=== PATIENT | female | born 1950 | race Caucasian/White ===

== ENCOUNTER 2016-11-15 15:46 | Inpatient (IN) ==
[2016-11-15] MEDS ORDERED: ASPIRIN PO STA (15:49)
[2016-11-15] MEDS ORDERED: NITROGLYCERIN SL PRN (15:49)
--- NOTE | 2016-11-15 15:58 | ED EKG INTERP ---
EKG Interpretation - EKG Time of EKG reading by physician:: 15:48 EKG Read and Signed by:: Seamus Bradley EKG Interpretation (*Must complete 3 of following elements*): Abnormal (ST and T wave abnormality, consider anterior ischemia) Rate: 100 Rhythm: accelerated junctional rhythm Comments: ST and T wave abnormality, consider inferior ischemia Attestation - Scribe Verification/Attestation Scribe:: Destiny Garcia Acting as Scribe for:: Seamus Bradley Scribe documention review:: This chart was documented by a scribe and accurately reflects the service the provider performed and the decisions made by the provider.
[2016-11-15 16:12] LABS: MANUAL DIFF NEEDED? NO
[2016-11-15 16:25] LABS: BASO% 0.9 % (0.0-0.8); EOS# 0.78 X1000 (0.0-0.7); EOS% 7.7 % (0.0-10.0); HEMOGLOBIN 13.4 g/dL (12.0-16.0); LYMPH# 2.54 X1000 (1.2-3.4); LYMPH% 25.2 % (20.5-51.1); MCH 31.6 PG (27-31); MCHC 33.5 g/dL (33-37); MCV 94.3 FL (81-99); MONO# 0.99 X1000 (0.11-0.59); MONO% 9.8 % (1.7-9.3); MPV 9.8 FL (7.4-10.4); NEUT% 56.4 % (42.2-75.2); PLT 265 X1000 (130-400); RBC 4.24 XMIL (4.2-5.4)
[2016-11-15 16:35] LABS: INR 1.1; PROTIME 11.6 Seconds (9.2-11.7); PTT 28.9 Seconds (22.0-36.0)
[2016-11-15 16:56] LABS: AGAP 12; ALKALINE PHOSPHATASE 114 U/L (32-104); BUN 15 mg/dL (8-22); CALCIUM 9.3 mg/dL (8.8-10.2); CHLORIDE 97 mmol/L (98-107); CK PROFILE 52 U/L (24-173); COSMO 275; GOT 16 U/L (10-30); GPT 11 U/L (10-36); MAGNESIUM 1.7 mg/dL (1.5-2.7); SODIUM 137 mmol/L (136-145); TCO2 28 mmol/L (25-35); TOTAL BILIRUBIN 0.65 mg/dL (0.20-1.00); TOTAL PROTEIN 7.4 g/dL (6.3-8.3)
[2016-11-15] MEDS ORDERED: NS 1,000 ML IV ONE ×2 (17:00→21:11)
[2016-11-15] MEDS ORDERED: SOLU-MEDROL IV ONE (17:01)
--- NOTE | 2016-11-15 17:03 | PROVIDER DOCUMENTATION ---
HPI-Respiratory General - General Source: patient - History of Present Illness-Resp Quality of Pain: reports: tightness Severity in ED: reports: mild Onset/Duration: reports: unsure Timing: reports: still present Exposure: reports: unknown cause Cough Quality/Degree: reports: no cough Episode Frequency: occasional episodes Current Respiratory Medication Therapy: Initiated see nurses note Modifying Factors: improves with: nothing Associated Symptoms: reports: shortness of breath, wheezing. denies: chest pain /soreness, cough, dizziness, earache, facial pain, fever/chills, flu-like symptoms, headache, heart racing, hurts to breathe, hyperventilating, lightheadedness, muscle/bodyaches, nasal congestion, nasal drainage, sinus pain , short of breath, sore throat, sweaty Similar Symptoms Previously?: Yes Recently seen or treated by another doctor?: No <Destiny Garcia - Last Filed: 11/15/16 17:43> <Seamus Bradley - Last Filed: 11/15/16 17:47> - General Chief Complaint: Chest Pain Stated Complaint: CP/SOB Time Seen by Provider: 11/15/16 16:51 Allergies/Adverse Reactions: Patient Allergies Allergy/AdvReac Type Severity Reaction Status Date / Time No Known Allergies Allergy Verified 11/15/16 17:43 Home Medications: Home Medication List Medication Instructions Recorded Confirmed Last Taken Type Rivaroxaban [Xarelto] 20 mg PO WSUPPER #30 tablet 02/10/16 06/18/16 06/17/16 Rx Aspirin 81 mg PO DAILY 04/14/16 06/18/16 06/17/16 History Furosemide 40 mg PO EVERY OTHER DAY 04/14/16 06/18/16 06/17/16 History Tiotropium [place] Inhaler 1 puff INH RTDAILY #1 inhaler 04/20/16 06/18/1606/17 Rx [Spiriva] Hydrocodone Bit/Acetaminophen 1 each PO Q4-6H PRN PRN 06/18/16 06/18/16 History [Hydrocodon-Acetaminoph 7.5-325] ATORVAstatin [Lipitor] 40 mg PO QHS #30 tablet 06/22/16 Unknown Rx Albuterol 2.5MG/Ipratrop 0.5MG 3 ml INH RTQ4H PRN #5 neb 06/22/16 Unknown Rx [Duoneb (A & A)] Alprazolam 0.25 mg PO Q6H PRN PRN #10 tablet 06/22/16 Unknown Rx Carvedilol [Coreg] 6.25 mg PO Q12H #60 tablet 06/22/16 Unknown Rx Digoxin [Lanoxin] 125 microgm PO DAILY #30 tablet 06/22/16 Unknown Rx Diltiazem C.d. [Cardizem Cd] 180 mg PO DAILY #30 capsule 06/22/16 Unknown Rx Magnesium Oxide 400 mg PO DAILY #30 tablet 06/22/16 Unknown Rx Metformin HCl 500 mg PO BID #60 tablet 06/22/16 Unknown Rx Omeprazole 40 mg PO DAILY #30 capsule. 06/22/16 Unknown Rx Paroxetine [Paxil] 20 mg PO DAILY #10 tablet 06/22/16 Unknown Rx Potassium Chloride 20 meq PO DAILY #30 tablet.er 06/22/16 Unknown Rx - History of Present Illness-Resp Nature of Presenting Problem: Pt is 66 y/o F presents to the ED with SOB. Pt states the SOB has worsened lately. Pt denies F. Pt states she has COPD. Pt denies CP. (Destiny Garcia) Review of Systems - Adult - REVIEW OF SYSTEMS - ADULT Constitutional: reports: no symptoms reported Eyes: reports: no symptoms reported Ears, Nose, Mouth & Throat: reports: no symptoms reported Cardiovascular: reports: irregular heart rate (tachy). denies: chest pain, heart murmur Respiratory: reports: shortness of breath, wheezing. denies: cough Gastrointestinal: reports: no symptoms reported Genitourinary: reports: no symptoms reported Musculoskeletal: reports: no symptoms reported Integumentary: reports: no symptoms reported Neurological: reports: no symptoms reported Psychiatric: reports: no symptoms reported Endocrine: reports: no symptoms reported Hematologic/Lymphatic: reports: no symptoms reported Allergic/Immunologic: reports: no symptoms reported All Other Systems: Reviewed and Negative <Destiny Garcia - Last Filed: 11/15/16 17:43> Past History - Adult - PAST MEDICAL HISTORY-ADULT Review of Records: reports: Nursing Assessment Review, Medications Reviewed, Social history reviewed & non-contributory. Major Childhood Illnesses: reports: denies history Cardiovascular: reports: A-Fib, blood clots (dvt, PE), HTN, PVD Respiratory: reports: COPD, pneumonia (MRSA) Gastrointestinal: reports: GERD Obstetrical/Gynecological: reports: denies history Genitourinary: reports: chronic UTI's Musculoskeletal: reports: denies history Neurological: reports: CVA Psychiatric: reports: anxiety, depression Endocrine/Immune: reports: denies history Other Conditions: reports: MRSA - PRIOR SURGERIES/PROCEDURES Surgical/Procedure History: reports: cholecystectomy, BTL, indwelling device ( PICC line), joint replacement - IMMUNIZATION STATUS Childhood Immunizations: See Nurse Assessment Flu Vaccine: See Nurse Assessment - FAMILY HISTORY Family History: reviewed, not pertinent - SOCIAL HISTORY Smoking: cigarettes, less than 1 pack/day Provider spent 3-5 mins advising pt. on dangers of tobacco.: Discussed manners to quit use, and f/u contacts for add'l counseling. Substance Use: denies Living Situation: family <Destiny Garcia - Last Filed: 11/15/16 17:43> Physical Exam-General - PHYSICAL EXAM-ADULT Initial Vital Signs Reviewed: Yes - CONSTITUTIONAL General Appearance: appears well, alert, mild distress - EYES Eyes: PERRL/EOMI, pink conjunctivae, fundi clear, no AV nicking - HEAD, EARS, NOSE, MOUTH & THROAT HENMT: normocephalic/atraumatic, moist mucous membranes, normal ENT inspection, TMs normal, pharynx normal - NECK Neck: non-tender, full range of motion, supple, normal inspection - RESPIRATORY Respiratory: chest non-tender, no pleuratic chest pain, no respiratory distress , no accessory muscle use, rhonchi (bilateral), wheezing (bilateral), increased rate - CARDIOVASCULAR Cardiovascular: normal peripheral pulses, no edema, no gallop, no JVD, no murmur , tachycardia - GASTROINTESTINAL (ABDOMEN) Abdominal Exam: normal bowel sounds, non tender, soft, no organomegaly, no pulsatile mass - LYMPHATIC Lymphatic: no adenopathy - MUSCULOSKELETAL Back Exam: normal inspection, no CVA tenderness, no vertebral tenderness Extremity: normal range of motion, non-tender, normal gait, normal inspection, no pedal edema, no calf tenderness, normal capillary refill - SKIN Integumentary: normal color, normal turgor, warm/dry - NEUROLOGIC Neurologic: grossly normal - PSYCHIATRIC Psych/Mental Status: normal mood/affect, oriented x 3 <Destiny Garcia - Last Filed: 11/15/16 17:43> Progress - XRAY 1 XRAY: Bilateral XRAY Study: Chest Impression: Abnormal XRAY Interpretation: COPD changes, but no definite acute pathology. - CONSULTS/PCP/HOSPITALIST Notification #1 *Consult/PCP/Hospitalist*: Hospitalist Time Discussed: 17:44 Reason/Comments: Hospitalist accepted admit Consult Disposition: Admit <Destiny Garcia - Last Filed: 11/15/16 17:43> <Seamus Bradley - Last Filed: 11/15/16 17:47> - PLAN OF CARE/RESULTS Progress/Plan/Lab Results: Laboratory Tests 11/15/16 11/15/16 11/15/16 15:56 15:56 15:56 WBC 10.07 RBC 4.24 Hgb 13.4 Hct 40.0 MCV 94.3 MCH 31.6 H MCHC 33.5 RDW Std Deviation 13.2 Plt Count 265 MPV 9.8 Immature Gran % (Auto) 0.0 Neut % (Auto) 56.4 Lymph % (Auto) 25.2 [place] % (Auto) 9.8 H Eos % (Auto) 7.7 Baso % (Auto) 0.9 H Immature Gran # (Auto) 0.00 Neut # (Auto) 5.67 Lymph # (Auto) 2.54 [place] # (Auto) 0.99 H Eos # (Auto) 0.78 H Baso # (Auto) 0.09 PT INR PTT (Actin FS) D-Dimer 0.69 H Sodium 137 Potassium 4.0 Chloride 97 L Carbon Dioxide 28 Anion Gap 12 BUN 15 Creatinine 0.8 Estimated GFR/1.73 m2 > 60 BUN/Creatinine Ratio 19 Glucose 106 H Calculated Osmolality 275 Calcium 9.3 Magnesium 1.7 Total Bilirubin 0.65 AST 16 ALT 11 Alkaline Phosphatase 114 H Creatine Kinase 52 Troponin T Total Protein 7.4 Albumin 4.0 Globulin 3.4 Albumin/Globulin Ratio 1.2 11/15/16 11/15/16 15:56 15:56 WBC RBC Hgb Hct MCV MCH MCHC RDW Std Deviation Plt Count MPV Immature Gran % (Auto) Neut % (Auto) Lymph % (Auto) [place] % (Auto) Eos % (Auto) Baso % (Auto) Immature Gran # (Auto) Neut # (Auto) Lymph # (Auto) [place] # (Auto) Eos # (Auto) Baso # (Auto) PT 11.6 INR 1.10 PTT (Actin FS) 28.9 D-Dimer Sodium Potassium Chloride Carbon Dioxide Anion Gap BUN Creatinine Estimated GFR/1.73 m2 BUN/Creatinine Ratio Glucose Calculated Osmolality Calcium Magnesium Total Bilirubin AST ALT Alkaline Phosphatase Creatine Kinase Troponin T < 0.010 Total Protein Albumin Globulin Albumin/Globulin Ratio Orders Category Date Time Status Cardiac Monitoring DIRECTED Care 11/15/16 15:49 Active Saline Loc NOW Care 11/15/16 15:49 Active CHEST-2 VIEWS [RAD] Stat Exams 11/15/16 15:49 Taken CBC WITH ELECTRONIC DIFF [HEME] Stat Lab 11/15/16 15:56 Completed CK PROFILE [SP CHEM] Stat Lab 11/15/16 15:56 Completed COMPREHENSIVE METABOLIC PANEL [CHEM] Stat Lab 11/15/16 15:56 Completed D-DIMER [CHEM] Stat Lab 11/15/16 15:56 Completed MAGNESIUM [CHEM] Stat Lab 11/15/16 15:56 Completed PRO B-NATRIURETIC PEPTIDE Stat Lab 11/15/16 15:56 Received PROTIME WITH INR [COAG] Stat Lab 11/15/16 15:56 Completed PTT [COAG] Stat Lab 11/15/16 15:56 Completed TROPONIN T Stat Lab 11/15/16 15:56 Completed 0.9% Sodium Chloride Inj [Ns] 1,000 ml Med 11/15/16 17:00 Active IV 125 mls/hr Aspirin Med 11/15/16 15:49 Discontinued 325 mg PO STAT STA Methylprednisolone Sod Succ [Solu-Medrol] Med 11/15/16 17:01 Discontinued 125 mg IV NOW ONE Nitroglycerin Sl [Nitroglycerin] Med 11/15/16 15:49 Active 0.4 mg SL Q5M PRN PRN EKG [EKG] Stat Ther 11/15/16 15:49 Ordered Vital Signs - 24 hr 11/15/16 15:49 Temperature 98.2 F Pulse Rate 101 H Respiratory 24 Rate Blood Pressure 157/78 O2 Sat by Pulse 94 L Oximetry Laboratory Tests 11/15/16 11/15/16 11/15/16 15:56 15:56 15:56 WBC 10.07 RBC 4.24 Hgb 13.4 Hct 40.0 MCV 94.3 MCH 31.6 H MCHC 33.5 RDW Std Deviation 13.2 Plt Count 265 MPV 9.8 Immature Gran % (Auto) 0.0 Neut % (Auto) 56.4 Lymph % (Auto) 25.2 [place] % (Auto) 9.8 H Eos % (Auto) 7.7 Baso % (Auto) 0.9 H Immature Gran # (Auto) 0.00 Neut # (Auto) 5.67 Lymph # (Auto) 2.54 [place] # (Auto) 0.99 H Eos # (Auto) 0.78 H Baso # (Auto) 0.09 PT INR PTT (Actin FS) D-Dimer 0.69 H Sodium 137 Potassium 4.0 Chloride 97 L Carbon Dioxide 28 Anion Gap 12 BUN 15 Creatinine 0.8 Estimated GFR/1.73 m2 > 60 BUN/Creatinine Ratio 19 Glucose 106 H Calculated Osmolality 275 Calcium 9.3 Magnesium 1.7 Total Bilirubin 0.65 AST 16 ALT 11 Alkaline Phosphatase 114 H Creatine Kinase 52 Troponin T Tzk-W-Hkoooyemiea Pept Total Protein 7.4 Albumin 4.0 Globulin 3.4 Albumin/Globulin Ratio 1.2 11/15/16 11/15/16 11/15/16 15:56 15:56 15:56 WBC RBC Hgb Hct MCV MCH MCHC RDW Std Deviation Plt Count MPV Immature Gran % (Auto) Neut % (Auto) Lymph % (Auto) [place] % (Auto) Eos % (Auto) Baso % (Auto) Immature Gran # (Auto) Neut # (Auto) Lymph # (Auto) [place] # (Auto) Eos # (Auto) Baso # (Auto) PT 11.6 INR 1.10 PTT (Actin FS) 28.9 D-Dimer Sodium Potassium Chloride Carbon Dioxide Anion Gap BUN Creatinine Estimated GFR/1.73 m2 BUN/Creatinine Ratio Glucose Calculated Osmolality Calcium Magnesium Total Bilirubin AST ALT Alkaline Phosphatase Creatine Kinase Troponin T < 0.010 Ipv-J-Kfwhrvxboxy Pept 147 Total Protein Albumin Globulin Albumin/Globulin Ratio Laboratory Tests 11/15/16 11/15/16 11/15/16 15:56 15:56 15:56 WBC 10.07 RBC 4.24 Hgb 13.4 Hct 40.0 MCV 94.3 MCH 31.6 H MCHC 33.5 RDW Std Deviation 13.2 Plt Count 265 MPV 9.8 Immature Gran % (Auto) 0.0 Neut % (Auto) 56.4 Lymph % (Auto) 25.2 [place] % (Auto) 9.8 H Eos % (Auto) 7.7 Baso % (Auto) 0.9 H Immature Gran # (Auto) 0.00 Neut # (Auto) 5.67 Lymph # (Auto) 2.54 [place] # (Auto) 0.99 H Eos # (Auto) 0.78 H Baso # (Auto) 0.09 PT INR PTT (Actin FS) D-Dimer 0.69 H Specimen Type Sample Site pH pCO2 pO2 HCO3 Base Excess Oxyhemoglobin ABG O2 Sat (Calculated) ABG O2 Saturation ABG Carboxyhemoglobin ABG Methemoglobin Sarabjit Test A-a O2 Difference Total Hemoglobin Lactate Liter Flow Blood Gas Modality FiO2 % Sodium 137 Potassium 4.0 Chloride 97 L Carbon Dioxide 28 Anion Gap 12 BUN 15 Creatinine 0.8 Estimated GFR/1.73 m2 > 60 BUN/Creatinine Ratio 19 Glucose 106 H Calculated Osmolality 275 Calcium 9.3 Magnesium 1.7 Total Bilirubin 0.65 AST 16 ALT 11 Alkaline Phosphatase 114 H Creatine Kinase 52 Troponin T Jue-Z-Pvbtnwcniad Pept Total Protein 7.4 Albumin 4.0 Globulin 3.4 Albumin/Globulin Ratio 1.2 11/15/16 11/15/16 11/15/16 15:56 15:56 15:56 WBC RBC Hgb Hct MCV MCH MCHC RDW Std Deviation Plt Count MPV Immature Gran % (Auto) Neut % (Auto) Lymph % (Auto) [place] % (Auto) Eos % (Auto) Baso % (Auto) Immature Gran # (Auto) Neut # (Auto) Lymph # (Auto) [place] # (Auto) Eos # (Auto) Baso # (Auto) PT 11.6 INR 1.10 PTT (Actin FS) 28.9 D-Dimer Specimen Type Sample Site pH pCO2 pO2 HCO3 Base Excess Oxyhemoglobin ABG O2 Sat (Calculated) ABG O2 Saturation ABG Carboxyhemoglobin ABG Methemoglobin Sarabjit Test A-a O2 Difference Total Hemoglobin Lactate Liter Flow Blood Gas Modality FiO2 % Sodium Potassium Chloride Carbon Dioxide Anion Gap BUN Creatinine Estimated GFR/1.73 m2 BUN/Creatinine Ratio Glucose Calculated Osmolality Calcium Magnesium Total Bilirubin AST ALT Alkaline Phosphatase Creatine Kinase Troponin T < 0.010 Ewr-I-Xgddtofeflw Pept 147 Total Protein Albumin Globulin Albumin/Globulin Ratio 11/15/16 17:27 WBC RBC Hgb Hct MCV MCH MCHC RDW Std Deviation Plt Count MPV Immature Gran % (Auto) Neut % (Auto) Lymph % (Auto) [place] % (Auto) Eos % (Auto) Baso % (Auto) Immature Gran # (Auto) Neut # (Auto) Lymph # (Auto) [place] # (Auto) Eos # (Auto) Baso # (Auto) PT INR PTT (Actin FS) D-Dimer Specimen Type ARTERIAL Sample Site R RADIAL pH 7.34 L pCO2 57 H* pO2 70 HCO3 27.5 H Base Excess 3.5 H Oxyhemoglobin 93.1 L ABG O2 Sat (Calculated) 17.9 ABG O2 Saturation 97.9 ABG Carboxyhemoglobin 3.20 H ABG Methemoglobin 1.7 H Sarabjit Test YES A-a O2 Difference 87.0 Total Hemoglobin 13.7 Lactate 0.60 Liter Flow 3.0 Blood Gas Modality CAN[place]ULA FiO2 % 32.0 Sodium Potassium Chloride Carbon Dioxide Anion Gap BUN Creatinine Estimated GFR/1.73 m2 BUN/Creatinine Ratio Glucose Calculated Osmolality Calcium Magnesium Total Bilirubin AST ALT Alkaline Phosphatase Creatine Kinase Troponin T Ajw-H-Cftqznauirs Pept Total Protein Albumin Globulin Albumin/Globulin Ratio (Destiny Garcia) Departure - Departure Time of Disposition Order: 17:44 Certified Medical Emergency: Emergent <Destiny Garcia - Last Filed: 11/15/16 17:43> - Departure Time of Disposition Order: 17:46 Certified Medical Emergency: Emergent <Seamus Bradley - Last Filed: 11/15/16 17:47> - Departure DIAGNOSIS: COPD exacerbation Disposition: ADMITTED INPATIENT 09 Condition: Stable Additional Instructions: ED Follow Up Instructions: You have been treated by a care provider in the Emergency Department. These instructions are being provided to you so you can have an understanding of how to care for yourself upon discharge. Upon discharge from the Emergency Department, you are responsible for making arrangements for follow-up care by a physician of your choice. Take all prescribed medications as directed. Return to the Emergency Department immediately for any new or worsening symptoms. You may call the Physician Referral phone number at [phone] to obtain a list of Physicians who are taking new patients. Referrals: Toy Salcido MD [Primary Care Provider] - Attestation - Scribe Verification/Attestation Scribe:: Destiny Garcia Acting as Scribe for:: Seamus Bradley Scribe documention review:: This chart was documented by a scribe and accurately reflects the service the provider performed and the decisions made by the provider. <Destiny Garcia - Last Filed: 11/15/16 17:43> Physician Attestation
--- NOTE | 2016-11-15 17:16 | Diag Imaging Result Document ---
PROCEDURE NAME: CHEST-2 VIEWS - 11/15/2016 PA AND LATERAL RADIOGRAPH OF THE CHEST: COMPARISON: 06/19/2016. FINDINGS: The lungs appear somewhat hyperinflated, suggesting COPD. This is stable. Otherwise, the lungs are grossly clear. There is no definite pleural fluid collection. There are stable CABG changes. Cardiac silhouette is grossly unremarkable, otherwise. IMPRESSION: COPD changes, but no definite acute pathology.
[2016-11-15] MEDS: DUONEB (A & A) INH PRN ×2 (17:29→20:55)
[2016-11-15 17:38] LABS: ALLEN TEST YES; BE 3.5 mmoll (-3.0-3.0); BLOOD TYPE ARTERIAL; DRAW SITE R RADIAL; METHB 1.7 % (0.0-1.5); O2(CT) 17.9 mL/dL (15.0-23.0); PO2(98.6) 70 mmHg (60-100); SAMPLE BLOOD; SAO2 97.9 % (95.0-100.0); THB 13.7 g/dL (11.5-17.4); pH(98.6) 7.34 (7.35-7.45)
[2016-11-15 17:40] LABS: MODALITY CANNULA; PCO2(98.6) 57 mmHg (35-45)
--- NOTE | 2016-11-15 19:10 | HISTORY AND PHYSICAL ---
HISTORY OF PRESENT ILLNESS: She presents with complaints of increased dyspnea on exertion. She really does not describe much orthopnea, paroxysmal nocturnal dyspnea, palpitations or really chest pain, but just progressive dyspnea and shortness of breath with exertion. On examination, she appeared to have significant bronchospasm. She is known to have underlying COPD. PAST MEDICAL HISTORY: 1. COPD on O2 therapy. 2. Atrial fibrillation which has been chronic. She has had a maze procedure at [facility] for ostium secundum. 3. Atrial septal defect. Ostium secundum status post maze procedure. 4. Diabetes mellitus type 2. 5. Hypertension. 6. History of DVT, pulmonary emboli in the past. 7. Long history of smoking. PAST SURGICAL HISTORY: 1. Status post tubal ligation. 2. Total hip replacement. 3. Cholecystectomy. 4. Basal cell excision from her face. 5. Tarsal tunnel release. 6. Had surgery in the last couple of years for tricuspid repair, septal defect repair with maze procedure. FAMILY HISTORY: Noncontributory. SOCIAL HISTORY: I believe she lives alone. Her son was with her. The family is engaged in her care. ALLERGIES: No known drug allergies. MEDICATIONS: We will review her list of medications. REVIEW OF SYSTEMS: Constitutional: She does not describe weight loss. No fever or chills. HEENT: Unremarkable. Respiratory: As above. Increased dyspnea on exertion. She has a little bit of pleuritic discomfort to both sides of lungs anterior. Cardiovascular: History of maze procedure, ostium secundum, atrial septal defect repair. She had a heart catheterization back in June 2016. They did transesophageal conversion for atrial fibrillation in the cardiac lab. Echocardiogram done on 04/14/2016 showed an estimated ejection fraction of 65%, biatrial enlargement, left ventricular diastolic pressure of 4.8, left intraventricular septum was 0.8 cm, left ventricle posterior wall 0.8, mild tricuspid regurgitation, mild mitral regurgitation. Gastrointestinal/Genitourinary: No complaints of GI symptoms, gross hematuria or dysuria. Musculoskeletal/Neurologic: No specific complaints, mainly her breathing. PHYSICAL EXAMINATION: GENERAL: Awake, alert, pleasant. VITAL SIGNS: Temp 98.2 degrees, pulse 100, respirations 24, blood pressure 157/78. HEENT: Pupils are equal, round. NECK: She has no CVP noted in neck veins. RESPIRATORY: Lungs are clear but she has prolonged expiratory phase and you can hear diffuse end expiratory wheezing throughout all lung alvarado. I do not hear rales and I do not hear any evidence of rhonchi. ABDOMEN: Soft. CARDIOVASCULAR: Regular rhythm and rate without murmur or S3. ABDOMEN: Soft, nontender. SKIN: Warm and dry. VASCULAR: Carotid, radial and popliteal pulses 2+ and symmetrical. LABS: White blood cell count 10,070, hematocrit 40, platelet count 265,000. Sodium 137, potassium 4.0, chloride 97, bicarb 28, BUN 15, creatinine 0.8. Blood sugar 106, magnesium 1.7, albumin 4.0, pro time 11.6, PTT was 28. Chest x-ray: COPD changes but no definite acute pathology. Lungs appear somewhat hyperinflated suggesting COPD otherwise grossly clear. ASSESSMENT AND PLAN: 1. Exacerbation of chronic obstructive pulmonary disease and bronchospasm. I do not see any sign of pneumonia. I do not see any sign of atypical infection. I am going to cover for upper respiratory and lower respiratory organisms given her underlying chronic obstructive pulmonary disease. We will give her some Rocephin 1 g daily. We will give her bronchodilators including the beta-agonist and steroid inhalers. We will put her on some Solu-Medrol, supplementary O2 and see if we can improve things. 2. She has normal left ventricular function. She is status post maze procedure 2 years ago and does not appear to have significant left ventricular dysfunction or change. I think we can give her normal saline and we will probably go ahead and give it to her at 85 mL an hour. Looking at her labs, serum creatinine is 0.8 so renal function looks good. 3. Diabetes mellitus type 2. We are going to check sugars and put her on a sliding scale. 4. History of paroxysmal atrial fibrillation status post DC conversion and transesophageal. Appears to be in sinus rhythm now. I need to look at her EKG. 5. History of hypertension. We will watch her blood pressure. 6. Nutritional status looks good. REVIEW OF HOME MEDICATIONS: 1. Lipitor 40 mg a day. We will continue that. 2. DuoNebs at home. We will continue those in the hospital as well. 3. Aspirin 81 mg a day. 4. Coreg 6.25 mg twice a day. 5. Digoxin 125 mcg daily. 6. Diltiazem CD 180 mg a day. 7. Lasix 40 mg every other day. We will hold that for now. 8. Hydrocodone 7.5 q.4-6 hours p.r.n. pain. 9. Magnesium oxide 400 mg a day. 10. Metformin 500 mg b.i.d. 11. Omeprazole 40 mg a day. 12. Paxil 20 mg a day. 13. Potassium chloride 20 mEq daily. 14. Xarelto 20 mg daily. 15. Spiriva 1 puff daily. 16. We will continue these. We will hold the Lasix for now.
[2016-11-15] MEDS ORDERED: NS NEB INH SCH (21:11)
[2016-11-15] MEDS: SOLU-MEDROL IV SCH (23:06)
[2016-11-15] MEDS: COREG PO SCH (23:06)
[2016-11-15] MEDS: LIPITOR PO SCH (23:06)
[2016-11-15] MEDS: ROCEPHIN 1 GM/NS 50 ML IV SCH (23:07)
[2016-11-15] MEDS: HUMULIN R SUBQ SCH (23:12)
[2016-11-15] MEDS: XOPENEX NEB INH SCH (23:15)
[2016-11-15] MEDS: PULMICORT INH SCH (23:15)
[2016-11-16] MEDS: XOPENEX NEB INH SCH ×7 (03:09→23:05)
[2016-11-16] MEDS: NORCO-7.5 PO PRN ×3 (03:46→22:27)
[2016-11-16] MEDS: SOLU-MEDROL IV SCH ×3 (06:28→22:29)
[2016-11-16] MEDS: HUMULIN R SUBQ SCH ×4 (06:29→22:29)
[2016-11-16] MEDS: PROTONIX PO SCH (06:29)
[2016-11-16 07:02] LABS: HEMATOCRIT 39.1 % (37.0-47.0); HEMOGLOBIN 13.1 g/dL (12.0-16.0); LYMPH# 0.61 X1000 (1.2-3.4); LYMPH% 9.1 % (20.5-51.1); MCH 31.2 PG (27-31); MCHC 33.5 g/dL (33-37); MCV 93.1 FL (81-99); MONO# 0.03 X1000 (0.11-0.59); MONO% 0.4 % (1.7-9.3); MPV 9.7 FL (7.4-10.4); NEUT% 90.5 % (42.2-75.2); PLT 220 X1000 (130-400)
[2016-11-16 07:05] LABS: MANUAL DIFF NEEDED? YES
[2016-11-16 07:15] LABS: LYMPHS 10 % (21-51); MONO 1 % (1-9)
[2016-11-16 07:22] LABS: AGAP 16; ALBUMIN 3.7 g/dL (3.5-5.0); ALKALINE PHOSPHATASE 109 U/L (32-104); BUN 16 mg/dL (8-22); CALCIUM 9.1 mg/dL (8.8-10.2); CHLORIDE 96 mmol/L (98-107); COSMO 276; DIGOXIN 0.5 ng/mL (0.9-2.0); GOT 14 U/L (10-30); GPT 10 U/L (10-36); SODIUM 136 mmol/L (136-145); TCO2 24 mmol/L (25-35); TOTAL BILIRUBIN 0.49 mg/dL (0.20-1.00); TOTAL PROTEIN 6.7 g/dL (6.3-8.3)
[2016-11-16] MEDS: PULMICORT INH SCH ×2 (07:33→20:05)
[2016-11-16 08:01] LABS: FREE T4 1.28 ng/dL (0.93-1.70)
[2016-11-16] MEDS: PAXIL PO SCH (08:12)
[2016-11-16] MEDS: MAG-OX PO SCH (08:12)
[2016-11-16] MEDS: COREG PO SCH ×2 (08:12→22:28)
[2016-11-16] MEDS: LANOXIN PO SCH (08:12)
[2016-11-16] MEDS: ASPIRIN PO SCH (08:12)
[2016-11-16] MEDS: CARDIZEM CD PO SCH (08:12)
--- NOTE | 2016-11-16 16:53 | PROGRESS NOTE ---
DATE: 11/16/2016 Ms. Wolf is feeling better. Breathing better, much more comfortable. Remained afebrile.Vital signs: Temperature 97.9 degrees, pulse 85, respirations 19 blood pressure 112/51. HEENT: Pupils are equal, round, reactive. Respiratory: Lungs are clear in all lung alvarado. Cardiovascular: Regular rhythm and rate without murmur or S3. Abdomen: Soft. Skin: Is warm and dry. Urine output is 1200 mL. Blood sugar 137, 194. ASSESSMENT/PLAN: 1. COPD and pneumonia, COPD exacerbation, doing better. Continue present therapy. 2. Atrial septal defect which she has had the Maze procedure. Hemodynamics looked good. Review of orders: She is on Xarelto 20 mg a day. Methylprednisone 80 mg IV q.8. I think I will cut that dose down to 40 q.8. Ceftriaxone 1 g q.24 hours, Cardizem CD 180 mg daily. Lipitor 40 mg at bedtime. Coreg 6.25 mg p.o. q.12 hours.
[2016-11-16] MEDS: XARELTO PO SCH (17:24)
[2016-11-16] MEDS: XANAX PO PRN (22:28)
[2016-11-16] MEDS: ZOFRAN IV PRN (22:28)
[2016-11-16] MEDS: LIPITOR PO SCH (22:28)
[2016-11-16] MEDS: ROCEPHIN 1 GM/NS 50 ML IV SCH (22:29)
[2016-11-17] MEDS: XOPENEX NEB INH SCH ×6 (02:50→22:56)
[2016-11-17] MEDS: SOLU-MEDROL IV SCH ×3 (04:30→21:28)
[2016-11-17] MEDS: NORCO-7.5 PO PRN ×3 (04:35→19:57)
[2016-11-17] MEDS: ZOFRAN IV PRN ×2 (04:36→11:44)
[2016-11-17] MEDS: HUMULIN R SUBQ SCH ×4 (06:47→21:28)
[2016-11-17] MEDS: PROTONIX PO SCH (06:47)
[2016-11-17] MEDS: PULMICORT INH SCH ×2 (07:54→20:23)
[2016-11-17] MEDS: COREG PO SCH ×2 (09:29→21:27)
[2016-11-17] MEDS: NICODERM PATCH TD SCH (09:29)
[2016-11-17] MEDS: PAXIL PO SCH (09:29)
[2016-11-17] MEDS: MAG-OX PO SCH (09:29)
[2016-11-17] MEDS: CARDIZEM CD PO SCH (09:29)
[2016-11-17] MEDS: ASPIRIN PO SCH (09:30)
[2016-11-17] MEDS: LANOXIN PO SCH (09:30)
--- NOTE | 2016-11-17 09:33 | PROGRESS NOTE ---
DATE: 11/17/2016 SUBJECTIVE: Ms. Wolf states she is really not breathing better. Feels like she is breathing a little worse today. She had a rough night. A lot of wheezing. Feels like thick secretions in her bronchial airways. OBJECTIVE: Vital signs: Temp 98 degrees, pulse 77, respirations 26, blood pressure 116/50. HEENT: Pupils are equal and round. Neck: CVP less than 6 cm. Lungs: Clear in all lung alvarado. End-expiratory wheezing throughout. Cardiovascular: Regular rhythm and rate without murmur or S3. Abdomen: Soft. LABS: Blood sugars 137, 194, 144. ASSESSMENT AND PLAN: 1. Chronic obstructive pulmonary disease and pneumonia. Continue present treatment, bronchodilators, IV fluids. 2. Atrial septal defect status post Maze procedure. We will check another chest x-ray. Lab looks good. 3. Still on methylprednisone 80 mg IV q.8, Xarelto 20 mg a day, nebulized bronchodilators, nicotine patch. I have her on ceftriaxone 1 g q.24 hours, Pulmicort 0.5 b.i.d., Protonix 40 mg a day, Paxil 20 mg a day, magnesium oxide 400 mg a day, Coreg 6.25 mg q.12 hours, Cardizem CD 180 mg daily, aspirin 81 mg a day.
[2016-11-17] MEDS: XANAX PO PRN ×2 (11:44→19:56)
[2016-11-17] MEDS: XARELTO PO SCH (16:50)
[2016-11-17] MEDS: LIPITOR PO SCH (21:27)
[2016-11-17] MEDS: ROCEPHIN 1 GM/NS 50 ML IV SCH (21:28)
[2016-11-18] MEDS: XOPENEX NEB INH SCH ×6 (03:40→23:20)
[2016-11-18] MEDS: SOLU-MEDROL IV SCH ×3 (06:00→23:00)
[2016-11-18] MEDS: PROTONIX PO SCH (06:00)
[2016-11-18] MEDS: PULMICORT INH SCH ×2 (07:35→19:40)
[2016-11-18] MEDS: CARDIZEM CD PO SCH (08:39)
[2016-11-18] MEDS: ASPIRIN PO SCH (08:39)
[2016-11-18] MEDS: LANOXIN PO SCH (08:39)
[2016-11-18] MEDS: COREG PO SCH ×2 (08:39→23:01)
[2016-11-18] MEDS: PAXIL PO SCH (08:39)
[2016-11-18] MEDS: NICODERM PATCH TD SCH (08:39)
[2016-11-18] MEDS: MAG-OX PO SCH (08:39)
[2016-11-18] MEDS: NORCO-7.5 PO PRN ×2 (08:45→21:00)
[2016-11-18] MEDS: HUMULIN R SUBQ SCH ×3 (11:35→23:00)
[2016-11-18] MEDS: COLACE PO SCH ×2 (11:35→23:00)
[2016-11-18] MEDS: XANAX PO PRN (11:35)
[2016-11-18] MEDS ORDERED: COLACE ONE (11:36)
[2016-11-18] MEDS ORDERED: XANAX ONE (11:37)
--- NOTE | 2016-11-18 14:19 | PROGRESS NOTE ---
DATE: 11/18/2016 SUBJECTIVE: Ms. Wolf feels a little better, breathing maybe a little better. She asked if we could go up on her lorazepam, she is still pretty anxious. She is eating well, although she does not have much appetite. OBJECTIVE: Vital Signs: Vital signs are stable. Lungs: Clear anterolateral. Decreased breath sounds, both bases. Cardiovascular: She has maybe a 1-2 over 4 systolic ejection murmur at the left sternal border. Abdomen: Soft. Skin: Warm and dry. ASSESSMENT AND PLAN: 1. Chronic obstructive pulmonary disease exacerbation, pneumonia. Doing better. Continue her bronchodilators and her steroid inhalers and antibiotic. 2. Status post Maze procedure for aortic septal defect, and doing well hemodynamically. Her fluid and volume level look good. 3. Anxiety. I will increase lorazepam. cc: Sarabjit Cloud MD
[2016-11-18] MEDS: XARELTO PO SCH (16:35)
[2016-11-18] MEDS: LIPITOR PO SCH (23:01)
[2016-11-18] MEDS: ROCEPHIN 1 GM/NS 50 ML IV SCH (23:01)
[2016-11-19] MEDS: XOPENEX NEB INH SCH ×6 (02:55→22:31)
[2016-11-19] MEDS: SOLU-MEDROL IV SCH ×3 (05:12→21:33)
[2016-11-19] MEDS: NORCO-7.5 PO PRN ×2 (06:19→16:24)
[2016-11-19] MEDS: PROTONIX PO SCH (06:19)
[2016-11-19] MEDS: HUMULIN R SUBQ SCH ×4 (06:24→21:47)
[2016-11-19] MEDS: PULMICORT INH SCH ×2 (07:15→19:08)
[2016-11-19] MEDS: NICODERM PATCH TD SCH (08:50)
[2016-11-19] MEDS: PAXIL PO SCH (08:50)
[2016-11-19] MEDS: COLACE PO SCH ×2 (08:50→21:34)
[2016-11-19] MEDS: MAG-OX PO SCH (08:51)
[2016-11-19] MEDS: ASPIRIN PO SCH (08:51)
[2016-11-19] MEDS: LANOXIN PO SCH (08:51)
[2016-11-19] MEDS: CARDIZEM CD PO SCH (08:52)
[2016-11-19] MEDS: COREG PO SCH ×2 (08:52→21:34)
--- NOTE | 2016-11-19 12:11 | PROGRESS NOTE ---
DATE: 11/19/2016 SUBJECTIVE: The patient is feeling better, still very weak. Still she does feel like her chest is loosening up some, coughing up a little more. Her exam today: OBJECTIVE: Temperature 97.5, pulse 77, respirations 18, blood pressure 119/51. Pupils equal and round. Lungs are clear in all lung alvarado. Cardiovascular exam: Regular rate and rhythm without murmurs, rubs or gallops, S3. Abdomen: Soft. Skin: Warm and dry. LABORATORY DATA: Blood sugar 201, 182, 123. White count 6720, hematocrit 39, platelet count 220,000. That was from the 30st. Chemistries reviewed. Blood cultures 193, 182, 171, 123. ASSESSMENT AND PLAN: 1. Chronic obstructive pulmonary disease exacerbation, pneumonia. Doing better. Continue bronchodilator, steroid inhalers. Continue antibiotic. 2. Status post Maze procedure for aortic atrial septal defect. Doing well. 3. General weakness, deconditioning. 4. Appears to be in sinus rhythm. 5. Hypercholesterolemia on Lipitor. I will decrease the prednisone down to 40 mg intravenously q. . Continue Rocephin. Her chest x-ray was on 11/15/2016. We will repeat that as well. cc: Sarabjit Cloud MD
[2016-11-19] MEDS: XANAX PO PRN (14:35)
--- NOTE | 2016-11-19 15:27 | Diag Imaging Result Document ---
PROCEDURE NAME: CHEST-2 VIEWS - 11/19/2016 CHEST 2 VIEWS: COMPARISON: 11/15/2016. FINDINGS: There has been development of right lower lobe atelectasis and small right pleural effusion. The rest of the lungs remain essentially clear except for mild subsegmental atelectasis at the left base. There is a tiny left pleural effusion. There is no pneumothorax seen. Heart size is normal. There are sternal wires from previous surgery again seen. IMPRESSION: Development of right lower lobe atelectasis and small right pleural effusion.
[2016-11-19] MEDS: XARELTO PO SCH (16:24)
[2016-11-19] MEDS: LIPITOR PO SCH (21:34)
[2016-11-19] MEDS: ROCEPHIN 1 GM/NS 50 ML IV SCH (21:34)
[2016-11-20] MEDS: XANAX PO PRN ×2 (00:07→21:03)
[2016-11-20] MEDS: XOPENEX NEB INH SCH ×6 (03:12→22:58)
[2016-11-20] MEDS: SOLU-MEDROL IV SCH ×3 (06:17→21:04)
[2016-11-20] MEDS: PROTONIX PO SCH (06:17)
[2016-11-20] MEDS: HUMULIN R SUBQ SCH ×4 (06:17→21:05)
[2016-11-20 06:56] LABS: BASO% 0.1 % (0.0-0.8); EOS# 0.01 X1000 (0.0-0.7); EOS% 0.1 % (0.0-10.0); HEMATOCRIT 39.7 % (37.0-47.0); HEMOGLOBIN 13.5 g/dL (12.0-16.0); IMM GRAN# 0.21 X1000 (0.0-0.04); IMM GRAN% 1.6 % (0.0-0.5); LYMPH# 0.82 X1000 (1.2-3.4); LYMPH% 6.1 % (20.5-51.1); MANUAL DIFF NEEDED? YES; MCH 31.5 PG (27-31); MCV 92.5 FL (81-99); MONO# 0.76 X1000 (0.11-0.59); MONO% 5.6 % (1.7-9.3); MPV 9.9 FL (7.4-10.4); NEUT% 86.5 % (42.2-75.2); PLT 280 X1000 (130-400); RBC 4.29 XMIL (4.2-5.4)
[2016-11-20 07:08] LABS: LYMPHS 10 % (21-51); MONO 6 % (1-9)
[2016-11-20 07:17] LABS: AGAP 13; ALBUMIN 3.5 g/dL (3.5-5.0); ALKALINE PHOSPHATASE 85 U/L (32-104); BUN 30 mg/dL (8-22); CALCIUM 8.5 mg/dL (8.8-10.2); CHLORIDE 100 mmol/L (98-107); COSMO 287; GOT 20 U/L (10-30); GPT 33 U/L (10-36); POTASSIUM 4.1 mmol/L (3.5-5.1); SODIUM 139 mmol/L (136-145); TCO2 26 mmol/L (25-35); TOTAL BILIRUBIN 0.35 mg/dL (0.20-1.00); TOTAL PROTEIN 6.3 g/dL (6.3-8.3)
[2016-11-20 07:28] LABS: FREE T4 1.21 ng/dL (0.93-1.70)
[2016-11-20] MEDS: PULMICORT INH SCH ×2 (07:59→19:10)
[2016-11-20] MEDS: PAXIL PO SCH (09:43)
[2016-11-20] MEDS: ASPIRIN PO SCH (09:43)
[2016-11-20] MEDS: MAG-OX PO SCH (09:43)
[2016-11-20] MEDS: LANOXIN PO SCH (09:43)
[2016-11-20] MEDS: CARDIZEM CD PO SCH (09:43)
[2016-11-20] MEDS: COREG PO SCH ×2 (09:43→21:04)
[2016-11-20] MEDS: COLACE PO SCH ×2 (09:45→21:04)
[2016-11-20] MEDS: NICODERM PATCH TD SCH (09:45)
[2016-11-20] MEDS ORDERED: MILK OF MAGNESIA PO ONE (13:02)
[2016-11-20] MEDS ORDERED: DULCOLAX PR ONE (13:02)
--- NOTE | 2016-11-20 13:29 | PROGRESS NOTE ---
DATE: 11/20/2016 SUBJECTIVE: Ms. Wolf is breathing better but still not coughing up much. Still feels like she has got a lot of phlegm and postnasal drainage. She still not had a bowel movement and is eating pretty well. Nasal cannula in place. OBJECTIVE: Vital signs: Temperature 97.4 degrees, pulse 85, respirations 18, blood pressure 125/58. HEENT: Pupils are equal round. Neck: CVP less than 6 cm. Lungs: Clear in all lung alvarado. Cardiovascular: Regular rhythm and rate without murmur or S3. URINE OUTPUT: Good urine output, was 700 mL. LAB REVIEW: From this morning, white count 13,500, hematocrit 39, platelet count 280,000. Chemistry: Sodium 139, potassium 4.1, chloride 100, bicarb 26, BUN 30, creatinine 0.8. Blood sugars 148, 130, 152. Chest x-ray from yesterday, development of right lower lobe atelectasis. Small right pleural effusion. ASSESSMENT AND PLAN: 1. Chronic obstructive pulmonary disease exacerbation with pneumonia. Continue bronchodilator and steroids. Will add guaifenesin help with mucus clearance. 2. History of atrial septal defect, status post Maze procedure. Doing well. 3. General weakness and deconditioning. Continue physical therapy. 4. Constipation. We will try some Milk of Magnesia and Dulcolax suppository today. Reviewed her orders. Do not see any change. She is on ceftriaxone 1 g q.24 hours, Xarelto 20 mg daily, Paxil 20 mg a day, Protonix 40 mg daily, nicotine patch 21 mg a day. So we will try some Milk of Magnesia and MiraLAX daily and see if we have Dulcolax suppository. cc: Sarabjit Cloud MD
[2016-11-20] MEDS: MUCINEX PO SCH ×2 (13:35→21:03)
[2016-11-20] MEDS: MIRALAX PO SCH (13:36)
[2016-11-20] MEDS: DUONEB (A & A) INH PRN (15:22)
[2016-11-20] MEDS: XARELTO PO SCH (18:03)
[2016-11-20] MEDS: NORCO-7.5 PO PRN (21:03)
[2016-11-20] MEDS: ROCEPHIN 1 GM/NS 50 ML IV SCH (21:03)
[2016-11-20] MEDS: LIPITOR PO SCH (21:04)
[2016-11-21] MEDS: XOPENEX NEB INH SCH ×6 (03:15→22:59)
[2016-11-21] MEDS: PROTONIX PO SCH ×2 (03:48→07:09)
[2016-11-21] MEDS: SOLU-MEDROL IV SCH ×4 (03:48→21:44)
[2016-11-21] MEDS: NORCO-7.5 PO PRN ×3 (03:48→21:44)
[2016-11-21] MEDS: XANAX PO PRN ×4 (03:49→23:36)
[2016-11-21] MEDS: HUMULIN R SUBQ SCH ×5 (07:10→22:01)
[2016-11-21] MEDS: PULMICORT INH SCH ×2 (08:16→19:23)
[2016-11-21] MEDS: ASPIRIN PO SCH (09:16)
[2016-11-21] MEDS: MIRALAX PO SCH (09:17)
[2016-11-21] MEDS: LANOXIN PO SCH (09:17)
[2016-11-21] MEDS: PAXIL PO SCH (09:17)
[2016-11-21] MEDS: MAG-OX PO SCH (09:17)
[2016-11-21] MEDS: COLACE PO SCH ×2 (09:17→21:42)
[2016-11-21] MEDS: NICODERM PATCH TD SCH (09:17)
[2016-11-21] MEDS: MUCINEX PO SCH ×2 (09:17→21:43)
[2016-11-21] MEDS: CARDIZEM CD PO SCH (09:17)
[2016-11-21] MEDS: COREG PO SCH (09:17)
--- NOTE | 2016-11-21 15:35 | PROGRESS NOTE ---
DATE: 11/21/2016 SUBJECTIVE: Today Ms. Wolf referred to be doing relatively fine. She continues to have remarkable shortness of breath and wheezing. OBJECTIVE: Vital signs: Blood pressure is 134/57, pulse of 67, respirations 21 and temperature 97.8 degrees. General exam: Ms. Wolf is a 56-year-old female. She was in bed in mild respiratory distress. HEENT: Mucosa is pink and moist. Anicteric. Acyanotic. Neck: Supple. Positive for JVD. Cardiovascular: Regular rate and rhythm. Did not appreciate any murmur. Chest: Air entry is bilaterally reduced. There is prolonged expiratory phase of respiration. There is also diffuse expiratory wheezes and mild dry crackles in the lower posterior lung field. Abdomen: Soft, nontender. Extremities: No pedal edema. ACUTE CARE ASSISTANT: Patient is alert and oriented. LABORATORY DATA: None for today. IMAGING STUDIES: On the second showed development of right lower lobe atelectasis and some small right pleural effusion. ASSESSMENT: 1. Respiratory distress likely secondary to chronic obstructive pulmonary disease exacerbation. 2. Right lower lobe consolidation likely due to pneumonia. 3. Significant bronchospasms due to chronic obstructive pulmonary disease exacerbation. 4. History of atrial fibrillation with atrial septal defect status post Maze procedure. 5. General weakness and deconditioning. 6. Constipation, improving. PLAN: In general, the patient seems to be doing relatively fine. I am going to add doxycycline to the current antibiotics to broaden the coverage. We will also going to increase the methylprednisolone to 60 q. 8 hours IV. I have discontinued the beta juan because of the significant wheezing. Will order a CT scan to have a better image on the lung anatomy. We will give further recommendations with the results. cc: Jarad Kee MD
[2016-11-21] MEDS: XARELTO PO SCH (16:46)
[2016-11-21] MEDS: DOXYCYCLINE 100 MG in NS 250 ML IV SCH (16:46)
[2016-11-21] MEDS: ROCEPHIN 1 GM/NS 50 ML IV SCH (21:42)
[2016-11-21] MEDS: LIPITOR PO SCH (21:45)
--- NOTE | 2016-11-22 01:29 | Diag Imaging Result Document ---
PROCEDURE NAME: CT THORAX W/CONTRAST - 11/21/2016 STUDY: CT chest with intravenous contrast. PROTOCOL: Dose reduction protocol. COMPARISON: Compared to 03/24/2016. There is collapse of the right lower lobe. I believe there is mucus plugging in the lower lobe bronchi. Prominent central vasculature with distended pulmonary arteries. The heart is not enlarged. Trace fluid on the right. No left effusion. Moderate atherosclerosis. No aortic aneurysm or dissection. Sternal wires are present. Mild emphysematous changes. IMPRESSION: 1. Collapse of the right lower lobe with mucus plugging. 2. Prominent central vasculature. 3. Trace right effusion. A preliminary report was given at 9:56 p.m.
[2016-11-22] MEDS: NORCO-7.5 PO PRN ×4 (02:18→20:30)
[2016-11-22] MEDS: XOPENEX NEB INH SCH ×6 (03:11→23:15)
[2016-11-22] MEDS: XANAX PO PRN ×2 (03:22→20:30)
[2016-11-22] MEDS: DOXYCYCLINE 100 MG in NS 250 ML IV SCH ×2 (03:27→15:53)
[2016-11-22] MEDS: SOLU-MEDROL IV SCH ×3 (05:33→20:27)
[2016-11-22] MEDS: PROTONIX PO SCH (06:33)
[2016-11-22] MEDS: PULMICORT INH SCH ×2 (07:57→19:25)
[2016-11-22] MEDS: LANOXIN PO SCH (09:08)
[2016-11-22] MEDS: ASPIRIN PO SCH (09:09)
[2016-11-22] MEDS: PAXIL PO SCH (09:09)
[2016-11-22] MEDS: CARDIZEM CD PO SCH (09:09)
[2016-11-22] MEDS: MAG-OX PO SCH (09:09)
[2016-11-22] MEDS: NICODERM PATCH TD SCH (09:10)
[2016-11-22] MEDS: MUCINEX PO SCH ×2 (09:10→20:27)
[2016-11-22] MEDS: COLACE PO SCH ×2 (09:10→20:30)
[2016-11-22] MEDS: MIRALAX PO SCH (09:11)
--- NOTE | 2016-11-22 12:24 | PROGRESS NOTE ---
DATE: 11/22/2016 SUBJECTIVE: Today Ms. Wolf refers to be doing a little bit better, but continues to have some residual shortness of breath. OBJECTIVE: Vitals: Blood pressure is 131/69, pulse of 73, respiration is 20, temperature is 97.9 degrees. General exam: Ms. Wolf is a 66-year-old female. She was in bed. Mild respiratory distress. HEENT: Mucosa is pink and moist. Anicteric. Acyanotic. Neck: Neck is supple. Chest: Good air entry bilaterally. A few bibasilar crepitations and there is a prolonged expiratory phase of respiration. There is also some end-expiratory rhonchi. Abdomen: Soft, nontender. Extremities: No pedal edema. There is a sternotomy scar on the anterior chest wall. HAZARD MITIGATION OFFICER: Patient is alert and oriented x4. There is no focal neurological deficit. LABORATORY DATA: None for today. IMAGING DATA: A CT scan of the lungs which was done yesterday showed collapse of the right lower lobe with mucus plugging, prominent central vasculature and trace right effusion. ASSESSMENT: 1. Respiratory distress on presentation, likely due to chronic obstructive pulmonary disease exacerbation. 2. Right lower lobe consolidation due to atelectasis from mucus plugging. 3. Bronchospasm due to chronic obstructive pulmonary disease is improving. 4. History of atrial fibrillation with atrial septal defect status post Maze procedure. 5. General weakness and deconditioning. 6. Constipation, improved. PLAN: So, in general I think Ms. Wolf is doing a whole lot better now. She will continue with the current antibiotics, bronchodilation and steroids. We have consulted pulmonary medicine to evaluate the patient. We are awaiting on further recommendations. We will add incentive spirometer with CPT to help with the mucus plugging to open up the lungs. I anticipate Ms. Wolf to be discharged within 24-48 hours. cc: Jarad Kee MD
[2016-11-22] MEDS: HUMULIN R SUBQ SCH ×4 (12:52→22:21)
--- NOTE | 2016-11-22 14:01 | CONSULTATION ---
DATE OF CONSULTATION: 11/22/2016 REQUESTING PHYSICIAN: Dr. Kee. REASON FOR CONSULTATION: Atelectasis. HISTORY OF PRESENT ILLNESS: Ms. Wolf is a 66-year-old white female with severe COPD, ongoing tobacco use, chronic hypoxemic respiratory failure, who presented to the emergency room 11/15/2016 with increased cough, increased wheezing, and increased dyspnea. Initial chest x-ray revealed no acute disease, but chest x-ray 3 days later revealed right lower lobe atelectasis. CT scan of the thorax was performed yesterday, which revealed probable mucous plugging with collapse of the right lower lobe. PAST MEDICAL HISTORY: 1. Severe COPD with chronic hypoxemic respiratory failure and ongoing tobacco use. 2. Status post DC cardioversion for atrial fibrillation. 3. History of atrial septal defect with closure. 4. Status post Maze procedure. 5. Status post cholecystectomy. 6. Status post right hip replacement. 7. History of depression/anxiety. 8. Diabetes mellitus. SOCIAL HISTORY: Ongoing tobacco use. She is . FAMILY HISTORY: Noncontributory to her current presentation. REVIEW OF SYSTEMS: Review of systems reveals increased cough, increased wheezing, increased shortness of breath. She denies hemoptysis. She is having difficulty clearing secretions. PHYSICAL EXAMINATION: General: Reveals a chronically ill-appearing, white female in no distress. Vital signs: BP 131/69, heart rate 73, respiration rate 20, oxygen saturation 96% on nasal cannula. HEENT: Pupils are equal and reactive. Oropharynx is clear. Neck: Supple. Chest: Reveals scattered wheezing and rhonchi throughout all lung alvarado. Cardiac exam: Regular rate. Normal S1, normal S2. Abdomen: Soft without hepatosplenomegaly. Extremities: Without edema. LABORATORIES/X-RAYS: CT scan with atelectasis/mucous plugging of the right lower lobe. She has a trace right-sided effusion. White blood count 13.5, hemoglobin 13.5 platelet count 280,000. Chemistries: Sodium 139, potassium 4.1, chloride 100, bicarbonate 26, BUN 30 and creatinine 0.8. Review of previous microbiology of the sputum is positive for methicillin-resistant Staph aureus in February 2015. IMPRESSION: A 66-year-old with severe chronic obstructive pulmonary disease, chronic obstructive pulmonary disease exacerbation, chronic hypoxemic respiratory failure, who has developed atelectasis of the right lower lobe. She most likely has bronchospasm and mucous plugging leading to atelectasis, but tumor cannot be completely excluded. At this juncture, she is a poor bronchoscopy candidate given ongoing bronchospasm. Would recommend continued treatment for chronic obstructive pulmonary disease exacerbation, and I agree with the addition of doxycycline yesterday given prior history of Staph aureus. It is recommended that she complete treatment for her chronic obstructive pulmonary disease exacerbation and undergo a followup CT scan in 3 weeks. At that juncture, bronchoscopy could be discussed and would likely be recommended. The patient reports she was scheduled to see Dr. Velasquez the day after her recent admission. She can follow up with Dr. Velasquez, or I will be glad to see her in followup in my office. RECOMMENDATIONS: 1. Continue treatment for COPD exacerbation as you are doing. 2. Agree with addition of Staph coverage. 3. We will add Mucomyst if tolerated. 4. Smoking cessation was discussed at length. cc: Brady Ahuja MD
[2016-11-22] MEDS: XARELTO PO SCH (17:21)
[2016-11-22] MEDS: MUCOMYST 20% INH SCH (19:25)
[2016-11-22] MEDS: LIPITOR PO SCH (20:27)
[2016-11-22] MEDS: ROCEPHIN 1 GM/NS 50 ML IV SCH (20:29)
[2016-11-23] MEDS ORDERED: LASIX ONE (01:51)
[2016-11-23] MEDS: XANAX PO PRN ×2 (02:30→23:46)
[2016-11-23] MEDS: XOPENEX NEB INH SCH ×6 (02:50→22:50)
[2016-11-23] MEDS: NORCO-7.5 PO PRN ×3 (03:24→20:43)
[2016-11-23] MEDS: DOXYCYCLINE 100 MG in NS 250 ML IV SCH ×2 (04:04→17:03)
[2016-11-23] MEDS: SOLU-MEDROL IV SCH ×3 (04:05→21:44)
[2016-11-23] MEDS: PROTONIX PO SCH (06:11)
[2016-11-23] MEDS: HUMULIN R SUBQ SCH ×4 (06:12→21:44)
[2016-11-23] MEDS: MUCOMYST 20% INH SCH ×2 (08:06→19:20)
[2016-11-23] MEDS: PULMICORT INH SCH ×2 (08:07→19:20)
[2016-11-23] MEDS: LANOXIN PO SCH (08:32)
[2016-11-23] MEDS: CARDIZEM CD PO SCH (08:32)
[2016-11-23] MEDS: ASPIRIN PO SCH (08:32)
[2016-11-23] MEDS: MUCINEX PO SCH ×2 (08:32→21:44)
[2016-11-23] MEDS: COLACE PO SCH ×2 (08:32→21:44)
[2016-11-23] MEDS: MAG-OX PO SCH (08:32)
[2016-11-23] MEDS: PAXIL PO SCH (08:32)
[2016-11-23] MEDS: MIRALAX PO SCH (08:32)
[2016-11-23] MEDS: NICODERM PATCH TD SCH (08:32)
--- NOTE | 2016-11-23 12:52 | PROGRESS NOTE ---
DATE: 11/23/2016 Today Ms. Wolf referred to be doing a little better but continues to have cough and generalized weakness. OBJECTIVE: Vital signs: Blood pressure is 146/64, pulse is 80, respirations 17. General: Ms. Wolf is a 66-year-old female. She was in bed. She did not seem to be in any remarkable distress. HEENT: Mucosa is pink and moist. Anicteric and acyanotic. Neck: Supple. Chest: Air entry is bilaterally reduced. There are diffuse bilateral end expiratory wheezes and rhonchi and some inspiratory crepitations in both lower lung alvarado. Cardiovascular: Regular rate and rhythm. There is a sternotomy scar on the anterior chest wall. DIRECTOR MOBILE MEDIA SOLUTIONS: Patient is alert and oriented x4. There is no focal neural deficit. LAB WORK: There is no lab work done today. ASSESSMENT: 1. Acute hypercarbic respiratory failure secondary to COPD exacerbation. 2. Right lower lobe consolidation due to atelectasis from mucus plugging. 3. Bronchospasm due to COPD exacerbation. 4. History of paroxysmal atrial fibrillation with atrial septal defect status post Maze procedure. 5. Constipation improved. 6. Generalized weakness and deconditioning. We will continue with physical therapy. So in general, Ms. Wolf is doing better. She continues to have significant wheezing and chest findings. We are going to continue with the current antibiotic coverage. Today will be day 3 on the IV doxycycline for MRSA coverage. We will continue with aggressive pulmonary toilette and we will re-evaluate the patient for tomorrow. cc: Jarad Kee MD
[2016-11-23] MEDS: XARELTO PO SCH (17:03)
[2016-11-23] MEDS: ZOFRAN IV PRN (20:43)
[2016-11-23] MEDS: LIPITOR PO SCH (21:44)
[2016-11-23] MEDS: ROCEPHIN 1 GM/NS 50 ML IV SCH (21:44)
[2016-11-24] MEDS: XOPENEX NEB INH SCH ×6 (03:45→23:19)
[2016-11-24] MEDS: SOLU-MEDROL IV SCH (04:06)
[2016-11-24] MEDS: DOXYCYCLINE 100 MG in NS 250 ML IV SCH (04:06)
[2016-11-24] MEDS: HUMULIN R SUBQ SCH ×3 (06:27→17:51)
[2016-11-24] MEDS: PROTONIX PO SCH (06:27)
[2016-11-24 07:21] LABS: AGAP 4; BUN 31 mg/dL (8-22); CALCIUM 7.4 mg/dL (8.8-10.2); CHLORIDE 99 mmol/L (98-107); COSMO 281; POTASSIUM 4.9 mmol/L (3.5-5.1); SODIUM 135 mmol/L (136-145); TCO2 32 mmol/L (25-35)
[2016-11-24 07:28] LABS: BASO% 0.1 % (0.0-0.8); HEMATOCRIT 34.2 % (37.0-47.0); HEMOGLOBIN 11.5 g/dL (12.0-16.0); IMM GRAN# 0.18 X1000 (0.0-0.04); IMM GRAN% 1.1 % (0.0-0.5); LYMPH# 0.24 X1000 (1.2-3.4); LYMPH% 1.5 % (20.5-51.1); MANUAL DIFF NEEDED? YES; MCH 31.2 PG (27-31); MCHC 33.6 g/dL (33-37); MCV 92.7 FL (81-99); MONO# 0.84 X1000 (0.11-0.59); MONO% 5.1 % (1.7-9.3); MPV 9.9 FL (7.4-10.4); NEUT% 92.2 % (42.2-75.2); PLT 242 X1000 (130-400); RBC 3.69 XMIL (4.2-5.4)
[2016-11-24 07:34] LABS: BANDS 6 % (0-1); LYMPHS 2 % (21-51); MONO 6 % (1-9)
[2016-11-24] MEDS: PULMICORT INH SCH ×2 (08:14→20:03)
[2016-11-24] MEDS: MUCOMYST 20% INH SCH ×2 (08:14→20:03)
--- NOTE | 2016-11-24 09:09 | Diag Imaging Result Document ---
PROCEDURE NAME: CHEST-2 VIEWS - 11/24/2016 PA AND LATERAL RADIOGRAPH OF THE CHEST: COMPARISON: 11/19/2016. FINDINGS: The right pleural effusion and adjacent atelectasis is approximately stable. No new consolidation is identified. Cardiac silhouette is stable. IMPRESSION: Stable chest.
[2016-11-24] MEDS: MIRALAX PO SCH (09:35)
[2016-11-24] MEDS: COLACE PO SCH ×2 (09:36→20:34)
[2016-11-24] MEDS: CARDIZEM CD PO SCH (09:36)
[2016-11-24] MEDS: MAG-OX PO SCH (09:36)
[2016-11-24] MEDS: ASPIRIN PO SCH (09:36)
[2016-11-24] MEDS: LANOXIN PO SCH (09:37)
[2016-11-24] MEDS: NICODERM PATCH TD SCH (09:38)
[2016-11-24] MEDS: PAXIL PO SCH (09:38)
[2016-11-24] MEDS: MUCINEX PO SCH ×2 (09:38→20:34)
[2016-11-24] MEDS: PREDNISONE PO SCH (09:52)
[2016-11-24] MEDS: NORCO-7.5 PO PRN ×2 (09:53→15:13)
[2016-11-24] MEDS: XANAX PO PRN ×2 (09:54→20:34)
--- NOTE | 2016-11-24 11:49 | PROGRESS NOTE ---
DATE: 11/24/2016 Today Ms. Wolf refers to be doing a whole lot better. Denies any consistent cough and is not producing any sputum. OBJECTIVE: Vital signs: Blood pressure is 125/50, pulse is 79, respirations 18 , temperature 98.0 degrees. General: Ms. Wolf is a 66-year-old female. She is in bed. She was on minimum 2 L of oxygen so saturating 100%. She did not seem to be in any distress. Mucosa is pink and moist. Anicteric. Acyanotic. Neck: Supple. Chest: Good air entry bilateral. There are still some few bibasilar crepitations and there is dullness to percussion to the right lower lobe. Cardiovascular: Regular rate and rhythm. No murmurs, no rubs. No gallops. There is a sternotomy scar on the anterior chest wall. Abdomen: Soft, nontender. Extremities: No pedal edema. QA AUDITOR: Patient is alert and oriented x4. There is no focal neurological deficit. LABORATORY DATA: WBC is 16.49, hemoglobin is 11.5, platelet count of 242,000. Chemistry: Sodium is 135, potassium is 4.9, chloride is 99, bicarb is 32, BUN is 31, and creatinine 0.8. Glucose is 171. ASSESSMENT: 1. Acute hypercarbic respiratory failure on presentation due to COPD exacerbation. This is improved. 2. Right lower lobe consolidation due to atelectasis from mucus plugging. This is also improved with CPT and incentive spirometer. 3. Bronchospasm due to COPD. I did not hear any wheezes today. 4. History of paroxysmal atrial fibrillation with septal defect status post maze procedure. 5. Constipation improved. 6. Generalized weakness and deconditioning. In general, I think Ms. Wolf is stable to go home. I will switch her antibiotics to p.o. doxycycline and Augmentin and she is going to be on also prednisone. I spoke with Dr. Ahuja, who is the shovel oiler on her case and he is also with the opinion that Ms. Wolf can be discharged today and that Ms. Wolf needs to call his office first thing Sunday for an appointment. In my interaction with Ms. Wolf this morning, she was very adamant and clear that she is not going to go today and that she has come in and out of the hospital multiple times and anytime she gets better we send her out and she gets sick again. I tried to explain to her that she is clinically stable and as long as she continues to smoke, she is going to be coming in and out. She does not think that the smoking is her problem. She thinks we are just discharging her prematurely. She has been in hospital for the past 9 days and clinically I think she is ready to go. cc: Jarad Kee MD MTDD
[2016-11-24] MEDS: AUGMENTIN PO SCH ×2 (15:14→20:35)
[2016-11-24] MEDS: DOXYCYCLINE PO SCH (15:19)
[2016-11-24] MEDS: ZOFRAN IV PRN (17:58)
[2016-11-24] MEDS: LIPITOR PO SCH (20:34)
[2016-11-25] MEDS: HUMULIN R SUBQ SCH ×5 (00:47→20:47)
[2016-11-25] MEDS: XANAX PO PRN ×2 (02:50→23:39)
[2016-11-25] MEDS: ZOFRAN IV PRN ×2 (02:52→09:05)
[2016-11-25] MEDS: XOPENEX NEB INH SCH ×5 (03:26→23:44)
[2016-11-25] MEDS: PROTONIX PO SCH (06:32)
[2016-11-25] MEDS: PULMICORT INH SCH ×2 (07:54→19:24)
[2016-11-25] MEDS: MUCOMYST 20% INH SCH ×2 (07:54→19:24)
[2016-11-25] MEDS: NICODERM PATCH TD SCH (09:05)
[2016-11-25] MEDS: MIRALAX PO SCH (09:05)
[2016-11-25] MEDS: AUGMENTIN PO SCH ×2 (09:06→20:46)
[2016-11-25] MEDS: PREDNISONE PO SCH (09:06)
[2016-11-25] MEDS: NORCO-7.5 PO PRN ×2 (09:07→15:17)
[2016-11-25] MEDS: ASPIRIN PO SCH (09:07)
[2016-11-25] MEDS: DOXYCYCLINE PO SCH ×2 (09:07→19:15)
[2016-11-25] MEDS: COLACE PO SCH ×2 (09:07→20:47)
[2016-11-25] MEDS: CARDIZEM CD PO SCH (09:07)
[2016-11-25] MEDS: LANOXIN PO SCH (09:07)
[2016-11-25] MEDS: PAXIL PO SCH (09:07)
[2016-11-25] MEDS: MUCINEX PO SCH ×2 (09:07→20:47)
--- NOTE | 2016-11-25 11:59 | PROGRESS NOTE ---
DATE: 11/25/2016 SUBJECTIVE: Today, Ms. Wolf refers to be having incessant nausea and occasional vomiting, and this started happened yesterday in the late afternoon. She has no diarrhea and, according to her, she has been having regular bowel movement. OBJECTIVE: Vital signs: Blood pressure is 110/51, pulse of 81, respirations 18, temperature 98.3 degrees. General: Ms. Wolf is a 66-year-old female. She was in bed, did not seem to be in any distress. HEENT: Mucosa is pink and moist. Anicteric. Acyanotic. Neck: Supple. Chest: Good air entry bilateral. I did not appreciate any wheezing, just a few bibasilar crepitations. Cardiovascular: Regular rate and rhythm. There is an old sternotomy scar on the anterior abdominal wall. Abdomen: Soft, minimally tender in the epigastrium. There is no guarding and no rebound. Bowel sounds are slightly reduced. Central Nervous System: Patient is alert, oriented x4. There is no focal neurological deficit. LABORATORY: There is no laboratory work for today. Patient's glucose is 112. ASSESSMENT: 1. Acute hypercarbic respiratory failure on presentation due to chronic obstructive pulmonary disease exacerbation. 2. Right lower lobe consolidation due to atelectasis from mucus plugging. 3. Bronchospasm due to chronic obstructive pulmonary disease, resolved. 4. History of paroxysmal atrial fibrillation with septal defect status post maze procedure. 5. Constipation. 6. Generalized weakness and deconditioning. 7. Nausea and vomiting, etiology unclear. I think this is probably related to the constipation. We will going to do a KUB to follow up on the constipation and the gastrointestinal symptoms. I will add Carafate to the proton pump inhibiter. The patient was started on some p.o. medications yesterday, including prednisone, doxycycline, and amoxicillin. I am not sure if this is just medications side effects or there is something else underlying. From the lung standpoint, though, patient sounds a whole lot better. There is no more bronchospasm and I think she can still be discharged if there are no issues with any acute pathology in the abdomen. cc: Jarad Kee MD
[2016-11-25] MEDS: MAG-OX PO SCH (12:55)
--- NOTE | 2016-11-25 13:01 | DISCHARGE SUMMARY ---
ADMISSION DATE: 11/15/2016 DISCHARGE DATE: 11/27/2016 CONSULTATIONS: None. PERTINENT PROCEDURES: Chest CT showed collapse of the right lower lobe with mucus plugging, prominent central vasculature, trace right effusion. Followup chest x-ray shows a stable chest, shows a right pleural effusion and adjacent atelectasis approximately stable. No new consolidations. DISCHARGE DIAGNOSES: 1. Acute hypercarbic respiratory failure on presentation due to chronic obstructive pulmonary disease exacerbation, improved. 2. Right lower lobe consolidation due to atelectasis from mucus plugging. Improved with chest physical therapy and incentive spirometer. 3. Bronchospasm due to chronic obstructive pulmonary disease, improved. 4. Chronic obstructive pulmonary disease exacerbation, improved. 5. Paroxysmal atrial fibrillation history with septal defect, status post maze procedure. Aware. 6. Constipation, improved. 7. Generalized weakness, deconditioning, and tobacco abuse. Patient has been counseled and educated on smoking cessation as well as the means to quit. HOSPITAL COURSE: Ms. Wolf is a 66-year-old female who carries a past medical history of COPD on home O2 therapy; atrial fibrillation, which is chronic; had a maze procedure performed at [facility]; atrial septal defect; diabetes mellitus, type 2; hypertension; DVT history; pulmonary emboli in the past; longstanding history of tobacco abuse. Presented to the ED with increased dyspnea on exertion, paroxysmal nocturnal dyspnea, and palpitations. The patient was admitted for COPD exacerbation and bronchospasm. She was started on IV Rocephin as well as bronchodilators, beta agonist, and steroid inhalers as well as IV Solu-Medrol and supplemental O2. Chest CT was performed that did show collapse of the right lower lobe with mucus plugs and prominent central vasculature and trace right effusion. Dr. Ahuja was also consulted. She was a poor candidate for bronchoscopy, given ongoing bronchospasm. He recommending continue treatment for COPD exacerbation and agreed with the addition of doxycycline, given her history of Staphylococcus aureus, and it was recommended that she complete her treatment for her COPD exacerbation and undergo a repeat CT scan in 3 weeks, and at that juncture they could discuss bronchoscopy that was highly recommended. She will need to follow up with Dr. Velasquez and also discussed at length was smoking cessation. Ms. Wolf spent several days in the hospital. She was switched from IV to p.o. antibiotics as well as p.o. prednisone. It was felt that she could be discharged, however, she has been very adamant and clear that she did not want to be discharged and she reported that she has come in and out of the hospital multiple times. They state she gets better, we send her out, and she gets sick again. We did explain to her that clinically she is stable and as long as she continues to smoke she is going to keep coming in and out of the hospital. However, she did not believe that smoking with her problem and she thinks that she is being discharged prematurely. She has been in the hospital for, I believe, today is day 10. We did allow her to stay an extra day, as she requested, and again, clinically, the patient is ready to be discharged as well as with the recommendation of her ct technician she can also be discharged. VITAL SIGNS AT TIME OF DISCHARGE: Temperature is 98 degrees, heart rate 79, respirations 18, blood pressure 125/50, and O2 is 96% on 3L nasal cannula. DISCHARGE DIET: Diabetic. DISCHARGE MEDICATIONS: As per Dr. Kee. Please see EMR. FOLLOWUP: The patient is being discharged home with home health with comfort care as well as DME for her home O2 with [facility]. She can call Dr. Ahuja's office on Sunday morning for her appointment as well as her primary care physician, Dr. Toy Salcido in [address]. [address] Ahuja's note, he suggested that she keep her appointment with Dr. Velasquez, and follow up with a CT in 3-4 weeks and discuss bronchoscopy at that time. Patient will need to finish her full course of p.o. antibiotics of Augmentin as well as doxycycline. Again, smoking cessation has been discussed daily as well as the means to quit. Again, however, the patient stated that she does not have a problem with smoking. The patient can return to the ED for any worsening of symptoms. DISCHARGE TIME: Greater than 35 minutes. Dictated by MICHELLE Kerr for Jarad Kee MD cc: Jarad Kee MD Please see addendum dictated today as well. ELIZABETH
[2016-11-25] MEDS: DUONEB (A & A) INH PRN (15:48)
[2016-11-25] MEDS: CARAFATE LIQUID PO SCH ×2 (16:01→20:47)
--- NOTE | 2016-11-25 17:07 | Diag Imaging Result Document ---
PROCEDURE NAME: HAND COMPLETE LEFT - 11/25/2016 LEFT HAND, 3 VIEWS: COMPARISON: None. FINDINGS: There is advanced degeneration at the 1st carpometacarpal joint. No acute fracture or dislocation. IMPRESSION: No acute disease.
--- NOTE | 2016-11-25 17:20 | Diag Imaging Result Document ---
PROCEDURE NAME: KUB ABDOMEN - 11/25/2016 KUB ABDOMEN: COMPARISON: None. FINDINGS: There are cholecystectomy clips. No bowel obstruction or free air. IMPRESSION: Negative exam.
[2016-11-25] MEDS: XARELTO PO SCH (19:16)
[2016-11-25] MEDS: LIPITOR PO SCH (20:46)
[2016-11-26] MEDS: CARAFATE LIQUID PO SCH ×4 (02:44→20:47)
[2016-11-26] MEDS: XOPENEX NEB INH SCH ×6 (02:55→23:05)
[2016-11-26] MEDS: HUMULIN R SUBQ SCH ×4 (06:11→20:52)
[2016-11-26] MEDS: PROTONIX PO SCH (06:13)
[2016-11-26 07:34] LABS: BASO% 0.1 % (0.0-0.8); HEMATOCRIT 38.4 % (37.0-47.0); HEMOGLOBIN 12.6 g/dL (12.0-16.0); IMM GRAN# 0.09 X1000 (0.0-0.04); IMM GRAN% 0.6 % (0.0-0.5); LYMPH# 0.77 X1000 (1.2-3.4); LYMPH% 5.2 % (20.5-51.1); MANUAL DIFF NEEDED? YES; MCH 31.3 PG (27-31); MCHC 32.8 g/dL (33-37); MCV 95.5 FL (81-99); MONO# 1.26 X1000 (0.11-0.59); MONO% 8.5 % (1.7-9.3); MPV 9.4 FL (7.4-10.4); NEUT% 85.6 % (42.2-75.2); PLT 179 X1000 (130-400); RBC 4.02 XMIL (4.2-5.4)
[2016-11-26 07:57] LABS: AGAP 12; ALBUMIN 2.6 g/dL (3.5-5.0); ALKALINE PHOSPHATASE 52 U/L (32-104); BUN 20 mg/dL (8-22); CHLORIDE 99 mmol/L (98-107); COSMO 271; GOT 27 U/L (10-30); GPT 50 U/L (10-36); POTASSIUM 4.6 mmol/L (3.5-5.1); SODIUM 133 mmol/L (136-145); TCO2 22 mmol/L (25-35); TOTAL BILIRUBIN 0.42 mg/dL (0.20-1.00)
[2016-11-26] MEDS: MUCOMYST 20% INH SCH ×2 (08:28→19:30)
[2016-11-26] MEDS: PULMICORT INH SCH ×2 (08:29→19:30)
[2016-11-26 08:55] LABS: BANDS 2 % (0-1); LYMPHS 6 % (21-51); MONO 4 % (1-9)
[2016-11-26] MEDS: COLACE PO SCH ×3 (09:56→20:51)
[2016-11-26] MEDS: CARDIZEM CD PO SCH (09:56)
[2016-11-26] MEDS: AUGMENTIN PO SCH ×2 (09:56→20:49)
[2016-11-26] MEDS: NICODERM PATCH TD SCH (09:56)
[2016-11-26] MEDS: PREDNISONE PO SCH (09:56)
[2016-11-26] MEDS: MUCINEX PO SCH ×2 (09:57→20:48)
[2016-11-26] MEDS: DOXYCYCLINE PO SCH ×2 (09:57→16:12)
[2016-11-26] MEDS: ASPIRIN PO SCH (09:57)
[2016-11-26] MEDS: PAXIL PO SCH (09:57)
[2016-11-26] MEDS: LANOXIN PO SCH (09:58)
[2016-11-26] MEDS: NORCO-7.5 PO PRN ×2 (09:59→20:59)
[2016-11-26] MEDS: XANAX PO PRN (10:34)
--- NOTE | 2016-11-26 13:18 | PROGRESS NOTE ---
DATE: 11/26/2016 SUBJECTIVE: Today Ms. Wolf refers to be fine except that she continues to have some nausea and occasional vomiting. She had 1 episode today according to her; nobody actually witnessed this. I was informed that yesterday patient tried to go to the bathroom to pass some stool and she fell, hitting her left hand and they actually did an x-ray which was unremarkable. OBJECTIVE: Vital Signs: Stable. Blood pressure is 108/45, pulse is 83, respirations 16, temperature is 98.3 degrees. General: Ms. Wolf is a 66-year-old female. She is in bed. She did not seem to be in any distress. HEENT: Mucosa is pink and moist. Anicteric. Acyanotic. Neck: Supple. Chest: Clear. I did not appreciate any wheezing. No crepitations. Cardiovascular: Regular rate and rhythm. There is an old sternotomy scar on the anterior chest wall. Abdomen: Soft. Mildly tender in the epigastrium. There is no bound or guarding. Bowel sounds are present. IMAGING SPECIALIST: Patient is alert and oriented x4. No focal neurological deficit. LABORATORY DATA: WBC is down to 14.87, hemoglobin is 12.6, platelet count is 179,000. Chemistry is reviewed. Sodium 133. The rest of the chemistry is unremarkable. ASSESSMENT: 1. Acute hypercarbic respiratory failure on presentation due to chronic obstructive pulmonary disease exacerbation. This is improved. 2. Right lower lobe consolidation due to atelectasis from mucus plugging. 3. Bronchospasm due to chronic obstructive pulmonary disease, resolved. 4. History of paroxysmal atrial fibrillation with atrial septal defect status post Maze procedure. 5. Constipation, improved. 6. Generalized weakness and deconditioning. 7. Protein calorie malnutrition. 8. Nausea and vomiting. This seems to be improving since patient only had 1 episode today. 9. Depression/anxiety/multiple social issues. PLAN: The patient seems a little depressed. She does have fear to go home. She says she does not live with anybody. She also has a concern that she probably will not get her medications if she goes home today because she gets medications from [facility] and she thinks they are closed today. She would prefer to go home tomorrow. I did explain to her that from a clinical standpoint I think she is okay to go but if there is nobody at home to help her, she is weak and I do not think she will be able to be by herself so she will need somebody at home. If somebody will be at home tomorrow then it would be reasonable to discharge her tomorrow. cc: Jarad Kee MD
[2016-11-26] MEDS: MAG-OX PO SCH (15:55)
[2016-11-26] MEDS: XARELTO PO SCH (16:12)
[2016-11-26] MEDS: LIPITOR PO SCH (20:48)
[2016-11-26] MEDS ORDERED: BLISTEX MEDICATED BERRY LIP BALM TOP ONE (23:44)
[2016-11-27] MEDS: XANAX PO PRN ×2 (00:10→14:37)
[2016-11-27] MEDS: CARAFATE LIQUID PO SCH ×3 (03:00→14:37)
[2016-11-27] MEDS: XOPENEX NEB INH SCH ×4 (03:25→15:18)
[2016-11-27] MEDS: PROTONIX PO SCH (06:13)
[2016-11-27] MEDS: HUMULIN R SUBQ SCH ×3 (06:18→16:18)
[2016-11-27] MEDS: PULMICORT INH SCH (08:35)
[2016-11-27] MEDS: MUCOMYST 20% INH SCH (08:35)
[2016-11-27 09:30] VITALS: BP 110/42
[2016-11-27] MEDS: LANOXIN PO SCH (10:04)
[2016-11-27] MEDS: NICODERM PATCH TD SCH (10:04)
[2016-11-27] MEDS: DOXYCYCLINE PO SCH (10:04)
[2016-11-27] MEDS: MUCINEX PO SCH (10:05)
[2016-11-27] MEDS: CARDIZEM CD PO SCH (10:05)
[2016-11-27] MEDS: ASPIRIN PO SCH (10:05)
[2016-11-27] MEDS: PAXIL PO SCH (10:05)
[2016-11-27] MEDS: AUGMENTIN PO SCH (10:05)
[2016-11-27] MEDS: PREDNISONE PO SCH (10:05)
[2016-11-27] MEDS: COLACE PO SCH (10:06)
[2016-11-27] MEDS: NORCO-7.5 PO PRN (10:11)
[2016-11-27] MEDS: MAG-OX PO SCH (14:37)
--- NOTE | 2016-11-27 15:59 | Diag Imaging Result Document ---
PROCEDURE NAME: XRAY HIP W/PELVIS BILAT 3-4VWS - 11/27/2016 STUDY: Pelvis and hip views, 4 total films. FINDINGS: There has been prior orthopedic replacement of the left hip. No acute fracture. No dislocation. No widening of the pubic symphysis. IMPRESSION: No acute bony injury.
--- NOTE | 2016-11-27 17:35 | PALLIATIVE CARE CONSULTATION ---
DATE: 11/27/2016 REQUESTING PHYSICIAN: Abida Thibodeaux. REASON FOR CONSULTATION: Goals of care. HISTORY OF PRESENT ILLNESS: This is a 66-year-old female with a past medical history of COPD, ongoing tobacco use, diabetes mellitus, depression and anxiety, atrial fibrillation with history of cardioversion, atrial septal defect with closure and hypertension. She was most recently admitted on 11/15/2016 after presenting to the ER with complaints of increased cough, increased wheezing and progressive shortness of breath. While in the ED, chest x-ray revealed no acute disease however 3 days later chest x-ray revealed right lower lobe atelectasis. CT scan of the thorax was also performed and revealed a probable mucous plug with collapse of the right lower lobe. Ms. Wolf has improved clinically and appears to be discharging home today. It is also of note that Ms. Wolf had a fall on 11/25/2016 and is complaining of pain to her left hip. Currently Ms. Wolf is sitting up in the hospital bed. She complains of dyspnea but describes this as mild. She also complains of nausea. She states that she has experienced nausea and vomiting over the last couple of days but states that is has improved greatly. She is ambulatory and states that she does not get significantly short of breath with ambulation. She complains of anxiety and depression. I have seen Ms Wolf on the outpatient basis as she is a patient of the outpatient palliative care program. At that time she also complained of depression but had not been compliant with her medications. There is no family at the bedside. The palliative care team has been consulted to assist with goals of care. REVIEW OF SYSTEMS: Twelve point review of system has been conducted and otherwise negative except those mentioned in the HPI. PAST MEDICAL HISTORY: See HPI. PAST SURGICAL HISTORY: 1. Cholecystectomy. 2. Left total hip replacement. 3. Tarsal tunnel release. 4. Tubal ligation. 5. Maze procedure. FAMILY HISTORY: None pertinent. SOCIAL HISTORY: Ms Wolf lives alone. She is not , she has 1 son living and 1 son who is . She is a current every day smoker. Alcohol and drug use have been denied. PHYSICAL EXAM: General: This is a 66-year-old female with past medical history as listed above in the HPI. Ms Wolf is currently a patient of the outpatient palliative care program. On my last visit with Ms. Wolf in the outpatient setting her major concern at that time was her depression related to her disease and living situation. She had not taken her Paxil in quite some time so that medicine was restarted. I plan to have the outpatient palliative care nurse practitioner follow up with Ms. Wolf in a few weeks to determine if increasing that medication is needed. Currently Ms. Wolf rates her dyspnea as a 2. She states that her dyspnea was rated as greater than 10 on admission so she feels like she has greatly improved. We also discussed advanced directive and power of deputy commonwealth's attorney. She does not have either document but has requested more information on both of those things. Currently it appears that Ms. Wolf's palliative performance scale is 50%. She is a full code. The palliative care team will continue to follow. Thank you for this consultation. Dictated by MICHELLE Chairez for Brady Ahuja MD cc: MICHELLE Chairez MD [facility]
--- NOTE | 2016-11-28 15:15 | DISCHARGE SUMMARY ---
ADMISSION DATE: 11/15/2016 DISCHARGE DATE: 11/27/2016 ADDENDUM: Ms. Wolf was actually discharged on 11/24/2016; however, she did appeal at discharge and Medicare had to review it and they did decline her inpatient stay. However, during that time over the weekend, Ms Wolf developed nausea and vomiting, and she also had an episode where she fell and hit her right hand and right hip. She was pretty much stable over the weekend. X-rays were done on the right hand which was completely normal. However, today, she referred that she has right hip discomfort, so we are going to x-ray to make sure her prosthesis is in place. If the x-ray is fine, she will be discharged. I reviewed her vital signs today; everything is fine. Blood pressure is 110/42, pulse is 79, respirations is 21, temperature 97.9 degrees. Physical exam shows no changes from days before. Ms. Wolf is going to be discharged in a very stable condition and she is advised to follow up with her primary care doctor. cc: Jarad Kee MD
== END 2016-11-27 17:26 | disposition home or self-care (01) ==
LOC: ED 15:46 → SUATTDRO 19:51 → 3N 19:51
PROVIDERS: ATTEND Internal Medicine

== ENCOUNTER 2016-11-30 10:01 | Inpatient (IN) ==
[2016-11-30] MEDS ORDERED: TYLENOL PO ONE (10:13)
[2016-11-30] MEDS ORDERED: DUONEB (A & A) INH ONE (10:24)
[2016-11-30 10:44] LABS: ALLEN TEST YES; BE 6.7 mmoll (-3.0-3.0); BLOOD TYPE ARTERIAL; DRAW SITE L RADIAL; METHB 1.7 % (0.0-1.5); O2(CT) 17.4 mL/dL (15.0-23.0); PCO2(98.6) 39 mmHg (35-45); PO2(98.6) 77 mmHg (60-100); SAMPLE BLOOD; SAO2 98.6 % (95.0-100.0); THB 13.1 g/dL (11.5-17.4)
[2016-11-30 10:45] LABS: MODALITY CANNULA
--- NOTE | 2016-11-30 10:47 | PROVIDER DOCUMENTATION ---
HPI-General Adult - General Chief Complaint: Possible Sepsis-D Stated Complaint: CP Time Seen by Provider: 11/30/16 10:12 Source: patient Allergies/Adverse Reactions: Patient Allergies Allergy/AdvReac Type Severity Reaction Status Date / Time No Known Allergies Allergy Verified 11/30/16 10:48 Home Medications: Home Medication List Medication Instructions Recorded Confirmed Last Taken Type Rivaroxaban [Xarelto] 20 mg PO WSUPPER #30 tablet 02/10/16 11/15/16 11/14/16 21: 00 Rx Furosemide 40 mg PO EVERY OTHER DAY 04/14/16 11/15/16 1 Week Ago History Tiotropium [place] Inhaler 1 puff INH RTDAILY #1 inhaler 04/20/16 11/15/1611/15 09:00 Rx [Spiriva] Hydrocodone Bit/Acetaminophen 1 each PO Q4-6H PRN PRN 06/18/16 11/15/16 History [Hydrocodon-Acetaminoph 7.5-325] ATORVAstatin [Lipitor] 40 mg PO QHS #30 tablet 06/22/16 11/15/16 11/14/16 21:00 Rx Albuterol 2.5MG/Ipratrop 0.5MG 3 ml INH RTQ4H PRN #5 neb 06/22/16 11/15/1611/15 14:00 Rx [Duoneb (A & A)] Carvedilol [Coreg] 6.25 mg PO Q12H #60 tablet 06/22/16 11/15/16 11/15/16 09:00 Rx Digoxin [Lanoxin] 125 microgm PO DAILY #30 tablet 06/22/16 11/15/16 11/15/16 09: 00 Rx Diltiazem C.d. [Cardizem Cd] 180 mg PO DAILY #30 capsule 06/22/16 11/15/1611/15 09:00 Rx Magnesium Oxide 400 mg PO DAILY #30 tablet 06/22/16 11/15/16 11/15/16 09:00 Rx Paroxetine [Paxil] 20 mg PO DAILY #10 tablet 06/22/16 11/15/16 11/15/16 09:00 Rx Potassium Chloride 20 meq PO DAILY #30 tablet.er 06/22/16 11/15/16 11/15/16 09: 00 Rx Alprazolam 0.5 mg PO Q6H PRN PRN 11/15/16 11/15/16 11/15/16 09:00 History Amoxicillin/Pot Clavulanate 875 mg PO BID #10 tablet 11/24/16 Unknown Rx [Augmentin] Aspirin 81 mg PO DAILY #30 chewtab 11/24/16 Unknown Rx Doxycycline 100 mg PO BID #20 tablet 11/24/16 Unknown Rx Guaifenesin E.r. [Mucinex] 1,200 mg PO Q12HR #15 tablet 11/24/16 Unknown Rx Pantoprazole [Protonix] 40 mg PO DAILY@0700 #30 tablet 11/24/16 Unknown Rx Prednisone 40 mg PO DAILY #5 tablet 11/24/16 Unknown Rx - History of Present Illness -Gen Adult Nature of Presenting Problems: Pt. is 66 yof that presents with c/o SOB, Fever, Chest pain that all began when she was discharged from [facility] on Sunday and has progressively gotten worse throughout the last three days. Pt. is on home O2 and has had to increase it over the last few days. Pt. reports she hasn't had any of her medications today and states there are multiple ones but she can't remember. Pt. denies any Hx of CHF but states she does have COPD and still smokes. Pt. also reports a VELASQUEZ with N/V. Location of Pain/Injury: reports: head, chest. denies: none, face, mouth, neck , upper extremity, hand(s), abdomen, back, pelvis, genitalia, lower extremity, feet, upper body, lower body, generalized Pain Radiation: reports: no radiation Quality of Pain: reports: aching. denies: burning, cramping, dull, fullness, indigestion, pressure, sharp, stabbing, tearing, throbbing, tightness Severity: reports: moderate. denies: mild, severe Onset/Duration: reports: gradual, 3 days ago Timing: reports: still present, constant, changing over time, getting worse. denies: improving, gone now, resolved prior to arrival, intermittent Context/Activities at Onset: reports: none. denies: recent emotional stress, recent physical stress, recent trauma history, possible bad food, cold exposure , out of country travel Modifying Factors: improves with: nothing Associated Symptoms: reports: chest pain, fatigue, headaches, malaise, nausea, shortness of breath, vomiting, weakness. denies: anxiety, arm pain, back/neck pain, constipation, cough, diaphoresis, diarrhea, dizziness, EENT symptoms, fever/chills, genitourinary problems, heartburn, joint pain, loss of appetite, muscle aches, sinus congestion/drainage, rash, seizure, sensory/motor loss, pain with inspiration, swelling/mass in abdomen, syncope, trouble walking Similar Symptoms Previously?: Yes Recently seen or treated by another doctor?: Yes Review of Systems - Adult - REVIEW OF SYSTEMS - ADULT Constitutional: reports: see HPI, chills, fever, fatique Eyes: reports: see HPI. denies: discharge, blurred vision, double vision, eye pain Ears, Nose, Mouth & Throat: reports: see HPI. denies: ear pain, hearing loss, sinus problem, loose teeth, mouth/dental pain, throat pain, throat swelling Cardiovascular: reports: see HPI, chest pain. denies: edema, orthopnea, poor circulation, syncope Respiratory: reports: see HPI, dyspnea on exertion, shortness of breath. denies : cough, pleurisy, wheezing Gastrointestinal: reports: see HPI, nausea, vomiting. denies: abdominal pain, hematemesis, diarrhea, difficulty swallowing Genitourinary: reports: see HPI. denies: dysuria, discharge, hematuria, hesitency, urgency Musculoskeletal: reports: see HPI. denies: bone pain, back pain, joint pain, muscle aches, neck pain Integumentary: reports: see HPI. denies: hives, hair loss, itching, rash, skin thickening Neurological: reports: see HPI, headache/migraines. denies: ataxia, numbness, paresthesia, seizure, tremors Psychiatric: reports: see HPI. denies: anxiety, depression, emotional problems , insomnia, panic attacks, suicidal thoughts Past History - Adult - PAST MEDICAL HISTORY-ADULT Review of Records: reports: Old Records Reviewed, Nursing Assessment Review, Medications Reviewed, Social history reviewed & non-contributory. Major Childhood Illnesses: reports: denies history Cardiovascular: reports: A-Fib, blood clots (dvt, PE), HTN, PVD Respiratory: reports: COPD, pneumonia (MRSA) Gastrointestinal: reports: GERD Obstetrical/Gynecological: reports: denies history Genitourinary: reports: chronic UTI's Musculoskeletal: reports: denies history Neurological: reports: CVA Psychiatric: reports: anxiety, depression Endocrine/Immune: reports: denies history Other Conditions: reports: MRSA - PRIOR SURGERIES/PROCEDURES Surgical/Procedure History: reports: cholecystectomy, BTL, indwelling device ( PICC line), joint replacement - IMMUNIZATION STATUS Childhood Immunizations: See Nurse Assessment Flu Vaccine: See Nurse Assessment - FAMILY HISTORY Family History: reviewed, not pertinent - SOCIAL HISTORY Smoking: cigarettes, less than 1 pack/day Provider spent 3-5 mins advising pt. on dangers of tobacco.: Discussed the need to stop smoking. Physical Exam-General - PHYSICAL EXAM-ADULT Initial Vital Signs Reviewed: Yes - CONSTITUTIONAL General Appearance: alert, moderate distress, thin. negative: obese, anxious, lethargic, slow to respond, obtunded, combative - EYES Eyes: PERRL/EOMI, pink conjunctivae. negative: conjuctival exudate, scleral icterus, subconjunctival hemorrhage - HEAD, EARS, NOSE, MOUTH & THROAT HENMT: normocephalic/atraumatic, moist mucous membranes. negative: angioedema, frontal tenderness, maxillary tenderness - NECK Neck: non-tender, full range of motion, supple, normal inspection. negative: lymphadenopathy, trachial deviation, thyromegaly - RESPIRATORY Respiratory: respiratory distress, accessory muscle use, crackles (Bilaterally) , rhonchi (Bilaterally), increased rate. negative: rales, stridor, wheezing, pain on inspiration, splinting, crepitus - CARDIOVASCULAR Cardiovascular: regular rate, rhythm, no edema, no JVD, no murmur, tachycardia. negative: extra beats, friction rub, irregularly irregular - GASTROINTESTINAL (ABDOMEN) Abdominal Exam: normal bowel sounds, non tender, soft. negative: distended, guarding, rigid, rebound, tenderness, hernia, mass - LYMPHATIC Lymphatic: no adenopathy. negative: axilla node tender, cervical node tenderness - MUSCULOSKELETAL Back Exam: normal inspection, no CVA tenderness, no vertebral tenderness. negative: ecchymosis, swelling, vertebral tenderness Extremity: normal range of motion, non-tender, normal inspection. negative: deformity, erythema, inflammation, swelling, tenderness Peripheral Pulses: radial (R): 2+, radial (L): 2+ - SKIN Integumentary: normal color, normal turgor, warm/dry, pallor. negative: cyanosis, diaphoresis, ecchymosis, erythema, jaundice, mottled, petechiae, purpura, rash, swelling, tenderness - NEUROLOGIC Neurologic: grossly normal, no motor/sensory deficits. negative: aphasia, facial droop, focal weakness, motor weakness, sensory deficit - PSYCHIATRIC Psych/Mental Status: normal mood/affect, normal thought content, normal thought process, oriented x 3. negative: anxious, paranoid, tearful Progress - PLAN OF CARE/RESULTS Progress/Plan/Lab Results: Vital Signs - 8 hr 11/30/16 10:06 Temperature 100.8 F H Pulse Rate 122 H Respiratory Rate 22 Blood Pressure 123/65 O2 Sat by Pulse Oximetry 100 Orders Category Date Time Status Cardiac Monitoring DIRECTED Care 11/30/16 10:12 Active IV Insertion ORDERED Care 11/30/16 10:12 Completed Notify MD of + Sepsis Screen NOW Care 11/30/16 10:12 Active CHEST-PORTABLE [RAD] Stat Exams 11/30/16 10:12 Taken ABG [RESP] Routine Lab 11/30/16 10:23 Ordered BLOOD CULTURE [BLDCUL] Stat Lab 11/30/16 10:12 Uncollected CBC WITH DIFF [HEME] Stat Lab 11/30/16 10:30 Ordered CK PROFILE [SP CHEM] Stat Lab 11/30/16 10:30 Ordered COMPREHENSIVE METABOLIC PANEL [CHEM] Stat Lab 11/30/16 10:30 Ordered LACTATE, PLASMA [CHEM] Stat Lab 11/30/16 10:30 Ordered PRO B-NATRIURETIC PEPTIDE Stat Lab 11/30/16 10:35 Ordered PROTIME WITH INR [COAG] Stat Lab 11/30/16 10:30 Ordered PTT [COAG] Stat Lab 11/30/16 10:30 Ordered TROPONIN T Stat Lab 11/30/16 10:30 Ordered URINALYSIS W/POSS RFLX CULT [URINALYSIS] Stat Lab 11/30/16 10:12 Uncollected Acetaminophen [Tylenol] Med 11/30/16 10:13 Discontinued 1,000 mg PO NOW ONE Albuterol 2.5MG/Ipratrop 0.5MG [Duoneb (A & A)] Med 11/30/16 10:24 Discontinued 6 ml INH NOW ONE Aerosol Treatments Routine Oth 11/30/16 10:24 Active Aerosol Treatments Stat Oth 11/30/16 10:24 Active BIPAP Stat Oth 11/30/16 10:24 Active Oxygen Device Stat Ot 11/30/16 10:[address] Perales at bedside for evaluation. Result Diagrams: 11/30/16 10:30 11/30/16 10:30 - XRAY 1 XRAY Study: Chest XRAY Interpretation: Bilateral pneumonia ([place]) - CONSULTS/PCP/HOSPITALIST Notification #1 *Consult/PCP/Hospitalist*: Dr. Damian Time Discussed: 12:52 Reason/Comments: Admission Consult Disposition: Will see in ED, Admit (Also start on Vanc and Zosyn.) Departure - Departure Time of Disposition Decision: 11:35 DIAGNOSIS: Failure of outpatient treatment, SOB (shortness of breath) Pneumonia Qualifiers: Pneumonia type: due to unspecified organism Laterality: bilateral Lung location : unspecified part of lung Qualified Code(s): J18.9 - Pneumonia, unspecified organism COPD (chronic obstructive pulmonary disease) Qualifiers: COPD type: unspecified COPD Qualified Code(s): J44.9 - Chronic obstructive pulmonary disease, unspecified Disposition: ADMITTED INPATIENT 09 Certified Medical Emergency: Emergent Condition: Serious Referrals and Follow-Ups: Toy Salcido MD [Primary Care Provider] - Attestation - Physician/ VEE Attestation Patient care was provided by Advanced Practice Provider:: Yes Advanced Practice Provider:: Josr Whipple Advanced Practice Provider documentation review:: The Mid-level provider documentation, treatment plan and medical decision making was reviewed by the physician who agrees with all treatment and medical decision making by the MLP. The physician spent face to face time with patient:: Yes Advanced Practice Provider documentation review:: The physician spent face to face time with this patient and agrees with all MLP documentation, treatment, and medical decision making by the MLP. See provider notes for further information.
[2016-11-30 10:59] LABS: BASO% 0.1 % (0.0-0.8); EOS# 0.09 X1000 (0.0-0.7); EOS% 0.7 % (0.0-10.0); HEMATOCRIT 40.4 % (37.0-47.0); HEMOGLOBIN 13.8 g/dL (12.0-16.0); IMM GRAN# 0.03 X1000 (0.0-0.04); IMM GRAN% 0.2 % (0.0-0.5); LYMPH# 0.63 X1000 (1.2-3.4); LYMPH% 4.7 % (20.5-51.1); MANUAL DIFF NEEDED? YES; MCH 31.7 PG (27-31); MCHC 34.2 g/dL (33-37); MCV 92.9 FL (81-99); MONO# 0.62 X1000 (0.11-0.59); MONO% 4.6 % (1.7-9.3); MPV 9.4 FL (7.4-10.4); NEUT% 89.7 % (42.2-75.2); PLT 209 X1000 (130-400); RBC 4.35 XMIL (4.2-5.4)
[2016-11-30 11:00] LABS: INR 0.96; PTT 22.4 Seconds (22.0-36.0)
[2016-11-30] MEDS ORDERED: PRIMAXIN 500 MG in NS 100 ML IV ONE (11:01)
--- NOTE | 2016-11-30 11:07 | Diag Imaging Result Document ---
PROCEDURE NAME: CHEST-PORTABLE - 11/30/2016 PORTABLE CHEST X-RAY: COMPARISON: 11/24/2016. FINDINGS: There has been resolution of the right basilar pleural effusion. There is extensive right perihilar and basilar infiltrate. There is also trace left basilar infiltrate, nonspecific. Heart size and pulmonary vascularity is grossly normal. IMPRESSION: Bilateral basilar infiltrates, right greater than left. Pneumonia or aspiration is suggested.
[2016-11-30 11:11] LABS: BANDS 2 % (0-1); LYMPHS 6 % (21-51); MONO 2 % (1-9)
[2016-11-30 11:20] LABS: URINE CULTURE NEEDED? NO; URINE MICRO REVIEW NEEDED? NO; URINE SOURCE CLEAN CATCH
[2016-11-30 11:23] LABS: BILIRUBIN URINE NEGATIVE (NEGATIVE); BLOOD URINE NEGATIVE (NEGATIVE); COLOR YELLOW; GLUCOSE URINE NEGATIVE (NEGATIVE); LEUKOCYTES URINE TRACE (NEGATIVE); NITRITE URINE NEGATIVE (NEGATIVE); PH URINE 7.5; PROTEIN URINE NEGATIVE (NEGATIVE); SP GRAVITY URINE 1.014; TURBIDITY URINE CLEAR (CLEAR); UROBILINOGEN URINE NORMAL (NORMAL)
[2016-11-30 11:25] LABS: AGAP 12; ALBUMIN 3.6 g/dL (3.5-5.0); ALKALINE PHOSPHATASE 63 U/L (32-104); BUN 10 mg/dL (8-22); CALCIUM 8.6 mg/dL (8.8-10.2); CHLORIDE 94 mmol/L (98-107); CK PROFILE 37 U/L (24-173); COSMO 273; GOT 21 U/L (10-30); GPT 36 U/L (10-36); POTASSIUM 3.7 mmol/L (3.5-5.1); SODIUM 137 mmol/L (136-145); TCO2 31 mmol/L (25-35); TOTAL BILIRUBIN 0.86 mg/dL (0.20-1.00); TOTAL PROTEIN 5.9 g/dL (6.3-8.3)
[2016-11-30 11:26] LABS: UR EPITHELIAL CELLS <10 /HPF (<10); URINE BACTERIA NEGATIVE /HPF; URINE RBC <10 /HPF (<10); URINE WBC <10 /HPF (<10)
[2016-11-30] MEDS ORDERED: LEVAQUIN 750 MG/D5W 750 MG/150 ML IVPB IV ONE (11:42)
[2016-11-30] MEDS ORDERED: NS 1,000 ML IV ONE (12:52)
[2016-11-30] MEDS ORDERED: VANCOMYCIN IV PER PHARMACY MISC SCH (13:00)
--- NOTE | 2016-11-30 15:12 | HISTORY AND PHYSICAL ---
PRIMARY CARE PROVIDER: Toy Salcido. CHIEF COMPLAINT: Been feeling bad for a week. HISTORY OF PRESENT ILLNESS: Ms. Marissa Wolf is a 66-year-old female with a past medical history of atrial fibrillation status post cardioversion, COPD, hypertension, GERD with erosive gastritis. Who was recently discharged for acute hypercarbic respiratory failure, right lower lobe consolidation secondary to mucus plugging and bronchospasm and COPD exacerbation with a discharge date of 11/27/2016. She now presents to the ER with complaints of feeling bad for weeks, increased shortness of breath, cough, her chest hurts with radiation to the left shoulder in her back. Her cough is nonproductive. Has a central headache and Tylenol does not provide relief. She has also had some nausea, vomiting and diarrhea. She states her stools have been black in color but no blood in the emesis. Workup revealed that she had a white blood cell count of 13,000, a temperature of a 100.8 degrees on admission, respiratory rate in the low to mid 20s, with an O2 saturation 100 % on 6 L nasal cannula, with a chest x-ray that revealed bibasilar infiltrates with the right greater than the left and suggests pneumonia versus aspiration. Will admit her; consult Pulmonary; continue antibiotics Zosyn and Levaquin. She is also going to receive Lasix 40 mg IV every 12 hours. 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 Her COPD, she is on home O2 at 3 L, she had an ASD with repair, history of DVT and PE in the past. SURGICAL HISTORY: Tubal ligation. Total hip replacements. Cholecystectomy. Basal cell removed from her face. Tarsal tunnel release. Had a tricuspid repair a couple of years ago, atrial septal defect with Maze procedure at [facility], and several cardioversions for atrial fibrillation. SOCIAL HISTORY: Smokes 2-3 packs per day for 30 years, she is down to 6-7 cigarettes per day. Denies alcohol or illicit drug use. Lives at home by herself. Uses a cane. FAMILY HISTORY: Noncontributory. REVIEW OF SYSTEMS: Fourteen point review of systems were complete and all were negative except those mentioned above in HPI. ALLERGIES: No known drug allergies. HOME MEDICATIONS: Albuterol/Atrovent nebs. Xanax 0.5 mg p.o. every 6 hours as needed. Aspirin 81 mg p.o. daily. Lipitor 40 mg p.o. nightly. Coreg 6.25 mg p.o. every 12 hours. Digoxin 125 mcg p.o. daily. Lasix 40 mg p.o. every other day. Mucinex 1200 mg p.o. every 12 hours. Paradise 7.5 every 4-6 hours as needed. Mag-Ox 400 mg p.o. daily. Protonix 40 mg p.o. daily. Paxil 20 mg p.o. daily. Potassium chloride 20 mEq p.o. daily. Prednisone, she was on a prednisone taper, currently she was supposed to be on 20 mg for 5 days, and then 10 for 3, and 5 for 2. Xarelto 20 mg p.o. with supper. Spiriva 1 puff inhaled daily. LABORATORY DATA: White blood cells 13,000, hemoglobin 13, hematocrit 40, platelet count 209,000, INR 0.96, PTT is 22.4. PH 7.5, PCO2 39, PO2 77, bicarbonate 30, base excess 6, oxyhemoglobin is 94%. Lactate 0.7, that was on 3 L nasal cannula. Sodium is 137, potassium 3.7 , BUN 10, creatinine 0.7, glucose 106, calcium 8.6, total bilirubin 0.86, AST 21, ALT 36, CK 37, troponins less than 0.01, proBNP is 1112, plasma lactate is 1.3. Urinalysis; trace ketones, trace leukocytes, otherwise negative. IMAGING: Chest x-ray; bibasilar infiltrates right greater than left, pneumonia or aspiration is suggested but it also appeared that there might have been some pulmonary edema involved. PHYSICAL EXAMINATION: VITAL SIGNS: Temperature on admit was 100.8, heart rate 98, respiratory rate 23 , blood pressure 129/68, O2 saturation 98% on 6 L. GENERAL: Ms. Marissa Wolf is an ill-appearing 66-year-old female in no acute distress at this time. She is able answer questions appropriately. HEENT: Atraumatic, normocephalic. Pupils equal, round, reactive to light. Extraocular movements intact. NECK: No JVD or carotid bruits noted. CARDIOVASCULAR: S1, S2. Regular rate and rhythm. No rubs, gallops, murmurs. PULMONARY: Coarse with crackles and rhonchi throughout anterior, posteriorly. Mild work of breathing and 6 L nasal cannula. GI: Soft, nontender, nondistended. Positive bowel sounds x4. EXTREMITIES: No edema noted. +2 dorsalis and radial pulses. NEUROLOGIC: Alert and oriented x4. Moves all extremities equally. SKIN: Warm, dry, intact. ASSESSMENT AND PLAN: 1. Bibasilar pneumonia per chest x-ray. Will be on antibiotics, broad spectrum. We will consult Pulmonary. Start her on some low-dose steroids for her history of chronic obstructive pulmonary disease, it does not appear she is in exacerbation. We will do pulmonary toilet. 2. Acute hypoxemic respiratory failure, PO2 is 77 on 3 L. This is the dose that she uses at home. O2 was increased to 6 L. 3. Chronic obstructive pulmonary disease. No exacerbation noted at this time. We will continue nebulizers, and she was on a prednisone titration at home, today would have been her 20 mg dosing and will do Solu-Medrol 40 IV q.12h for now. 4. History of atrial fibrillation with a mini Maze procedure, now in sinus rhythm. 5. Hypertension. 6. Depression and anxiety. 7. History of erosive esophagitis and gastroesophageal reflux disease. Given the fact that it is questionable aspiration pneumonia we will perform a swallow study. 8. Last echocardiogram showed some mild pulmonary artery hypertension. It appears that she does have some pulmonary edema on her chest x-ray. She will receive Lasix IV twice daily. Also her proBNP is elevated. We will order a more recent echocardiogram. 9. DVT/PE history; Deep venous thrombosis prophylaxis. She takes Xarelto at home. 10. Gastrointestinal prophylaxis. Proton pump inhibitor. Dictated by MICHELLE Schreiber for Nagi Damian MD cc: MICHELLE Schreiber MD Malcolm R. Hendricks, MD pt examined, agree with above, marie recurrent pneumonia and possible volume overload APENOT MTDD
[2016-11-30] MEDS ORDERED: DUONEB (A & A) INH PRN (15:20)
[2016-11-30] MEDS: ZOSYN 3.375 GM/NS 3.375 GM/50 ML IVPB IV SCH ×2 (15:34→18:32)
[2016-11-30] MEDS: LASIX IV SCH (15:35)
[2016-11-30] MEDS: DUONEB (A & A) INH SCH ×3 (15:58→23:00)
[2016-11-30] MEDS ORDERED: VANCOMYCIN 1,750 MG in NS 250 ML IV ONE (16:00)
[2016-11-30] MEDS: XANAX PO PRN ×2 (16:21→22:24)
--- NOTE | 2016-11-30 16:37 | CONSULTATION ---
DATE OF CONSULTATION: 11/30/2016 REFERRING PHYSICIAN: Dr. Nagi Damian. REASON FOR CONSULTATION: Complete evaluation for pneumonia and COPD, recurrent admission. HISTORY OF PRESENTING ILLNESS: This is a 66-year-old female with past history of hypertension, GERD, erosive gastritis, COPD, hypoxia, home oxygen, atrial fibrillation status post cardioversion, who was recently in the hospital. Unfortunately, she is an active smoker until recently. Readmitted with shortness of breath and wheezing. PAST MEDICAL HISTORY: DVT/PE in the past. ASD with repair. Hypoxia on home oxygen, COPD. Esophagitis and GERD. Paroxysmal atrial fibrillation. Depression and anxiety. Hypertension status post cardioversion. PAST SURGICAL HISTORY: Cardioversion, ASD repair, tubal ligation, basal cell removal from face, carpal tunnel release. SOCIAL HISTORY: Home oxygen. Active smoker until recently. PRIMARY PHYSICIAN: Dr. Toy Salcido. FAMILY HISTORY: COPD. REVIEW OF SYSTEMS: As detailed in history of presenting illness, otherwise noncontributory. ALLERGIES: No known drug allergies. MEDICATIONS: Medications in the hospital were reviewed and they include vancomycin, Zosyn, Levaquin, Solu-Medrol 40 mg IV q. 12 hours (I will increase the frequency of that to q. 6 hours). PHYSICAL EXAMINATION: General exam: Awake, communicative in bed. Vital Signs: Noted. Head and Neck: Examined. Trachea midline. Chest exam: Bilateral wheezes and a few crackles. Cardiac exam: S1, S2. Abdomen: Nontender. Extremity Examination: +1 pedal edema. Neurological exam: Awake, communicative. LABS AND INVESTIGATIONS: CBC, CMP, ABG. Chest x-ray reviewed with bilateral infiltrates. WBCs 15.43, pH is 7.5, pCO2 39, PO2 is 77 (this is on 3 L nasal cannula). ASSESSMENT AND PLAN: A 66-year-old female with extensive past medical history as above, including hypoxia. Chronic obstructive pulmonary disease now in exacerbation and recurrent pneumonia/persistent pneumonia and history of atrial fibrillation with cardioversion, atrial septal defect repair, remote history of pulmonary embolus and deep vein thrombosis. I agree with antibiotics, steroids, bronchodilators, deep vein thrombosis and gastrointestinal prophylaxis. cc: Eve Lopez MD
[2016-11-30] MEDS: SOLU-MEDROL IV SCH ×2 (16:56→21:54)
[2016-11-30 18:36] LABS: BILIRUBIN URINE NEGATIVE (NEGATIVE); BLOOD URINE NEGATIVE (NEGATIVE); COLOR STRAW; GLUCOSE URINE NEGATIVE (NEGATIVE); LEUKOCYTES URINE NEGATIVE (NEGATIVE); NITRITE URINE NEGATIVE (NEGATIVE); PH URINE 6.5; PROTEIN URINE NEGATIVE (NEGATIVE); SP GRAVITY URINE 1.005; TURBIDITY URINE CLEAR (CLEAR); URINE CULTURE NEEDED? NO; URINE MICRO REVIEW NEEDED? NO; URINE SOURCE CATH; UROBILINOGEN URINE NORMAL (NORMAL)
[2016-11-30 18:37] LABS: UR EPITHELIAL CELLS <10 /HPF (<10); URINE BACTERIA NEGATIVE /HPF; URINE RBC <10 /HPF (<10); URINE WBC <10 /HPF (<10)
[2016-11-30] MEDS: TYLENOL PO PRN (18:55)
[2016-11-30] MEDS: XARELTO PO SCH (19:56)
[2016-11-30] MEDS ORDERED: SOLU-MEDROL IV SCH (21:00)
[2016-11-30] MEDS: ZOFRAN IV PRN (21:26)
[2016-12-01] MEDS: ZOSYN 3.375 GM/NS 3.375 GM/50 ML IVPB IV SCH ×4 (01:10→19:19)
[2016-12-01] MEDS: LASIX IV SCH ×2 (01:10→14:39)
[2016-12-01] MEDS: ZOFRAN IV PRN (01:58)
[2016-12-01] MEDS: DUONEB (A & A) INH SCH ×6 (03:05→22:59)
[2016-12-01] MEDS: SOLU-MEDROL IV SCH ×4 (03:15→16:52)
[2016-12-01 04:57] LABS: ALLEN TEST YES; BE 12.5 mmoll (-3.0-3.0); BLOOD TYPE ARTERIAL; DRAW SITE R RADIAL; METHB 1.9 % (0.0-1.5); O2(CT) 16.8 mL/dL (15.0-23.0); PCO2(98.6) 48 mmHg (35-45); PO2(98.6) 90 mmHg (60-100); SAMPLE BLOOD; SAO2 97.6 % (95.0-100.0); THB 12.6 g/dL (11.5-17.4)
[2016-12-01 04:59] LABS: MODALITY CANNULA
--- NOTE | 2016-12-01 05:41 | EKG Report ---
Test Performed on : 11/30/2016 10:16:34 AM Test Reason : No Order in [place] Blood Pressure : / mmHG Vent. Rate : 120 BPM Atrial Rate : 120 BPM P-R Int : 274 ms QRS Dur : 076 ms QT Int : 304 ms P-R-T Axes : 030 083 -49 degrees QTc Int : 429 ms Sinus tachycardia. with 1st degree AV block. ST \T\ T wave abnormality, consider inferior ischemia ST \T\ T wave abnormality, consider anterolateral ischemia Abnormal ECG When compared with ECG of 15-NOV-2016 15:48, Sinus rhythm. has replaced Junctional rhythm. Inverted T waves have replaced nonspecific T wave abnormality in Lateral leads Unconfirmed Result
[2016-12-01 05:55] LABS: AGAP 14; ALBUMIN 3.4 g/dL (3.5-5.0); ALKALINE PHOSPHATASE 57 U/L (32-104); BUN 16 mg/dL (8-22); CALCIUM 7.9 mg/dL (8.8-10.2); CHLORIDE 90 mmol/L (98-107); COSMO 279; GOT 17 U/L (10-30); GPT 30 U/L (10-36); SODIUM 136 mmol/L (136-145); TCO2 32 mmol/L (25-35); TOTAL PROTEIN 5.9 g/dL (6.3-8.3)
[2016-12-01 07:03] LABS: BASO% 0.2 % (0.0-0.8); HEMATOCRIT 36.7 % (37.0-47.0); HEMOGLOBIN 12.5 g/dL (12.0-16.0); LYMPH# 0.17 X1000 (1.2-3.4); MANUAL DIFF NEEDED? YES; MCH 31.4 PG (27-31); MCHC 34.1 g/dL (33-37); MCV 92.2 FL (81-99); MONO# 0.11 X1000 (0.11-0.59); MONO% 1.9 % (1.7-9.3); MPV 9.4 FL (7.4-10.4); NEUT% 94.9 % (42.2-75.2); PLT 188 X1000 (130-400); RBC 3.98 XMIL (4.2-5.4)
[2016-12-01 07:13] LABS: BANDS 6 % (0-1); LYMPHS 4 % (21-51); MONO 2 % (1-9)
--- NOTE | 2016-12-01 08:10 | ECHO REPORT ---
ORDER DATE: 11/30/2016 INTERPRETING PHYSICIAN: Dr. Gross CLINICAL INDICATIONS: A 66-year-old female, echocardiogram requested for evaluation of shortness of breath, atrial fibrillation, hypertension. M-MODE MEASUREMENTS: Right ventricle: 3.2 cm. Left ventricle end diastole: 3.9 cm. Left ventricle end systole: 2.7 cm. Posterior wall: 1.0 cm. Interventricular septum: 0.9 cm. Left atrium: 4.3 cm. Aortic root: 2.9 cm. SUMMARY OF 2-DIMENSIONAL IMAGIN. The left ventricular size and function appear to be normal. Ejection fraction is 64%. 2. The right ventricle appears to be at the upper limits of normal versus borderline enlarged. 3. The left atrium is probably also borderline enlarged. 4. The right atrium is at the upper limits of normal. 5. The tricuspid valve shows trace of regurgitation. The inferior vena cava is not dilated. The pulmonary pressure is estimated at 20 mmHg. 6. The pulmonic valve looks normal. Color flow mapping unremarkable. 7. The mitral valve opens normally. Color flow mapping indicates trace of regurgitation. The pulsed wave Doppler of mitral inflow is normal. The the tissue Doppler of septal and lateral mitral annulus averages 8.5 cm. The diastolic function is normal. 8. The aortic valve shows a mild degree of sclerosis of the cusps. They open normally. Color flow mapping unremarkable. There is no stenosis, no regurgitation. 9. There is no pericardial effusion, masses, nor thrombus. 10.The patient is status post atrial septal defect repair. When compared to a study from 03/11/2015 and the one from January 2016, there has been a dramatic improvement in terms of the size of the right ventricle. It has become smaller. The pulmonary pressure has normalized. The right atrium and inferior vena cava also have decreased in size. There are no more signs of right- sided volume overload. CONCLUSIONS: In summary, this echocardiographic study shows: 1. Excellent left ventricular systolic function. 2. Mild enlargement of the atria. 3. No diastolic dysfunction. 4. No evidence of any significant valvular abnormality. 5. Significant regression of the size of the right-sided chambers almost 1 year after repair of a large atrial septal defect. cc: MD Shira Escoto CRNP MTDD
[2016-12-01] MEDS: TYLENOL PO PRN (09:00)
[2016-12-01] MEDS: XANAX PO PRN ×2 (09:01→14:44)
[2016-12-01] MEDS: LEVAQUIN 750 MG/D5W 750 MG/150 ML IVPB IV SCH (11:32)
[2016-12-01] MEDS ORDERED: XANAX PO PRN (11:58)
--- NOTE | 2016-12-01 12:42 | PROGRESS NOTE ---
DATE: 12/01/2016 SUBJECTIVE: The patient appears improved. Respiratory status is overall improved. There is still some cough. OBJECTIVE: Vital Signs: Blood pressure 121/59, heart rate 93, respiratory rate 18, temperature 98 degrees, and oxygen saturation is 99% on 3 liters. Cardiovascular: Regular rate and rhythm. Pulmonary: Diffuse rhonchi, occasional wheezing. Gastrointestinal: Soft, nontender, nondistended. Bowel sounds are positive. Extremities: No clubbing or cyanosis. Lymphatics: No peripheral edema. LABORATORY DATA: White count is normal today. Her pH is 7.5, pCO2 of 48, PaO2 of 90. CMP was normal except for glucose of 200, calcium 7.9. PROBLEM LIST: 1. Acute respiratory failure secondary to pneumonia and volume overload. We will continue empiric antibiotics. She is on vancomycin, Zosyn, and Levaquin. We will follow her closely. 2. Acute hypoxic respiratory failure. Weaning O2 as tolerated. 3. Chronic obstructive pulmonary disease exacerbation. We will continue breathing treatments, decrease steroids, and follow clinically. 4. Atrial fibrillation, appears to be stable on current medications. 5. Gastroesophageal reflux disease. We will continue proton pump inhibitor. 6. Anxiety disorder. She wants me to adjust her Xanax dosing. DISPOSITION: I think she is probably getting close to being able to get to the floor, definitely by tomorrow. cc: Nagi Damian MD
[2016-12-01] MEDS: COREG PO SCH (14:00)
[2016-12-01] MEDS: NORCO-7.5 PO PRN (14:44)
[2016-12-01] MEDS: XARELTO PO SCH (16:53)
[2016-12-01] MEDS: VANCOMYCIN 1,100 MG in NS 250 ML IV SCH (16:53)
[2016-12-01] MEDS ORDERED: XARELTO PO SCH (17:00)
[2016-12-01] MEDS: MUCINEX PO SCH (20:41)
[2016-12-01] MEDS: LIPITOR PO SCH (20:42)
[2016-12-02] MEDS: NORCO-7.5 PO PRN (00:01)
[2016-12-02] MEDS: LASIX IV SCH ×2 (01:19→14:25)
[2016-12-02] MEDS: DUONEB (A & A) INH SCH ×6 (02:54→23:05)
[2016-12-02 04:57] LABS: ALLEN TEST YES; BE 10.5 mmoll (-3.0-3.0); BLOOD TYPE ARTERIAL; DRAW SITE R RADIAL; METHB 1.8 % (0.0-1.5); O2(CT) 15.4 mL/dL (15.0-23.0); PO2(98.6) 74 mmHg (60-100); SAMPLE BLOOD; SAO2 97.2 % (95.0-100.0); THB 11.6 g/dL (11.5-17.4); pH(98.6) 7.45 (7.35-7.45)
[2016-12-02 04:59] LABS: MODALITY CANNULA; PCO2(98.6) 52 mmHg (35-45)
[2016-12-02 05:24] LABS: HEMOGLOBIN 12.2 g/dL (12.0-16.0); MCH 31.3 PG (27-31); MCHC 33.9 g/dL (33-37); MCV 92.3 FL (81-99); MPV 9.3 FL (7.4-10.4); RBC 3.9 XMIL (4.2-5.4)
[2016-12-02 05:58] LABS: AGAP 16; BUN 21 mg/dL (8-22); CALCIUM 8.3 mg/dL (8.8-10.2); CHLORIDE 88 mmol/L (98-107); COSMO 277; DIGOXIN 0.2 ng/mL (0.9-2.0); MAGNESIUM 1.8 mg/dL (1.5-2.7); POTASSIUM 3.5 mmol/L (3.5-5.1); SODIUM 134 mmol/L (136-145); TCO2 30 mmol/L (25-35)
[2016-12-02] MEDS: ZOSYN 3.375 GM/NS 3.375 GM/50 ML IVPB IV SCH ×4 (06:05→21:09)
[2016-12-02] MEDS: PROTONIX PO SCH (06:05)
[2016-12-02] MEDS: MAG-OX PO SCH (09:33)
[2016-12-02] MEDS: ASPIRIN PO SCH (09:33)
[2016-12-02] MEDS: SOLU-MEDROL IV SCH ×3 (09:33→16:46)
[2016-12-02] MEDS: LANOXIN PO SCH (09:33)
[2016-12-02] MEDS: MUCINEX PO SCH ×2 (09:34→21:08)
[2016-12-02] MEDS: CARDIZEM CD PO SCH (09:34)
[2016-12-02] MEDS: PAXIL PO SCH (09:34)
[2016-12-02] MEDS: XANAX PO PRN ×2 (09:40)
[2016-12-02] MEDS: TYLENOL PO PRN ×2 (09:40→21:14)
[2016-12-02] MEDS: LEVAQUIN 750 MG/D5W 750 MG/150 ML IVPB IV SCH (11:30)
--- NOTE | 2016-12-02 12:22 | PROGRESS NOTE ---
DATE: 12/02/2016 SUBJECTIVE: The patient has no focal complaints. Breathing appears much improved. She still has very minimal expectoration. OBJECTIVE: Vital Signs: Blood pressure is 104/52, heart rate of 84, respiratory rate 20, temperature 98.2 degrees, 99% saturation on 3 L. Cardiovascular: Regular rate and rhythm. Pulmonary: She still has diffuse rhonchi. Gastrointestinal: Abdomen soft, nontender, nondistended. Bowel sounds are positive. LABORATORY DATA: White count is normal. Hemoglobin and hematocrit 12 and 36, which is stable. Platelets 193,000. Chemistries: BUN and creatinine are okay 21 and 0.8. Sugars have been 193 to 229. PROBLEM LIST: 1. Respiratory failure secondary pneumonia and volume overload. We will continue on empiric antibiotics. Clinically she appears to be stable. I think we could probably deescalate her antibiotics possibly her vancomycin to start off with. So far cultures are clear, although I do not have a sputum culture. 2. Volume overload with history of coronary artery disease. I am still waiting on her cardiac. Her echo showed an EF of 64%. Overall has improved. She has improvement of her right-sided chambers after her AST has been corrected. It does not look like there is a significant component of heart failure. I am going to repeat her chest x-ray tomorrow and we will follow clinically. 3. Disposition will be difficult. Last time there was difficulty with discharge planning. I am not sure she will need some rehab. We will continue monitor. Clinically, she is stable so I think I am going to plan to transfer her to the floor today. cc: Nagi Damian MD
[2016-12-02] MEDS: COREG PO SCH ×2 (12:41)
[2016-12-02] MEDS: ZOFRAN IV PRN ×3 (15:46→21:24)
[2016-12-02] MEDS: VANCOMYCIN 1,100 MG in NS 250 ML IV SCH (16:46)
[2016-12-02] MEDS: XARELTO PO SCH (17:05)
[2016-12-02] MEDS: LIPITOR PO SCH (21:09)
[2016-12-03] MEDS: XANAX PO PRN ×2 (00:14→11:32)
[2016-12-03] MEDS: COREG PO SCH ×2 (00:14→12:38)
[2016-12-03] MEDS: SOLU-MEDROL IV SCH ×3 (00:14→16:38)
[2016-12-03] MEDS: LASIX IV SCH ×2 (02:28→14:11)
[2016-12-03] MEDS: ZOSYN 3.375 GM/NS 3.375 GM/50 ML IVPB IV SCH ×4 (02:28→21:20)
[2016-12-03] MEDS: DUONEB (A & A) INH SCH ×6 (03:49→22:41)
[2016-12-03 04:59] LABS: ALLEN TEST YES; BE 13.1 mmoll (-3.0-3.0); BLOOD TYPE ARTERIAL; DRAW SITE R RADIAL; METHB 1.7 % (0.0-1.5); MODALITY CANNULA; O2(CT) 16.1 mL/dL (15.0-23.0); PCO2(98.6) 46 mmHg (35-45); PO2(98.6) 88 mmHg (60-100); SAMPLE BLOOD; SAO2 98.9 % (95.0-100.0); THB 11.9 g/dL (11.5-17.4); pH(98.6) 7.52 (7.35-7.45)
[2016-12-03] MEDS: PROTONIX PO SCH (06:03)
[2016-12-03 07:02] LABS: HEMATOCRIT 35.3 % (37.0-47.0); MCH 31.6 PG (27-31); MCV 92.9 FL (81-99); MPV 9.3 FL (7.4-10.4); RBC 3.8 XMIL (4.2-5.4)
[2016-12-03 07:24] LABS: AGAP 12; BUN 25 mg/dL (8-22); CALCIUM 7.9 mg/dL (8.8-10.2); CHLORIDE 87 mmol/L (98-107); COSMO 275; POTASSIUM 3.3 mmol/L (3.5-5.1); SODIUM 132 mmol/L (136-145); TCO2 33 mmol/L (25-35)
[2016-12-03] MEDS: PAXIL PO SCH (08:10)
[2016-12-03] MEDS: MUCINEX PO SCH ×2 (08:10→21:21)
[2016-12-03] MEDS: CARDIZEM CD PO SCH (08:10)
[2016-12-03] MEDS: ASPIRIN PO SCH (08:10)
[2016-12-03] MEDS: MAG-OX PO SCH (08:10)
[2016-12-03] MEDS: LANOXIN PO SCH (08:10)
--- NOTE | 2016-12-03 09:22 | Diag Imaging Result Document ---
PROCEDURE NAME: CHEST-PORTABLE - 12/03/2016 PORTABLE CHEST: Compared with 11/30/2016. FINDINGS: Heart size is within normal limits. There is right lower lung infiltrate which has overall decreased. Infiltrate appears more dense adjacent to the minor fissure compared to previous exam, however. There has been near resolution of left basilar infiltrate. There is no substantial pleural effusion or pneumothorax identified. IMPRESSION: Overall mild decrease in right lower lung infiltrate. Near resolution of left basilar infiltrate.
[2016-12-03] MEDS ORDERED: KLOR-CON PO ONE (10:18)
[2016-12-03] MEDS: LEVAQUIN 750 MG/D5W 750 MG/150 ML IVPB IV SCH (11:33)
[2016-12-03] MEDS: TYLENOL PO PRN ×2 (13:08→21:22)
[2016-12-03] MEDS ORDERED: MUCOMYST 20% INH ONE (13:48)
--- NOTE | 2016-12-03 15:02 | PROGRESS NOTE ---
DATE: 12/03/2016 SUBJECTIVE: Patient does not feel as well today. Still feels congested. OBJECTIVE: Vital signs: Blood pressure was 106/53, heart rate 79, respiratory rate 20, temperature 97.8 degrees, saturations 96% on 3 L. Cardiovascular: Regular rate and rhythm. Pulmonary: Diffuse rhonchi. Occasional wheezing. GI: Soft, nontender, nondistended. Bowel sounds are positive. LABORATORY DATA: White count is normal. Hemoglobin and hematocrit 12, 35, platelets 189,000. Chemistries look okay except for potassium 3.3. Sugars are still not completely controlled. PROBLEM LIST: 1. Chronic obstructive pulmonary disease exacerbation. Will continue breathing treatments, steroids, wean as tolerated. 2. Pneumonia currently on vancomycin, Zosyn and Levaquin. I think I am going to go ahead and hold the vancomycin since she is clinically improved and follow on Levaquin alone. 3. Atrial fibrillation appears to be stable. Continue Xarelto. 4. Volume overload. She appears to be stabilizing, transition oral Lasix. DISPOSITION: Most likely will need rehab when patient is stabilized. cc: Nagi Damian MD
[2016-12-03] MEDS: XARELTO PO SCH (16:38)
[2016-12-03] MEDS: MUCOMYST 20% INH SCH (19:35)
[2016-12-03] MEDS: LIPITOR PO SCH (21:22)
[2016-12-04] MEDS: SOLU-MEDROL IV SCH ×3 (00:39→23:26)
[2016-12-04] MEDS: XANAX PO PRN ×2 (00:39→23:25)
[2016-12-04] MEDS: COREG PO SCH ×2 (00:39→12:27)
[2016-12-04] MEDS: LASIX IV SCH (03:24)
[2016-12-04] MEDS: ZOSYN 3.375 GM/NS 3.375 GM/50 ML IVPB IV SCH ×4 (03:24→23:26)
[2016-12-04] MEDS: DUONEB (A & A) INH SCH ×6 (03:25→23:01)
[2016-12-04 04:42] LABS: ALLEN TEST YES; BE 10.1 mmoll (-3.0-3.0); BLOOD TYPE ARTERIAL; DRAW SITE R RADIAL; METHB 1.6 % (0.0-1.5); O2(CT) 20.8 mL/dL (15.0-23.0); PCO2(98.6) 49 mmHg (35-45); PO2(98.6) 71 mmHg (60-100); SAMPLE BLOOD; THB 15.8 g/dL (11.5-17.4); pH(98.6) 7.47 (7.35-7.45)
[2016-12-04 04:44] LABS: MODALITY CANNULA
[2016-12-04] MEDS: PROTONIX PO SCH (06:05)
[2016-12-04 06:11] LABS: HEMATOCRIT 34.8 % (37.0-47.0); HEMOGLOBIN 11.9 g/dL (12.0-16.0); MCH 31.5 PG (27-31); MCHC 34.2 g/dL (33-37); MCV 92.1 FL (81-99); MPV 9.4 FL (7.4-10.4); RBC 3.78 XMIL (4.2-5.4)
[2016-12-04 06:22] LABS: AGAP 14; BUN 24 mg/dL (8-22); CALCIUM 8.3 mg/dL (8.8-10.2); CHLORIDE 88 mmol/L (98-107); COSMO 279; MAGNESIUM 1.9 mg/dL (1.5-2.7); POTASSIUM 3.4 mmol/L (3.5-5.1); SODIUM 134 mmol/L (136-145); TCO2 32 mmol/L (25-35)
[2016-12-04] MEDS: MUCOMYST 20% INH SCH ×3 (07:15→19:52)
[2016-12-04] MEDS: PAXIL PO SCH (09:05)
[2016-12-04] MEDS: MAG-OX PO SCH (09:05)
[2016-12-04] MEDS: MUCINEX PO SCH ×2 (09:05→23:25)
[2016-12-04] MEDS: LANOXIN PO SCH (09:05)
[2016-12-04] MEDS: ASPIRIN PO SCH (09:06)
[2016-12-04] MEDS: CARDIZEM CD PO SCH (09:07)
[2016-12-04] MEDS: LEVAQUIN 750 MG/D5W 750 MG/150 ML IVPB IV SCH (10:48)
[2016-12-04] MEDS ORDERED: DUONEB (A & A) ONE (11:29)
[2016-12-04] MEDS: HUMULIN R SUBQ SCH ×3 (12:28→23:31)
[2016-12-04] MEDS: NORCO-7.5 PO PRN (14:33)
--- NOTE | 2016-12-04 16:02 | PROGRESS NOTE ---
DATE: 12/04/2016 SUBJECTIVE: The patient has no focal complaints except she feels she still cannot expectorate. OBJECTIVE: Vital signs: Blood pressure 111/55, heart rate of 83, respiratory rate 18, temperature 98.5 degrees. Cardiovascular: Regular rate and rhythm. Pulmonary: Bilateral breath sounds. She does have rhonchi but it is improved. GI: Soft, nontender, nondistended. Bowel sounds are positive. Extremities: No clubbing or cyanosis. Lymphatics: No peripheral edema. Neurological: Exam was nonfocal. LABORATORY DATA: Her white count is normal at 10, hemoglobin and hematocrit are 12 and 35, platelets 203,000. Chemistries: Potassium 3.4, BUN 24. Sugars are okay, although they are somewhat elevated which that may be steroid induced hyperglycemia. PROBLEM LIST: 1. Chronic obstructive pulmonary disease exacerbation. She seems to be doing well or at least improving. I am going to wean down her steroids. She is on Levaquin. May be able switch that to p.o. 2. Volume overload. Again, her echo looks okay. Probably switch her to oral Lasix. 3. Atrial fibrillation. She is rate controlled and on Xarelto. 4. Disposition. The patient wants to go home but she wants to be here until she is perfectly well to go home. She does not want to go to rehab. Last discharge apparently we attempted discharge her and then she appealed to refuse it. So in any case, I think there is going to be a little bit of difficulty discharging her because she really would benefit from rehab but does not want rehab but then does not want to go home readily either. So, we will work closely within that framework. cc: Nagi Damian MD
[2016-12-04] MEDS: XARELTO PO SCH (16:42)
[2016-12-04] MEDS: TYLENOL PO PRN (22:20)
[2016-12-04] MEDS: LIPITOR PO SCH (23:25)
[2016-12-05] MEDS: COREG PO SCH ×3 (01:48→23:55)
[2016-12-05] MEDS: ZOSYN 3.375 GM/NS 3.375 GM/50 ML IVPB IV SCH ×4 (02:56→20:44)
[2016-12-05] MEDS: DUONEB (A & A) INH SCH ×6 (04:30→23:05)
[2016-12-05 06:33] LABS: HEMOGLOBIN 11.9 g/dL (12.0-16.0); MCH 31.4 PG (27-31); MCV 92.3 FL (81-99); MPV 9.3 FL (7.4-10.4); RBC 3.79 XMIL (4.2-5.4)
[2016-12-05] MEDS: HUMULIN R SUBQ SCH ×4 (06:34→21:44)
[2016-12-05] MEDS: PROTONIX PO SCH (06:35)
[2016-12-05 06:39] LABS: AGAP 8; BUN 24 mg/dL (8-22); CALCIUM 8.4 mg/dL (8.8-10.2); CHLORIDE 89 mmol/L (98-107); COSMO 276; POTASSIUM 3.8 mmol/L (3.5-5.1); SODIUM 133 mmol/L (136-145); TCO2 36 mmol/L (25-35)
[2016-12-05] MEDS: MUCOMYST 20% INH SCH ×4 (07:00→19:55)
[2016-12-05] MEDS: NORCO-7.5 PO PRN (07:18)
[2016-12-05] MEDS: LANOXIN PO SCH (10:34)
[2016-12-05] MEDS: MAG-OX PO SCH (10:34)
[2016-12-05] MEDS: ASPIRIN PO SCH (10:34)
[2016-12-05] MEDS: CARDIZEM CD PO SCH (10:35)
[2016-12-05] MEDS: PAXIL PO SCH (10:35)
[2016-12-05] MEDS: MUCINEX PO SCH ×2 (10:35→20:44)
[2016-12-05] MEDS: SOLU-MEDROL IV SCH ×2 (10:36→20:44)
[2016-12-05] MEDS: LEVAQUIN 750 MG/D5W 750 MG/150 ML IVPB IV SCH (12:09)
--- NOTE | 2016-12-05 14:14 | PROGRESS NOTE ---
DATE: 12/05/2016 SUBJECTIVE: The patient has no complaints. She feels like her breathing is improved but she is still short of breath. Still with minimal production of cough. OBJECTIVE: Blood pressure 115/62, heart rate of 88, respiratory 18, temperature 98 degrees.Cardiovascular: Regular rate and rhythm. Pulmonary: Bilateral breath sounds. Clear to auscultation. GI: Soft, nontender, nondistended. Bowel sounds are positive. She does have rhonchi, wheezing at the bases. LABORATORY DATA: White count is normal. Hemoglobin and hematocrit 11 and 35, platelets of 200,000. Chemistries are not too remarkable. Blood gas; pH 7.47, pCO2 49, PaO2 71. Urine was clear. IMAGING: Her most recent chest x-ray showed minimal changes. She had a right lower lobe and left basilar infiltrate but both had been clinically improved. PROBLEMS: 1. Chronic obstructive pulmonary disease exacerbation. On breathing treatments, steroids, Levaquin she is slowly improving. 2. Pulmonary edema. She is on oral diuretics and is stable. 3. Atrial fibrillation, paroxysmal. She is rate controlled and on Xarelto. DISPOSITION: I think she is getting close to go to discharge. She is still very debilitated. Again fairly recent readmission ever. She does not want to entertain any outpatient rehab or long- term care, she just wants to go home again. She may meet discharge criteria before she feels that she needs to go home. But we will continue to follow. I am going to get PT to work with her a little bit. I do not see that we have consulted them and we will see how things go. Hopefully discharge in the next 24-48 hours. cc: Nagi Damian MD
[2016-12-05] MEDS: XANAX PO PRN ×2 (14:20→23:28)
--- NOTE | 2016-12-05 17:23 | PALLIATIVE CARE CONSULTATION ---
DATE: 12/05/2016 REQUESTING PHYSICIAN: Dr. Damian. REASON FOR CONSULTATION: Goals of care. HISTORY OF PRESENT ILLNESS: This is a 66-year-old, female with a past medical history of atrial fibrillation status post cardioversion, gastroesophageal reflux disease with erosive gastritis, COPD requiring home O2, hypertension, ongoing tobacco use, diabetes mellitus, anxiety and depression and atrial septal defect with closure. She was most recently admitted on 11/30/2016 for complaints of increasing shortness of breath, cough and chest pain. Ms. Wolf has had multiple inpatient hospitalizations for COPD exacerbation within the last 12 months. She is a patient of the outpatient palliative care team however it is very rare that she utilizes that service when she has a change in her condition. Currently she is sitting up in the hospital bed. She states that her dyspnea is very mild. She denies pain and nausea. She complains of anxiety. Her son was scheduled to meet with the palliative care team today at 2 p.m. however she called him prior to the meeting and asked that he not come. The palliative care team has been consulted to assist with goals of care. REVIEW OF SYSTEMS: Twelve point review of system has been conducted and otherwise negative except those mentioned in the HPI. PAST MEDICAL HISTORY: See HPI. PAST SURGICAL HISTORY: 1. Cholecystectomy. 2. Left total hip replacement. 3. Tarsal tunnel release. 4. Tubal ligation. 5. Maze procedure. FAMILY HISTORY: None pertinent. SOCIAL HISTORY: Ms. Wolf lives alone. She is not . She has 1 son living and 1 son who is . She is a current every day smoker. Alcohol and drug use have been denied. PHYSICAL EXAM: General: This is a 66-year-old, female, who does not appear to be in any acute distress. HEENT: Atraumatic, normocephalic. Neck: Trachea is midline. Cardiovascular: Regular rate and rhythm. Pulmonary: Lung sounds are diminished with scattered rhonchi. Respirations are nonlabored. Abdomen: Soft. Bowel sounds are active. Extremities: Pulses are palpable. IMPRESSION: This is a 66-year-old, female with a past medical history as listed above in the HPI. I met with Ms. Wolf to discuss her current state of health and goals of care. Ms. Wolf states that she wishes to return home and does not feel a need to go to rehab. We discussed the use of the outpatient palliative care program to aid in symptom management related to her COPD. I do not feel that Ms. Wolf has realistic goals regarding her health. She frequently states "I am fine" when discussing her symptoms and frequent hospitalizations. We discussed advanced directive and power of managing attorney. She does not have either document. We have discussed the importance of those documents in the past as well as during this consultation. It appears that Ms. Wolf's palliative performance scale is 50%. She is a full code. The palliative care team will continue to follow. Thank you for this consultation. Dictated by MICHELLE Chairez for Brady Ahuja MD cc: MICHELLE Chairez MD [facility]
[2016-12-05] MEDS: ZOFRAN IV PRN (18:13)
[2016-12-05] MEDS: XARELTO PO SCH (18:14)
[2016-12-05] MEDS: LIPITOR PO SCH (20:44)
[2016-12-06] MEDS: ZOSYN 3.375 GM/NS 3.375 GM/50 ML IVPB IV SCH ×4 (01:28→20:05)
[2016-12-06] MEDS: DUONEB (A & A) INH SCH ×6 (04:01→22:58)
[2016-12-06] MEDS: PROTONIX PO SCH (06:09)
[2016-12-06] MEDS: HUMULIN R SUBQ SCH ×4 (06:39→22:20)
[2016-12-06] MEDS: MUCOMYST 20% INH SCH ×3 (07:05→19:20)
[2016-12-06 08:29] LABS: AGAP 11; BUN 20 mg/dL (8-22); CALCIUM 8.5 mg/dL (8.8-10.2); CHLORIDE 89 mmol/L (98-107); COSMO 272; POTASSIUM 4.1 mmol/L (3.5-5.1); SODIUM 132 mmol/L (136-145); TCO2 32 mmol/L (25-35)
[2016-12-06 08:58] LABS: HEMATOCRIT 35.3 % (37.0-47.0); MCV 91.2 FL (81-99); RBC 3.87 XMIL (4.2-5.4)
[2016-12-06] MEDS: SOLU-MEDROL IV SCH ×2 (10:08→20:05)
[2016-12-06] MEDS: LANOXIN PO SCH (10:08)
[2016-12-06] MEDS: MUCINEX PO SCH ×2 (10:09→20:04)
[2016-12-06] MEDS: PAXIL PO SCH (10:09)
[2016-12-06] MEDS: ASPIRIN PO SCH (10:09)
[2016-12-06] MEDS: MAG-OX PO SCH (10:09)
[2016-12-06] MEDS: CARDIZEM CD PO SCH (10:10)
[2016-12-06] MEDS: LEVAQUIN 750 MG/D5W 750 MG/150 ML IVPB IV SCH (10:55)
[2016-12-06] MEDS: COREG PO SCH (14:13)
[2016-12-06] MEDS: XANAX PO PRN ×2 (15:06→22:21)
--- NOTE | 2016-12-06 16:16 | PROGRESS NOTE ---
DATE: 12/06/2016 SUBJECTIVE: The patient is adamant about not going home. She says she is not feeling well and she has been feeling like she does not needs to go home just yet. She denies having any fever or chills. She walked with therapy according to her about 3 times down the marti and back. OBJECTIVE: Vital Signs: Blood pressure 111/43, pulse of 78, respiration 18, temperature 97.7 degrees, sat was 94-97% room air. General Appearance: Well-developed, well-nourished white female in no acute distress. HEENT: Anicteric. Clear conjunctivae. Neck: Supple. No JVD. No bruit. Cardiovascular: S1, S2. Normal rate and rhythm. No murmur, rubs, or gallops. Pulmonary: Clear to auscultation bilaterally. GI: Soft, nontender, nondistended. Normoactive bowel sounds. Musculoskeletal: No clubbing, cyanosis, or edema. LABORATORY: Her white count 9.17, hemoglobin 12.0, hematocrit of 35.3, platelets of 230,000. Chemistry: Sodium 132, potassium 4.1, chloride 89, bicarb 32, BUN 20, creatinine 0.7. Glucose 170. ASSESSMENT AND PLAN: This is a 66-year-old admitted to the hospital for shortness of breath and was found to have pneumonia. 1. Pneumonia which she had been treated for hospital associated pneumonia. Cultures have remained negative thus far. She is on Levaquin and Zosyn. We will probably stop the Zosyn within the next several days and we will plan for discharge soon. 2. COPD exacerbation. We will continue Solu-Medrol and nebulizers and oxygen p.r.n. 3. Hyperlipidemia. Continue Lipitor. 4. Anxiety. Continue Xanax 3 times a day. 5. Atrial fibrillation. We will continue on digoxin and Coreg. 6. DVT prophylaxis. The patient on Xarelto. CODE STATUS: The patient is a full code.
[2016-12-06] MEDS: XARELTO PO SCH (16:32)
[2016-12-06] MEDS: TYLENOL PO PRN (20:04)
[2016-12-06] MEDS: LIPITOR PO SCH (20:04)
--- NOTE | 2016-12-07 00:40 | PALLIATIVE CARE PROGRESS NOTE ---
DATE: 12/06/2016 SUBJECTIVE: Ms Wolf states that she is feeling better than yesterday, but not quite ready to go home. She still complains of shortness of breath, especially with ambulation. OBJECTIVE: General: This is a 66-year-old, female, who does not appear to be in any acute distress. HEENT: Atraumatic, normocephalic. Neck: Trachea is midline. Cardiovascular: Regular rate and rhythm. Pulmonary: Lung sounds are diminished with scattered rhonchi. Abdomen: Soft, bowel sounds are active. Extremities: Pulses are palpable. No edema noted. ASSESSMENT AND PLAN: Ms. Wolf continues to complain of shortness of breath. However, she states this has improved since yesterday. Ms Wolf has had multiple admissions over the last several months. She is a patient on the outpatient palliative care service, however, she does not utilize that when acute symptoms arise. So, we discussed the utilization of that program in helping her to stay well and at home. Ms Wolf remains a full code. Palliative performance scale remains 50%. The palliative care team will continue to follow. Dictated by MICHELLE Chairez for Brady Ahuja MD cc: MICHELLE Chairez MD
[2016-12-07] MEDS: ZOSYN 3.375 GM/NS 3.375 GM/50 ML IVPB IV SCH ×3 (02:28→15:56)
[2016-12-07] MEDS: DUONEB (A & A) INH SCH ×4 (03:20→15:46)
[2016-12-07] MEDS: PROTONIX PO SCH (06:20)
[2016-12-07] MEDS: COREG PO SCH (06:21)
[2016-12-07] MEDS: HUMULIN R SUBQ SCH ×3 (06:21→15:58)
[2016-12-07 07:04] LABS: EOS# 0.01 X1000 (0.0-0.7); EOS% 0.1 % (0.0-10.0); HEMATOCRIT 33.6 % (37.0-47.0); HEMOGLOBIN 11.5 g/dL (12.0-16.0); IMM GRAN# 0.02 X1000 (0.0-0.04); IMM GRAN% 0.3 % (0.0-0.5); LYMPH# 0.26 X1000 (1.2-3.4); LYMPH% 3.4 % (20.5-51.1); MANUAL DIFF NEEDED? YES; MCH 31.4 PG (27-31); MCHC 34.2 g/dL (33-37); MCV 91.8 FL (81-99); MONO# 0.17 X1000 (0.11-0.59); MONO% 2.2 % (1.7-9.3); MPV 8.9 FL (7.4-10.4); PLT 213 X1000 (130-400); RBC 3.66 XMIL (4.2-5.4)
[2016-12-07] MEDS: MUCOMYST 20% INH SCH ×3 (07:13→15:46)
[2016-12-07 07:17] LABS: AGAP 12; BUN 21 mg/dL (8-22); CALCIUM 8.1 mg/dL (8.8-10.2); CHLORIDE 92 mmol/L (98-107); COSMO 281; POTASSIUM 4.2 mmol/L (3.5-5.1); SODIUM 136 mmol/L (136-145); TCO2 32 mmol/L (25-35)
[2016-12-07 07:44] LABS: LYMPHS 4 % (21-51); MONO 2 % (1-9)
[2016-12-07] MEDS: ASPIRIN PO SCH (08:41)
[2016-12-07] MEDS: LANOXIN PO SCH (08:41)
[2016-12-07] MEDS: PAXIL PO SCH (08:41)
[2016-12-07] MEDS: MAG-OX PO SCH (08:42)
[2016-12-07] MEDS: CARDIZEM CD PO SCH (08:42)
[2016-12-07] MEDS: MUCINEX PO SCH (08:42)
[2016-12-07] MEDS: SOLU-MEDROL IV SCH (08:43)
[2016-12-07] MEDS: NORCO-7.5 PO PRN (09:44)
[2016-12-07] MEDS: LEVAQUIN 750 MG/D5W 750 MG/150 ML IVPB IV SCH (12:13)
[2016-12-07] MEDS: XANAX PO PRN ×2 (12:25→17:18)
[2016-12-07 13:39] VITALS: BP 123/57
--- NOTE | 2016-12-07 17:45 | PALLIATIVE CARE PROGRESS NOTE ---
DATE: 12/07/2016 SUBJECTIVE: Ms. Wolf states that she is feeling better. She states that she is ready to go home. OBJECTIVE: General: This is a 66-year-old, female, who does not appear to be in any acute distress. HEENT: Atraumatic, normocephalic. Neck: Trachea is midline. Cardiovascular: Regular rate and rhythm. Pulmonary: Lung sounds are diminished. Respirations are clear. Abdomen: Soft. Bowel sounds are active. ASSESSMENT AND PLAN: It appears that the current plan is to send Ms. Wolf home today. We further discussed the outpatient palliative care program and the utilization of that program. Ms. Wolf had no further questions. The palliative care team will continue to follow on an outpatient basis. Dictated by MICHELLE Chairez for Brady Ahuja MD cc: MICHELLE Chairez MD
--- NOTE | 2016-12-08 09:03 | DISCHARGE SUMMARY ---
ADMISSION DATE: 11/30/2016 DISCHARGE DATE: 12/07/2016 CONSULTATIONS: 1. Dr. Lopez with Pulmonology. 2. Josefina Hodges with Palliative Care. PERTINENT PROCEDURES: 1. Chest x-ray on admission showed bilateral basal infiltrates right greater than left. Pneumonia or aspiration is suggested. 2. Echocardiogram showed excellent left ventricular systolic function. Mild enlargement of the atria, no diastolic dysfunction. No evidence of any significant valvular abnormality. Significant regression of the size of the right-sided chambers almost 1 year after repair of a large atrial septal defect. DISCHARGE DIAGNOSES: 1. Hospital-acquired pneumonia. Cultures have remained negative. Patient was discharged on p.o. Levaquin, as well as a Medrol Dosepak and her inhalers, stable. Again, she has been advised aggressively for smoking cessation, as well as the means to quit. 2. Chronic obstructive pulmonary disease exacerbation. Continue with Medrol Dosepak and nebulizers and p.r.n. oxygen. 3. Hyperlipidemia, continue Lipitor. 4. Anxiety, continue Xanax 3 times a day. 5. Atrial fibrillation, continue with digoxin and Coreg. 6. Pulmonary edema, resolved on oral diuretics, stable. 7. Fluid volume overload. Echocardiogram was performed and it looked good. The patient was switched from IV to p.o. Lasix. HOSPITAL COURSE: Briefly, Ms. Wolf is a 66-year-old, female, well known to our service with past medical history of atrial fibrillation status post cardioversion, COPD , hypertension, GERD with erosive gastritis. She was recently discharged for acute hypercapnic respiratory failure, right lower lobe consolidation secondary to mucus plugging and bronchospasm, and COPD exacerbation, with a discharge date of 11/27/2016. She presented back to the ED with complaints of feeling bad for weeks, increased shortness of breath, cough, her chest hurt with radiation to the left shoulder and her back. Her cough was nonproductive. Also complained of some nausea, vomiting and diarrhea. She states that her stools have been black in color, but no blood in the emesis. Workup revealed a white count of 13, and a temperature of a 100.8 degrees. Chest x-ray revealed bibasilar infiltrates with the right greater than left, suggests pneumonia versus aspiration. Patient was admitted with a Pulmonary consult. She was started on IV antibiotics with Zosyn and Levaquin, as well as Lasix 40 mg IV every 12 hours. Aggressive pulmonary toilet, bronchodilators, daily smoking cessation education. Patient underwent a normal echocardiogram. Palliative Care was also brought in for patient's goals of care. Her goal was to return home. She did not feel the need to go to rehab. They discussed palliative care program as an outpatient and to aid with her system management related to her COPD. They did not feel that Ms. Wolf has realistic goals regarding her health. She frequently stated "I am fine." She is a patient on the outpatient palliative care services, however she does not utilize that when acute symptoms arise, so they discussed the utilization of the program to help her stay well at home. In the past, Ms. Wolf has met discharge criteria. She did repeal her discharge on her last admission. She is still very debilitated, but again she refuses to go to any type of rehab or [facility] care, she just wants to go home again. PT did work with the patient while she was in the hospital. Clinically the patient has improved. The day before her discharge, she was again adamant about not going home, stating she was not feeling well and had been feeling like she does not need to go home just yet, but denied any fever or chills. She was able to walk in the hallways with Physical Therapy, about 3 times [address]i and back. Her vital signs have remained stable. Her cultures have remained negative thus far. She is being discharged back home today. DISCHARGE VITAL SIGNS: At time of her discharge, temperature is 97.8 degrees, heart rate 78, respirations 17, blood pressure 123/57, O2 is 96%. DISCHARGE DIET: Healthy heart. DISCHARGE MEDICATIONS: 1. DuoNeb 3 mL inhaled RT q.4 hours p.r.n. 2. Xanax 0.5 mg p.o. q.6 hours p.r.n. 3. Aspirin 81 mg p.o. daily. 4. Lipitor 40 mg p.o. at bedtime. 5. Coreg 6.25 mg p.o. q.12 hours. 6. Digoxin 125 mcg p.o. daily. 7. Cardizem CD 180 mg p.o. daily. 8. Lasix 40 mg p.o. every other day. 9. Mucinex 12,000 mg p.o. q.12 hours. 10. [place] 7.5/325 one p.o. q.4-6 hours p.r.n. 11. Levaquin 750 mg p.o. daily for 7 days. 12. Magnesium oxide 400 mg p.o. daily. 13. Medrol Dosepak as directed. 14. Protonix 40 mg p.o. daily. 15. Paxil 20 mg p.o. daily. 16. Potassium 20 mEq p.o. daily. 17. Xarelto 20 mg p.o. with supper. 18. Spiriva 1 puff inhaled RT daily. FOLLOWUP: The patient is being discharged home. She can follow up with Dr. Toy Salcido in 7-10 days, as well as Dr. Lopez, on 12/12/2016. Ms. Wolf has been educated about using her palliative care program, for when she feels symptoms coming on, to utilize their service. She has also been educated again on smoking cessation, as well as the means to quit. She is to complete her full course of antibiotics, as well as steroids, and continue with her home O2 and bronchodilators. DISCHARGE TIME: 30 minutes. Dictated by MICHELLE Kerr for Quentin Munoz MD cc: Toy Salcido MD I personally evaluated and examined the patient in conjunction to the [employer] and agreed with her plans and dispositions. I have re-emphasized on several occasion that she needs to utilize her hospice program. ELIZABETH
== END 2016-12-07 17:21 | disposition home health service (06) ==
LOC: ED 10:01 → SUATTDRO 14:31 → ICU 14:31 → 3S 21:03 → 3N 12-02 18:03
PROVIDERS: ATTEND Internal Medicine

== ENCOUNTER 2017-04-18 13:25 | Inpatient (IN) ==
[2017-04-18] MEDS ORDERED: ASPIRIN PO STA (13:36)
--- NOTE | 2017-04-18 14:05 | Diag Imaging Result Doc PS360 ---
CHEST-2 VIEWS - 04/18/2017 INDICATION: CP TECHNIQUE: COMPARISON: 12/03/2016 FINDINGS: Stable sternotomy changes. Stable bilateral hilar enlargement. There is an ill-defined infiltrate or atelectasis at the right lower lobe. No pneumothorax or pleural effusion. Pulmonary vascularity is normal. IMPRESSION: Recurrent, mild infiltrate or atelectasis at the right lower lobe. Electronically signed by Devin Robert 04/18/2017 2:03 PM
[2017-04-18] MEDS ORDERED: DUONEB (A & A) INH ONE (14:24)
[2017-04-18 14:38] LABS: MANUAL DIFF NEEDED? NO
[2017-04-18 14:40] LABS: BASO% 0.6 % (0.0-0.8); EOS# 0.52 X1000 (0.0-0.7); EOS% 3.6 % (0.0-10.0); HEMATOCRIT 38.6 % (37.0-47.0); HEMOGLOBIN 12.7 g/dL (12.0-16.0); IMM GRAN# 0.04 X1000 (0.0-0.04); IMM GRAN% 0.3 % (0.0-0.5); LYMPH# 2.36 X1000 (1.2-3.4); LYMPH% 16.4 % (20.5-51.1); MCH 30.5 PG (27-31); MCHC 32.9 g/dL (33-37); MCV 92.8 FL (81-99); MONO# 1.09 X1000 (0.11-0.59); MONO% 7.6 % (1.7-9.3); MPV 9.5 FL (7.4-10.4); NEUT% 71.5 % (42.2-75.2); PLT 321 X1000 (130-400); RBC 4.16 XMIL (4.2-5.4)
[2017-04-18] MEDS ORDERED: SOLU-MEDROL IV ONE (14:40)
[2017-04-18] MEDS ORDERED: SOLU-MEDROL 125 MG in NS 100 ML IV SCH (14:45)
[2017-04-18 14:47] LABS: INR 1.09; PROTIME 11.5 Seconds (9.2-11.7); PTT 29.4 Seconds (22.0-36.0)
[2017-04-18 15:04] LABS: AGAP 10; ALBUMIN 4.2 g/dL (3.5-5.0); ALKALINE PHOSPHATASE 131 U/L (32-104); BUN 12 mg/dL (8-22); CALCIUM 9.7 mg/dL (8.8-10.2); CHLORIDE 100 mmol/L (98-107); CK PROFILE 47 U/L (24-173); COSMO 281; GOT 21 U/L (10-30); GPT 70 U/L (10-36); POTASSIUM 4.5 mmol/L (3.5-5.1); SODIUM 141 mmol/L (136-145); TCO2 31 mmol/L (25-35); TOTAL BILIRUBIN 0.28 mg/dL (0.20-1.00); TOTAL PROTEIN 7.4 g/dL (6.3-8.3)
[2017-04-18] MEDS ORDERED: LEVAQUIN 750 MG/D5W 750 MG/150 ML IVPB IV ONE (15:40)
[2017-04-18] MEDS ORDERED: LASIX IV ONE (16:33)
[2017-04-18 16:37] LABS: URINE CULTURE NEEDED? NO; URINE MICRO REVIEW NEEDED? NO; URINE SOURCE CATH
[2017-04-18 16:40] LABS: BILIRUBIN URINE NEGATIVE (NEGATIVE); BLOOD URINE NEGATIVE (NEGATIVE); COLOR STRAW; GLUCOSE URINE NEGATIVE (NEGATIVE); LEUKOCYTES URINE NEGATIVE (NEGATIVE); NITRITE URINE NEGATIVE (NEGATIVE); PROTEIN URINE NEGATIVE (NEGATIVE); SP GRAVITY URINE 1.001; TURBIDITY URINE CLEAR (CLEAR); UROBILINOGEN URINE NORMAL (NORMAL)
[2017-04-18 16:41] LABS: UR EPITHELIAL CELLS <10 /HPF (<10); URINE BACTERIA NEGATIVE /HPF; URINE RBC <10 /HPF (<10); URINE WBC <10 /HPF (<10)
[2017-04-18] MEDS: ROCEPHIN 1 GM in NS 50 ML IV SCH (18:09)
[2017-04-18] MEDS: MUCOMYST 20% INH SCH (19:21)
[2017-04-18] MEDS: DUONEB (A & A) INH SCH ×2 (19:21→23:17)
[2017-04-18] MEDS: PULMICORT INH SCH (19:21)
[2017-04-18] MEDS: TYLENOL PO PRN (19:44)
[2017-04-18] MEDS: COREG PO SCH (21:44)
[2017-04-18] MEDS: NICODERM PATCH TD SCH (21:44)
[2017-04-18] MEDS: XARELTO PO SCH (21:44)
[2017-04-18] MEDS: NORCO-7.5 PO PRN (21:45)
[2017-04-18] MEDS: LIPITOR PO SCH (21:45)
[2017-04-18] MEDS: MUCINEX PO SCH (21:45)
[2017-04-18] MEDS: SOLU-MEDROL IV SCH (22:03)
[2017-04-19] MEDS: TYLENOL PO PRN (00:50)
[2017-04-19] MEDS: XANAX PO PRN ×2 (00:50→22:55)
[2017-04-19] MEDS: DUONEB (A & A) INH SCH ×6 (02:47→23:01)
[2017-04-19 05:51] LABS: ALLEN TEST YES; BE 4.5 mmoll (-3.0-3.0); BLOOD TYPE ARTERIAL; DRAW SITE R RADIAL; O2(CT) 15.5 mL/dL (15.0-23.0); PCO2(98.6) 43 mmHg (35-45); PO2(98.6) 56 mmHg (60-100); SAMPLE BLOOD; SAO2 95.3 % (95.0-100.0); THB 11.9 g/dL (11.5-17.4); pH(98.6) 7.44 (7.35-7.45)
[2017-04-19 05:52] LABS: MODALITY CANNULA
[2017-04-19 06:06] LABS: FREE T4 1.38 ng/dL (0.93-1.70)
[2017-04-19 06:07] LABS: AGAP 17; ALBUMIN 3.7 g/dL (3.5-5.0); ALKALINE PHOSPHATASE 112 U/L (32-104); BUN 18 mg/dL (8-22); CALCIUM 9.3 mg/dL (8.8-10.2); CHLORIDE 90 mmol/L (98-107); COSMO 279; DIGOXIN 0.5 ng/mL (0.9-2.0); GOT 16 U/L (10-30); GPT 53 U/L (10-36); POTASSIUM 4.1 mmol/L (3.5-5.1); SODIUM 135 mmol/L (136-145); TCO2 28 mmol/L (25-35); TOTAL BILIRUBIN 0.33 mg/dL (0.20-1.00); TOTAL PROTEIN 6.5 g/dL (6.3-8.3)
[2017-04-19 06:13] LABS: BASO% 0.1 % (0.0-0.8); HEMATOCRIT 34.9 % (37.0-47.0); HEMOGLOBIN 11.6 g/dL (12.0-16.0); IMM GRAN# 0.03 X1000 (0.0-0.04); IMM GRAN% 0.2 % (0.0-0.5); LYMPH# 0.66 X1000 (1.2-3.4); LYMPH% 5.4 % (20.5-51.1); MANUAL DIFF NEEDED? YES; MCH 30.3 PG (27-31); MCHC 33.2 g/dL (33-37); MCV 91.1 FL (81-99); MONO# 0.08 X1000 (0.11-0.59); MONO% 0.7 % (1.7-9.3); MPV 10.5 FL (7.4-10.4); NEUT% 93.6 % (42.2-75.2); PLT 301 X1000 (130-400); RBC 3.83 XMIL (4.2-5.4)
[2017-04-19] MEDS: LANOXIN PO SCH (06:30)
[2017-04-19] MEDS: NORCO-7.5 PO PRN ×3 (06:31→20:40)
[2017-04-19] MEDS: SOLU-MEDROL IV SCH ×3 (06:31→22:51)
[2017-04-19] MEDS: PROTONIX PO SCH (06:31)
[2017-04-19 07:06] LABS: BANDS 3 % (0-1); EOS 1 % (1-10); LYMPHS 6 % (21-51); MONO 2 % (1-9)
[2017-04-19] MEDS: MUCOMYST 20% INH SCH ×2 (07:58→19:00)
[2017-04-19] MEDS: PULMICORT INH SCH ×2 (07:58→19:00)
[2017-04-19] MEDS: SPIRIVA INH SCH (07:59)
[2017-04-19] MEDS: NICODERM PATCH TD SCH (08:07)
[2017-04-19] MEDS: MAG-OX PO SCH (08:07)
[2017-04-19] MEDS: LASIX IV SCH (08:07)
[2017-04-19] MEDS: KLOR-CON PO SCH (08:07)
[2017-04-19] MEDS: MUCINEX PO SCH ×2 (08:07→20:40)
[2017-04-19] MEDS: CARDIZEM CD PO SCH (08:11)
[2017-04-19] MEDS: COREG PO SCH ×2 (08:11→20:40)
[2017-04-19] MEDS: ASPIRIN PO SCH (08:11)
[2017-04-19] MEDS: PAXIL PO SCH (08:11)
--- NOTE | 2017-04-19 09:27 | Diag Imaging Result Doc PS360 ---
EXAM: CHEST-2 VIEWS - 04/19/2017 HISTORY: short of breath TECHNIQUE: Chest two views COMPARISON: 04/18/2017 FINDINGS: Heart size appears within normal limits. There is been apparent mild decrease in infiltrate or atelectasis at the right base. There is a tiny right pleural effusion. There are no other acute changes identified. IMPRESSION: Mild decrease in right basilar infiltrate or atelectasis. Tiny right pleural effusion. Electronically signed by Toy Griggs 04/19/2017 9:24 AM
--- NOTE | 2017-04-19 09:54 | Diag Imaging Result Doc PS360 ---
EXAM: US ABDOMEN-COMPLETE - 04/19/2017 HISTORY: AAA TECHNIQUE: Ultrasound abdomen COMPARISON: Renal ultrasound of 03/30/2015 FINDINGS: The gallbladder surgically is absent. The common bile duct is slightly distended at 7.5 mm, but this is not unusual for postcholecystectomy state. There is no stone identified in the visualized portion of the common bile duct. There are no abnormalities of the liver or spleen identified. Visualized portions of the pancreas are unremarkable. The pancreatic body and tail are largely obscured by artifacts from bowel gas. There is no ascites seen. There is a 1.5 cm left renal cyst. The bilateral kidneys demonstrate no other abnormalities. Visualized portions of abdominal aorta and IVC appear normal caliber. The distal aorta is obscured by artifacts from bowel gas. IMPRESSION: Status post cholecystectomy. Slightly distended common bile duct compatible with the postcholecystectomy state. 1.5 cm left renal cyst. No other visible abnormality. Electronically signed by Toy Griggs 04/19/2017 9:52 AM
[2017-04-19] MEDS ORDERED: VANCOMYCIN IV PER PHARMACY MISC SCH (13:15)
[2017-04-19] MEDS ORDERED: VANCOMYCIN 2,000 MG in NS 500 ML IV ONE (15:00)
[2017-04-19] MEDS: ROCEPHIN 1 GM in NS 50 ML IV SCH (17:16)
[2017-04-19] MEDS: XARELTO PO SCH (17:16)
[2017-04-19] MEDS: LIPITOR PO SCH (20:40)
[2017-04-20] MEDS: NORCO-7.5 PO PRN ×3 (00:50→20:23)
[2017-04-20] MEDS: DUONEB (A & A) INH SCH ×6 (03:01→23:32)
[2017-04-20] MEDS: LANOXIN PO SCH (06:20)
[2017-04-20] MEDS: SOLU-MEDROL IV SCH ×3 (06:21→23:10)
[2017-04-20] MEDS: PROTONIX PO SCH (06:21)
[2017-04-20] MEDS: PULMICORT INH SCH ×2 (07:50→19:18)
[2017-04-20] MEDS: SPIRIVA INH SCH (07:50)
[2017-04-20] MEDS: MUCOMYST 20% INH SCH ×2 (07:50→19:18)
[2017-04-20] MEDS ORDERED: LASIX IV ONE (08:19)
[2017-04-20] MEDS: CARDIZEM CD PO SCH (08:24)
[2017-04-20] MEDS: MUCINEX PO SCH ×2 (08:24→20:19)
[2017-04-20] MEDS: KLOR-CON PO SCH (08:24)
[2017-04-20] MEDS: NICODERM PATCH TD SCH (08:25)
[2017-04-20] MEDS: LASIX IV SCH (08:25)
[2017-04-20] MEDS: PAXIL PO SCH (08:25)
[2017-04-20] MEDS: COLACE PO SCH ×2 (08:25→20:19)
[2017-04-20] MEDS: MAG-OX PO SCH (08:25)
[2017-04-20] MEDS: ASPIRIN PO SCH (08:26)
[2017-04-20] MEDS: COREG PO SCH ×2 (08:26→20:19)
[2017-04-20] MEDS: MILK OF MAGNESIA PO SCH (08:28)
[2017-04-20] MEDS: HUMULIN R SUBQ SCH ×3 (11:19→20:23)
[2017-04-20] MEDS ORDERED: VANCOMYCIN 1,400 MG in NS 250 ML IV SCH (15:00)
[2017-04-20] MEDS: XARELTO PO SCH (16:13)
[2017-04-20] MEDS: ROCEPHIN 1 GM in NS 50 ML IV SCH (16:13)
[2017-04-20] MEDS: LIPITOR PO SCH (20:19)
[2017-04-20] MEDS: XANAX PO PRN (20:19)
[2017-04-21] MEDS: NORCO-7.5 PO PRN ×4 (01:13→23:55)
[2017-04-21] MEDS: XANAX PO PRN ×3 (02:16→20:02)
[2017-04-21] MEDS: DUONEB (A & A) INH SCH ×6 (04:05→23:31)
[2017-04-21] MEDS: PROTONIX PO SCH (06:04)
[2017-04-21] MEDS: LANOXIN PO SCH (06:04)
[2017-04-21] MEDS: SOLU-MEDROL IV SCH ×3 (06:04→23:51)
[2017-04-21] MEDS: HUMULIN R SUBQ SCH ×4 (06:05→20:03)
--- NOTE | 2017-04-21 07:27 | Diag Imaging Result Doc PS360 ---
EXAM: CHEST-PORTABLE HISTORY: pneumonia TECHNIQUE: Erect AP portable at 0605 COMMENT: There is atelectasis in both lower lobes. This is worse than on 04/19/2017. IMPRESSION: Bibasilar atelectasis versus bronchopneumonia. Electronically signed by Hung Charles 04/21/2017 7:24 AM
[2017-04-21] MEDS: PULMICORT INH SCH ×2 (07:42→19:01)
[2017-04-21] MEDS: MUCOMYST 20% INH SCH ×2 (07:42→19:02)
[2017-04-21] MEDS: SPIRIVA INH SCH (07:42)
[2017-04-21] MEDS: MILK OF MAGNESIA PO SCH (08:03)
[2017-04-21] MEDS: CARDIZEM CD PO SCH (08:03)
[2017-04-21] MEDS: COLACE PO SCH ×2 (08:03→20:01)
[2017-04-21] MEDS: PAXIL PO SCH (08:03)
[2017-04-21] MEDS: NICODERM PATCH TD SCH (08:03)
[2017-04-21] MEDS: MAG-OX PO SCH (08:03)
[2017-04-21] MEDS: ASPIRIN PO SCH (08:03)
[2017-04-21] MEDS: MUCINEX PO SCH ×2 (08:03→20:02)
[2017-04-21] MEDS: COREG PO SCH ×2 (08:03→20:02)
[2017-04-21] MEDS: KLOR-CON PO SCH (08:03)
[2017-04-21] MEDS: LASIX IV SCH (08:03)
[2017-04-21] MEDS: ROCEPHIN 1 GM in NS 50 ML IV SCH (16:19)
[2017-04-21] MEDS: XARELTO PO SCH (17:04)
[2017-04-21] MEDS: LIPITOR PO SCH (20:02)
[2017-04-22] MEDS: XANAX PO PRN ×3 (02:23→20:55)
[2017-04-22] MEDS: DUONEB (A & A) INH SCH ×6 (03:52→23:19)
[2017-04-22] MEDS: SOLU-MEDROL IV SCH ×3 (06:33→23:01)
[2017-04-22] MEDS: LANOXIN PO SCH (06:33)
[2017-04-22] MEDS: HUMULIN R SUBQ SCH ×4 (06:34→20:55)
[2017-04-22] MEDS: PROTONIX PO SCH (06:34)
[2017-04-22] MEDS: MUCOMYST 20% INH SCH ×2 (07:29→19:20)
[2017-04-22] MEDS: PULMICORT INH SCH ×2 (07:30→19:21)
[2017-04-22] MEDS: SPIRIVA INH SCH (07:32)
[2017-04-22] MEDS: COREG PO SCH ×2 (07:59→20:55)
[2017-04-22] MEDS: COLACE PO SCH ×2 (07:59→20:55)
[2017-04-22] MEDS: CARDIZEM CD PO SCH (07:59)
[2017-04-22] MEDS: LASIX IV SCH (07:59)
[2017-04-22] MEDS: NICODERM PATCH TD SCH (07:59)
[2017-04-22] MEDS: KLOR-CON PO SCH (07:59)
[2017-04-22] MEDS: MAG-OX PO SCH (07:59)
[2017-04-22] MEDS: PAXIL PO SCH (07:59)
[2017-04-22] MEDS: ASPIRIN PO SCH (07:59)
[2017-04-22] MEDS: MUCINEX PO SCH ×2 (07:59→20:55)
[2017-04-22] MEDS: MILK OF MAGNESIA PO SCH ×2 (08:00→11:08)
[2017-04-22] MEDS: NORCO-7.5 PO PRN ×2 (12:57→20:55)
[2017-04-22] MEDS: XARELTO PO SCH ×2 (15:53→15:59)
[2017-04-22] MEDS: ROCEPHIN 1 GM in NS 50 ML IV SCH (15:53)
[2017-04-22] MEDS: LIPITOR PO SCH (20:55)
[2017-04-23] MEDS: XANAX PO PRN ×2 (02:23→10:47)
[2017-04-23] MEDS: NORCO-7.5 PO PRN ×3 (02:23→21:11)
[2017-04-23] MEDS: DUONEB (A & A) INH SCH ×6 (03:53→23:35)
[2017-04-23] MEDS: LANOXIN PO SCH (06:29)
[2017-04-23] MEDS: PROTONIX PO SCH (06:29)
[2017-04-23] MEDS: SOLU-MEDROL IV SCH ×3 (06:29→23:20)
[2017-04-23] MEDS: HUMULIN R SUBQ SCH ×4 (06:30→22:03)
[2017-04-23] MEDS: SPIRIVA INH SCH (07:39)
[2017-04-23] MEDS: MUCOMYST 20% INH SCH ×2 (07:39→19:15)
[2017-04-23] MEDS: PULMICORT INH SCH ×2 (07:39→19:24)
[2017-04-23] MEDS: NICODERM PATCH TD SCH (08:09)
[2017-04-23] MEDS: MILK OF MAGNESIA PO SCH (08:09)
[2017-04-23] MEDS: MAG-OX PO SCH (08:09)
[2017-04-23] MEDS: MUCINEX PO SCH ×2 (08:09→21:11)
[2017-04-23] MEDS: PAXIL PO SCH (08:09)
[2017-04-23] MEDS: KLOR-CON PO SCH (08:09)
[2017-04-23] MEDS: COLACE PO SCH ×2 (08:09→21:11)
[2017-04-23] MEDS: COREG PO SCH ×2 (08:10→21:11)
[2017-04-23] MEDS: CARDIZEM CD PO SCH (08:10)
[2017-04-23] MEDS: LASIX IV SCH (08:10)
[2017-04-23] MEDS: ASPIRIN PO SCH (08:10)
[2017-04-23] MEDS ORDERED: DULCOLAX PR PRN (10:13)
[2017-04-23] MEDS: MIRALAX PO SCH (10:47)
[2017-04-23] MEDS: PRECARE PO SCH (11:52)
[2017-04-23] MEDS: ROCEPHIN 1 GM in NS 50 ML IV SCH (15:58)
[2017-04-23] MEDS: XARELTO PO SCH (15:59)
[2017-04-23] MEDS: LIPITOR PO SCH (21:11)
[2017-04-24] MEDS: XANAX PO PRN (01:02)
[2017-04-24] MEDS: NORCO-7.5 PO PRN ×4 (01:02→20:36)
[2017-04-24] MEDS: DUONEB (A & A) INH SCH ×6 (02:59→23:08)
[2017-04-24] MEDS: HUMULIN R SUBQ SCH ×4 (06:01→20:38)
[2017-04-24] MEDS: PROTONIX PO SCH (06:01)
[2017-04-24] MEDS: LANOXIN PO SCH (06:01)
[2017-04-24] MEDS: PULMICORT INH SCH ×2 (07:31→19:30)
[2017-04-24] MEDS: MUCOMYST 20% INH SCH ×2 (07:32→19:30)
[2017-04-24] MEDS: SPIRIVA INH SCH (07:32)
[2017-04-24] MEDS: SOLU-MEDROL IV SCH ×2 (08:26→15:46)
[2017-04-24] MEDS: PRECARE PO SCH (08:27)
[2017-04-24] MEDS: CARDIZEM CD PO SCH (08:27)
[2017-04-24] MEDS: COREG PO SCH ×2 (08:27→20:37)
[2017-04-24] MEDS: LASIX IV SCH (08:27)
[2017-04-24] MEDS: MAG-OX PO SCH (08:27)
[2017-04-24] MEDS: MILK OF MAGNESIA PO SCH (08:27)
[2017-04-24] MEDS: MUCINEX PO SCH ×2 (08:27→20:37)
[2017-04-24] MEDS: MIRALAX PO SCH (08:27)
[2017-04-24] MEDS: NICODERM PATCH TD SCH (08:27)
[2017-04-24] MEDS: COLACE PO SCH ×2 (08:27→20:37)
[2017-04-24] MEDS: KLOR-CON PO SCH (08:28)
[2017-04-24] MEDS: PAXIL PO SCH (08:28)
[2017-04-24] MEDS: ASPIRIN PO SCH (08:28)
[2017-04-24 09:10] LABS: BASO% 0.1 % (0.0-0.8); HEMATOCRIT 38.1 % (37.0-47.0); HEMOGLOBIN 12.9 g/dL (12.0-16.0); IMM GRAN# 0.46 X1000 (0.0-0.04); IMM GRAN% 2.5 % (0.0-0.5); LYMPH% 4.9 % (20.5-51.1); MANUAL DIFF NEEDED? YES; MCH 30.8 PG (27-31); MCHC 33.9 g/dL (33-37); MCV 90.9 FL (81-99); MONO% 6.6 % (1.7-9.3); NEUT% 85.9 % (42.2-75.2); PLT 352 X1000 (130-400); RBC 4.19 XMIL (4.2-5.4)
[2017-04-24 09:58] LABS: AGAP 13; BUN 28 mg/dL (8-22); CALCIUM 8.4 mg/dL (8.8-10.2); CHLORIDE 89 mmol/L (98-107); COSMO 286; POTASSIUM 4.4 mmol/L (3.5-5.1); SODIUM 135 mmol/L (136-145); TCO2 33 mmol/L (25-35)
[2017-04-24 10:34] LABS: BANDS 2 % (0-1); LYMPHS 2 % (21-51); MONO 6 % (1-9); NRBC 1 % (0-0)
[2017-04-24] MEDS: ZOSYN 3.375 GM in NS 50 ML IV SCH ×2 (15:46→20:36)
[2017-04-24] MEDS: XARELTO PO SCH (16:07)
[2017-04-24] MEDS: LIPITOR PO SCH (20:36)
[2017-04-25] MEDS: NORCO-7.5 PO PRN ×3 (00:23→23:22)
[2017-04-25] MEDS: XANAX PO PRN ×2 (00:23→23:22)
[2017-04-25] MEDS: SOLU-MEDROL IV SCH ×3 (00:23→15:44)
[2017-04-25] MEDS: DUONEB (A & A) INH SCH ×6 (03:04→23:10)
[2017-04-25 05:25] LABS: HEMOGLOBIN A1C 6.8 % (4.8-6.0)
[2017-04-25 05:26] LABS: BASO% 0.1 % (0.0-0.8); HEMATOCRIT 36.6 % (37.0-47.0); HEMOGLOBIN 12.2 g/dL (12.0-16.0); IMM GRAN# 0.39 X1000 (0.0-0.04); IMM GRAN% 2.1 % (0.0-0.5); LYMPH# 0.94 X1000 (1.2-3.4); LYMPH% 5.1 % (20.5-51.1); MANUAL DIFF NEEDED? YES; MCH 30.6 PG (27-31); MCHC 33.3 g/dL (33-37); MCV 91.7 FL (81-99); MONO# 0.91 X1000 (0.11-0.59); MONO% 4.9 % (1.7-9.3); MPV 10.2 FL (7.4-10.4); NEUT% 87.8 % (42.2-75.2); PLT 321 X1000 (130-400); RBC 3.99 XMIL (4.2-5.4)
[2017-04-25 05:41] LABS: AGAP 11; BUN 32 mg/dL (8-22); CALCIUM 8.4 mg/dL (8.8-10.2); CHLORIDE 92 mmol/L (98-107); COSMO 282; POTASSIUM 4.6 mmol/L (3.5-5.1); SODIUM 135 mmol/L (136-145); TCO2 32 mmol/L (25-35)
[2017-04-25 05:58] LABS: LYMPHS 1 % (21-51); MONO 3 % (1-9)
[2017-04-25] MEDS: PROTONIX PO SCH (06:18)
[2017-04-25] MEDS: LANOXIN PO SCH (06:18)
[2017-04-25] MEDS: ZOSYN 3.375 GM in NS 50 ML IV SCH ×4 (06:18→22:41)
[2017-04-25] MEDS: HUMULIN R SUBQ SCH ×4 (06:20→21:59)
[2017-04-25] MEDS: MUCOMYST 20% INH SCH ×2 (07:34→19:15)
[2017-04-25] MEDS: SPIRIVA INH SCH (07:34)
[2017-04-25] MEDS: PULMICORT INH SCH ×2 (07:34→19:15)
[2017-04-25] MEDS: MILK OF MAGNESIA PO SCH (08:50)
[2017-04-25] MEDS: COLACE PO SCH ×2 (08:50→21:51)
[2017-04-25] MEDS: COREG PO SCH ×2 (08:50→21:51)
[2017-04-25] MEDS: MUCINEX PO SCH ×2 (08:50→21:51)
[2017-04-25] MEDS: KLOR-CON PO SCH (08:50)
[2017-04-25] MEDS: LASIX IV SCH (08:50)
[2017-04-25] MEDS: PAXIL PO SCH (08:51)
[2017-04-25] MEDS: MAG-OX PO SCH (08:51)
[2017-04-25] MEDS: PRECARE PO SCH (08:51)
[2017-04-25] MEDS: MIRALAX PO SCH (08:51)
[2017-04-25] MEDS: ASPIRIN PO SCH (08:51)
[2017-04-25] MEDS: CARDIZEM CD PO SCH (08:51)
[2017-04-25] MEDS: NICODERM PATCH TD SCH (08:51)
[2017-04-25] MEDS: LANTUS SUBQ SCH (15:41)
[2017-04-25] MEDS: XARELTO PO SCH (17:43)
[2017-04-25] MEDS: LIPITOR PO SCH (21:51)
[2017-04-25] MEDS ORDERED: APRESOLINE IV PRN (22:07)
[2017-04-25] MEDS: ZOFRAN IV PRN (23:10)
[2017-04-26] MEDS: DUONEB (A & A) INH SCH ×6 (03:29→22:43)
[2017-04-26] MEDS: ZOSYN 3.375 GM in NS 50 ML IV SCH ×4 (05:26→23:47)
[2017-04-26] MEDS: ZOFRAN IV PRN (05:36)
[2017-04-26] MEDS: LANOXIN PO SCH (06:14)
[2017-04-26] MEDS: PROTONIX PO SCH (06:17)
[2017-04-26 06:19] LABS: MANUAL DIFF NEEDED? NO
[2017-04-26] MEDS: HUMULIN R SUBQ SCH ×4 (06:19→20:52)
[2017-04-26 06:20] LABS: BASO% 0.1 % (0.0-0.8); HEMATOCRIT 35.1 % (37.0-47.0); HEMOGLOBIN 11.8 g/dL (12.0-16.0); IMM GRAN# 0.37 X1000 (0.0-0.04); IMM GRAN% 1.9 % (0.0-0.5); LYMPH# 1.55 X1000 (1.2-3.4); LYMPH% 8.1 % (20.5-51.1); MCH 30.7 PG (27-31); MCHC 33.6 g/dL (33-37); MCV 91.4 FL (81-99); MONO# 1.37 X1000 (0.11-0.59); MONO% 7.2 % (1.7-9.3); MPV 9.8 FL (7.4-10.4); NEUT% 82.7 % (42.2-75.2); PLT 313 X1000 (130-400); RBC 3.84 XMIL (4.2-5.4)
[2017-04-26 06:43] LABS: AGAP 10; ALBUMIN 3.3 g/dL (3.5-5.0); ALKALINE PHOSPHATASE 65 U/L (32-104); BUN 33 mg/dL (8-22); CALCIUM 8.6 mg/dL (8.8-10.2); CHLORIDE 93 mmol/L (98-107); COSMO 284; GOT 14 U/L (10-30); GPT 26 U/L (10-36); POTASSIUM 4.9 mmol/L (3.5-5.1); SODIUM 137 mmol/L (136-145); TCO2 34 mmol/L (25-35); TOTAL BILIRUBIN 0.51 mg/dL (0.20-1.00); TOTAL PROTEIN 5.3 g/dL (6.3-8.3)
[2017-04-26] MEDS: SPIRIVA INH SCH (07:26)
[2017-04-26] MEDS: PULMICORT INH SCH ×2 (07:26→19:20)
[2017-04-26] MEDS: MUCOMYST 20% INH SCH ×2 (07:26→19:20)
[2017-04-26] MEDS: MUCINEX PO SCH ×2 (09:13→20:51)
[2017-04-26] MEDS: MAG-OX PO SCH (09:13)
[2017-04-26] MEDS: PAXIL PO SCH (09:14)
[2017-04-26] MEDS: PREDNISONE PO SCH (09:14)
[2017-04-26] MEDS: KLOR-CON PO SCH (09:14)
[2017-04-26] MEDS: COLACE PO SCH ×2 (09:14→20:51)
[2017-04-26] MEDS: NICODERM PATCH TD SCH (09:14)
[2017-04-26] MEDS: COREG PO SCH ×2 (09:14→20:51)
[2017-04-26] MEDS: ASPIRIN PO SCH (09:14)
[2017-04-26] MEDS: CARDIZEM CD PO SCH (09:14)
[2017-04-26] MEDS: PRECARE PO SCH (09:14)
[2017-04-26] MEDS: MILK OF MAGNESIA PO SCH (09:15)
[2017-04-26] MEDS: MIRALAX PO SCH (09:15)
[2017-04-26] MEDS: LASIX IV SCH (09:15)
[2017-04-26] MEDS: LANTUS SUBQ SCH (09:24)
[2017-04-26] MEDS: NORCO-7.5 PO PRN ×3 (09:32→21:47)
[2017-04-26] MEDS: XANAX PO PRN (12:05)
[2017-04-26] MEDS ORDERED: VANCOMYCIN IV PER PHARMACY MISC SCH (17:00)
--- NOTE | 2017-04-26 17:41 | Diag Imaging Result Doc PS360 ---
EXAM: CT PARANASAL SINUSES HISTORY: sinusitis TECHNIQUE: CT of the paranasal sinuses COMMENT: There is minimal mucosal thickening in the base of the left maxillary sinus. There are no air-fluid levels. There is no evidence of acute bony disease. The infundibulae are patent. IMPRESSION: Minimal chronic left maxillary sinus changes. Electronically signed by Hung Charles 04/26/2017 5:39 PM
[2017-04-26] MEDS: XARELTO PO SCH (18:04)
[2017-04-26] MEDS: LIPITOR PO SCH (20:51)
[2017-04-26] MEDS ORDERED: VANCOMYCIN 1,750 MG in NS 250 ML IV ONE (21:00)
[2017-04-27] MEDS: XANAX PO PRN ×2 (00:33→17:06)
[2017-04-27] MEDS: DUONEB (A & A) INH SCH ×6 (03:34→22:45)
[2017-04-27] MEDS: LANOXIN PO SCH (06:00)
[2017-04-27] MEDS: ZOSYN 3.375 GM in NS 50 ML IV SCH ×3 (06:00→17:07)
[2017-04-27] MEDS: PROTONIX PO SCH (06:01)
[2017-04-27] MEDS: HUMULIN R SUBQ SCH ×4 (06:05→21:05)
[2017-04-27 06:50] LABS: MANUAL DIFF NEEDED? NO
[2017-04-27 06:55] LABS: BASO% 0.1 % (0.0-0.8); EOS# 0.03 X1000 (0.0-0.7); EOS% 0.2 % (0.0-10.0); HEMATOCRIT 33.8 % (37.0-47.0); HEMOGLOBIN 11.2 g/dL (12.0-16.0); IMM GRAN# 0.26 X1000 (0.0-0.04); IMM GRAN% 1.4 % (0.0-0.5); LYMPH# 2.09 X1000 (1.2-3.4); LYMPH% 11.4 % (20.5-51.1); MCH 30.4 PG (27-31); MCHC 33.1 g/dL (33-37); MCV 91.6 FL (81-99); MONO# 1.49 X1000 (0.11-0.59); MONO% 8.2 % (1.7-9.3); MPV 10.1 FL (7.4-10.4); NEUT% 78.7 % (42.2-75.2); PLT 282 X1000 (130-400); RBC 3.69 XMIL (4.2-5.4)
[2017-04-27 07:19] LABS: AGAP 9; BUN 28 mg/dL (8-22); CHLORIDE 94 mmol/L (98-107); COSMO 282; POTASSIUM 4.1 mmol/L (3.5-5.1); SODIUM 136 mmol/L (136-145); TCO2 33 mmol/L (25-35)
[2017-04-27] MEDS: MUCOMYST 20% INH SCH ×2 (07:42→19:07)
[2017-04-27] MEDS: PULMICORT INH SCH ×2 (07:42→19:07)
[2017-04-27] MEDS: SPIRIVA INH SCH (07:43)
[2017-04-27] MEDS ORDERED: INSULIN PEN NEEDLES ONE (07:58)
[2017-04-27] MEDS: MILK OF MAGNESIA PO SCH (09:44)
[2017-04-27] MEDS: PRECARE PO SCH (09:44)
[2017-04-27] MEDS: PREDNISONE PO SCH (09:44)
[2017-04-27] MEDS: CARDIZEM CD PO SCH (09:44)
[2017-04-27] MEDS: COREG PO SCH ×2 (09:44→21:04)
[2017-04-27] MEDS: MAG-OX PO SCH (09:44)
[2017-04-27] MEDS: ASPIRIN PO SCH (09:44)
[2017-04-27] MEDS: KLOR-CON PO SCH (09:44)
[2017-04-27] MEDS: COLACE PO SCH ×2 (09:44→21:04)
[2017-04-27] MEDS: LASIX IV SCH (09:45)
[2017-04-27] MEDS: LANTUS SUBQ SCH (09:45)
[2017-04-27] MEDS: MUCINEX PO SCH ×2 (09:45→21:04)
[2017-04-27] MEDS: PAXIL PO SCH (09:45)
[2017-04-27] MEDS: MIRALAX PO SCH (09:45)
[2017-04-27] MEDS: NICODERM PATCH TD SCH (09:45)
[2017-04-27] MEDS: NORCO-7.5 PO PRN ×2 (10:02→17:06)
[2017-04-27] MEDS: XARELTO PO SCH (17:07)
[2017-04-27] MEDS: VANCOMYCIN 1,500 MG in NS 250 ML IV SCH (21:04)
[2017-04-27] MEDS: LIPITOR PO SCH (21:04)
[2017-04-28] MEDS: ZOSYN 3.375 GM in NS 50 ML IV SCH ×4 (00:09→16:42)
[2017-04-28] MEDS: NORCO-7.5 PO PRN ×4 (00:10→23:45)
[2017-04-28] MEDS: XANAX PO PRN ×2 (00:10→23:45)
[2017-04-28] MEDS: DUONEB (A & A) INH SCH ×6 (03:40→22:52)
[2017-04-28] MEDS: PROTONIX PO SCH ×4 (05:43→19:54)
[2017-04-28] MEDS: LANOXIN PO SCH ×2 (05:43→06:15)
[2017-04-28 06:37] LABS: MANUAL DIFF NEEDED? NO
[2017-04-28 06:40] LABS: BASO% 0.1 % (0.0-0.8); EOS# 0.03 X1000 (0.0-0.7); EOS% 0.2 % (0.0-10.0); HEMATOCRIT 32.1 % (37.0-47.0); HEMOGLOBIN 10.6 g/dL (12.0-16.0); IMM GRAN# 0.17 X1000 (0.0-0.04); IMM GRAN% 1.1 % (0.0-0.5); LYMPH% 14.6 % (20.5-51.1); MCH 30.3 PG (27-31); MCV 91.7 FL (81-99); MONO# 1.45 X1000 (0.11-0.59); MONO% 9.2 % (1.7-9.3); MPV 9.8 FL (7.4-10.4); NEUT% 74.8 % (42.2-75.2); PLT 277 X1000 (130-400)
[2017-04-28] MEDS: HUMULIN R SUBQ SCH ×4 (06:51→21:31)
[2017-04-28] MEDS: PULMICORT INH SCH ×2 (08:01→19:11)
[2017-04-28] MEDS: SPIRIVA INH SCH (08:01)
[2017-04-28] MEDS: MUCOMYST 20% INH SCH ×2 (08:01→19:11)
[2017-04-28] MEDS: CARDIZEM CD PO SCH (09:27)
[2017-04-28] MEDS: LASIX IV SCH (09:27)
[2017-04-28] MEDS: COLACE PO SCH ×2 (09:27→21:30)
[2017-04-28] MEDS: NICODERM PATCH TD SCH (09:27)
[2017-04-28] MEDS: MILK OF MAGNESIA PO SCH (09:27)
[2017-04-28] MEDS: PRECARE PO SCH (09:27)
[2017-04-28] MEDS: PAXIL PO SCH (09:27)
[2017-04-28] MEDS: ASPIRIN PO SCH (09:27)
[2017-04-28] MEDS: MUCINEX PO SCH ×2 (09:27→21:30)
[2017-04-28] MEDS: COREG PO SCH ×2 (09:28→21:30)
[2017-04-28] MEDS: KLOR-CON PO SCH (09:28)
[2017-04-28] MEDS: LANTUS SUBQ SCH (09:29)
[2017-04-28] MEDS: MIRALAX PO SCH (09:30)
[2017-04-28] MEDS: MAG-OX PO SCH (09:30)
[2017-04-28] MEDS ORDERED: G.I. COCKTAIL PO ONE (10:28)
[2017-04-28] MEDS ORDERED: MORPHINE IV ONE (10:29)
[2017-04-28] MEDS ORDERED: NS 50 ML ONE (14:54)
[2017-04-28] MEDS: XARELTO PO SCH (16:43)
[2017-04-28] MEDS: VANCOMYCIN 1,500 MG in NS 250 ML IV SCH (21:30)
[2017-04-28] MEDS: LIPITOR PO SCH (21:30)
[2017-04-29] MEDS: ZOSYN 3.375 GM in NS 50 ML IV SCH ×5 (00:15→20:37)
[2017-04-29] MEDS: DUONEB (A & A) INH SCH ×6 (03:39→23:16)
[2017-04-29 06:06] LABS: MANUAL DIFF NEEDED? NO
[2017-04-29] MEDS: PROTONIX PO SCH ×2 (06:08→18:01)
[2017-04-29] MEDS: LANOXIN PO SCH (06:08)
[2017-04-29] MEDS: HUMULIN R SUBQ SCH ×4 (06:11→20:51)
[2017-04-29] MEDS ORDERED: BLISTEX MEDICATED BERRY LIP BALM TOP ONE (06:17)
[2017-04-29 06:20] LABS: BASO% 0.1 % (0.0-0.8); EOS# 0.14 X1000 (0.0-0.7); EOS% 0.9 % (0.0-10.0); HEMATOCRIT 33.5 % (37.0-47.0); HEMOGLOBIN 10.8 g/dL (12.0-16.0); IMM GRAN# 0.16 X1000 (0.0-0.04); IMM GRAN% 1.1 % (0.0-0.5); LYMPH# 2.54 X1000 (1.2-3.4); MCH 30.3 PG (27-31); MCHC 32.2 g/dL (33-37); MCV 93.8 FL (81-99); MONO# 1.31 X1000 (0.11-0.59); MONO% 8.8 % (1.7-9.3); MPV 9.9 FL (7.4-10.4); NEUT% 72.1 % (42.2-75.2); PLT 268 X1000 (130-400); RBC 3.57 XMIL (4.2-5.4)
[2017-04-29 06:39] LABS: AMYLASE 32 U/L (20-200); LIPASE 34 U/L (13-60)
[2017-04-29 06:42] LABS: CALCIUM 7.9 mg/dL (8.8-10.2); POTASSIUM 4.3 mmol/L (3.5-5.1)
[2017-04-29] MEDS: PULMICORT INH SCH ×2 (08:36→19:24)
[2017-04-29] MEDS: SPIRIVA INH SCH (08:36)
[2017-04-29] MEDS: MUCOMYST 20% INH SCH ×2 (08:36→19:24)
[2017-04-29] MEDS ORDERED: LASIX PO SCH (09:00)
[2017-04-29] MEDS: MIRALAX PO SCH (09:19)
[2017-04-29] MEDS: NICODERM PATCH TD SCH (09:20)
[2017-04-29] MEDS: LANTUS SUBQ SCH (09:20)
[2017-04-29] MEDS: PRECARE PO SCH (09:20)
[2017-04-29] MEDS: COREG PO SCH ×2 (09:20→20:37)
[2017-04-29] MEDS: CARDIZEM CD PO SCH (09:20)
[2017-04-29] MEDS: PAXIL PO SCH (09:21)
[2017-04-29] MEDS: KLOR-CON PO SCH (09:21)
[2017-04-29] MEDS: MUCINEX PO SCH ×2 (09:22→20:37)
[2017-04-29] MEDS: NORCO-7.5 PO PRN ×3 (09:22→20:37)
[2017-04-29] MEDS: COLACE PO SCH ×2 (09:23→20:37)
[2017-04-29] MEDS: ASPIRIN PO SCH (09:23)
[2017-04-29] MEDS: MILK OF MAGNESIA PO SCH (09:24)
[2017-04-29] MEDS: MAG-OX PO SCH (09:24)
[2017-04-29] MEDS: XANAX PO PRN (15:30)
[2017-04-29] MEDS: XARELTO PO SCH (16:50)
[2017-04-29] MEDS: LIPITOR PO SCH (20:37)
[2017-04-29] MEDS ORDERED: NS 250 ML ONE (22:30)
[2017-04-29] MEDS: VANCOMYCIN 1,500 MG in NS 250 ML IV SCH (22:31)
[2017-04-30] MEDS: NORCO-7.5 PO PRN ×2 (00:25→06:58)
[2017-04-30] MEDS: XANAX PO PRN ×3 (00:25→21:04)
[2017-04-30] MEDS: DUONEB (A & A) INH SCH ×6 (03:14→22:54)
[2017-04-30] MEDS: ZOSYN 3.375 GM in NS 50 ML IV SCH ×3 (04:57→16:00)
[2017-04-30] MEDS: LANOXIN PO SCH (06:24)
[2017-04-30] MEDS: PROTONIX PO SCH ×2 (06:26→18:56)
[2017-04-30] MEDS: HUMULIN R SUBQ SCH ×4 (06:26→21:32)
[2017-04-30 06:59] LABS: MANUAL DIFF NEEDED? NO
[2017-04-30 07:08] LABS: EOS% 2.3 % (0.0-10.0); HEMATOCRIT 32.1 % (37.0-47.0); HEMOGLOBIN 10.2 g/dL (12.0-16.0); IMM GRAN# 0.08 X1000 (0.0-0.04); IMM GRAN% 0.6 % (0.0-0.5); LYMPH# 1.85 X1000 (1.2-3.4); LYMPH% 14.1 % (20.5-51.1); MCH 30.2 PG (27-31); MCHC 31.8 g/dL (33-37); MONO# 0.98 X1000 (0.11-0.59); MONO% 7.5 % (1.7-9.3); MPV 9.6 FL (7.4-10.4); NEUT% 75.5 % (42.2-75.2); PLT 222 X1000 (130-400); RBC 3.38 XMIL (4.2-5.4)
[2017-04-30 07:33] LABS: AGAP 12; BUN 16 mg/dL (8-22); CALCIUM 8.3 mg/dL (8.8-10.2); CHLORIDE 96 mmol/L (98-107); COSMO 280; POTASSIUM 4.7 mmol/L (3.5-5.1); SODIUM 138 mmol/L (136-145); TCO2 30 mmol/L (25-35)
--- NOTE | 2017-04-30 07:46 | Diag Imaging Result Doc PS360 ---
EXAM: CHEST-2 VIEWS HISTORY: pneumonia TECHNIQUE: PA and lateral chest COMMENT: There is blunting of both costophrenic angles which was not present on 04/21/2017. There is minimal platelike atelectasis in the lung bases bilaterally. IMPRESSION: Small pleural effusions and bibasilar atelectasis. Electronically signed by Hung Charles 04/30/2017 7:44 AM
[2017-04-30] MEDS: MUCOMYST 20% INH SCH ×2 (07:59→19:44)
[2017-04-30] MEDS: SPIRIVA INH SCH (07:59)
[2017-04-30] MEDS: PULMICORT INH SCH ×2 (07:59→19:44)
[2017-04-30] MEDS ORDERED: NS 1,000 ML IV ONE (08:49)
[2017-04-30] MEDS: MUCINEX PO SCH ×2 (08:51→21:04)
[2017-04-30] MEDS: PAXIL PO SCH (08:51)
[2017-04-30] MEDS: MAG-OX PO SCH (08:51)
[2017-04-30] MEDS: KLOR-CON PO SCH (08:51)
[2017-04-30] MEDS: PRECARE PO SCH (08:51)
[2017-04-30] MEDS: COLACE PO SCH ×2 (08:52→21:04)
[2017-04-30] MEDS: ASPIRIN PO SCH (08:52)
[2017-04-30] MEDS: LANTUS SUBQ SCH (08:52)
[2017-04-30] MEDS: COREG PO SCH ×2 (08:52→21:04)
[2017-04-30] MEDS: CARDIZEM CD PO SCH (08:52)
[2017-04-30] MEDS: MIRALAX PO SCH (08:53)
[2017-04-30] MEDS: MILK OF MAGNESIA PO SCH (08:53)
[2017-04-30] MEDS: NICODERM PATCH TD SCH (08:53)
[2017-04-30] MEDS ORDERED: PREDNISONE PO ONE (09:54)
[2017-04-30] MEDS: TYLENOL PO PRN ×2 (11:47→21:03)
[2017-04-30] MEDS ORDERED: ULTRAM PO ONE (15:42)
[2017-04-30] MEDS: XARELTO PO SCH (16:00)
[2017-04-30] MEDS ORDERED: VANCOMYCIN 1,500 MG in NS 250 ML IV SCH (16:00)
[2017-04-30] MEDS: MYCOSTATIN SUSP PO SCH ×2 (16:01→21:03)
[2017-04-30] MEDS: AUGMENTIN PO SCH (18:56)
[2017-04-30] MEDS: CIPRO PO SCH (21:04)
[2017-04-30] MEDS: LIPITOR PO SCH (21:04)
[2017-04-30] MEDS ORDERED: VANCOMYCIN 2,000 MG in NS 500 ML IV SCH (22:00)
[2017-05-01] MEDS: DUONEB (A & A) INH SCH ×4 (03:08→15:59)
[2017-05-01] MEDS: TYLENOL PO PRN ×2 (04:52→12:53)
[2017-05-01] MEDS: AUGMENTIN PO SCH ×2 (06:08→17:05)
[2017-05-01] MEDS: LANOXIN PO SCH (06:10)
[2017-05-01] MEDS: HUMULIN R SUBQ SCH ×3 (06:11→15:45)
[2017-05-01] MEDS: PROTONIX PO SCH ×3 (06:12→18:50)
[2017-05-01 07:20] LABS: BASO% 0.1 % (0.0-0.8); EOS# 0.14 X1000 (0.0-0.7); HEMATOCRIT 29.9 % (37.0-47.0); HEMOGLOBIN 9.5 g/dL (12.0-16.0); IMM GRAN# 0.04 X1000 (0.0-0.04); IMM GRAN% 0.3 % (0.0-0.5); LYMPH# 1.33 X1000 (1.2-3.4); LYMPH% 9.1 % (20.5-51.1); MANUAL DIFF NEEDED? NO; MCH 29.8 PG (27-31); MCHC 31.8 g/dL (33-37); MCV 93.7 FL (81-99); MONO# 1.19 X1000 (0.11-0.59); MONO% 8.1 % (1.7-9.3); MPV 9.7 FL (7.4-10.4); NEUT% 81.4 % (42.2-75.2); PLT 217 X1000 (130-400); RBC 3.19 XMIL (4.2-5.4)
[2017-05-01] MEDS: MUCOMYST 20% INH SCH (07:29)
[2017-05-01] MEDS: PULMICORT INH SCH (07:29)
[2017-05-01] MEDS: SPIRIVA INH SCH (07:30)
[2017-05-01 07:45] LABS: AGAP 8; BUN 15 mg/dL (8-22); CALCIUM 8.1 mg/dL (8.8-10.2); CHLORIDE 99 mmol/L (98-107); COSMO 274; SODIUM 135 mmol/L (136-145); TCO2 28 mmol/L (25-35)
[2017-05-01] MEDS ORDERED: PREDNISONE PO SCH (09:00)
[2017-05-01] MEDS: CARDIZEM CD PO SCH (09:03)
[2017-05-01] MEDS: PAXIL PO SCH (09:03)
[2017-05-01] MEDS: MAG-OX PO SCH (09:03)
[2017-05-01] MEDS: KLOR-CON PO SCH (09:03)
[2017-05-01] MEDS: COREG PO SCH (09:04)
[2017-05-01] MEDS: NICODERM PATCH TD SCH (09:04)
[2017-05-01] MEDS: CIPRO PO SCH (09:04)
[2017-05-01] MEDS: ASPIRIN PO SCH (09:04)
[2017-05-01] MEDS: MYCOSTATIN SUSP PO SCH ×3 (09:04→17:05)
[2017-05-01] MEDS: MILK OF MAGNESIA PO SCH (09:04)
[2017-05-01] MEDS: MIRALAX PO SCH (09:04)
[2017-05-01] MEDS: MUCINEX PO SCH (09:04)
[2017-05-01] MEDS: COLACE PO SCH (09:04)
[2017-05-01] MEDS ORDERED: NORCO-7.5 PO ONE (09:40)
[2017-05-01] MEDS: PRECARE PO SCH (09:57)
[2017-05-01] MEDS: LANTUS SUBQ SCH (09:57)
[2017-05-01] MEDS ORDERED: DIFLUCAN 150 MG/NS 150 MG/75 ML IVPB IV ONE (12:48)
[2017-05-01] MEDS: XANAX PO PRN (12:55)
[2017-05-01 14:27] VITALS: BP 131/62
[2017-05-01] MEDS: XARELTO PO SCH (17:05)
== END 2017-05-01 19:55 | disposition home health service (06) ==
LOC: ED 13:25 → SUATTDRO 18:19 → 3S 18:19 → 3N 04-25 09:50
PROVIDERS: ATTEND Internal Medicine

== ENCOUNTER 2018-09-28 16:31 | Inpatient (IN) ==
[2018-09-28] MEDS ORDERED: MORPHINE ONE (16:45)
[2018-09-28] MEDS ORDERED: ZOFRAN ONE (16:45)
[2018-09-28] MEDS ORDERED: MORPHINE IV ONE (16:49)
[2018-09-28] MEDS ORDERED: ZOFRAN IV ONE (16:59)
[2018-09-28 17:15] LABS: BASO# 0.02 X1000 (0.0-0.2); BASO% 0.1 % (0.0-0.8); EOS# 0.04 X1000 (0.0-0.7); EOS% 0.2 % (0.0-10.0); HEMATOCRIT 29.4 % (37.0-47.0); HEMOGLOBIN 9.2 g/dL (12.0-16.0); IMM GRAN# 0.03 X1000 (0.0-0.04); IMM GRAN% 0.2 % (0.0-0.5); LYMPH# 0.57 X1000 (1.2-3.4); LYMPH% 3.3 % (20.5-51.1); MCH 27.8 PG (27-31); MCHC 31.3 g/dL (33-37); MCV 88.8 FL (81-99); MONO# 1.09 X1000 (0.11-0.59); MONO% 6.4 % (1.7-9.3); MPV 9.7 FL (7.4-10.4); NEUT# 15.34 X1000 (1.4-6.5); NEUT% 89.8 % (42.2-75.2); PLT 309 X1000 (130-400); RBC 3.31 XMIL (4.2-5.4); RDW 13.5 % (11.5-14.5); WBC 17.09 X1000 (4.8-10.8)
--- NOTE | 2018-09-28 17:44 | Diag Imaging Result Doc PS360 ---
XRAY PELVIS W/HIP 2-3VW LT - 09/28/2018 INDICATION: fall TECHNIQUE: Three views COMPARISON: 12/21/2016 FINDINGS: There is superior-posterior dislocation of the prosthetic left hip. No fracture demonstrated. IMPRESSION: Prosthetic left hip dislocation. Electronically signed by Devin Robert 09/28/2018 5:42 PM
[2018-09-28] MEDS ORDERED: CARDIZEM IV ONE ×2 (17:48→19:11)
--- NOTE | 2018-09-28 18:02 | Diag Imaging Result Doc PS360 ---
CT HEAD/C-SPINE W/O CONTRAST - 09/28/2018 INDICATION: Fall on the back of the head COMPARISON: 09/03/2015 FINDINGS: Head CT: The ventricles and sulci are normal in size and contour. No intracranial mass or hemorrhage. The skull is intact. The sinuses, mastoids, and middle ears are clear. Cervical spine: Alignment is anatomic. No fracture or subluxation. Stable moderately advanced degenerative disc disease at C5-C6. Stable advanced, diffuse facet degeneration. IMPRESSION: No acute injury. This exam was performed using automated exposure control, adjustment of mA or kV according to patient size, and/or use of iterative reconstruction technique Electronically signed by Devin Robert 09/28/2018 6:00 PM
[2018-09-28 19:14] LABS: AGAP 12; ALB/GLOB RATIO 1.1; ALBUMIN 3.6 g/dL (3.5-5.0); ALKALINE PHOSPHATASE 117 U/L (32-104); BUN 11 mg/dL (8-22); CHLORIDE 96 mmol/L (98-107); COSMO 268; CREATININE 0.6 mg/dL (0.5-0.9); ESTIMATED GFR > 60; GLUCOSE 113 mg/dL (70-104); GOT 18 U/L (10-30); GPT 19 U/L (10-36); POTASSIUM 4.1 mmol/L (3.5-5.1); SODIUM 134 mmol/L (136-145); TCO2 26 mmol/L (25-35); TOTAL BILIRUBIN 0.71 mg/dL (0.20-1.00); TOTAL PROTEIN 6.9 g/dL (6.3-8.3)
[2018-09-28] MEDS ORDERED: ROCEPHIN 1 GM in NS 50 ML IV ONE (19:32)
[2018-09-28] MEDS ORDERED: NS 1,000 ML IV ONE (19:33)
[2018-09-28 19:40] LABS: URINE SOURCE CATH
[2018-09-28 19:43] LABS: BILIRUBIN URINE NEGATIVE (NEGATIVE); BLOOD URINE NEGATIVE (NEGATIVE); COLOR YELLOW; GLUCOSE URINE NEGATIVE (NEGATIVE); KETONE URINE 10 mg/dL (NEGATIVE); LEUKOCYTES URINE NEGATIVE (NEGATIVE); NITRITE URINE NEGATIVE (NEGATIVE); PH URINE 5.5; PROTEIN URINE TRACE mg/dL (NEGATIVE); SP GRAVITY URINE 1.003; TURBIDITY URINE CLEAR (CLEAR); UROBILINOGEN URINE NORMAL (NORMAL)
[2018-09-28 19:44] LABS: UR EPITHELIAL CELLS <10 /HPF (<10); URINE BACTERIA NEGATIVE /HPF; URINE RBC <10 /HPF (<10); URINE WBC <10 /HPF (<10)
--- NOTE | 2018-09-28 20:13 | Diag Imaging Result Doc PS360 ---
CHEST-PORTABLE - 09/28/2018 INDICATION: sepsis COMPARISON: 04/07/2018 FINDINGS: There are dense infiltrates throughout the right lung diffusely. Heart size is normal. Stable sternotomy wires. No pneumothorax or pleural effusion. IMPRESSION: Multilobar pneumonia throughout the right lung. Electronically signed by Devin Robert 09/28/2018 8:10 PM
[2018-09-28] MEDS ORDERED: FENTANYL IV ONE (20:14)
[2018-09-28] MEDS ORDERED: KETAMINE IV ONE (20:15)
[2018-09-28 20:32] LABS: URINE SOURCE CLEAN CATCH
[2018-09-28 20:42] LABS: BILIRUBIN URINE NEGATIVE (NEGATIVE); BLOOD URINE TRACE (NEGATIVE); COLOR YELLOW; GLUCOSE URINE NEGATIVE (NEGATIVE); KETONE URINE 40 mg/dL (NEGATIVE); LEUKOCYTES URINE NEGATIVE (NEGATIVE); NITRITE URINE NEGATIVE (NEGATIVE); PH URINE 5.5; PROTEIN URINE 30 mg/dL (NEGATIVE); SP GRAVITY URINE 1.013; TURBIDITY URINE CLEAR (CLEAR); UROBILINOGEN URINE NORMAL (NORMAL)
[2018-09-28 21:03] LABS: UR EPITHELIAL CELLS <10 /HPF (<10); URINE BACTERIA NEGATIVE /HPF; URINE RBC <10 /HPF (<10); URINE WBC <10 /HPF (<10)
[2018-09-28 21:17] LABS: URINE CASTS NONE SEEN; URINE CRYSTALS NONE SEEN; URINE YEAST NONE SEEN
[2018-09-28 21:18] LABS: URINE SMALL ROUND CELLS TRANS PRESENT
[2018-09-28] MEDS ORDERED: LANOXIN IV ONE ×2 (21:34→21:54)
--- NOTE | 2018-09-28 21:40 | Diag Imaging Result Doc PS360 ---
HIP 1 VIEW LEFT - 09/28/2018 9:13 PM INDICATION: post reduction TECHNIQUE: COMPARISON: 5:06 PM FINDINGS: There has been successful reduction of the prosthetic hip dislocation. IMPRESSION: Reduction of the prosthetic hip dislocation. Electronically signed by Devin Robert 09/28/2018 9:38 PM
[2018-09-28] MEDS ORDERED: COREG PO ONE (21:47)
[2018-09-28] MEDS ORDERED: ZITHROMAX 500 MG/NS 500 MG/250 ML IVPB IV SCH (21:47)
[2018-09-28] MEDS: DUONEB (A & A) INH SCH (22:00)
[2018-09-28] MEDS: ZOSYN 3.375 GM in NS 50 ML IV SCH (22:05)
--- NOTE | 2018-09-29 00:44 | PROVIDER DOCUMENTATION ---
This chart was entered by Theresa Martinez Scribe, acting as scribe for Joseph Sadler MD. HPI-Musculoskeletal Pain/Inj - GENERAL Chief Complaint: Extremity Injury Stated Complaint: hip fracture Time Seen by Provider: 09/28/18 16:36 Source: patient, EMS - HX OF PRESENT ILLNESS-MUSKULOSKELTAL Nature of Presenting Problem: 68 y/o female presents to ED with L hip pain onset 1 hour ago after a fall. Pt is unsure if she lost consciousness. Pt states she is on blood thinners. Pt is alert and oriented. Quality of Pain: reports: sharp, throbbing Severity in ED: moderate, severe Onset/Duration: just prior to arrival, 1 hour ago Timing: still present Modifying Factors: worse with: movement, palpation Any recent injury?: Yes (fall) Locality of Occurance: Home Similar Symptoms Previously?: No Recently seen or treated by another doctor?: No - FALL INJURY Location of Pain/Injury: reports: lower extremity Pain Radiation: reports: no radiation Reason for Fall: reports: unknown Symptoms prior to fall:: reports: none Loss of Consciousness: unsure Injury Associated Symptoms: reports: joint pain (L hip) - HIP/PELVIS PAIN/INJURY Hip Pain Location: reports: hip (L) Pain Radiation: reports: no radiation Context / Method of Injury: reports: fall Associated Symptoms: reports: denies symptoms - LOWER EXTREMITY PAIN/INJURY Lower Extremities Pain: hip: left Context / Method of Injury: reports: fell Associated Symptoms: reports: denies symptoms Review of Systems - Adult - REVIEW OF SYSTEMS - ADULT Constitutional: denies: chills, fever Eyes: reports: no symptoms reported Ears, Nose, Mouth & Throat: reports: no symptoms reported Cardiovascular: denies: chest pain, palpitations Respiratory: denies: cough, shortness of breath Gastrointestinal: denies: abdominal pain, diarrhea, nausea, vomiting Genitourinary: reports: no symptoms reported Musculoskeletal: reports: joint pain (L hip). denies: back pain Integumentary: reports: no symptoms reported Neurological: denies: dizziness/vertigo, seizure Psychiatric: reports: no symptoms reported Endocrine: reports: no symptoms reported Hematologic/Lymphatic: reports: no symptoms reported Allergic/Immunologic: reports: no symptoms reported All Other Systems: Reviewed and Negative Past History - Adult - PAST MEDICAL HISTORY-ADULT Review of Records: reports: Old Records Reviewed, Nursing Assessment Review, Medications Reviewed Major Childhood Illnesses: reports: denies history Cardiovascular: reports: A-Fib, blood clots (dvt, PE), CHF, HTN, PVD Respiratory: reports: COPD, pneumonia (MRSA) Gastrointestinal: reports: GERD Obstetrical/Gynecological: reports: denies history Genitourinary: reports: chronic UTI's Musculoskeletal: reports: denies history Neurological: reports: CVA Psychiatric: reports: anxiety, depression Endocrine/Immune: reports: denies history Other Conditions: reports: other cancer (skin), MRSA - PRIOR SURGERIES/PROCEDURES Surgical/Procedure History: reports: cholecystectomy, cardiac stent, BTL, indwelling device (PICC line), orthopedic (extremity) (R foot), joint replacement (hip), other (basal cell carcinoma removed from face; open heart) - IMMUNIZATION STATUS Childhood Immunizations: See Nurse Assessment Flu Vaccine: See Nurse Assessment - FAMILY HISTORY Family History: reviewed, not pertinent - SOCIAL HISTORY Substance Use: none/never Alcohol Use Frequency: never Living Situation: family Physical Exam-Injury Related - Physical Exam-Injury Related Initial Vital Signs Reviewed: Yes General Appearance: appears well, alert, no apparent distress Eyes: PERRL/EOMI, pink conjunctivae Head, Ears, Nose, Mouth & Throat: normocephalic/atraumatic, moist mucous membranes, normal ENT inspection Neck: non-tender, full range of motion Respiratory: chest non-tender, wheezing, other (Good air entry). negative: crackles Cardiovascular: normal peripheral pulses, no edema, no murmur, tachycardia Abdominal Exam: normal bowel sounds, non tender, soft Back Exam: normal inspection, no CVA tenderness Extremity: tenderness (L hip), other (L leg internally rotated and shortened). negative: normal range of motion (decreased ROM of L hip), normal gait Integumentary: normal color, warm/dry Neurologic: grossly normal Psych/Mental Status: normal mood/affect, normal thought content, normal thought process - Gl[place]ow Coma Score Best Eye Response ([place]): (4) open spontaneously Best Verbal Response ([place]): (5) oriented Best Motor Response ([place]): (6) obeys commands Progress - PLAN OF CARE/RESULTS Progress/Plan/Lab Results: Vital Signs - 8 hr 09/28/18 16:48 09/28/18 16:52 09/28/18 17:17 Temperature Pulse Rate 124 H 122 H Respiratory Rate 21 27 H Blood Pressure 164/82 164/82 164/82 O2 Sat by Pulse Oximetry 97 99 09/28/18 17:22 09/28/18 17:28 09/28/18 17:31 Temperature Pulse Rate 120 H 119 H 120 H Respiratory Rate 29 H 27 H 22 Blood Pressure 148/83 155/81 O2 Sat by Pulse Oximetry 97 100 98 09/28/18 17:40 09/28/18 18:01 09/28/18 18:15 Temperature Pulse Rate 119 H 119 H 120 H Respiratory Rate Blood Pressure 143/77 143/72 O2 Sat by Pulse Oximetry 100 100 100 09/28/18 18:18 09/28/18 18:20 09/28/18 18:31 Temperature Pulse Rate 120 H 120 H 120 H Respiratory Rate Blood Pressure 136/74 128/68 135/74 O2 Sat by Pulse Oximetry 100 100 100 09/28/18 19:00 09/28/18 19:01 09/28/18 19:10 Temperature Pulse Rate 122 H 121 H 121 H Respiratory Rate Blood Pressure 141/79 O2 Sat by Pulse Oximetry 100 100 100 09/28/18 19:20 09/28/18 19:30 09/28/18 19:31 Temperature Pulse Rate 126 H 121 H 121 H Respiratory Rate Blood Pressure 152/87 O2 Sat by Pulse Oximetry 100 100 100 09/28/18 19:40 09/28/18 19:42 09/28/18 19:46 Temperature Pulse Rate 120 H 121 H 120 H Respiratory Rate Blood Pressure 142/69 131/78 O2 Sat by Pulse Oximetry 99 100 99 09/28/18 19:50 09/28/18 20:00 09/28/18 20:01 Temperature Pulse Rate 121 H 121 H 121 H Respiratory Rate Blood Pressure 137/83 O2 Sat by Pulse Oximetry 100 100 100 09/28/18 20:05 09/28/18 20:10 09/28/18 20:16 Temperature Pulse Rate 121 H 121 H 121 H Respiratory Rate Blood Pressure 132/81 144/74 O2 Sat by Pulse Oximetry 100 100 99 09/28/18 20:20 09/28/18 20:30 09/28/18 20:40 Temperature Pulse Rate 121 H 122 H 121 H Respiratory Rate Blood Pressure O2 Sat by Pulse Oximetry 100 100 100 09/28/18 20:46 09/28/18 20:50 09/28/18 20:53 Temperature 98.6 F Pulse Rate 122 H 122 H 121 H Respiratory Rate 17 Blood Pressure 135/78 135/78 O2 Sat by Pulse Oximetry 100 100 100 09/28/18 20:55 09/28/18 21:00 09/28/18 21:01 Temperature 98.4 F Pulse Rate 122 H 121 H 120 H Respiratory Rate 17 Blood Pressure 144/86 144/86 O2 Sat by Pulse Oximetry 100 100 09/28/18 21:02 09/28/18 21:05 09/28/18 21:06 Temperature Pulse Rate 120 H 120 H 119 H Respiratory Rate Blood Pressure 151/89 154/88 O2 Sat by Pulse Oximetry 100 99 99 09/28/18 21:07 09/28/18 21:09 09/28/18 21:10 Temperature Pulse Rate 119 H 119 H 120 H Respiratory Rate Blood Pressure 157/83 140/82 O2 Sat by Pulse Oximetry 100 100 100 09/28/18 21:11 09/28/18 21:13 09/28/18 21:15 Temperature Pulse Rate 120 H 120 H 120 H Respiratory Rate Blood Pressure 142/76 117/68 136/71 O2 Sat by Pulse Oximetry 100 100 98 09/28/18 21:17 09/28/18 21:19 09/28/18 21:20 Temperature Pulse Rate 120 H 120 H 120 H Respiratory Rate Blood Pressure 124/64 128/67 O2 Sat by Pulse Oximetry 100 97 99 09/28/18 21:21 09/28/18 21:22 09/28/18 21:23 Temperature Pulse Rate 121 H 121 H 121 H Respiratory Rate Blood Pressure 128/71 134/66 O2 Sat by Pulse Oximetry 99 99 100 09/28/18 21:25 09/28/18 21:27 09/28/18 21:29 Temperature Pulse Rate 120 H 121 H 121 H Respiratory Rate Blood Pressure 134/67 135/68 135/66 O2 Sat by Pulse Oximetry 100 100 100 09/28/18 21:30 09/28/18 21:31 09/28/18 21:33 Temperature Pulse Rate 120 H 121 H 121 H Respiratory Rate Blood Pressure 126/60 126/69 O2 Sat by Pulse Oximetry 100 98 99 09/28/18 21:35 09/28/18 21:37 09/28/18 21:39 Temperature Pulse Rate 121 H 131 H 119 H Respiratory Rate Blood Pressure 133/70 119/73 142/70 O2 Sat by Pulse Oximetry 98 99 99 09/28/18 21:40 09/28/18 21:41 09/28/18 21:43 Temperature Pulse Rate 120 H 121 H 121 H Respiratory Rate Blood Pressure 121/78 122/71 O2 Sat by Pulse Oximetry 99 99 100 09/28/18 21:45 09/28/18 21:47 09/28/18 21:49 Temperature Pulse Rate 121 H 122 H 123 H Respiratory Rate Blood Pressure 118/68 111/60 116/73 O2 Sat by Pulse Oximetry 99 99 99 09/28/18 21:50 09/28/18 21:51 09/28/18 21:53 Temperature Pulse Rate 122 H 122 H 122 H Respiratory Rate Blood Pressure 130/65 120/69 O2 Sat by Pulse Oximetry 100 99 99 09/28/18 21:55 09/28/18 21:57 09/28/18 21:59 Temperature Pulse Rate 123 H 122 H 122 H Respiratory Rate Blood Pressure 131/69 110/70 126/68 O2 Sat by Pulse Oximetry 99 99 100 09/28/18 22:00 09/28/18 22:01 09/28/18 22:03 Temperature Pulse Rate 123 H 122 H 122 H Respiratory Rate Blood Pressure 126/69 122/66 O2 Sat by Pulse Oximetry 100 99 99 09/28/18 22:05 09/28/18 22:07 09/28/18 22:08 Temperature Pulse Rate 122 H 122 H 122 H Respiratory Rate Blood Pressure 133/69 135/72 O2 Sat by Pulse Oximetry 100 99 100 09/28/18 22:09 09/28/18 22:10 09/28/18 22:11 Temperature Pulse Rate 122 H 122 H 122 H Respiratory Rate Blood Pressure 112/83 132/74 O2 Sat by Pulse Oximetry 98 99 99 09/28/18 22:13 09/28/18 22:15 09/28/18 22:17 Temperature Pulse Rate 123 H 122 H 122 H Respiratory Rate Blood Pressure 120/71 138/72 126/77 O2 Sat by Pulse Oximetry 99 100 99 09/28/18 22:19 09/28/18 22:20 09/28/18 22:21 Temperature Pulse Rate 122 H 122 H 123 H Respiratory Rate 16 Blood Pressure 129/68 127/71 O2 Sat by Pulse Oximetry 97 94 L 100 09/28/18 22:23 09/28/18 22:25 09/28/18 22:27 Temperature Pulse Rate 123 H 123 H 123 H Respiratory Rate Blood Pressure 109/78 134/71 112/75 O2 Sat by Pulse Oximetry 99 100 100 09/28/18 22:29 09/28/18 22:31 09/28/18 22:32 Temperature Pulse Rate 123 H 123 H 124 H Respiratory Rate Blood Pressure 136/56 128/68 O2 Sat by Pulse Oximetry 98 97 100 09/28/18 22:40 09/28/18 22:46 09/28/18 22:50 Temperature Pulse Rate 123 H 123 H 123 H Respiratory Rate Blood Pressure 131/73 O2 Sat by Pulse Oximetry 98 98 98 Laboratory Results - last 24 hr 09/28/18 09/28/18 09/28/18 16:58 16:58 18:42 WBC 17.09 H RBC 3.31 L Hgb 9.2 L Hct 29.4 L MCV 88.8 MCH 27.8 MCHC 31.3 L RDW Std Deviation 13.5 Plt Count 309 MPV 9.7 Immature Gran % (Auto) 0.2 Neut % (Auto) 89.8 H Lymph % (Auto) 3.3 L [place] % (Auto) 6.4 Eos % (Auto) 0.2 Baso % (Auto) 0.1 Immature Gran # (Auto) 0.03 Neut # (Auto) 15.34 H Lymph # (Auto) 0.57 L [place] # (Auto) 1.09 H Eos # (Auto) 0.04 Baso # (Auto) 0.02 Sodium 134 L Potassium 4.1 Chloride 96 L Carbon Dioxide 26 Anion Gap 12 BUN 11 Creatinine 0.6 Estimated GFR/1.73 m2 > 60 BUN/Creatinine Ratio 18 Glucose 113 H Calculated Osmolality 268 Calcium 9.0 Total Bilirubin 0.71 AST 18 ALT 19 Alkaline Phosphatase 117 H Troponin T < 0.010 Total Protein 6.9 Albumin 3.6 Globulin 3.3 Albumin/Globulin Ratio 1.1 Plasma Lactate Urine Source Urine Color Urine Turbidity Urine pH Ur Specific [place] Urine Protein Ur Glucose (Stick) Ur Ketones (Stick) Urine Blood Urine Nitrite Urine Bilirubin Urobilinogen Dipstick Urine Leukocytes Urine WBC (Auto) Urine RBC (Auto) U Epithel Cells (Auto) Urine Bacteria (Auto) Urine Crystals Small Round Cells Urine Casts Urine Yeast-like Cells 09/28/18 09/28/18 09/28/18 19:31 20:24 20:25 WBC RBC Hgb Hct MCV MCH MCHC RDW Std Deviation Plt Count MPV Immature Gran % (Auto) Neut % (Auto) Lymph % (Auto) [place] % (Auto) Eos % (Auto) Baso % (Auto) Immature Gran # (Auto) Neut # (Auto) Lymph # (Auto) [place] # (Auto) Eos # (Auto) Baso # (Auto) Sodium Potassium Chloride Carbon Dioxide Anion Gap BUN Creatinine Estimated GFR/1.73 m2 BUN/Creatinine Ratio Glucose Calculated Osmolality Calcium Total Bilirubin AST ALT Alkaline Phosphatase Troponin T Total Protein Albumin Globulin Albumin/Globulin Ratio Plasma Lactate 0.6 Urine Source CATH CLEAN CATCH Urine Color YELLOW YELLOW Urine Turbidity CLEAR CLEAR Urine pH 5.5 5.5 Ur Specific [place] 1.003 1.013 Urine Protein TRACE A 30 A Ur Glucose (Stick) NEGATIVE NEGATIVE Ur Ketones (Stick) 10 A 40 A Urine Blood NEGATIVE TRACE A Urine Nitrite NEGATIVE NEGATIVE Urine Bilirubin NEGATIVE NEGATIVE Urobilinogen Dipstick NORMAL NORMAL Urine Leukocytes NEGATIVE NEGATIVE Urine WBC (Auto) <10 <10 Urine RBC (Auto) <10 <10 U Epithel Cells (Auto) <10 <10 Urine Bacteria (Auto) NEGATIVE NEGATIVE Urine Crystals NONE SEEN Small Round Cells TRANS PRESENT Urine Casts NONE SEEN Urine Yeast-like Cells NONE SEEN Orders Category Date Time Status Admit - [facility] Routine AdmDCTranf 09/28/18 21:47 Active Activity - Up with Assistance ORDERED Care 09/28/18 21:47 Active Intake and Output-Strict ORDERED Care 09/28/18 21:47 Active Vital Signs Order Q 8-HR ASSESS Care 09/28/18 21:47 Active Z-Document. for Tele Applied ORDERED Care 09/28/18 21:47 Active Physician/Provider Consults Routine Cons 09/28/18 21:47 Ordered NPO Diet 09/28/18 21:[address] HEAD/C-SPINE W/O CONTRAST [CT] Stat Exams 09/28/18 16:52 Completed HIP 1 VIEW LEFT [RAD] Stat Exams 09/28/18 21:05 Completed XRAY PELVIS W/HIP 2-3VW LT [RAD] Stat Exams 09/28/18 16:46 Completed cxr [CHEST-PORTABLE] [RAD] Stat Exams 09/28/18 19:32 Completed BASIC METABOLIC PANEL [CHEM] Routine Lab 09/29/18 06:00 Ordered BLOOD CULTURE [BLDCUL] Stat Lab 09/28/18 20:25 Ordered CBC WITH ELECTRONIC DIFF [HEME] Stat Lab 09/28/18 16:58 Completed CBC WITH NO DIFF [HEME] Routine Lab 09/29/18 06:00 Ordered COMPREHENSIVE METABOLIC PANEL [CHEM] Stat Lab 09/28/18 18:42 Completed LACTATE, PLASMA [CHEM] Stat Lab 09/28/18 20:24 Completed MAGNESIUM [CHEM] Routine Lab 09/29/18 06:00 Ordered TROPONIN T Stat Lab 09/28/18 16:58 Completed UA NIMS W/REFLEX CULT [URINALYSIS] Stat Lab 09/28/18 19:31 Completed URINALYSIS W/POSS RFLX CULT [URINALYSIS] Stat Lab 09/28/18 20:25 Completed URINE MANUAL MICROSCOPIC [URINALYSIS] Stat Lab 09/28/18 20:25 Completed 0.9% Sodium Chloride Inj [Ns] 1,000 ml Med 09/28/18 19:33 Discontinued IV 999 mls/hr Acetaminophen [Tylenol] Med 09/28/18 21:47 Active 650 mg PO Q6H PRN PRN Albuterol 2.5MG/Ipratrop 0.5MG [Duoneb (A & A)] Med 09/28/18 22:00 Active 3 ml INH RTQ6H Azithromycin 500 mg/Ns [Zithromax 500 mg/Ns] Med 09/28/18 21:47 Active 500 mg in 250 ml IV Q24H Carvedilol [Coreg] Med 09/28/18 21:47 Discontinued 12.5 mg PO NOW ONE CefTRIAXONE [Rocephin] 1 gm Med 09/28/18 19:32 Discontinued 0.9% Sodium Chloride Inj [Ns] 50 ml IV NOW Digoxin [Lanoxin] Med 09/28/18 21:34 Discontinued 250 microgm IV NOW ONE Digoxin [Lanoxin] Med 09/28/18 21:54 Discontinued 250 microgm IV NOW ONE Diltiazem [Cardizem] Med 09/28/18 17:48 Discontinued 20 mg IV NOW ONE Diltiazem [Cardizem] Med 09/28/18 19:11 Discontinued 20 mg IV NOW ONE Fentanyl Med 09/28/18 20:14 Discontinued 100 microgm IV NOW ONE Hydrocodone/APAP 7.5 mg/325 mg [[place]-7.5] Med 09/28/18 21:47 Active 1 - 2 each PO Q6H PRN PRN Ketamine Med 09/28/18 20:15 Discontinued 100 mg IV NOW ONE Morphine Med 09/28/18 16:45 Discontinued 4 mg .ROUTE .STK-MED ONE Morphine Med 09/28/18 16:49 Discontinued 4 mg IV NOW ONE Ondansetron [Zofran] Med 09/28/18 16:45 Discontinued 4 mg .ROUTE .STK-MED ONE Ondansetron [Zofran] Med 09/28/18 16:59 Discontinued 4 mg IV NOW ONE Ondansetron [Zofran] Med 09/28/18 21:47 Active 4 mg IV Q4H PRN PRN Piperacillin/Tazobactam [Zosyn] 3.375 gm Med 09/28/18 21:47 Active 0.9% Sodium Chloride Inj [Ns] 50 ml IV Q6H Polyethylene Glycol 3350 [Miralax] Med 09/29/18 09:00 Active 17 gm PO DAILY Aerosol Treatments Routine Oth 09/28/18 21:47 Completed Aerosol Treatments Stat Oth 09/28/18 21:47 Completed Telemetry [OM.EQ] Routine Oth 09/28/18 21:47 Active Transfer/Admit Order [TRANSFER] Routine Transfer 09/28/18 21:26 Completed Laboratory Tests 09/28/18 16:58 WBC 17.09 H RBC 3.31 L Hgb 9.2 L Hct 29.4 L MCV 88.8 MCH 27.8 MCHC 31.3 L RDW Std Deviation 13.5 Plt Count 309 MPV 9.7 Immature Gran % (Auto) 0.2 Neut % (Auto) 89.8 H Lymph % (Auto) 3.3 L [place] % (Auto) 6.4 Eos % (Auto) 0.2 Baso % (Auto) 0.1 Immature Gran # (Auto) 0.03 Neut # (Auto) 15.34 H Lymph # (Auto) 0.57 L [place] # (Auto) 1.09 H Eos # (Auto) 0.04 Baso # (Auto) 0.02 Patient care, assessment and plan discussed with attending physician Dr. Dhillon and he agree with the plan as documented. hip reduction done with Dr. Dhillon help Sepsis protocol initiated likely due to pneumonia Result Diagrams: 09/28/18 16:58 09/28/18 18:42 - REASSESSMENT Reassessment #1 Status: unchanged (I checked on patient multiple times. 2 doses of cardizem given patient still in Atrial Flutter. Dr. Macias request to reduce the hip and he will treat the atrial Flutter.) - EKG 1 Time of EKG reading by physician:: 16:53 EKG Read and Signed by:: Joseph Kolb EKG Interpretation (*Must complete 3 of following elements*): Abnormal Rate: 123 Rhythm: A flutter Gill: normal QRS: normal NE Interval: normal ST Wave: non-specific ST changes (consider inferior/anterior ischemia) - XRAY 1 XRAY: Left XRAY Study: Pelvis, Hip Impression: See EMR Report Procedures - DISLOCATION REDUCTION Left Hip Other Location: 2099 start procedure, [address] Consent Form Signed?: Yes Time-Out Verification Completed?: Yes Pre-Procedure Neurovascular Exam: Intact Conscious Sedation: Yes Reduction Attempts: 2 Post Procedure Neurovascular Exam: Intact Post Reduction Film: Deformity Reduced Post Reduction Splint Applied?: No Procedure Comment: Well tolerated, pulling left leg with steady force then external rotation - PROCEDURAL SEDATION Procedure, Risk, Benefits and Alternatives discussed with:: Patient Consent Form Signed?: Yes Sedation type:: moderate Indications:: Hip reduction Prior complications to general anesthesia?: No Prior complications to procedural sedation?: No ASA Classification Score: P3. Patient with a severe systemic disease. Airway Physical Exam: normal anatomy Mallampati Classification Score:: Cls 2. Tonsillar pillars and uvula hidden by base of tongue. Plan explained to:: patient Preparation: consent signed Sedation: fentanyl (25 Fentanyl given at 2056), ketamine (75 Mg given at 2057) Reversal: none Complications during/after procedure?: none Procedure Comment: Well tolerated Departure - Departure Date of Disposition Decision: 09/28/18 Time of Disposition Decision: 21:22 DIAGNOSIS: Pneumonia Qualifiers: Pneumonia type: due to unspecified organism Laterality: right Lung location: unspecified part of lung Qualified Code(s): J18.9 - Pneumonia, unspecified organism Hip dislocation, left Qualifiers: Encounter type: initial encounter Qualified Code(s): S73.005A - Unspecified dislocation of left hip, initial encounter Atrial flutter Qualifiers: Atrial flutter type: unspecified Qualified Code(s): I48.92 - Unspecified atrial flutter Disposition: ADMITTED INPATIENT 09 Certified Medical Emergency: Emergent Condition: Serious - Critical Care Note This patient required my direct & personal management of CC.: No Attestation - Physician/ VEE Attestation Patient care was provided by Advanced Practice Provider:: No The physician spent face to face time with patient:: Yes Advanced Practice Provider documentation review:: Supervising physician onsite and consulted in the evaluation and care of this patient. The physician did have a face to face encounter with the patient. This chart was documented by the indicated scribe, (Theresa Martinez Scribe) and accurately reflects the services I performed and decisions made by me, Joseph Sadler MD, as attested by the provider's signature.
--- NOTE | 2018-09-29 00:49 | HISTORY AND PHYSICAL ---
Patient of Dr. Toy Salcido. REASON FOR ADMISSION: Inexplicable fall with subsequent left hip pain. HISTORY OF PRESENT ILLNESS: The patient was brought in by EMS after sustaining a fall from a standing position. According to the nurse who attended to her, she said the patient was a very poor historian and could not give her any meaningful history. She did say that the patient was not sure if she lost consciousness or she had any antecedent cardiorespiratory symptoms. When I got to the ER, she had just received ketamine and fentanyl for conscious sedation to reduce her dislocation. She was unable to give any meaningful history and also she was very drowsy. She knew that she was in the hospital. She knew who she was but that was the extent of the history I was getting because she was very drowsy and had slurred speech. We were initially called because of heart rate being in the 120s, not responsive to IV Cardizem. The patient does have a past medical history of atrial fibrillation with rapid ventricular response, COPD, hypertension, reflux disease. She has had prior cardioversion in the past. As such, review of systems is very limited. Reviewing her other records, echocardiogram showed EF of 64% with significant regression of the right-sided chambers 1 year after left atrial septal defect repair. ALLERGIES: NO KNOWN DRUG ALLERGIES. HOME MEDICATIONS: Have not been reconciled but per her old records, she was on: 1. Xarelto. 2. Coreg. 3. Cardizem. 4. Digoxin. PAST SURGICAL HISTORY: ASD repair, cholecystectomy, bilateral hip replacements , tubal ligation, tarsal tunnel release, maze procedure at [facility], tricuspid valve repair, previous heart stents, and several cardioversions for atrial fibrillation. SOCIAL HISTORY: The patient lives alone. She smokes 1 pack a day. No alcohol or drug use per records. FAMILY HISTORY: Unable to obtain at this point in time. LABORATORY DATA: White count 17,000, hemoglobin 9, hematocrit 29, platelets 309 with 89% neutrophils. Sodium 134, BUN 11, creatinine 0.6. Urinalysis is essentially unremarkable. 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 Chest x-rays did show multilobar pneumonia of the right lung. Hip x- ray showed prosthetic left hip dislocation and followup x-ray did show successful reduction of the prosthetic hip. PHYSICAL EXAMINATION: GENERAL: Middle-aged woman who appears older than her stated age. The patient is drowsy but will arouse to name. Oriented to person and place only. VITAL SIGNS: Heart rate 121, respiratory rate 17, blood pressure 120/71, temperature 98.4 degrees, oxygen saturation 99% on 2 liters nasal cannula oxygen. HEENT: Head is normocephalic, atraumatic. Eyes: PERRLA. Extraocular movements intact. She is anicteric and not pale. ENT exam could not be examined fully but no visual central cyanosis of her lips noted. NECK: The patient appears to have slight JVD. CHEST: Exam shows more crepitation on the left compared to the right with bilateral wheezes. Good air entry in both lung alvarado. CARDIOVASCULAR: S1S2 heard. No murmurs were heard. No gallops or rubs. Rhythm was regular and tachycardic. ABDOMEN: Slightly full, soft without tenderness or organomegaly. Bowel sounds are hypoactive. RECTAL: Exam deferred at this time. EXTREMITIES: The patient has 1+ pulses distally in all extremities. Regular, symmetrical. No clubbing, cyanosis or edema. NEUROLOGICAL: The patient is spontaneously able to move legs to noxious stimuli in upper extremities. Otherwise, RELEASE SPECIALIST exam limited due to patient's sedated state. SKIN: Intact with no overt breakdown, lesions or erythema. MUSCULOSKELETAL: Exam is grossly normal. ASSESSMENT: 1. Right lower lobe pneumonia. 2. Chronic obstructive pulmonary disease. 3. Atrial fibrillation. 4. Atrial tachycardia. 5. Reflux disease. 6. Hypertension. 7. Coronary artery disease. 8. Prior DVT and PE in the past. 9. Tobacco use. 10.Recent left hip dislocation, now reduced. PLAN: The patient will be admitted for antibiotic therapy for possible aspiration pneumonia and community-acquired pneumonia. Zithromax and Zosyn have been started. Breathing treatments to be continued. This patient has a history of [id number] atrial tachycardia in the past requiring multiple cardioversions. Ideally, I would have started the patient on anticoagulation. However, I am not sure whether the patient took her Xarelto today or not. I am quite hesitant to anticoagulate her today, especially since the patient has had recent trauma. Atrial tachycardia could be related to underlying pneumonia, but I am unable to get adequate information from this patient. We will give the patient a trial of digoxin and beta juan to see if her rate controls. Home medication reconciliation is pending to see if patient is (1) compliant with her medications; (2) if doses are appropriate. Otherwise, the patient will be treated symptomatically. We will consult Cardiology in the a.m. for further input. cc: MD Toy Urena MD MTDD
[2018-09-29] MEDS: DUONEB (A & A) INH SCH ×4 (03:41→22:00)
[2018-09-29] MEDS: ZOSYN 3.375 GM in NS 50 ML IV SCH ×3 (03:58→18:27)
[2018-09-29] MEDS: NORCO-7.5 PO PRN ×3 (04:07→18:29)
[2018-09-29 05:58] LABS: HEMATOCRIT 25.9 % (37.0-47.0); MCH 28.1 PG (27-31); MCHC 30.9 g/dL (33-37); MCV 90.9 FL (81-99); MPV 9.7 FL (7.4-10.4); RBC 2.85 XMIL (4.2-5.4); RDW 13.9 % (11.5-14.5); WBC 14.08 X1000 (4.8-10.8)
[2018-09-29 06:19] LABS: AGAP 15; BUN 10 mg/dL (8-22); CALCIUM 8.1 mg/dL (8.8-10.2); CHLORIDE 100 mmol/L (98-107); COSMO 276; CREATININE 0.5 mg/dL (0.5-0.9); ESTIMATED GFR > 60; GLUCOSE 93 mg/dL (70-104); MAGNESIUM 1.7 mg/dL (1.5-2.7); POTASSIUM 4.2 mmol/L (3.5-5.1); SODIUM 139 mmol/L (136-145); TCO2 24 mmol/L (25-35)
[2018-09-29] MEDS: CARDIZEM CD PO SCH (10:07)
[2018-09-29] MEDS: LANOXIN PO SCH (10:07)
[2018-09-29] MEDS: MIRALAX PO SCH (10:07)
[2018-09-29] MEDS ORDERED: VANCOMYCIN IV PER PHARMACY MISC SCH (13:15)
[2018-09-29] MEDS ORDERED: NS 1,000 ML IV SCH (13:30)
--- NOTE | 2018-09-29 14:15 | PROGRESS NOTE ---
DATE: 09/29/2018 SUBJECTIVE: This morning Ms. Wolf refers to be doing a lot better, says she still hurting but she is hurting more in the right ankle than the left hip. Of note Ms. Wolf came in yesterday after she fell and sustained injury to the left hip which was reduced in the ER. OBJECTIVE: Vitals: Blood pressure is 115/56, pulse is 126, respiration is 16, temperature 98.4 degrees. General: Ms. Wolf is a 68-year-old female she is in bed, she is not in any cardiopulmonary distress. Mucosa is pink but dry. Anicteric. Acyanotic. Neck: Supple. No JVD. Chest: Air entry is bilaterally reduced, there is diffuse end-expiratory wheezing as well as some crackles posteriorly. Cardiovascular: Regular rate and rhythm. No murmurs, no rubs, no gallops. Abdomen: Soft, nontender. Extremities: No pedal edema. Distal pulses are present. CUT PRESSMAN: Patient is awake, alert and oriented. Musculoskeletal: Patient has an old sternotomy scar. Is tenderness palpating the right ankle but is not swollen. The left hip seems to be in good alignment and no external bruising on the skin. LABORATORY DATA: WBC is 14.08, hemoglobin is 8.0, platelet count of 303,000. Chemistry is also reviewed completely normal. IMAGING STUDIES: A hip x-ray did show a prosthetic left hip displacement. This was reduced. A subsequent x-ray showed reduction of the prosthetic hip dislocation. A chest x -ray shows multilobar pneumonia throughout the right lung. ASSESSMENT: 1. Status post mechanical fall with dislocation off left prosthetic hip. Patient is status post reduction in the emergency room. We will get orthopedics to reevaluate the hip and make sure there is nothing else that needs to be done. 2. Multifocal pneumonia. Patient has been started on antibiotics, broad- spectrum Zosyn and vancomycin. 3. Clinical volume depletion, will continue with gentle IV fluids. 4. History of atrial fibrillation status post cardioversion at some point and maze procedure at [facility], patient is currently on Cardizem, digoxin and Coreg. 5. History of coronary artery disease noted. 6. History of chronic obstructive pulmonary disease. 7. Status post atrial septal defect repair noted. Patient has been started back on medications including digoxin, diltiazem and she is on broad- spectrum antibiotics for the lung infection. We also started her on very gentle intravenous hydration, reevaluate her in the morning and also get further recommendations from Cardiology. cc: Jarad Kee MD MTDTorito
[2018-09-29] MEDS: VANCOMYCIN 2 GM in NS 500 ML IV SCH (15:22)
--- NOTE | 2018-09-29 15:53 | CARDIOLOGY CONSULTATION ---
DATE: 09/29/2018 REASON FOR CONSULT: Patient fell and had a dislocation of her hip, has multilobar pneumonia on the right lung in addition to atrial fibrillation. Cardiology was consulted. HISTORY OF PRESENT ILLNESS: The patient is a 68-year-old lady who was brought by emergency EMS after sustaining a fall from a standing position. The patient has had hip replacement. Has had multiple dislocations. In the emergency room, she received ketamine, fentanyl, conscious sedation to reduce her dislocation. She was noted to be in atrial fibrillation, rapid ventricular rate, started on Cardizem drip. The patient also was diagnosed to have pneumonia and started on antibiotics. The patient has significant cardiac history and all her surgeries were performed in [facility] as below. She has had previous stents, ASD repair and maze procedure, several cardioversions for atrial fibrillation. However her rate has been controlled with multiple medications and on anticoagulation therapy. REVIEW OF SYSTEMS: Pertinent review of system was done.Gastrointestinal: At the present time she says prior to this she has not had any vomiting, but she was nauseous. There is no history of dizziness. Cardiac: There is no syncope she can elude to. Denies chest pain suggestive of angina. Respiratory: She has shortness of breath. Does not say she has had any fevers or chills. Endocrine System: Stable. PAST MEDICAL HISTORY: 1. Atrial septal defect repair. 2. Tricuspid valve repair and has undergone maze procedure at [facility] during the atrial septal and tricuspid valve repair. 3. Coronary artery disease with stent placement in the past. 4. Atrial fibrillation with multiple cardioversions in the past. 5. Bilateral hip replacement. 6. Recurrent hip dislocations. 7. Tubal ligation. 8. Tarsal tunnel release. 9. The patient is a smoker. Smokes about a pack of cigarettes a day. HOME MEDICATIONS: Include: Digoxin, Coreg 6.25 b.i.d., Lasix 40 mg a day, Xarelto 20, aspirin 81 mg a day, potassium supplements, magnesium 400, inhalers, Cardizem CD 240, lactulose, Xanax, inhalers and nebulizers p.r.n. EXAMINATION: Vital Signs: On examination blood pressure was 115/56. Cardiovascular: First and second heart sounds were heard. Heart rate 120 beats per minute. There was no S3 gallop. Respiratory: Scattered crepitations and wheeze bilaterally. Abdomen: Soft, nontender. There was no guarding or rigidity. Bowel sounds were heard. Central Nervous System: Alert. Was moving all 4 extremities. Extremities: Examination of extremities revealed no pedal edema. IMAGING: Chest x-ray revealed multilobar pneumonia throughout the right lung. Hip and pelvis x-ray: Prosthetic left hip dislocation. Head CT: No acute injury. LABORATORY EXAMINATION: Sodium 139, potassium 4.2, BUN 10, creatinine 0.5. Hematology: Hemoglobin 8, hematocrit 25, platelet count off 303, WBC 14.08. Microbiology pending. ASSESSMENT AND PLAN: 1. Ms Marissa Wolf is a 68-year-old lady, from a cardiac standpoint has ASD repair, tricuspid valve repair and multiple stents in the past and a maze procedure and atrial fibrillation. Has been controlled on medications as well as anticoagulation therapy. She is currently in atrial fibrillation with rapid ventricular rate. She has been started back on her Cardizem, digoxin and we will restart her back on her Coreg. 2. We will get an echocardiogram to assess cardiac and valvular function. 3. We will obtain records pertaining to her surgeries in [facility]. 4. Her atrial fibrillation is made worse from her multilobar pneumonia. She may well have aspirated. She is on multiple medications. I have not made any changes. 5. If her hemoglobin and hematocrit is stable, she may need a blood transfusion. There is no obvious bleeding diathesis. Would recommend restarting her Xarelto when appropriate. 6. Pneumonia. Continue with her current antibiotics and plan. Thanks for the consult. We will follow hospital course. cc: Gabriel Rai MD MTDD
[2018-09-29] MEDS: COREG PO SCH ×2 (16:20→20:43)
[2018-09-29] MEDS: XANAX PO PRN (20:43)
[2018-09-30] MEDS: ZOSYN 3.375 GM in NS 50 ML IV SCH ×3 (00:28→11:57)
[2018-09-30] MEDS: NORCO-7.5 PO PRN ×4 (00:30→19:14)
[2018-09-30] MEDS: DUONEB (A & A) INH SCH ×2 (03:23→11:43)
[2018-09-30 05:30] LABS: BASO# 0.03 X1000 (0.0-0.2); BASO% 0.3 % (0.0-0.8); EOS# 0.36 X1000 (0.0-0.7); EOS% 3.4 % (0.0-10.0); HEMATOCRIT 27.1 % (37.0-47.0); HEMOGLOBIN 8.2 g/dL (12.0-16.0); LYMPH# 1.38 X1000 (1.2-3.4); LYMPH% 13.2 % (20.5-51.1); MCH 26.9 PG (27-31); MCHC 30.3 g/dL (33-37); MCV 88.9 FL (81-99); MONO# 1.38 X1000 (0.11-0.59); MONO% 13.2 % (1.7-9.3); MPV 9.3 FL (7.4-10.4); NEUT# 7.33 X1000 (1.4-6.5); NEUT% 69.9 % (42.2-75.2); PLT 313 X1000 (130-400); RBC 3.05 XMIL (4.2-5.4); RDW 13.8 % (11.5-14.5); WBC 10.48 X1000 (4.8-10.8)
[2018-09-30 05:40] LABS: AGAP 9; ALB/GLOB RATIO 0.9; ALBUMIN 2.8 g/dL (3.5-5.0); ALKALINE PHOSPHATASE 85 U/L (32-104); BUN 9 mg/dL (8-22); CALCIUM 8.8 mg/dL (8.8-10.2); CHLORIDE 104 mmol/L (98-107); COSMO 280; CREATININE 0.7 mg/dL (0.5-0.9); ESTIMATED GFR > 60; GLUCOSE 126 mg/dL (70-104); GOT 15 U/L (10-30); GPT 15 U/L (10-36); POTASSIUM 4.2 mmol/L (3.5-5.1); SODIUM 140 mmol/L (136-145); TCO2 27 mmol/L (25-35); TOTAL PROTEIN 5.8 g/dL (6.3-8.3)
--- NOTE | 2018-09-30 07:05 | Diag Imaging Result Doc PS360 ---
EXAM: CHEST-PORTABLE HISTORY: dyspnea TECHNIQUE: Portable chest single view COMPARISON: 05/09/2019 FINDINGS: The lungs are well expanded. Sternal wires are present. The heart is borderline mildly prominent. There is vascular distention and underlying infiltrates in the lower right lung. Questionable trace right pleural fluid. IMPRESSION: No interval improvement. Electronically signed by Pablito Matute 09/30/2018 7:03 AM
[2018-09-30] MEDS: CARDIZEM CD PO SCH (08:54)
[2018-09-30] MEDS: COREG PO SCH ×2 (08:55→21:08)
[2018-09-30] MEDS: MIRALAX PO SCH (08:55)
[2018-09-30] MEDS: LANOXIN PO SCH (08:59)
--- NOTE | 2018-09-30 09:43 | ECHO REPORT ---
ORDER DATE: 09/29/2018 INTERPRETING PHYSICIAN: Dr. Gabriel Rai ECHOCARDIOGRAPHIC MEASUREMENTS: Interventricular septum: 0.8 cm. Left ventricular posterior wall: 0.8 cm. Diastolic diameter: 4.8 cm. Left ventricular systolic diameter: 2.7. Left atrium: 3.8 cm. Aorta: 3.2 cm. The patient is status post ASD repair and tricuspid valve repair. SUMMARY OF THE 2-DIMENSIONAL IMAGIN. The aortic valve leaflets were trileaflet. Pulmonic valve was normal. Mitral valve was normal. 2. There appears to be a ring in the tricuspid valve area. 3. There is left atrial enlargement. 4. Technically suboptimal study. Poor acoustic window. 5. There is mild tricuspid regurgitation. Peak velocity across the tricuspid valve was 2.7 m/sec. Pulmonary artery systolic pressure of 39 mmHg. Atrial fibrillation was noted. There is mild mitral regurgitation by Doppler studies. There is no aortic stenosis or regurgitation. Normal left ventricular cavity size. Estimated ejection fraction of 60-65%. However, atrial fibrillation with tachycardia was noted. This could overestimate the left ventricular ejection fraction. 6. There is no pericardial effusion or obvious intracardiac mass or thrombus seen. Anterior echo- free space suggestive of pericardial fat pad was noted. 7. Patient is status post ASD repair. There is no color Doppler flow across the interatrial septum. cc: Gabriel Rai MD
[2018-09-30] MEDS ORDERED: LASIX IV ONE (09:52)
[2018-09-30] MEDS ORDERED: CARDIZEM IV ONE (09:59)
[2018-09-30] MEDS ORDERED: CARDIZEM 100 MG/NS 100 MG/100 ML IVPB IV SCH (10:00)
[2018-09-30] MEDS ORDERED: XOPENEX NEB INH PRN (10:04)
[2018-09-30] MEDS: XOPENEX NEB INH SCH ×5 (10:15→23:12)
[2018-09-30] MEDS: SOLU-MEDROL IV SCH ×2 (10:22→17:28)
--- NOTE | 2018-09-30 10:31 | PROGRESS NOTE ---
DATE: 09/30/2018 SUBJECTIVE: This morning, Ms. Wolf refers to be doing fairly okay. Still has some baseline shortness of breath. OBJECTIVE: Vital Signs: Blood pressure is 111/58, pulse is 124, respirations are 19, temperature is 97.8 degrees. General Examination: Ms. Wolf is a 68-year-old, female. She is in bed. She does not seem to be in any acute cardiopulmonary distress. HEENT: Mucosa is pink and moist. Anicteric. Acyanotic. Neck: Supple. Chest: Air entry is bilaterally reduced. There is diffuse end expiratory wheezing. There is also rhonchi and inspiratory crackles posteriorly. Cardiovascular: Slightly tachycardic. No murmurs, no rubs, no gallops. GI: Abdomen is soft, nontender. Bowel sounds present. There is no hepatosplenomegaly. Extremities: No pedal edema. 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 Musculoskeletal: There is an old sternotomy scar noted. There is also mild tenderness in the right ankle which, according to her, she is feeling a lot better today. Laboratory Data: WBC is down to 10.48, hemoglobin is 8.2, platelet count of 313,000. Chemistry is also reviewed, all normal. Blood culture has been no growth. A repeat chest x-ray this morning shows no improvement. There is vascular distention and underlying infiltrates in the right lung. There is questionable trace pleural effusion. An echocardiogram shows an ejection fraction of 60-65. ASSESSMENT: 1. Status post mechanical fall with dislocation of the left prosthetic hip. The patient is status post reduction in the emergency room. She seems to be feeling okay from the hip standpoint. Orthopedics is consulted for review. 2. Multifocal pneumonia. The patient is currently on broad-spectrum antibiotics. We have consulted infectious disease. 3. History of chronic obstructive pulmonary disease, questionable exacerbation. The patient is on antibiotics, bronchodilation therapy, and we have added steroids this morning. We will get pulmonary medicine to see the patient. 4. History of atrial fibrillation, status post cardioversion at some point by Dr. Euceda, and also Maze procedure in [facility]. The patient is on oral Cardizem, digoxin, and Coreg. However, the pulse continues to be remarkably high and in atrial fibrillation, so we will start her on intravenous Cardizem drip and get cardiology to see her. 5. Status post atrial septal defect repair noted. PLAN: In general, I think Ms. Wolf is pretty stable from the orthopedic standpoint, which was her main reason why coming to the hospital. Whatever precipitated her fall is still unsure. However, during the hospital workup, it is picked up that she has bilateral multifocal pneumonia and some COPD exacerbation. The patient is getting broad-spectrum antibiotics. We have consulted both ID and pulmonary medicine to see her. She is also pending evaluation by orthopedics since the prosthetic hip reduction was done by the ER physician, so that they will make sure that everything is fine. Ms Wolf continues to be in atrial fibrillation, RVR despite being on p.o. Cardizem, digoxin and Coreg, so we will start her on a Cardizem drip and await for cardiology to re-evaluate her today. cc: Jarad Kee MD
--- NOTE | 2018-09-30 11:27 | EKG Report ---
Test Performed on : 09/30/2018 10:54:45 AM Test Reason : elevated hr Blood Pressure : / mmHG Vent. Rate : 105 BPM Atrial Rate : 120 BPM P-R Int : 000 ms QRS Dur : 088 ms QT Int : 320 ms P-R-T Axes : 000 062 020 degrees QTc Int : 422 ms Atrial fibrillation. with rapid ventricular response. ST & T wave abnormality, consider anterior ischemia Abnormal ECG When compared with ECG of 29-SEP-2018 08:29, (Unconfirmed) Atrial fibrillation. has replaced Sinus rhythm. Confirmed by Geovanni LOGAN, Bryce Rodriguez ([id number]) on 09/30/2018 12:41:16 PM
--- NOTE | 2018-09-30 11:42 | EKG Report ---
Test Performed on : 09/29/2018 08:29:06 AM Test Reason : CIC. NO ORDER IN MT Blood Pressure : / mmHG Vent. Rate : 124 BPM Atrial Rate : 125 BPM P-R Int : 168 ms QRS Dur : 086 ms QT Int : 308 ms P-R-T Axes : 000 062 -60 degrees QTc Int : 442 ms Sinus tachycardia. Marked ST abnormality, possible inferior subendocardial injury Abnormal ECG When compared with ECG of 28-SEP-2018 16:51, (Unconfirmed) Sinus rhythm. has replaced Junctional rhythm. ST now depressed in Inferior leads Nonspecific T wave abnormality has replaced inverted T waves in Inferior leads Confirmed by Geovanni LOGAN, Bryce Rodriguez ([id number]) on 09/30/2018 12:40:24 PM
--- NOTE | 2018-09-30 11:59 | EKG Report ---
Test Performed on : 09/28/2018 4:51:08 PM Test Reason : ED. NO ORDER IN MT Blood Pressure : / mmHG Vent. Rate : 123 BPM Atrial Rate : 125 BPM P-R Int : 000 ms QRS Dur : 084 ms QT Int : 314 ms P-R-T Axes : 000 061 -04 degrees QTc Int : 449 ms Accelerated Junctional rhythm. ST & T wave abnormality, consider inferior ischemia ST & T wave abnormality, consider anterior ischemia Abnormal ECG When compared with ECG of 17-FEB-2018 13:34, Junctional rhythm. has replaced Atrial fibrillation. Vent. rate has increased BY 47 BPM T wave inversion now evident in Inferior leads T wave inversion now evident in Anterior leads Unconfirmed Result
--- NOTE | 2018-09-30 12:32 | Diag Imaging Result Doc PS360 ---
EXAM: CT ANGIOGRM PULMONARY ARTERIES INDICATION: chest pain/SOB TECHNIQUE: This exam was performed using automated exposure control, adjustment of mA or kV according to patient size, and/or use of iterative reconstruction technique. COMPARISON: 03/10/2015 FINDINGS: There is no evidence of pulmonary embolism. The pulmonary arteries are prominent but this is stable. This suggests chronic pulmonary hypertension. There is stable cardiomegaly. There is stable thoracic aortic atherosclerotic calcification. There is no evidence of aortic aneurysm or dissection. No significant mediastinal lymphadenopathy is appreciated. There is extensive patchy airspace consolidation throughout the right lung consistent with pneumonia. There is right basilar atelectasis and there is associated distal bronchial mucous plugging. There is minimal atelectasis at the left lung base. There is a tiny right pleural fluid collection. There is no pneumothorax. Limited views of the upper abdomen are essentially unremarkable. IMPRESSION: 1.Diffuse patchy infiltrates throughout the right lung indicating pneumonia. 2.Bronchial mucous plugging on the right with atelectasis at the right lung base. 3.Minimal left basilar atelectasis. 4.Stable cardiomegaly and prominent pulmonary arteries suggesting pulmonary hypertension. 5.No evidence of pulmonary embolism. Electronically signed by Seymour Dao 09/30/2018 12:30 PM
--- NOTE | 2018-09-30 13:50 | Diag Imaging Result Doc PS360 ---
EXAM: ANKLE 2 VIEWS RIGHT HISTORY: Foot/Ankle pain r/o fracture TECHNIQUE: Right ankle, two views COMPARISON: None. FINDINGS: No fracture. No dislocation. IMPRESSION: No acute bony injury. Electronically signed by Pablito Matute 09/30/2018 1:47 PM
--- NOTE | 2018-09-30 13:57 | Diag Imaging Result Doc PS360 ---
EXAM: FOOT 2 VIEWS RIGHT HISTORY: foot/ankle pain r/o fracture TECHNIQUE: Right foot, two views COMPARISON: None. FINDINGS: No fracture. No dislocation. Lateral subluxation and joint space narrowing at the first metatarsal phalangeal joint. There are small calcaneal bone spurs. IMPRESSION: No acute bony injury. Electronically signed by Pablito Matute 09/30/2018 1:54 PM
--- NOTE | 2018-09-30 14:59 | CONSULTATION ---
DATE OF CONSULTATION: 09/30/2018 CHIEF COMPLAINT: Fall with left hip pain. She also reports she is having right foot and ankle pain. HISTORY OF PRESENT ILLNESS: Ms. Wolf is a 68-year-old pleasant female who was brought by EMS to the emergency department after a fall from a standing position. She reported left hip pain, for which an x-ray was performed. It showed that her left hip has been dislocated. She has a left hip prosthesis. She had received ketamine and fentanyl for conscious sedation to reduce her dislocated hip. PAST MEDICAL HISTORY: Atrial fibrillation with RVR, COPD, hypertension, GERD, and multiple episodes of dislocation of the left hip. ALLERGIES: There are no known drug allergies. MEDICATIONS: Home medications she reports takin. Xarelto. 2. Coreg. 3. Cardizem. 4. Digoxin. She does not know the dosages of the medications at this time. PAST SURGICAL HISTORY: ASD repair, cholecystectomy, bilateral hip replacements, tubal ligation, tarsal tunnel release, maze procedure, tricuspid valve repair, previous heart stents, and multiple cardioversions for atrial fibrillation. SOCIAL HISTORY: The patient lives alone. She smokes 1 pack per day. She denies alcohol or drug use. FAMILY HISTORY: Noncontributory. LABORATORY DATA: White blood cells 10.48, hemoglobin 8.2, hematocrit 27.1. Sodium 140, potassium 4.2, chloride 104, BUN 9, creatinine 0.7, glucose 126. ProBNP elevated at 1302. DIAGNOSTIC STUDIES: Chest x-ray showed pneumonia in the right lung. Hip x-ray show prosthetic left hip dislocation and successful reduction in post films. PHYSICAL EXAMINATION: General: The patient is awake and alert, and sitting in the bed comfortably. She is eating her dinner at this time. Vital Signs: Temperature 99.3 degrees, pulse rate 100, respiratory rate 26, blood pressure 117/50, oxygen saturation 93% on 2 L. HEENT: Head is normocephalic and atraumatic. PERRLA. She is not pale. Neck: Supple. Chest: There is equal chest expansion rise and fall. Cardiovascular: There is some tachycardia. Abdomen: Soft and nontender. Extremities: There is a moderate amount of swelling to her right lower ankle. There is decreased range of motion due to pain. She has good pedal pulses. There is good capillary refill of the toes. There is no anterior joint line tenderness at the left hip. There is no tenderness of the left trochanteric bursa. She has good range of motion about the left hip. There is no redness or signs of infection. There is a negative straight leg raise. ASSESSMENT: 1. Right lower lobe pneumonia. 2. Right ankle and foot pain. 3. Left hip subluxation and dislocation with successful reduction. PLAN: The patient is admitted for antibiotics. She will be placed in a knee immobilizer on the left side. We will get x-rays of her right foot and ankle. We will follow her with these x-rays. She will need to follow up in the office within 2 weeks for a recheck. Thank you again for the consult. Dictated by MICHELLE Ch for Seymour Porras MD cc: MICHELLE Ch MD
--- NOTE | 2018-09-30 15:18 | INFECTIOUS DISEASE CONSULT REP ---
DATE: 09/30/2018 CONCLUSION: The patient is admitted the hospital with a right-sided pneumonia. She is predisposed to this by virtue of having chronic obstructive pulmonary disease (COPD) from cigarette smoking. The patient may have an immunoglobulin deficiency. RECOMMENDATIONS: I agree with treating the patient with vancomycin. I have discontinued Zosyn and placed the patient on cefepime. Also, I have ordered immunoglobulin levels. DISCUSSION: The patient tells me that she initially was brought into the hospital because she fell on her left hip. She tells me that in the past 2 weeks she has been having increasing dyspnea and a cough associated with fever. She occasionally produces sputum. It has a light yellow to green in color, and sometimes it is clear. Patient's CBC shows a white count of 10,480, hemoglobin 8.2, and platelet count 313,000. Creatinine is 0.7, GFR is greater than 60. Liver function studies are normal. Urinalysis showed no bacteria or white cells. Blood cultures: One was negative, and the other set is pending. PAST MEDICAL HISTORY/REVIEW OF SYSTEMS: Eyes and ears: The patient wears glasses. Her hearing is okay. Respiratory: See Present Illness. Cardiac: No chest pain or palpitations. Gastrointestinal: No nausea/vomiting or diarrhea. Genitourinary: Dysuria or flank pain. Bones, joints, muscles: Patient had a left total hip arthroplasty because of osteoarthritis. Neurologic: No seizures. No loss of motor or sensory function recently. OBSTETRICAL/GYNECOLOGICAL HISTORY: She is a 2, para 2, AB 0. She has had a tubal ligation. PREVIOUS HOSPITALIZATIONS AND OPERATIONS: Patient has had labor and deliveries, a tubal ligation and a left total hip arthroplasty. MEDICAL DISEASES: Positive for osteoarthritis COPD secondary to cigarette smoking, hyperlipidemia, and gastroesophageal reflux. INFECTIOUS DISEASE HISTORY: Positive for pneumonia and UTI. FAMILY HISTORY: Positive for diabetes mellitus and stroke. SOCIAL HISTORY: [place] She is . She lives alone. She does not have any pets. She smokes cigarettes, but she does not drink alcoholic beverages or abuse drugs. She has no pets at home. ALLERGIES: Her chart lists no known drug allergies. HOME MEDICATIONS: Include the following: She is on Tylenol with codeine, albuterol inhaler, Xanax, aspirin, Lipitor, Coreg, Lanoxin, diltiazem, fluticasone nasal spray, furosemide, hydrocodone, lactulose, Reglan, Prilosec, glycol, Xarelto, Zoloft, and Spiriva inhaler. PHYSICAL EXAMINATION: Vital Signs: Temperature is 99.3 degrees, pulse 100, respirations 26, blood pressure 119/50. Generally: This is an ill-appearing elderly female. She is slightly dyspneic even at rest. Head/eyes/ears/nose/throat: She can hear my spoken words. She wears glasses. She does not have any white patches on her tongue. Neck: No meningismus. Thorax: Patient has an increased AP diameter of the chest. Lungs: There were bilateral rhonchi. Cardiovascular: Heart rate is irregular. Abdomen: Soft and nontender. Neurologic: The patient is awake. She can move her extremities. She does not have any tremor. Her sensation is intact to touch. Her memory as regarding her medical history is good. Integument: No rash noted. Thank you for the consult. cc: Tyree Wen MD
[2018-09-30] MEDS: VANCOMYCIN 2 GM in NS 500 ML IV SCH (16:24)
[2018-09-30] MEDS ORDERED: XARELTO PO SCH (17:00)
[2018-09-30] MEDS: XARELTO PO SCH (17:27)
[2018-09-30] MEDS: MAXIPIME 2 GM in NS 100 ML IV SCH ×2 (17:27→18:00)
[2018-09-30] MEDS: XANAX PO PRN (21:08)
[2018-10-01] MEDS: SOLU-MEDROL IV SCH ×3 (01:13→17:59)
--- NOTE | 2018-10-01 01:22 | PULMONOLOGY CONSULTATION ---
DATE: 09/30/2018 HISTORY OF PRESENT ILLNESS: Ms Wolf is a 68-year-old with severe COPD, ongoing tobacco use, with chronic hypoxemic respiratory failure who developed increased cough, increased sputum production, along with multiple episodes of nausea and vomiting on the night prior to admission. On the following morning, patient fell and dislocated her hip. She presented to the emergency room with a dislocated hip along with atrial fibrillation with rapid ventricular response. She underwent CT pulmonary angiogram which revealed diffuse infiltrate throughout the right lung with atelectasis and mucus plugging at the right base. The patient had cardiomegaly suggesting pulmonary hypertension. The patient's dislocated hip has been reduced. Her heart rate control is improving. She reports she has been confused following the admission but is more awake and oriented now. PAST MEDICAL HISTORY: 1. Severe COPD. 2. Chronic hypoxemic respiratory failure. 3. History of atrial septal defect with closure. 4. Status post direct current cardioversion for prior atrial fibrillation. 5. Status post maze procedure. 6. Status post cholecystectomy. 7. Status post hip replacement. 8. History of anxiety/depressive disorder. 9. Diabetes mellitus. 10. Previous immunoglobulin levels have been reduced. SOCIAL HISTORY: Ongoing tobacco use. She is . FAMILY HISTORY: Noncontributory current presentation. REVIEW OF SYSTEMS: As noted in the HPI but is otherwise negative. PHYSICAL EXAMINATION: General: Reveals a frail, chronically ill-appearing, white female who currently is in no distress. She has mild work of breathing. She has been afebrile for the last 24 hours. Blood pressure 130/50, heart rate 77, respiratory rate 25, oxygen saturation 93% on 2 L per nasal cannula. HEENT: Pupils are equal and reactive. Oropharynx is clear. Neck: Supple. Chest: Reveals crackles and rhonchi throughout the right chest. Cardiac: Irregular, irregular, normal S1, normal S2. Abdomen: Scaphoid and soft. Extremities: Without edema. LABORATORIES: White blood count on admission 17.09, white blood count today 10.48, hemoglobin 8.2, platelet count 313,000. Sodium 140, potassium 4.2, chloride 104, bicarbonate 27, BUN 9, creatinine 0.7. IMPRESSION: 68-year-old with severe chronic obstructive pulmonary disease, ongoing tobacco use, multiple episodes of nausea and vomiting who was admitted to the hospital with a dislocated hip, atrial fibrillation with rapid ventricular response, acute on chronic hypoxemic respiratory failure and diffuse pneumonia in the right lung likely related to an aspiration event. The patient's previous immunoglobulin levels were reduced. RECOMMENDATIONS: 1. Strongly encourage patient to stop smoking. 2. Agree with current broad-spectrum antibiotics. 3. Continue bronchial hygiene. 4. Agree with evaluation of immunoglobulin levels. 5. Heart rate control as per Cardiology recommendations. 6. Additional recommendations pending hospital course. cc: Brady Ahuja MD
[2018-10-01] MEDS: XOPENEX NEB INH SCH ×6 (03:30→23:50)
[2018-10-01] MEDS: NORCO-7.5 PO PRN ×4 (03:50→23:46)
[2018-10-01] MEDS: ZOFRAN IV PRN ×2 (03:50→20:09)
[2018-10-01 05:51] LABS: BASO# 0.01 X1000 (0.0-0.2); BASO% 0.1 % (0.0-0.8); HEMOGLOBIN 8.2 g/dL (12.0-16.0); IMM GRAN# 0.02 X1000 (0.0-0.04); IMM GRAN% 0.2 % (0.0-0.5); LYMPH# 0.61 X1000 (1.2-3.4); LYMPH% 6.4 % (20.5-51.1); MCH 27.8 PG (27-31); MCHC 31.5 g/dL (33-37); MCV 88.1 FL (81-99); MONO% 3.2 % (1.7-9.3); MPV 9.9 FL (7.4-10.4); NEUT# 8.52 X1000 (1.4-6.5); NEUT% 90.1 % (42.2-75.2); PLT 333 X1000 (130-400); RBC 2.95 XMIL (4.2-5.4); RDW 13.9 % (11.5-14.5); WBC 9.46 X1000 (4.8-10.8)
[2018-10-01] MEDS: MAXIPIME 2 GM in NS 100 ML IV SCH ×2 (05:52→18:40)
[2018-10-01 06:08] LABS: AGAP 10; BUN 15 mg/dL (8-22); CALCIUM 8.7 mg/dL (8.8-10.2); CHLORIDE 95 mmol/L (98-107); COSMO 271; CREATININE 0.6 mg/dL (0.5-0.9); ESTIMATED GFR > 60; GLUCOSE 172 mg/dL (70-104); POTASSIUM 4.2 mmol/L (3.5-5.1); SODIUM 133 mmol/L (136-145); TCO2 28 mmol/L (25-35)
[2018-10-01 06:51] LABS: LYMPHS 4 % (21-51); SEGS 96 % (42-75)
--- NOTE | 2018-10-01 07:02 | INFECTIOUS DISEASE PROGRESS NO ---
DATE: 10/01/2018 PRESENT ILLNESS: The patient has a right-sided pneumonia. She is predisposed to having pneumonia because she has chronic obstructive pulmonary disease. Also, she is predisposed to it by having a very low IgG level of 384; the IgA was 117. MEDICATIONS: The patient is on the second day of treatment with vancomycin and cefepime. PHYSICAL EXAMINATION: Vital Signs: Temperature is 98.2, pulse 61, respirations 21, blood pressure 129/58. Generally, this is a somewhat ill-appearing, elderly female. She is in no acute distress. Head/Eyes/Ears/Nose/Throat: She can hear my spoken words and see near objects. She does not have any white patches on her tongue. Neck: No meningismus. Lungs: There were bilateral rhonchi. Cardiovascular: Heart rate is irregular. Abdomen soft and nontender. Thorax: The patient has an increased AP diameter of the chest. Neurologic: The patient is alert. She can move her extremities. There is no tremor. LAB AND RADIOLOGY: CBC-WBC 9.46, hgb 8.2, platelets 333 K. No new radiographic study. Creatinine-0.6. GFR . ASSESSMENT AND PLAN: The patient has right lung pneumonia. She is predisposed to developing this by chronic obstructive pulmonary disease due to cigarette smoking and also the patient has an immunoglobulin deficiency. My plan is to continue the current antibiotics, and I am going to give the patient IVIG today and tomorrow. COMORBIDITIES: The patient is a cigarette smoker, and she has COPD. Also, now , we have discovered that she has an immunoglobulin deficiency. cc: Tyree Wen MD MTDD
[2018-10-01] MEDS: CARDIZEM CD PO SCH (08:39)
[2018-10-01] MEDS: TYLENOL PO PRN (08:39)
[2018-10-01] MEDS: MIRALAX PO SCH ×2 (08:39→08:41)
[2018-10-01] MEDS: LANOXIN PO SCH (08:39)
[2018-10-01] MEDS: XANAX PO PRN ×2 (08:39→22:17)
[2018-10-01] MEDS: COREG PO SCH ×2 (08:39→20:09)
--- NOTE | 2018-10-01 09:03 | PROGRESS NOTE ---
DATE: 10/01/2018 SUBJECTIVE: Ms. Wolf is feeling better and her breathing is better. She was admitted on 09/28/2018. An inexplicable fall, subsequent left hip pain. I think the hip was dislocated. She is followed by Dr. Toy Salcido. She had a fall from a standing position. The nurses who tend to her said that the patient was a very poor historian and could not give any meaningful history. The patient was not sure if she lost consciousness or had any antecedent cardiorespiratory symptoms. When they got to the emergency room, she received ketamine and fentanyl for conscious sedation to reduce her dislocation of her hip. She has a hip replacement. Unable to give any history at that time. Very drowsy and she does not remember much of the events, even now. PAST MEDICAL HISTORY: 1. ASD repair, had a Maze procedure. 2. Status post cholecystectomy. 3. Bilateral hip replacement. 4. Tubal ligation. 5. Tarsal tunnel release. 6. Maze procedure at [facility]. 7. Tricuspid valve repair. 8. Previous heart stents. 9. Several cardioversions for atrial fibrillation. SOCIAL HISTORY: She lives alone. She lost her this last March. Smokes about a pack a day. PHYSICAL EXAMINATION: Vital Signs: Today, temperature is 98.1 degrees, pulse 60, respirations 18, blood pressure 117/53. HEENT: Pupils are equal and round. Lungs: Clear in all lung alvarado. Cardiovascular Examination: Regular rhythm and rate without murmur or S3. Abdomen: Soft. Skin: Warm, dry. Is and Os: Urine output is 5400 mL. ASSESSMENT AND PLAN: 1. Severe chronic obstructive pulmonary disease, ongoing tobacco use, episodes of nausea. She had been admitted to the hospital with a dislocated hip. This has been relocated. Breathing is better. Air and gas exchange seems to be improving. Encouraged patient to stop smoking. Continue current broad-spectrum antibiotics and bronchial hygiene. We will evaluate for immunoglobulin deficiency. 2. History of atrial fibrillation, status post Maze procedure. The rate appears controlled. 3. Treating for right-sided pneumonia. Predisposed to having pneumonia because she has severe chronic obstructive pulmonary disease. She has very low IgG level of 384. IgA was 117. The patient is on her second day of treatment with vancomycin and cefepime. She seems to be improving. 4. Left hip subluxation, dislocation with successful reduction. REVIEW OF ORDERS: She is on Xanax 0.5 mg q.8 hours, Coreg 12.5 mg b.i.d., Lanoxin 125 mcg a day, Cardizem CD 240 mg a day. She got some immunoglobulin. I believe she is going to get that today. She is on cefepime 2 g IV q.12, methylprednisone 40 mg q.8, MiraLAX 17 g daily, Xarelto 20 mg a day, vancomycin 2 g q.24 hours. cc: Sarabjit Colud MD
[2018-10-01] MEDS: GAMUNEX-C 10% IV SCH (09:59)
[2018-10-01] MEDS ORDERED: BLISTEX MEDICATED BERRY LIP BALM TOP ONE (10:15)
[2018-10-01] MEDS: VANCOMYCIN 2 GM in NS 500 ML IV SCH (15:15)
[2018-10-01] MEDS: XARELTO PO SCH (17:59)
--- NOTE | 2018-10-01 22:31 | PULMONOLOGY PROGRESS NOTE ---
DATE: 10/01/2018 SUBJECTIVE: The patient is awake, alert, and conversant. She reports some improvement in her breathing. OBJECTIVE: Vital Signs: The patient has been afebrile for the last 24 hours. Blood pressure 112/42, heart rate 62, respiratory rate 20, oxygen saturation 98% on 3 L. HEENT: Pupils are equal and reactive. Oropharynx is clear. Neck: Supple. Chest: Reveals prolonged expiratory phase with crackles and rhonchi, right greater than left. Cardiac exam: S1, S2. Abdomen: Soft. Extremities: Reveal trace edema. LABORATORY DATA: Sputum culture is pending. Immunoglobulin levels are reviewed. The IgG is significantly reduced at 384, and the IgM is reduced at 37. White blood count 9.46, hemoglobin 8.2, platelet 333,000. IMPRESSION: A 68-year-old with: 1. Pneumonia. 2. Acute on chronic hypoxemic respiratory failure. 3. Severe chronic obstructive pulmonary disease. 4. Ongoing tobacco use. 5. Episodes of nausea and vomiting prior to this hospitalization. 6. Severe immunoglobulin deficiency. RECOMMENDATIONS: 1. Continue oxygen for hypoxemic respiratory failure. 2. Continue bronchial hygiene. 3. Continue broad-spectrum antibiotics and immunoglobulin replacement as outlined by Dr. Tyree Wen. 4. Continue heart rate control. 5. Follow up chest x-ray tomorrow morning. cc: Brady Ahuja MD
[2018-10-02] MEDS: SOLU-MEDROL IV SCH ×3 (03:26→17:16)
[2018-10-02] MEDS: XOPENEX NEB INH SCH ×6 (04:25→23:41)
[2018-10-02] MEDS: MAXIPIME 2 GM in NS 100 ML IV SCH ×2 (06:04→17:48)
[2018-10-02] MEDS: XANAX PO PRN ×2 (06:04→18:43)
--- NOTE | 2018-10-02 07:31 | Diag Imaging Result Doc PS360 ---
EXAM: CHEST-PORTABLE 10/02/2018 HISTORY: abnormal exam TECHNIQUE: AP portable at 0653 COMMENT: Compared to 09/30/2018 the interstitial opacity on the right has improved. IMPRESSION: Improved pulmonary edema versus pneumonia. Electronically signed by Hung Charles 10/02/2018 7:29 AM
[2018-10-02] MEDS: COREG PO SCH ×2 (11:11→20:31)
[2018-10-02] MEDS: GAMUNEX-C 10% IV SCH (11:11)
[2018-10-02] MEDS: CARDIZEM CD PO SCH (11:11)
[2018-10-02] MEDS: MIRALAX PO SCH (11:12)
[2018-10-02] MEDS: LANOXIN PO SCH (11:13)
--- NOTE | 2018-10-02 12:56 | PROGRESS NOTE ---
DATE: 10/02/2018 SUBJECTIVE: Ms. Wolf is feeling better. Breathing is definitely better. She ate all of her lunch. She remains afebrile. She was asking about medication, mainly the BuSpar and Klonopin. Her right foot is hurting her. She would like an x-ray of that right foot. OBJECTIVE: Vital Signs: Temperature 98.5 degrees, pulse 114, respirations 22, blood pressure 127/62. Eyes: Pupils are equal. Neck: No distended neck veins. Lungs: Clear anterior lateral and posterior. Cardiovascular exam: Regular rhythm and rate without murmur or S3. Abdomen: Soft. Nontender. Extremities: Without edema. : Urine output was over 9 L. IMAGING: Chest x-ray: She has improved pulmonary edema versus pneumonia down there. ASSESSMENT AND PLAN: 1. Pneumonia. Continue present antibiotics. She is improving. 2. Acute on chronic hypoxemic respiratory failure. This is improved. Air and gas exchange have improved. 3. Severe chronic obstructive pulmonary disease, exacerbation of chronic obstructive pulmonary disease. 4. Ongoing tobacco use. 5. Episodes of nausea and vomiting which has improved. This was prior to this hospitalization. 6. Severe immunoglobulin deficiency. So, we are going to continue her bronchial hygiene, broad- spectrum antibiotics. 7. Left hip subluxation dislocation successful reduction. 8. Atrial fibrillation. She has had status post Maze procedure for atrial septal defect. Her rate appears controlled. LIST OF HOME MEDICATIONS: Looking over her medications, she is on Xanax right now 0.5 mg q. 8 hours p.r.n. She is getting Coreg 12.5 b.i.d., Lanoxin 125 mcg a day, diltiazem CD 240 mg a day, cefepime 2 g IV q. 12 hours, methylprednisone 40 mg q. 8 hours, IV MiraLAX 17 g daily, Xarelto 20 mg a day, vancomycin 2 g q. 24 hours. Continue her physical therapy. I will see if we can put her back on her BuSpar and consider putting her back on the Klonopin. DISPOSITION: Continue physical therapy. She would like to go home. We will get an x-ray of her right foot. cc: Sarabjit Cloud MD
[2018-10-02] MEDS: MUCOMYST 20% INH SCH ×2 (13:03→19:53)
--- NOTE | 2018-10-02 13:41 | PULMONOLOGY PROGRESS NOTE ---
DATE: 10/02/2018 SUBJECTIVE: Patient is awake, alert, and conversant. She continues to have some cough and sputum production. Overall, she feels better. OBJECTIVE: Vital Signs: BP 127/62, heart rate 114, respiratory rate 16 to 18, oxygen saturation 97%. HEENT: Pupils are equal and reactive. Oropharynx is clear. Neck: Is supple. Chest: Reveals scattered rhonchi bilaterally. Cardiac: S1, S2. Abdomen: Soft without hepatosplenomegaly. Extremities: Without edema. LABORATORIES: Chest x-ray reveals decreasing infiltrates on the right. Sputum culture reveals a gram-negative jass, which has not yet been identified. IMPRESSION: 1. A 68-year-old with gram-negative pneumonia. 2. Acute on chronic hypoxemic respiratory failure. 3. Severe immunoglobulin deficiency. 4. Severe chronic obstructive pulmonary disease. 5. Ongoing tobacco use. RECOMMENDATIONS: 1. Reinstitute Mucomyst at patient's request for bronchial hygiene. 2. Continue bronchodilators and bronchial hygiene. 3. Continue current antibiotics and immunoglobulin replacement as outlined per Dr. Wen, pending results of sputum culture. 4. Heart rate control per Cardiology. cc: Brady Ahuja MD
[2018-10-02] MEDS: ZOFRAN IV PRN ×2 (13:49→23:48)
--- NOTE | 2018-10-02 14:54 | Diag Imaging Result Doc PS360 ---
FOOT COMPLETE RIGHT - 10/02/2018 INDICATION: R foot pain TECHNIQUE: Three views COMPARISON: Ankle x-rays from 09/30/2018 FINDINGS: There are small degenerative heel spurs. There are mild degenerative changes of the mid tarsal joints. There is moderate degeneration at the base of the great toe. No fracture or dislocation. IMPRESSION: No acute disease. Electronically signed by Devin Robert 10/02/2018 2:51 PM
--- NOTE | 2018-10-02 15:19 | INFECTIOUS DISEASE PROGRESS NO ---
DATE: 10/02/2018 PRESENT ILLNESS: Ms. Wolf is being treated for a right-sided pneumonia, as well as an immunoglobulin deficiency with low IgG. MEDICATIONS: Today is day 3 of vancomycin IV per pharmacy dosing and cefepime 2 g IV every 12 hours. She has also received IVIG, a dose yesterday and again today. PHYSICAL EXAMINATION: Vital Signs: Temperature is 98.5 degrees, pulse rate 114, respiratory rate 22, blood pressure 127/62, O2 saturation is 97% on 3 liters nasal cannula. General: This is an elderly, chronically ill-appearing female. She is sitting up in the bed in no acute distress. HEENT: Atraumatic, normocephalic. Oral mucous membranes are pink and moist. Conjunctivae are pale. Neck: Supple. Trachea is midline. Respiratory: Lung sounds have coarse rhonchi noted bilaterally. Cardiovascular: Irregularly irregular. Abdomen: Soft, round and nontender. Bowel sounds are active. Neurologic: She is awake, alert, and appropriate. No tremors noted. LABORATORY/X-RAY: Her IgA level was 117, IgG of 384 from 2 days ago. No other blood work available today. Her sputum is growing a gram-negative jass which is yet to be identified. Blood cultures have shown no growth since admission. Chest x-ray today shows improved pulmonary edema versus pneumonia on the right. ASSESSMENT AND PLAN: Ms. Wolf is receiving intravenous vancomycin and cefepime for right lung pneumonia. For now, we will continue these until the final cultures are resulted. There was also an immunoglobulin deficiency, which is being treated. She did receive a dose of IVIG yesterday and is receiving a dose at this time. We will follow up with her as far as rechecking her immunoglobulin levels to see whether she will need chronic replacement in about 6 to 8 weeks. These plans have been discussed with and recommended by Dr. Wen. COMORBIDITIES: Comorbidities for Ms. Wolf include that she is a cigarette smoker with COPD, atrial fibrillation, and gastroesophageal reflux disease. Dictated by MICHELLE Barker for Tyree Wen MD This chart was documented by, MICHELLE Barker and accurately reflects the services performed, treatment plan and medical decisions as attested by the providers signature Tyree Wen MD. cc: Tyree Wen MD
[2018-10-02] MEDS: BUSPAR PO SCH ×2 (15:47→20:31)
[2018-10-02] MEDS: XARELTO PO SCH (17:16)
[2018-10-02] MEDS: VANCOMYCIN 2 GM in NS 500 ML IV SCH (18:28)
[2018-10-02] MEDS: MYCELEX TROCHE PO SCH (20:31)
[2018-10-03] MEDS: SOLU-MEDROL IV SCH ×3 (02:15→17:42)
[2018-10-03] MEDS: MYCELEX TROCHE PO SCH ×4 (02:15→22:15)
[2018-10-03] MEDS: XOPENEX NEB INH SCH ×6 (03:50→23:40)
[2018-10-03] MEDS: MAXIPIME 2 GM in NS 100 ML IV SCH ×2 (05:44→17:41)
[2018-10-03] MEDS: LANOXIN PO SCH (09:34)
[2018-10-03] MEDS: BUSPAR PO SCH ×3 (09:35→17:42)
[2018-10-03] MEDS: COREG PO SCH ×2 (09:35→22:15)
[2018-10-03] MEDS: CARDIZEM CD PO SCH (09:35)
[2018-10-03] MEDS: MIRALAX PO SCH (09:36)
--- NOTE | 2018-10-03 10:09 | PROGRESS NOTE ---
DATE: 10/03/2018 SUBJECTIVE: Ms. Wolf is resting comfortably, breathing comfortably. OBJECTIVE: Vital Signs: Temperature 98.1, pulse 120, respirations 16. Blood pressure 152/62. Eyes: Pupils are equal and round. Neck: No distended neck veins. Lungs: Clear in all lung alvarado. Cardiovascular: Regular rhythm and rate without murmur or S3. Abdomen: Soft. Skin: Warm and dry. : Urine output is 6200 mL. ASSESSMENT AND PLAN: 1. Right-sided pneumonia. Immunoglobulin deficiency. Low IgG. This is day 4 of vancomycin and cefepime 2 g IV q.12. She has received some intravenous immunoglobulin day before yesterday, and I think also yesterday she received it. She seems to be making improvement. 2. Chronic obstructive pulmonary disease. 3. Ongoing tobacco use. 4. Her foot x-ray was negative. No sign of fracture. 5. Episodes of nausea and vomiting which improved. 6. Left hip subluxation, successful reduction. 7. Atrial fibrillation. Her rate is controlled. She is status post MAZE procedure for atrial septal defect. 8. Lab reviewed the . Reviewed her orders and I do not see any change. cc: Sarabjit Cloud MD
[2018-10-03] MEDS: XANAX PO PRN (10:25)
[2018-10-03] MEDS: NORCO-7.5 PO PRN ×3 (10:25→23:21)
[2018-10-03] MEDS: MUCOMYST 20% INH SCH ×2 (10:58→19:40)
[2018-10-03] MEDS ORDERED: MUCOMYST 20% ONE (11:02)
[2018-10-03] MEDS ORDERED: XOPENEX NEB ONE (11:03)
--- NOTE | 2018-10-03 11:52 | INFECTIOUS DISEASE PROGRESS NO ---
DATE: 10/03/2018 PRESENT ILLNESS: The patient has a Klebsiella right-sided pneumonia. She also has an immunoglobulin deficiency. MEDICATIONS: The patient is on vancomycin and cefepime currently. She also has received 2 doses of IVIG. PHYSICAL EXAMINATION: Vital Signs: Temperature is 98.1, pulse 106, respirations 16, blood pressure 152/62. General: This is a somewhat ill-appearing, elderly female. She is in no acute distress. HEENT: She can hear my spoken words and see near objects. There are no white patches on her tongue. Neck: No meningismus. Lungs: Clear to auscultation. Cardiovascular: The patient's heart rate is irregular. Abdomen: Soft and nontender. Neurologic: Patient is alert. She can move her extremities. There is no tremor. LAB AND X-RAY: A sputum culture grew Klebsiella. Blood cultures are negative. There was no other lab work for today and there is no x-ray for today. ASSESSMENT AND PLAN: The patient has Klebsiella pneumonia. I have discontinued vancomycin and cefepime and placed the patient on Levaquin 500 mg p.o. daily. As regarding the patient's immunoglobulin deficiency, my plan is in 6 to 8 weeks, repeat the immunoglobulin level and if it is very low again, then I think the patient would be a candidate to get monthly IVIG. COMORBIDITIES: She is a cigarette smoker and she has COPD. She also has gastroesophageal reflux disease. cc: Tyree Wen MD
[2018-10-03 12:28] LABS: AGAP 11; ALB/GLOB RATIO 0.9; ALBUMIN 3.1 g/dL (3.5-5.0); ALKALINE PHOSPHATASE 76 U/L (32-104); BUN 18 mg/dL (8-22); CALCIUM 8.6 mg/dL (8.8-10.2); CHLORIDE 98 mmol/L (98-107); COSMO 285; CREATININE 0.6 mg/dL (0.5-0.9); ESTIMATED GFR > 60; GLUCOSE 258 mg/dL (70-104); GOT 31 U/L (10-30); GPT 40 U/L (10-36); MAGNESIUM 1.8 mg/dL (1.5-2.7); POTASSIUM 3.8 mmol/L (3.5-5.1); SODIUM 137 mmol/L (136-145); TCO2 28 mmol/L (25-35); TOTAL BILIRUBIN 0.23 mg/dL (0.20-1.00); TOTAL PROTEIN 6.7 g/dL (6.3-8.3)
[2018-10-03] MEDS: VANCOMYCIN 2 GM in NS 500 ML IV SCH (12:31)
[2018-10-03] MEDS: XARELTO PO SCH (17:42)
[2018-10-03] MEDS ORDERED: LASIX IV ONE (20:29)
[2018-10-04] MEDS: XANAX PO PRN ×3 (01:52→23:09)
[2018-10-04] MEDS: XOPENEX NEB INH SCH ×6 (03:40→23:40)
--- NOTE | 2018-10-04 04:11 | PULMONOLOGY PROGRESS NOTE ---
DATE: 10/03/2018 SUBJECTIVE: The patient had some right-sided pleurisy type pain earlier today which increased with deep breathing and cough. It has improved this afternoon and she is now pain free. OBJECTIVE: Vital Signs: The patient is afebrile. Blood pressure is 117/52, heart rate 70, respiratory rate 20, oxygen saturation is 99% on nasal cannula. HEENT: Pupils are equal and reactive. Oropharynx is clear. Neck: Supple. Chest: Reveals crackles at the right base. Cardiac: S1 and S2. Abdomen: Soft. Extremities: Reveal trace edema. LABORATORY DATA: Sodium 137, potassium 3.8, chloride 98, bicarbonate 28, BUN 18 , creatinine 0.6. IMPRESSION: The patient is a 68-year-old with: 1. Klebsiella pneumonia with pleuritic chest pain. 2. Joisj-bj-ltatjoi hypoxemic respiratory failure. 3. Severe chronic obstructive pulmonary disease. 4. Ongoing tobacco use. 5. Severe immunoglobulin deficiency. RECOMMENDATIONS: 1. Smoking cessation was discussed and recommended. 2. Continue bronchodilators and Mucomyst for bronchial hygiene. 3. Continue current antibiotics per Dr. Tyree Wen. 4. Continue immunoglobulin replacement as indicated. 5. Continue cardiac rate control for atrial fibrillation. 6. Oxygen as needed to maintain saturation greater than 90%. 7. Follow up chest x-ray tomorrow morning. cc: Brady Ahuja MD MTDD
[2018-10-04] MEDS: VANCOMYCIN 2 GM in NS 500 ML IV SCH (04:26)
[2018-10-04] MEDS: MYCELEX TROCHE PO SCH ×4 (06:14→20:43)
--- NOTE | 2018-10-04 06:45 | Diag Imaging Result Doc PS360 ---
EXAM: CHEST-PORTABLE HISTORY: abnormal exam TECHNIQUE: Portable chest single view COMPARISON: 10/02/2018 FINDINGS: The lungs are well expanded. Sternal wires are present. The heart is borderline mildly prominent and there is mild pulmonary edema. This is less pronounced than on the prior study. No pleural effusions identified. Lower lung infiltrates are less pronounced. IMPRESSION: Interval improvement. Electronically signed by Pablito Matute 10/04/2018 6:42 AM
[2018-10-04] MEDS: SOLU-MEDROL IV SCH ×2 (06:50→17:33)
[2018-10-04 07:13] LABS: HEMOGLOBIN 8.8 g/dL (12.0-16.0); IMM GRAN# 0.12 X1000 (0.0-0.04); LYMPH# 1.09 X1000 (1.2-3.4); LYMPH% 9.1 % (20.5-51.1); MCH 26.7 PG (27-31); MCHC 30.3 g/dL (33-37); MCV 87.9 FL (81-99); MONO# 0.69 X1000 (0.11-0.59); MONO% 5.8 % (1.7-9.3); MPV 9.5 FL (7.4-10.4); NEUT# 10.08 X1000 (1.4-6.5); NEUT% 84.1 % (42.2-75.2); PLT 371 X1000 (130-400); RDW 14.3 % (11.5-14.5); WBC 11.98 X1000 (4.8-10.8)
[2018-10-04 07:34] LABS: AGAP 10; ALB/GLOB RATIO 0.9; ALBUMIN 2.8 g/dL (3.5-5.0); ALKALINE PHOSPHATASE 70 U/L (32-104); BUN 16 mg/dL (8-22); CALCIUM 8.9 mg/dL (8.8-10.2); CHLORIDE 102 mmol/L (98-107); COSMO 289; CREATININE 0.6 mg/dL (0.5-0.9); ESTIMATED GFR > 60; GLUCOSE 181 mg/dL (70-104); GOT 26 U/L (10-30); GPT 42 U/L (10-36); SODIUM 142 mmol/L (136-145); TCO2 30 mmol/L (25-35); TOTAL BILIRUBIN 0.23 mg/dL (0.20-1.00)
[2018-10-04] MEDS: MAXIPIME 2 GM in NS 100 ML IV SCH ×2 (08:26→08:29)
[2018-10-04] MEDS: LANOXIN PO SCH (08:27)
[2018-10-04] MEDS: COREG PO SCH ×2 (08:27→20:43)
[2018-10-04] MEDS: CARDIZEM CD PO SCH (08:27)
[2018-10-04] MEDS: BUSPAR PO SCH ×3 (08:27→16:29)
[2018-10-04] MEDS: MIRALAX PO SCH (08:29)
[2018-10-04] MEDS: MUCOMYST 20% INH SCH ×2 (08:55→19:40)
[2018-10-04] MEDS: NS NEB INH SCH (08:55)
--- NOTE | 2018-10-04 09:59 | PROGRESS NOTE ---
DATE: 10/04/2018 SUBJECTIVE: Ms. Wolf had a rough day yesterday, and she feels a little better this morning. She has had discomfort in her chest that seemed to radiate around her right axilla and her back, and she feels like it is more consistent with muscular pain. I think it would benefit her to get out of bed and sit up. OBJECTIVE: Vital Signs: Temperature 97.9 degrees, pulse 82, respirations 18, blood pressure 144/66. Eyes: Pupils are equal and round. Lungs: Clear in all lung alvarado. Cardiovascular exam: Regular rhythm and rate without murmur or S3. : Urine output was 5800 mL. DIAGNOSTICS: Chest x-ray from this morning: Interval improvement. Lungs are well expanded. Sternal wires present. Heart is borderline mildly prominent. There is mild pulmonary edema, less pronounced than prior study. No pleural effusion. Lower lung infiltrates are less pronounced, so improved. ASSESSMENT AND PLAN: 1. Klebsiella pneumonia. Pleuritic chest pain. She is doing better. Continue present antibiotics. 2. Acute on chronic hypoxemic respiratory failure. 3. Severe chronic obstructive pulmonary disease with exacerbation. 4. Ongoing tobacco use. 5. Severe immunoglobulin deficiency. So, we will continue to investment counselor her on reports of smoking cessation, continue bronchodilators, Mucomyst and antibiotics per Dr. Jordi Wen, and continue immunoglobulin replacement, as well as supplementary O2. Will work on her strength and conditioning. Continue physical therapy. So, continue her cefepime 2 g q. 12 hours and vancomycin. cc: Sarabjit Cloud MD
[2018-10-04] MEDS: LEVAQUIN PO SCH (14:10)
[2018-10-04] MEDS: NORCO-7.5 PO PRN (14:10)
[2018-10-04] MEDS: ZOFRAN IV PRN (15:16)
[2018-10-04] MEDS: XARELTO PO SCH (16:29)
--- NOTE | 2018-10-04 17:13 | INFECTIOUS DISEASE PROGRESS NO ---
DATE: 10/04/2018 PRESENT ILLNESS: The patient has a Klebsiella pneumonia. She also has an immunoglobulin deficiency. MEDICATIONS: The patient had been on vancomycin, cefepime and I changed her to Levaquin. The patient also has received 2 doses of IVIG. PHYSICAL EXAMINATION: Vital Signs: Temperature is 98.2 degrees, pulse 67, respirations 16, blood pressure 148/60. General: This is a somewhat ill-appearing, elderly female. She is in no acute distress. Head, eyes, ears, nose, and throat: She can hear my spoken words and see near objects. There is no drainage from the nose or ears. She does not have any white patches on her tongue. Neck: No meningismus. Lungs: Clear to auscultation. Cardiovascular: Heart rate is regular. Abdomen: Soft and nontender. Neurologic: Patient is alert. She can move her extremities. There is no tremor. LAB AND X-RAY: CBC today shows a white count of 11,980, hemoglobin 8.8, and platelet count 371,000. Creatinine is 0.6. GFR is greater than 60. Blood cultures are sterile. ASSESSMENT AND PLAN: The patient has Klebsiella pneumonia. I plan to continue with Levaquin. As regarding the patient's immunoglobulin deficiency, I will repeat the immunoglobulin levels in 6 to 8 weeks and if the levels are low, then I think the patient would be a good candidate for regular immunoglobulin infusions. COMORBIDITIES: The patient is a cigarette smoker and she has COPD as well as gastroesophageal reflux disease. cc: Tyree Wen MD
[2018-10-05] MEDS: XOPENEX NEB INH SCH ×6 (03:40→23:45)
[2018-10-05] MEDS: MYCELEX TROCHE PO SCH ×4 (05:06→21:51)
[2018-10-05] MEDS: SOLU-MEDROL IV SCH ×2 (05:06→18:46)
[2018-10-05] MEDS: LANOXIN PO SCH (08:38)
[2018-10-05] MEDS: COREG PO SCH ×2 (08:38→21:50)
[2018-10-05] MEDS: XANAX PO PRN ×2 (08:38→21:51)
[2018-10-05] MEDS: LEVAQUIN PO SCH (08:40)
[2018-10-05] MEDS: CARDIZEM CD PO SCH (08:40)
--- NOTE | 2018-10-05 09:16 | PROGRESS NOTE ---
DATE: 10/05/2018 SUBJECTIVE: Ms. Wolf is awake. She is eating very well. She is stronger. Radiographically, her lungs look better. Pneumonia is resolving, and remains afebrile. OBJECTIVE: Temperature 98.1 degrees, pulse 64, respirations 18, and blood pressure 141/70.HEENT: Pupils are equal and round. Lungs: Clear in all lung alvarado. Cardiovascular: Regular rhythm and rate without murmur or S3. Abdomen: Soft. Skin: Warm and dry. Urine output is 5800 mL. ASSESSMENT AND PLAN: 1. Klebsiella pneumonia with underlying immunoglobulin deficiency. Continue vancomycin and cefepime. Dr. Wen has changed her to Levaquin, and she has received 2 doses of IVIG. We will work on her strength. Hopefully can go home soon. 2. Acute on chronic hypoxemic respiratory failure improved. 3. Severe COPD with exacerbation. 4. Ongoing tobacco use. Counseled her to quit smoking. 5. Severe immunoglobulin deficiency. Received some immunoglobulin. 6. Nutrition is good and eating well. Still has a Freeman catheter in. Continue her physical therapy, and hopefully can get out of here in another 48 hours or so. We will leave the Freeman catheter in today. Maybe we can stop that tomorrow. MEDICATIONS: 1. She is on Mycelex 10 mg p.o. q.6 hours. 2. She is getting acetylcysteine inhalation treatments b.i.d. 3. Xanax 0.5 mg q.8 hours. 4. BuSpar 10 mg t.i.d. 5. Coreg 12.5 b.i.d. 6. Lanoxin 125 mcg daily. 7. Diltiazem CD 240 mg a day. 8. Levaquin 500 mg p.o. daily. 9. Methylprednisone 20 mg IV q.12. 10. MiraLAX 17 g daily. 11. Xarelto 20 mg at bedtime. cc: Sarabjit Cloud MD
[2018-10-05] MEDS: BUSPAR PO SCH ×3 (09:30→18:46)
[2018-10-05] MEDS: MUCOMYST 20% INH SCH ×2 (10:21→19:45)
[2018-10-05] MEDS: NORCO-7.5 PO PRN ×2 (11:26→21:50)
[2018-10-05] MEDS: ZOFRAN IV PRN (11:26)
--- NOTE | 2018-10-05 15:32 | CARDIOLOGY PROGRESS NOTE ---
DATE: 10/05/2018 SUBJECTIVE: Ms. Wolf reports she has not had any palpitations lately. OBJECTIVE: Vital signs: She is afebrile. Heart rate 95. Blood pressure 125/62. Is and Os appear to be markedly negative during the hospitalization. Negative around 14 L. General: She is in no acute distress. Cardiovascular: She is found to be in an irregularly, irregular rate controlled rhythm. Telemetry currently shows rate controlled atrial fibrillation. She has no lower extremity edema. Chest: She has coarse breath sounds somewhat diffusely. No increased work of breathing. Abdomen: Soft and nontender. PERTINENT DATA: Chest x-ray shows evidence of mild pulmonary edema. This study was done yesterday. Less pronounced than previous study. BUN and creatinine are 16 and 0.6 respectively with a white count of 11.9. ASSESSMENT: Ms. Wolf is a [id number]female who presented with heart failure and atrial fibrillation. PLAN: She continues to diurese. She has no labs ordered as of this morning. She is being treated for pneumonia as well. We will recheck laboratory in the morning. cc: Dimas Euceda MD
[2018-10-05] MEDS: MIRALAX PO SCH (18:45)
[2018-10-05] MEDS: XARELTO PO SCH (18:46)
[2018-10-06] MEDS: XOPENEX NEB INH SCH ×6 (03:45→23:35)
[2018-10-06] MEDS: NORCO-7.5 PO PRN ×3 (03:52→22:34)
[2018-10-06] MEDS: MYCELEX TROCHE PO SCH ×4 (03:52→22:35)
[2018-10-06] MEDS: SOLU-MEDROL IV SCH ×2 (05:25→17:07)
[2018-10-06] MEDS: XANAX PO PRN ×3 (05:25→22:35)
[2018-10-06] MEDS: ZOFRAN IV PRN (05:26)
[2018-10-06 07:14] LABS: AGAP 8; BUN 19 mg/dL (8-22); CALCIUM 8.6 mg/dL (8.8-10.2); CHLORIDE 97 mmol/L (98-107); COSMO 276; CREATININE 0.7 mg/dL (0.5-0.9); ESTIMATED GFR > 60; GLUCOSE 171 mg/dL (70-104); POTASSIUM 4.3 mmol/L (3.5-5.1); SODIUM 135 mmol/L (136-145); TCO2 30 mmol/L (25-35)
[2018-10-06] MEDS: MUCOMYST 20% INH SCH ×2 (07:42→19:35)
--- NOTE | 2018-10-06 08:28 | Diag Imaging Result Doc PS360 ---
EXAM: CHEST-1 VIEW - 10/06/2018 HISTORY: SOB TECHNIQUE: Portable chest COMPARISON: 10/04/2018 FINDINGS: Heart size appears upper normal. There has been interval decrease in mild pulmonary edema. There is mild residual edema and/or atelectasis at the right base. There is no dense consolidation or pneumothorax identified. IMPRESSION: Decrease in mild pulmonary edema compared to prior. Electronically signed by Toy Griggs 10/06/2018 8:25 AM
[2018-10-06] MEDS: CARDIZEM CD PO SCH (09:46)
[2018-10-06] MEDS: BUSPAR PO SCH ×3 (09:46→17:07)
[2018-10-06] MEDS: LEVAQUIN PO SCH (09:46)
[2018-10-06] MEDS: COREG PO SCH ×2 (09:47→22:35)
[2018-10-06] MEDS: LANOXIN PO SCH (09:47)
[2018-10-06] MEDS: MIRALAX PO SCH (09:48)
--- NOTE | 2018-10-06 10:11 | PROGRESS NOTE ---
DATE: 10/06/2018 SUBJECTIVE: Ms. Wolf is awake and alert. She said she had a little better night last night, feeling a little stronger. Freeman catheter is still in place. Nasal cannula O2 in place. OBJECTIVE: Vital Signs: Temperature 97.7 degrees, pulse 62, respirations 18, blood pressure 120/53. HEENT: Pupils are equal and round. Lungs: Clear in all lung alvarado. Cardiovascular Examination: Regular rhythm and rate without murmur or S3. Abdomen: Soft. Skin: Warm and dry. Is and Os: Urine output is 6700 mL. Laboratory Data: Chest x-ray from this morning, decrease in pulmonary edema. ASSESSMENT AND PLAN: 1. Hemodynamically appears stable. Has not had any palpitations. Radiographically, looks like there is less pulmonary venous hypertension. 2. Treated for Klebsiella pneumonia, underlying immunoglobulin deficiency. She has received 2 doses of intravenous immunoglobulin. She is on vancomycin and cefepime. It looks like the infection has resolved. 3. Severe chronic obstructive pulmonary disease with exacerbation on presentation. Air and gas exchange is improved. 4. Ongoing tobacco use. Continue to encourage her to quit smoking. 5. Severe immunoglobulin deficiency. 6. Nutrition is good. She is eating well. 7. General weakness and deconditioning. Continue physical therapy. The plan is to discontinue her Freeman catheter tomorrow. LABORATORY DATA: Review of lab from this morning, sodium 135, potassium 4.3, chloride 97, BUN 19, creatinine 0.7. REVIEW OF MEDICATIONS AND ORDERS: She is on Mycelex 10 mg p.o. q.6 hours, Xanax 0.5 mg q.8 p.r.n., BuSpar 10 mg t.i.d., Coreg 12.5 b.i.d., Lanoxin 125 mcg a day, diltiazem CD 240 mg a day, and she is taking Levaquin 500 mg daily, methylprednisone 20 mg IV q.12, MiraLAX 17 g daily, Xarelto 20 mg a day. cc: Sarabjit Cloud MD
[2018-10-06] MEDS: XARELTO PO SCH (17:07)
[2018-10-07] MEDS: XOPENEX NEB INH SCH ×6 (03:35→23:45)
[2018-10-07] MEDS: MYCELEX TROCHE PO SCH ×4 (06:01→20:18)
[2018-10-07] MEDS: SOLU-MEDROL IV SCH ×2 (06:01→17:39)
[2018-10-07] MEDS: XANAX PO PRN ×2 (06:01→14:07)
[2018-10-07] MEDS: NORCO-7.5 PO PRN ×2 (06:05→22:23)
[2018-10-07] MEDS: MUCOMYST 20% INH SCH ×2 (08:38→20:00)
[2018-10-07] MEDS: BUSPAR PO SCH ×3 (08:44→17:39)
[2018-10-07] MEDS: LEVAQUIN PO SCH (08:44)
[2018-10-07] MEDS: LANOXIN PO SCH (08:44)
[2018-10-07] MEDS: CARDIZEM CD PO SCH (08:44)
[2018-10-07] MEDS: COREG PO SCH ×2 (08:44→20:18)
[2018-10-07] MEDS: MIRALAX PO SCH (08:45)
--- NOTE | 2018-10-07 10:27 | PROGRESS NOTE ---
DATE: 10/07/2018 SUBJECTIVE: Ms. Wolf is feeling better. We are going to get her Freeman catheter out, get her up and hopefully she can go home in the morning. OBJECTIVE: Vitals: Temperature 98.7 degrees, pulse 107, respirations 16, blood pressure 117/66. HEENT: Pupils are equal. No distended neck veins. Lungs: Clear in all lung alvarado. Cardiovascular: Regular rhythm and rate without murmur or S3. URINE OUTPUT: 6500 mL, so good urine output. IMAGING: Chest x-ray from yesterday, decrease in mild pulmonary edema. We will check another chest x-ray in the morning. ASSESSMENT: 1. Hemodynamics are stable. She is doing well. She is status post Maze procedure for atrial septal defect and history of atrial fibrillation. 2. Treated for Klebsiella pneumonia. This has been treated. She has underlying immunoglobulin deficiency and was given 2 doses of IV immunoglobulin. 3. Severe chronic obstructive pulmonary disease with exacerbation. 4. Ongoing tobacco use. 5. Severe immunoglobulin deficiency. 6. Nutrition is good. 7. General weakness and deconditioning. PLAN: Take out her Freeman catheter. Continue to work on physical therapy. She would like to go home. I encouraged her maybe she can go home tomorrow. cc: Sarabjit Cloud MD
[2018-10-07] MEDS: NS NEB INH SCH ×2 (10:45→16:07)
--- NOTE | 2018-10-07 11:59 | INFECTIOUS DISEASE PROGRESS NO ---
DATE: 10/07/2018 PRESENT ILLNESS: The patient has a Klebsiella pneumonia. She also has an immunoglobulin deficiency. The patient also had oral candidiasis. MEDICATIONS: The patient is on p.o. Levaquin. The patient has also received 2 doses of IVIG. PHYSICAL EXAMINATION: Vital Signs: Temperature is 98.7 degrees, pulse 107, respirations 16, blood pressure 117/66. General: This is an ill-appearing, elderly female. She is in no acute distress. Head, Eyes, Ears, Nose, and Throat: She can hear my spoken words and see near objects. She does not have any white coating on her tongue. Neck: No stiffness. Lungs: Clear to auscultation. Cardiovascular: Heart rate is regular. Abdomen: Soft and nontender. Neurologic: The patient is alert. She can ambulate. There is no tremor. LAB AND X-RAY: There is no new lab or x-ray for today. ASSESSMENT AND PLAN: The patient has Klebsiella pneumonia, an immunoglobulin deficiency, and oral candidiasis. This was discussed with Dr. Cloud and the plan is tomorrow, the patient will go home. Through the computer, I have given a prescription for Levaquin 500 mg daily x10 days and Mycelex Troches every 8 hours for 10 days also. I have given the patient an appointment to come to my office in 2 weeks. In addition, after 6 to 8 weeks after the patient has had her IVIG, I plan to repeat the patient's immunoglobulin levels and if the repeat levels are low, then I think the patient by virtue of having two low IG levels and having recurrent infections, would qualify for IVIG on a monthly basis. COMORBIDITIES: The patient is a cigarette smoker and she has chronic obstructive pulmonary disease as well as gastroesophageal reflux disease. cc: Tyree Wen MD
--- NOTE | 2018-10-07 12:55 | PULMONOLOGY PROGRESS NOTE ---
DATE: 10/07/2018 SUBJECTIVE: The patient reports she feels stronger. She has had some pain associated with ankle injury, but this is improving. OBJECTIVE: Vital Signs: The patient has been afebrile for the last 24 hours. Blood pressure 117/66, heart rate 94, respiratory rate 16, oxygen saturation 100% on 3 L per nasal cannula. HEENT: Pupils are equal and reactive. Oropharynx is clear. Neck: Supple. Chest: Good air entry bilaterally with minimal crackles at the right base. Cardiac: S1, S2. Abdomen: Soft. Extremities: Trace edema. IMAGING: Chest x-ray yesterday reveals generous cardiac silhouette with decreased infiltrates. IMPRESSION: A 68-year-old with: 1. Klebsiella pneumonia. 2. Pleuritic pain, which has resolved. 3. Acute on chronic hypoxemic respiratory failure, which is stable to improve. 4. Severe chronic obstructive pulmonary disease. 5. Ongoing tobacco use. 6. Severe immunoglobulin deficiency. Overall, the patient continues to improve. RECOMMENDATIONS: 1. Smoking cessation has been recommended. 2. Continue bronchodilators. 3. Continue current antibiotic regimen with anticipation of discharge tomorrow morning. 4. Continue oxygen at her routine dose at the time of discharge. cc: Brady Ahuja MD
[2018-10-07] MEDS: XARELTO PO SCH (17:39)
[2018-10-08] MEDS: MYCELEX TROCHE PO SCH ×4 (01:11→20:29)
[2018-10-08] MEDS: XANAX PO PRN ×3 (01:11→20:29)
[2018-10-08] MEDS: XOPENEX NEB INH SCH ×5 (03:50→22:07)
[2018-10-08] MEDS: SOLU-MEDROL IV SCH (05:31)
[2018-10-08 06:41] LABS: EOS# 0.01 X1000 (0.0-0.7); EOS% 0.1 % (0.0-10.0); HEMATOCRIT 27.7 % (37.0-47.0); HEMOGLOBIN 8.5 g/dL (12.0-16.0); IMM GRAN# 0.12 X1000 (0.0-0.04); IMM GRAN% 0.8 % (0.0-0.5); LYMPH# 2.04 X1000 (1.2-3.4); LYMPH% 13.5 % (20.5-51.1); MCH 26.7 PG (27-31); MCHC 30.7 g/dL (33-37); MCV 87.1 FL (81-99); MONO# 1.16 X1000 (0.11-0.59); MONO% 7.7 % (1.7-9.3); MPV 9.2 FL (7.4-10.4); NEUT# 11.74 X1000 (1.4-6.5); NEUT% 77.9 % (42.2-75.2); PLT 433 X1000 (130-400); RBC 3.18 XMIL (4.2-5.4); RDW 14.5 % (11.5-14.5); WBC 15.07 X1000 (4.8-10.8)
[2018-10-08 07:21] LABS: AGAP 7; BUN 22 mg/dL (8-22); CALCIUM 8.7 mg/dL (8.8-10.2); CHLORIDE 97 mmol/L (98-107); COSMO 277; CREATININE 0.7 mg/dL (0.5-0.9); ESTIMATED GFR > 60; GLUCOSE 136 mg/dL (70-104); POTASSIUM 4.3 mmol/L (3.5-5.1); SODIUM 136 mmol/L (136-145); TCO2 32 mmol/L (25-35)
[2018-10-08] MEDS: MUCOMYST 20% INH SCH ×2 (08:01→22:06)
[2018-10-08] MEDS: LANOXIN PO SCH (08:22)
[2018-10-08] MEDS: LEVAQUIN PO SCH (08:22)
[2018-10-08] MEDS: BUSPAR PO SCH ×3 (08:23→18:52)
[2018-10-08] MEDS: MIRALAX PO SCH (08:25)
--- NOTE | 2018-10-08 09:55 | Diag Imaging Result Doc PS360 ---
EXAM: CHEST-2 VIEWS HISTORY: pneumonia TECHNIQUE: Chest two views COMPARISON: 10/06/2018 FINDINGS: The lungs are hyperexpanded. Sternal wires are present. No cardiomegaly. No pulmonary edema. There are infiltrates in the right lung base with questionable trace infiltrates in the left base. Trace pleural fluid. IMPRESSION: Emphysema with right basilar infiltrates. Mild interval improvement. Electronically signed by Pablito Matute 10/08/2018 9:53 AM
[2018-10-08] MEDS: ZOFRAN IV PRN (10:57)
[2018-10-08] MEDS: NS NEB INH SCH ×2 (11:44→15:15)
[2018-10-08] MEDS: CARDIZEM CD PO SCH (14:51)
[2018-10-08] MEDS: COREG PO SCH ×2 (14:52→20:29)
--- NOTE | 2018-10-08 15:33 | INFECTIOUS DISEASE PROGRESS NO ---
DATE: 10/08/2018 PRESENT ILLNESS: The patient has a Klebsiella pneumonia, an immunoglobulin deficiency and oral candidiasis. MEDICATIONS: The patient is on Levaquin taken p.o. The patient also has received 2 doses of IVIG. PHYSICAL EXAMINATION: Vital Signs: Temperature is 98.9, pulse 129, respirations 18, blood pressure 155/72. General: This is a somewhat ill-appearing, elderly female. She does not seem that she is feeling as good as she did yesterday. Head, Eyes, Ears, Nose and Throat: She can hear my spoken words and see near objects. She does not have any white coating on her tongue. Neck: No meningismus. Lungs: Clear to auscultation. Cardiovascular: The heart rate is regular. Abdomen: Soft and nontender. Neurologic: The patient is alert. She has ambulated earlier today. There is no tremor. LAB AND X-RAY: Chest x-ray shows improvement in the right lower lobe infiltrate. Creatinine is 0.7. GFR is greater than 60. CBC shows a white count of 15,070, hemoglobin 8.5 and platelet count 433,000. ASSESSMENT AND PLAN: Patient has Klebsiella pneumonia, an immunoglobulin deficiency, and oral candidiasis. I have written out prescriptions for the patient to take Levaquin at home for 10 days and also for Mycelex troches for 10 days. The patient has an appointment at my office in 2 weeks. Approximately 6 to 8 weeks later, we plan to recheck the patient's immunoglobulin levels and if the IgG is low again, then I think the patient would qualify for having monthly IVIG replacement therapy. COMORBIDITIES: Cigarette smoking, chronic obstructive pulmonary disease, gastroesophageal reflux disease, and immunoglobulin deficiency. cc: Tyree Wen MD
[2018-10-08] MEDS ORDERED: COREG PO SCH (17:30)
--- NOTE | 2018-10-08 17:50 | PROGRESS NOTE ---
DATE: 10/08/2018 SUBJECTIVE: The patient has no major complaints except just weakness and foot pain. OBJECTIVE: Vital Signs: Blood pressure is 155/72. Her heart rate is 129. She has been tachycardic before, but maybe not quite this tachycardiac. Respiratory rate 18, temperature 98.9 degrees, 100% saturation on 2 L. Cardiovascular: Regular rate and rhythm. Pulmonary: Bilateral breath sounds clear to auscultation. GI: Soft, nontender, nondistended. Bowel sounds were positive. LABORATORY DATA: Her white count is 15,000, hemoglobin and hematocrit 8 and 27, platelets 433,000. Basic was normal. PROBLEM LIST: 1. Atrial fibrillation, status post Maze procedure. She has seems stable. 2. Klebsiella pneumonia. She is on antibiotics, Levaquin per Dr. Wen since the and Dr. Wen feels that she is able to go home. He discussed with Dr. Cloud yesterday and me today, Dr. Damian, talked about discharging her. Unfortunately, the patient is very resistant. I seem to remember she had this issue the last time. 3. Immunoglobulin deficiency. Will continue IVIG. 4. Severe chronic obstructive pulmonary disease. She is on breathing treatments. I think we can wean her steroids down, maybe even off. 5. Disposition. She really, really has to ambulate now. PT said she got from the bed to the door, which is more than what she told me previously, so that is an improvement. It is becoming a difficult situation with her and I remember this issue last time she was here, where she does not want to go to rehab but that she does not really want to participate with PT aggressively in the hospital. So, she wants to go home but she kind of wants to stay here in the hospital indefinitely for PT to get her strong enough to go home. In any case, I told her refusing PT or not cooperating is not an option and that we are going to need to work with them because at this point she is medically stable for discharge. So, we will continue to follow. I appreciate data integrity consultant's help. We will reinitiate her Coreg. She is also off her metformin, Reglan, and Zoloft. Again, I think she is ready to go home. I do appreciate she is weak but that means we will set up physical therapy at home. She lives alone so she is concerned about that, but then again, our options are very simple, home or rehab. So, we will continue to follow. cc: Nagi Damian MD
[2018-10-08] MEDS: XARELTO PO SCH (18:52)
[2018-10-08] MEDS: ZOLOFT PO SCH (18:58)
[2018-10-08] MEDS: REGLAN PO SCH (21:36)
--- NOTE | 2018-10-08 22:09 | PULMONOLOGY PROGRESS NOTE ---
DATE: 10/08/2018 SUBJECTIVE: The patient is awake, alert and conversant. She reports her sputum production continues to decrease. Her appetite has improved. OBJECTIVE: The patient is afebrile. Heart rate 112, blood pressure 121/56. Oxygen saturation 100% on nasal cannula. HEENT: Pupils are equal and reactive. Oropharynx is clear. Neck is supple. Chest reveals occasional rhonchi bilaterally. Cardiac exam: S1, S2. Abdomen soft and without hepatosplenomegaly. Extremities reveal trace edema. DIAGNOSTIC DATA: Chest x-ray reveals continued improvement in basilar infiltrates. LABORATORY DATA: White blood count 15.0, hemoglobin 8.5, platelet count 433,000. Sodium 136, potassium 4.3, chloride 97, bicarbonate 32, BUN 22, creatinine 0.7. IMPRESSION: 1. A 68-year-old with Klebsiella pneumonia. 2. Pleurisy which has resolved. 3. [id number] hypoxemia. The patient is returning to her baseline. 4. Severe chronic obstructive pulmonary disease. 5. Ongoing tobacco use. 6. Severe immunoglobulin deficiency. The patient continues to improve. She is ambulating short distances. She does not wish to go to rehab. RECOMMENDATIONS: 1. Agree with continuing an outpatient course of antibiotics as outlined by Dr. Tyree Wen, with followup immunoglobulin level in his office. 2. Continue bronchodilators. 3. Smoking cessation as previously discussed. 4. Continue oxygen at the time of discharge. 5. From a pulmonary standpoint, the patient can be discharged tomorrow to home or to rehab. cc: Brady Ahuja MD
[2018-10-09] MEDS: NORCO-7.5 PO PRN ×4 (00:02→21:34)
[2018-10-09] MEDS: MYCELEX TROCHE PO SCH ×4 (02:08→21:34)
[2018-10-09] MEDS: XOPENEX NEB INH SCH ×5 (03:52→22:45)
[2018-10-09] MEDS: REGLAN PO SCH ×5 (05:30→21:34)
[2018-10-09] MEDS: XANAX PO PRN ×2 (06:15→15:06)
[2018-10-09] MEDS: ZOLOFT PO SCH (08:42)
[2018-10-09] MEDS: LEVAQUIN PO SCH (08:42)
[2018-10-09] MEDS: CARDIZEM CD PO SCH (08:43)
[2018-10-09] MEDS: GLUCOPHAGE PO SCH (08:43)
[2018-10-09] MEDS: BUSPAR PO SCH ×3 (08:43→17:53)
[2018-10-09] MEDS: LANOXIN PO SCH (08:43)
[2018-10-09] MEDS: COREG PO SCH ×2 (08:46→21:33)
[2018-10-09] MEDS ORDERED: SOLU-MEDROL IV SCH (09:00)
[2018-10-09] MEDS: MUCOMYST 20% INH SCH ×2 (09:59→19:40)
[2018-10-09] MEDS: MIRALAX PO SCH (15:08)
--- NOTE | 2018-10-09 15:27 | INFECTIOUS DISEASE PROGRESS NO ---
DATE: 10/09/2018 PRESENT ILLNESS: Ms. Wolf is being treated for a Klebsiella pneumonia, an immunoglobulin deficiency and oral candidiasis. MEDICATIONS: She is currently receiving Levaquin 500 mg by mouth daily and Mycelex troches 10 mg by mouth every 6 hours. She is also receiving IV Solu-Medrol. PHYSICAL EXAMINATION: Vital Signs: Temperature is 97.9 degrees, pulse rate 104 , respiratory rate 20, blood pressure 144/70, O2 saturation 100% on 3 L nasal cannula. General: This is an elderly, chronically ill-appearing female. She is lying in the bed, currently in no acute distress. HEENT: Atraumatic, normocephalic. Oral mucous membranes are pink and moist. Conjunctivae are pale. Neck: Supple. Trachea is midline. Cardiovascular: Irregularly irregular. Pedal and radial pulses are +1 bilaterally. Respiratory: Lung sounds are clear in the upper lobes, diminished in the bases. Abdomen: Soft, round and tender to palpation. Bowel sounds are active. Neurologic: She is awake, alert and oriented. Able to move all extremities independently in the bed. LABORATORY AND X-RAY: None available today. ASSESSMENT AND PLAN: Ms. Wolf has a Klebsiella pneumonia and is being treated using Levaquin. There is a prescription available for her for Levaquin for 10 days when she is ready to be discharged. She also has an oral candidiasis, which is doing much better. We will continue her on Mycelex troches for 10 days as well, and that prescription is also available for her on discharge. She also has an immunoglobulin deficiency and has received IVIG on this admission. Dr. Ahuja has repeated her immunoglobulin levels which we do not have back yet at this point. We plan to see Ms. Wolf back at our office in 2 weeks, at which time we will recheck a chest x-ray and plan an immunoglobulin level in about a month. If she continues to be low, she may qualify for regular IVIG replacement therapy. At this point, the patient is not wanting to go home. She feels she needs to stay through Sunday; however, from an Infectious Disease standpoint she is ready for discharge. These plans have been discussed with and recommended by Dr. Wen. COMORBIDITIES: Comorbidities for Ms. Wolf include cigarette smoking with COPD , gastroesophageal reflux disease, and immunoglobulin deficiency. Dictated by MICHELLE Barker for Tyree Wen MD This chart was documented by, MICHELLE Barker and accurately reflects the services performed, treatment plan and medical decisions as attested by the providers signature Tyree Wen MD. cc: Tyree Wen MD [facility]
[2018-10-09] MEDS: XARELTO PO SCH (17:53)
[2018-10-09] MEDS: ZOFRAN IV PRN (17:53)
[2018-10-09] MEDS ORDERED: CARDIZEM PO ONE (18:34)
[2018-10-09] MEDS ORDERED: NS NEB INH SCH (18:45)
--- NOTE | 2018-10-09 18:54 | PROGRESS NOTE ---
DATE: 10/09/2018 SUBJECTIVE: Patient has no focal complaints. Clinically, she seems to be doing okay. Plan was to consider discharge today; however, she has developed some tachycardia, which really has not improved. I did adjust her blood pressure medicines and she is on several medications. Also, her white count went up. OBJECTIVE: Vital Signs: Blood pressure is pretty stable 124/67, heart rate 127, respiratory 14, temperature 98.1. Cardiovascular: Regular rate and rhythm. Pulmonary: Bilateral breath sounds. Clear to auscultation. Gastrointestinal: Soft, nontender, nondistended. Bowel sounds are positive. LABORATORY DATA: White count is 15, hemoglobin and hematocrit 8 and 27, platelets 443,000. Basic was normal. PROBLEM LIST: 1. Atrial fibrillation, status post maze. That is not under control. So, I am going to give her additional Cardizem and bump her up to 360. She is currently on 240 and we will get Cardiology to revisit her. I would think that at this point with a maze procedure, this should be under control. She is also on digoxin and she is also on Coreg, and she is also anticoagulated. 2. Infection, Klebsiella pneumonia. She is on Levaquin per Dr. Wen. He has released her. We will continue Levaquin per their recommendations. 3. Immunoglobulin deficiency. She has been on intermittent IVIG. 4. Severe COPD. Overall, she has improved. I am going to stop her steroids. I am going to get her some breathing. Will change her breathing treatments. 5. Disposition: Again, she is not real super motivated as far as getting up and around; however, there may be some rate limiting issues now because of her rate being too high. So, we will look into that. Appreciate input. cc: Nagi Damian MD
--- NOTE | 2018-10-09 22:01 | PULMONOLOGY PROGRESS NOTE ---
DATE: 10/09/2018 SUBJECTIVE: The patient is awake, alert and conversant. She has been ambulating in the hallway. Her sputum production has diminished. OBJECTIVE: Vital Signs: Blood pressure 129/82, heart rate 91, respiratory rate 20, oxygen saturation 100% on 3 L per nasal cannula. HEENT: Pupils are equal and reactive. Oropharynx appears clear. Neck: Supple. Chest: Reveals occasional crackles at the right base. Cardiac: S1, S2. Abdomen: Soft and without hepatosplenomegaly. Extremities: Without edema. LABORATORIES: White blood count and chemistries not obtained today. IMPRESSION: A 68-year-old with: 1. Klebsiella pneumonia. 2. Immunoglobulin deficiency. 3. Acute on chronic hypoxemic respiratory failure. 4. Severe COPD. 5. Ongoing tobacco use. 6. Atrial fibrillation. DISCUSSION: Overall, the patient continues to improve. Her ambulation has improved. Her sputum production has diminished. RECOMMENDATIONS: 1. Recheck immunoglobulin level. This was sent today and should hopefully be available tomorrow morning. 2. If immunoglobulin is low, would recommend repeating a dose before discharge. 3. Complete antibiotic course as outlined per Dr. Tyree Wen. 4. Continue home oxygen at the time of discharge. 5. Smoking cessation has strongly been recommended. 6. The patient can be discharged from a pulmonary standpoint when the hospitalist believes that she is ready for discharge. cc: Brady Ahuja MD
[2018-10-10] MEDS: XANAX PO PRN ×3 (00:05→18:27)
[2018-10-10] MEDS: MYCELEX TROCHE PO SCH ×5 (00:05→21:38)
[2018-10-10] MEDS: XOPENEX NEB INH SCH ×4 (03:00→21:20)
[2018-10-10] MEDS: NORCO-7.5 PO PRN (03:48)
[2018-10-10] MEDS: REGLAN PO SCH ×4 (06:12→21:38)
[2018-10-10 07:26] LABS: BASO# 0.01 X1000 (0.0-0.2); BASO% 0.1 % (0.0-0.8); EOS# 0.03 X1000 (0.0-0.7); EOS% 0.2 % (0.0-10.0); HEMATOCRIT 29.4 % (37.0-47.0); IMM GRAN# 0.14 X1000 (0.0-0.04); IMM GRAN% 1.1 % (0.0-0.5); LYMPH# 3.29 X1000 (1.2-3.4); LYMPH% 26.2 % (20.5-51.1); MCH 26.5 PG (27-31); MCHC 30.6 g/dL (33-37); MCV 86.7 FL (81-99); MONO% 10.3 % (1.7-9.3); MPV 9.5 FL (7.4-10.4); NEUT% 62.1 % (42.2-75.2); PLT 440 X1000 (130-400); RBC 3.39 XMIL (4.2-5.4); WBC 12.57 X1000 (4.8-10.8)
[2018-10-10 07:52] LABS: AGAP 3; BUN 22 mg/dL (8-22); CALCIUM 9.4 mg/dL (8.8-10.2); CHLORIDE 99 mmol/L (98-107); COSMO 282; CREATININE 0.7 mg/dL (0.5-0.9); ESTIMATED GFR > 60; GLUCOSE 121 mg/dL (70-104); POTASSIUM 4.6 mmol/L (3.5-5.1); SODIUM 139 mmol/L (136-145); TCO2 37 mmol/L (25-35)
[2018-10-10] MEDS: GLUCOPHAGE PO SCH (09:47)
[2018-10-10] MEDS: LANOXIN PO SCH (09:47)
[2018-10-10] MEDS: ZOLOFT PO SCH (09:47)
[2018-10-10] MEDS: COREG PO SCH ×2 (09:47→21:38)
[2018-10-10] MEDS: LEVAQUIN PO SCH (09:48)
[2018-10-10] MEDS: BUSPAR PO SCH ×3 (09:48→18:27)
[2018-10-10] MEDS: CARDIZEM CD PO SCH (09:48)
[2018-10-10] MEDS: MIRALAX PO SCH (09:49)
[2018-10-10] MEDS: MUCOMYST 20% INH SCH ×2 (10:42→21:20)
[2018-10-10] MEDS: ZOFRAN IV PRN (11:26)
[2018-10-10] MEDS: NS NEB INH SCH (15:32)
--- NOTE | 2018-10-10 17:38 | PROGRESS NOTE ---
DATE: 10/10/2018 INTERVAL HISTORY: No acute events overnight. The patient did have intermittent tachycardia where her heart rate had increased to anywhere between 110s to 120s. SUBJECTIVE: Patient is denying chest pain or shortness of breath. However, she feels she is too weak today. I discussed about her rapid heart rate and plan. I answered all of her questions. OBJECTIVE: Vital signs: Currently temperature 97.5 degrees, pulse 63, blood pressure 107/48, respiratory rate of 16, saturating 99% on 3 L nasal cannula. PHYSICAL EXAMINATION: General: Does not appear in any acute distress. She is sitting in the bed, eating her dinner. HEENT: Oral cavity is moist. Lungs: Air entry bilaterally equal. Mild inspiratory crackles, more prominent in the right infrascapular region than left. No wheeze or rhonchi. Cardiovascular: S1, S2 normal. Irregular. No murmur, rub, or gallop. Abdomen: Soft, nontender. Extremities: No lower extremity edema. LABS: Suggestive of persistent leukocytosis, normocytic anemia, thrombocytosis, normal kidney function. ASSESSMENT AND PLAN: 1. Atrial fibrillation status post surgical ablation in the past, currently now again recurrence of atrial fibrillation. Continue patient on higher dose of diltiazem, carvedilol, digoxin, and Xarelto. I will appreciate Cardiology recommendation, who likely was consulted yesterday. Current episode of pneumonia could also be a contributing factor. 2. Klebsiella pneumonia leading to sepsis. Continue levofloxacin as per Infectious Disease doctor. Follow up outpatient ID. Follow up with outpatient WBC. Repeat immunoglobin levels are pending to determine need for further IVIG. 3. Acute exacerbation of severe chronic obstructive pulmonary disease, on home oxygen, status post in steroids. Continue the patient on levalbuterol nebulization. 4. History of anxiety. Continue home alprazolam, buspirone, and sertraline. 5. Disposition. The patient remains inside the hospital for atrial fibrillation with rapid ventricular rate. I am awaiting Cardiology recommendation about further medical management. My goal is to have better control of her heart rate. If I am able to achieve that tomorrow, my plan is to discharge her tomorrow. cc: Lloyd Doll MD
--- NOTE | 2018-10-10 18:04 | PULMONOLOGY PROGRESS NOTE ---
DATE: 10/10/2018 SUBJECTIVE: The patient is awake, alert, and conversant. She reports she has been moving some in the hallway and in her room. She has minimal cough with minimal sputum. OBJECTIVE: Vital Signs: The patient has been afebrile for the last 24 hours. Blood pressure 107/48, heart rate 63, respiratory rate 16, oxygen saturation 99% on nasal cannula. HEENT: Pupils are equal and reactive. Oropharynx is clear. Neck: Supple. Chest: Reveals minimal crackles at the right base. Cardiac: S1, S2. Abdomen: Soft and without hepatosplenomegaly. Extremities: Without edema. LABORATORIES: Repeat immunoglobulin levels are within the normal range at 953. White blood count 12.57, hemoglobin 9.0, platelet count 440,000. IMPRESSIONS: This is a 68-year-old with: 1. Klebsiella pneumonia. 2. Immunoglobulin deficiency status post replacement. Now with normal levels. 3. Acute on chronic hypoxemic respiratory failure. 4. Severe chronic obstructive pulmonary disease. 5. Ongoing tobacco use. 6. Atrial fibrillation with variable rate control. RECOMMENDATIONS: 1. Complete antibiotic course as per directed by Dr. Tyree Wen. 2. Continue home oxygen at the time of discharge. 3. Smoking cessation has been strongly encouraged. 4. We will perform a chest x-ray tomorrow. Anticipate discharge in the near future. cc: Brady Ahuja MD
[2018-10-10] MEDS: XARELTO PO SCH (18:27)
[2018-10-11] MEDS: NORCO-7.5 PO PRN ×3 (00:51→21:30)
[2018-10-11] MEDS: XOPENEX NEB INH SCH ×4 (03:47→22:40)
[2018-10-11] MEDS: MYCELEX TROCHE PO SCH ×4 (03:54→21:31)
[2018-10-11] MEDS: REGLAN PO SCH ×4 (06:59→21:31)
--- NOTE | 2018-10-11 09:08 | Diag Imaging Result Doc PS360 ---
EXAM: CHEST-2 VIEWS 10/11/2018 HISTORY: abnormal exam TECHNIQUE: PA and lateral chest COMMENT: There has been minimal improvement in the basal opacities seen bilaterally. Otherwise there has been no significant change since 10/08/2018. IMPRESSION: Slightly improved atelectasis versus pneumonia. Electronically signed by Hung Charles 10/11/2018 9:06 AM
[2018-10-11] MEDS: MIRALAX PO SCH (09:27)
[2018-10-11] MEDS: LEVAQUIN PO SCH (09:28)
[2018-10-11] MEDS: LANOXIN PO SCH (09:29)
[2018-10-11] MEDS: COREG PO SCH ×2 (09:31→21:31)
[2018-10-11] MEDS: BUSPAR PO SCH ×3 (09:31→16:49)
[2018-10-11] MEDS: CARDIZEM CD PO SCH (09:31)
[2018-10-11] MEDS: GLUCOPHAGE PO SCH (09:31)
[2018-10-11] MEDS: ZOLOFT PO SCH (09:32)
[2018-10-11] MEDS: XANAX PO PRN ×2 (09:42→18:08)
[2018-10-11] MEDS: ZOFRAN IV PRN ×2 (10:51→14:33)
[2018-10-11] MEDS: MUCOMYST 20% INH SCH ×2 (11:27→22:40)
[2018-10-11] MEDS: TYLENOL PO PRN (13:13)
--- NOTE | 2018-10-11 13:36 | INFECTIOUS DISEASE PROGRESS NO ---
DATE: 10/11/2018 PRESENT ILLNESS: Ms. Wolf is being treated for a Klebsiella pneumoniae, oral candidiasis and an immunoglobulin deficiency. MEDICATIONS: She is receiving Levaquin 500 mg by mouth daily as well as the Mycelex Sonny every 6 hours. She has also received IVIG infusion on this admission. PHYSICAL EXAMINATION: Vital Signs: Temperature is 97.7, pulse rate 77, respiratory rate 18, blood pressure 123/59, O2 saturation 100% on 3 L nasal cannula. General: This is a chronically ill-appearing, elderly female. She is lying in bed, currently in no acute distress. HEENT: Atraumatic, normocephalic. Oral mucous membranes are pink and moist. Conjunctivae are pale. Neck: Supple. Trachea is midline. Respiratory: Lung sounds are clear in the upper lobes. Diminished in the bases. Cardiovascular: Irregularly irregular. She does have periods of what looks like atrial tachycardia as well as underlying atrial fibrillation on the monitor. Pedal and radial pulses are +1 bilaterally. Abdomen: Soft, round and tender with palpation. Bowel sounds are active. Neurologic: She is awake, alert, and oriented. She is able to move around in the bed independently with some weakness and pain to her right lower extremity from a previous sprain. LABORATORY AND X-RAY: No blood work available for today, but yesterday her white count is 12.57, hemoglobin 9, platelet count 440,000. Creatinine is 0.7, estimated GFR is greater than 60. She previously grew Klebsiella pneumoniae in her sputum. No growth to her blood cultures for the last 5 days. Chest x-ray today shows slightly improved atelectasis versus pneumonia. ASSESSMENT AND PLAN: Ms Wolf is being treated for Klebsiella pneumoniae using Levaquin, and oral candidiasis using Mycelex. She has also received IVIG on this admission for her immunoglobulin deficiency. From an ID standpoint, she is ready to be discharged. There is a prescription for Levaquin and Mycelex on her chart. The plan is to follow up with her in our office in 2 weeks, at which time we will schedule a recheck of her immunoglobulins in 6 to 8 weeks. These plans have been discussed with and recommended by Dr. Wen. COMORBIDITIES: For Ms. Wolf include cigarette smoking with COPD, gastroesophageal reflux disease, and immunoglobulin deficiency. Dictated by MICHELLE Barker for Tyree Wen MD This chart was documented by, MICHELLE Barker and accurately reflects the services performed, treatment plan and medical decisions as attested by the providers signature Tyree Wen MD. cc: Tyree Wen MD [facility]
--- NOTE | 2018-10-11 15:50 | PROGRESS NOTE ---
DATE: 10/11/2018 OVERNIGHT EVENTS: Overnight, her heart rate was largely within acceptable range, except a few reports of heart rate in 100-teens, which usually happens at the time of activity. SUBJECTIVE: The patient is complaining of nausea, which has been a chronic problem for her, and she just received her Zofran. I discussed with her about the chest x-ray finding and the pneumonia, the need for continued use of antibiotics. We discussed that the patient should be okay to be discharged home. She has previously refused rehab. She is anxious and she is worried about a prescription. I explained to her extensively that there is nothing else that I would do, keeping her inside the hospital, which cannot be done at home. I extensively discussed with her that there are no medical reasons for her to be in the hospital, and she should complete the course of antibiotics and follow up with her regular doctor. PHYSICAL EXAMINATION: Vital Signs: Temperature 97.9 degrees, pulse 101 per minute, respiratory rate 18, blood pressure 114/51 saturating 100% on 3 liters nasal cannula. General: On physical examination, does not appear in any acute distress. HEENT: Oral cavity is moist. Lungs: Air entry bilaterally equal. No wheeze, rhonchi, crackles. Heart: S1, S2 normal. Irregular. No murmur, rub, or gallop. Abdomen: Soft, nontender. Extremities: No lower extremity edema. LABS: No new labs today. IMAGIN. Chest x-ray performed today had suggested improving atelectasis versus pneumonia. ASSESSMENT: 1. Atrial fibrillation with rapid ventricular rate. 2. Klebsiella pneumoniae leading to sepsis on admission, now resolved. 3. Acute exacerbation of severe chronic obstructive pulmonary disease on home oxygen. 4. History of severe anxiety. 5. Oral candidiasis. 6. History of essential hypertension. 7. Gastroesophageal reflux disease. 8. History of chronic constipation. PLAN: The patient should complete a course of levofloxacin and clotrimazole arnaud. She should follow up with Infectious Disease doctor within 1 to 2 weeks. She should also follow up with her Cardiology doctor, Dr. Rai, as an outpatient. After my discussion with cardiology team on phone, it was thought that her heart rate is in acceptable range most of the time. It is okay to keep her on current regimen of carvedilol and digoxin with diltiazem. I extensively counseled her about need for rehab in the past which she had refused. I extensively counseled her that there is no medical need for her to stay inside the hospital, and from my perspective she is okay to be discharged. The disposition will be home as decided by her. I also extensively counseled her about keeping in mind of home safety and fall prevention. I answered all of her questions. cc: Lloyd Doll MD
[2018-10-11] MEDS: XARELTO PO SCH (16:49)
[2018-10-12] MEDS: NORCO-7.5 PO PRN ×2 (03:29→10:56)
[2018-10-12] MEDS: MYCELEX TROCHE PO SCH ×2 (03:29→08:13)
[2018-10-12] MEDS: XOPENEX NEB INH SCH ×2 (04:10→10:13)
[2018-10-12] MEDS: REGLAN PO SCH (06:16)
[2018-10-12 07:41] VITALS: BP 121/54
[2018-10-12] MEDS: LANOXIN PO SCH (08:12)
[2018-10-12] MEDS: BUSPAR PO SCH (08:12)
[2018-10-12] MEDS: LEVAQUIN PO SCH (08:12)
[2018-10-12] MEDS: GLUCOPHAGE PO SCH (08:13)
[2018-10-12] MEDS: COREG PO SCH (08:13)
[2018-10-12] MEDS: ZOLOFT PO SCH (08:14)
[2018-10-12] MEDS: MIRALAX PO SCH (08:14)
[2018-10-12] MEDS: CARDIZEM CD PO SCH (08:14)
[2018-10-12] MEDS: XANAX PO PRN (08:36)
[2018-10-12] MEDS ORDERED: PREVNAR 13 IM ONE (08:56)
[2018-10-12] MEDS: MUCOMYST 20% INH SCH (10:01)
--- NOTE | 2018-10-12 15:52 | DISCHARGE SUMMARY ---
ADMISSION DATE: 09/28/2018 DISCHARGE DATE: 10/12/2018 CONSULTATIONS: Dr. Porras with Orthopedics, Dr. Brady Ahuja, with pulmonology, Dr. Jordi Wen with Infectious Disease. Dr. Rai of Cardiology. PERTINENT PROCEDURE: 1. Pelvis x-ray prosthetic left hip dislocation. 2. Head cervical spine CT negative for acute injury. 3. Postreduction hip x-ray was successfully reduced . 4. Echocardiogram showed EF of 60 to 65 percent. 5. Pulmonary arteriogram diffuse patchy infiltrates throughout the right lung indicating pneumonia, bronchial mucous plugging in the right with atelectasis in the right lung base, minimal left basilar atelectasis stable cardiomegaly and prominent pulmonary artery suggesting pulmonary hypertension, no evidence of PE. 6. Right foot x-ray no acute disease. 7. Final chest x-ray slightly improved atelectasis versus pneumonia. DISCHARGE DIAGNOSIS: 1. Klebsiella pneumoniae treated by Infectious Disease with Levaquin. She will be discharged home on p.o. Levaquin for 10 more days. 2. Oral candidiasis, patient is on Mycelex arnaud. 3. Immunoglobulin deficiency. She has received intravenous immunoglobulin on this admission and will follow up with Dr. Wen in his office in 2 weeks at which time they will schedule a recheck of her immunoglobulins in 6 to 8 weeks. 4. Atrial fibrillation status post surgical ablation in the past. She has again had recurrence of her atrial fibrillation. She was placed on higher dose of Cardizem, carvedilol and digoxin as well as Xarelto followed by Cardiology, they believe that her recent episode of pneumonia could be a contributing factor. 5. Acute exacerbation of severe chronic obstructive pulmonary disease, patient will continue on home O2 status post she has been on steroids and will continue bronchodilators. 6. History of anxiety. Continue Xanax, buspirone and Zoloft. 7. Chronic hypoxic respiratory failure due to COPD: On home o2. HOSPITAL COURSE: Briefly Ms. Wolf is a 68-year-old female who carries a past medical history of severe COPD, ongoing tobacco use with chronic hypoxemic respiratory failure. She developed an increase in cough, increase in sputum production along with multiple episodes of nausea and vomiting prior to her admission. On the morning of her admission she had a fall , she dislocated her hip. She was also found to be in atrial fibrillation with RVR. She underwent a CT pulmonary arteriogram that revealed diffuse infiltrate throughout the right lung with atelectasis and mucous plugging at the right base as well as cardiomegaly suggesting pulmonary hypertension. Her dislocated hip had been reduced. Her heart rate was controlled with IV medications was showing improvement. She was continued on aggressive pulmonary toilet and broad- spectrum antibiotics. Dr. Wen was brought on board. He checked her immunoglobulin level, they were low. She received IVIG, from a pulmonology and Infectious Disease standpoint she is stable for discharge back home. VITAL SIGNS: At time of discharge temperature is 97.5 degrees, heart rate 63, respiration 18, blood pressure 101/43, O2 is 100% on nasal cannula. DISCHARGE DIET: Healthy heart. DISCHARGE MEDICATIONS: 1. Lasix 40 mg p.o. every other day. 2. Metformin 500 mg p.o. daily. 3. Zoloft 100 mg p.o. daily. 4. Spironolactone 25 mg p.o. daily. 5. Spiriva 1 inhaled p.r.n. 6. Lipitor 40 mg p.o. at bedtime. 7. Tylenol with codeine 3 one each p.o. q.4 q.6 hours p.r.n. 8. DuoNeb 3 mL inhaled RT q.4 hours p.r.n. 9. Xanax 0.5 mg p.o. q.8 hours p.r.n. 10. Aspirin 81 mg p.o. daily. 11. Coreg 6.25 mg p.o. at bedtime. 12. Mycelex arnaud 10 mg to dissolve in mouth q.8 hours. 13. Digoxin 125 mcg p.o. daily. 14. Cardizem CD 360 mg p.o. daily. 15. Flonase 2 spray nasal daily b.i.d. 16. [place] 7.5/325 1 tab p.o. q.4 q.6 hours p.r.n. 17. Lactulose 30 mL p.o. b.i.d. 18. Levaquin 500 mg p.o. daily. 19. Mag-Ox 400 mg p.o. daily. 20. Reglan 5 mg p.o. a.c. plus at bedtime . 21. Prilosec 40 mg p.o. daily. 22. MiraLAX 17 g p.o. b.i.d. 23. Xarelto 20 mg p.o. with supper. FOLLOWUP: Patient will continue taking Xarelto and Cardizem with her other medications for atrial fibrillation. She will need to follow up with her heart doctor about her medication interactions. Again she has had an increase of her Cardizem dosage it is important for her to complete her antibiotic course and follow up with Dr. Wen as well as follow up with her regular doctor and discuss about anxiety medications and adjust dose as tolerated. She is to return to the ED or call 911 for any worsening of symptoms or call 911. Dictated by MICHELLE Kerr for Lloyd Doll MD cc: MD Seymour Dominique MD Siddharth Patel, MD MTDD
--- NOTE | 2018-10-12 20:58 | DISCHARGE SUMMARY ---
ADMISSION DATE: 09/28/2018 DISCHARGE DATE: 10/12/2018 ADDENDUM: Other diagnosis: Chronic hypoxic respiratory failure (on home oxygen) In brief Ms. Wolf was admitted for Klebsiella pneumonia and was treated with intravenous antibiotics. She had initially presented with mechanical falls. I had placed discharge order yesterday however patient did not go citing some of the social issues saying that she is afraid of going home in the afternoon time. I had extensively counseled her that there was no medical reason for her not to leave and the discharge order was already placed in the afternoon time however patient did not leave. Today morning she is feeling fine. Denies any complaints, eating breakfast and she agrees to go home. Vitals evaluation suggest temperature of 98.9 degrees, pulse 62, blood pressure 120/54 , saturating 99% on 3 L nasal cannula. On physical examination she does have right infrascapular crackles but she is on antibiotics for her pneumonia. She does not have any new labs. She will be discharged on p.o. levofloxacin. I gave her a CBC prescription to get a repeat blood count done and she should follow up with infectious disease doctor. Plan of care was discussed with her. All of her questions have been answered. TIME SPENT: More than 30 minutes. cc: Lloyd Doll MD MTDD
== END 2018-10-12 11:39 | disposition home health service (06) | DRG 178 ==
LOC: SUPCPDRO → ED 16:31 → 4N 22:59 → SUATTDRO 22:59 → 3S 23:29 → 4N 10-01 12:09
PROVIDERS: ATTEND Internal Medicine
CPT/HCPCS: 51702; 70450; 71010; 71020; 71045; 71046; 71275; 72125; 73500; 73501; 73502; 73600; 73620; 73630; 80048; 80053; 80202; 81001; 82784; 83605; 83735; 83880; 84100; 84484; 85025; 85027; 87040; 87070; 87077; 87186; 87205; 89220; 90670; 93005; 93010; 93306; 94640; 94761; 94762; 96365; 96367; 96375; 96376; 97110; 97116; 97162; 97530; 99285; A9270; J0456; J0692; J0696; J1160; J1561; J1940; J2270; J2405; J2543; J2920; J3010; J3370; J7030; J7040; Q9967

== ENCOUNTER 2018-12-17 14:35 | Inpatient (IN) ==
[2018-12-17] MEDS ORDERED: NS 1,000 ML IV ONE ×3 (14:46→16:07)
--- NOTE | 2018-12-17 15:03 | Diag Imaging Result Doc PS360 ---
EXAM: CHEST-1 VIEW HISTORY: sob TECHNIQUE: Chest single view COMPARISON: 10/18/2018 FINDINGS: The lungs are well expanded. The heart remains mildly prominent. Sternal wires are present. Prominent myron similar to the prior exam consistent with pulmonary arterial hypertension. No pleural effusions identified. Further decrease in the interstitial markings in the right base. IMPRESSION: Continued interval improvement. Electronically signed by Pablito Matute 12/17/2018 3:00 PM
[2018-12-17] MEDS ORDERED: DUONEB (A & A) INH ONE (15:08)
[2018-12-17] MEDS ORDERED: ROCEPHIN 1 GM in NS 50 ML IV ONE (15:09)
[2018-12-17] MEDS ORDERED: NS 1,000 ML IV SCH ×3 (15:15→19:50)
[2018-12-17 15:20] LABS: BASO# 0.02 X1000 (0.0-0.2); BASO% 0.2 % (0.0-0.8); EOS# 0.04 X1000 (0.0-0.7); EOS% 0.4 % (0.0-10.0); HEMATOCRIT 26.6 % (37.0-47.0); LYMPH% 8.4 % (20.5-51.1); MCH 22.7 PG (27-31); MCHC 30.1 g/dL (33-37); MCV 75.6 FL (81-99); MONO% 15.8 % (1.7-9.3); MPV 9.8 FL (7.4-10.4); NEUT# 7.14 X1000 (1.4-6.5); NEUT% 75.2 % (42.2-75.2); PLT 405 X1000 (130-400); RBC 3.52 XMIL (4.2-5.4); RDW 17.9 % (11.5-14.5)
[2018-12-17 15:27] LABS: INR 2.69; PROTIME 30.5 Seconds (11.0-16.0)
[2018-12-17 15:28] LABS: PTT 46.6 Seconds (22.3-41.8)
--- NOTE | 2018-12-17 15:41 | EKG Report ---
Test Performed on : 12/17/2018 2:47:55 PM Test Reason : sob Blood Pressure : / mmHG Vent. Rate : 107 BPM Atrial Rate : 101 BPM P-R Int : 000 ms QRS Dur : 090 ms QT Int : 358 ms P-R-T Axes : 000 059 -73 degrees QTc Int : 477 ms Accelerated Junctional rhythm. Nonspecific ST and T wave abnormality Abnormal ECG When compared with ECG of 18-OCT-2018 13:59, Junctional rhythm. has replaced Sinus rhythm. Nonspecific T wave abnormality, worse in Anterolateral leads Unconfirmed Result
[2018-12-17 16:02] LABS: ALB/GLOB RATIO 1.4; ALBUMIN 3.7 g/dL (3.5-5.0); CALCIUM 8.5 mg/dL (8.8-10.2); POTASSIUM 4.8 mmol/L (3.5-5.1); TOTAL BILIRUBIN 0.39 mg/dL (0.20-1.00); TOTAL PROTEIN 6.3 g/dL (6.3-8.3)
[2018-12-17 16:11] LABS: URINE SOURCE CLEAN CATCH
[2018-12-17 16:19] LABS: BILIRUBIN URINE NEGATIVE (NEGATIVE); BLOOD URINE NEGATIVE (NEGATIVE); COLOR YELLOW; GLUCOSE URINE NEGATIVE (NEGATIVE); KETONE URINE NEGATIVE (NEGATIVE); LEUKOCYTES URINE NEGATIVE (NEGATIVE); NITRITE URINE NEGATIVE (NEGATIVE); PH URINE 5.5; PROTEIN URINE TRACE mg/dL (NEGATIVE); SP GRAVITY URINE 1.007; TURBIDITY URINE CLEAR (CLEAR); UR EPITHELIAL CELLS <10 /HPF (<10); URINE BACTERIA NEGATIVE /HPF; URINE RBC <10 /HPF (<10); URINE WBC <10 /HPF (<10); UROBILINOGEN URINE NORMAL (NORMAL)
[2018-12-17 18:44] LABS: RETIC% 1.06 % (0.8-2.1); RETIC-HE 21.9 PG (28.2-36.6)
[2018-12-17 18:45] LABS: BASO# 0.02 X1000 (0.0-0.2); BASO% 0.2 % (0.0-0.8); EOS# 0.07 X1000 (0.0-0.7); EOS% 0.7 % (0.0-10.0); HEMATOCRIT 26.7 % (37.0-47.0); HEMOGLOBIN 7.9 g/dL (12.0-16.0); IMM GRAN# 0.02 X1000 (0.0-0.04); IMM GRAN% 0.2 % (0.0-0.5); LYMPH# 1.23 X1000 (1.2-3.4); LYMPH% 12.3 % (20.5-51.1); MCH 22.7 PG (27-31); MCHC 29.6 g/dL (33-37); MCV 76.7 FL (81-99); MPV 9.4 FL (7.4-10.4); NEUT# 7.39 X1000 (1.4-6.5); NEUT% 73.6 % (42.2-75.2); PLT 375 X1000 (130-400); RBC 3.48 XMIL (4.2-5.4); RDW 18.1 % (11.5-14.5); WBC 10.03 X1000 (4.8-10.8)
[2018-12-17] MEDS ORDERED: VITAMIN K 5 MG in NS 50 ML IV ONE (18:50)
[2018-12-17] MEDS: MUCOMYST 20% INH SCH (19:05)
[2018-12-17 19:10] LABS: FERRITIN 7 ng/mL (13-150)
[2018-12-17 19:13] LABS: IRON SATURATION 5 %; TIBC 344 ug/dL; TOTAL IRON 16 ug/dL (49-151); UNBOUND IRON 328 ug/dL (112-346)
--- NOTE | 2018-12-17 19:33 | Diag Imaging Result Doc PS360 ---
EXAM: CT THORAX/ABD/PELVIS W/O CON HISTORY: pneumonia/abdominal pain/ TECHNIQUE: 1. CT chest without contrast 2. CT abdomen and pelvis without contrast COMPARISON: Chest compared to 03/08/2019 FINDINGS: Chest: No pleural effusions. No cardiomegaly. Severe atherosclerosis. Sternal wires are present. There is central vascular distention. No enlarged lymph nodes. There is scarring in the right apex. Mild emphysema. There is scarring posteriorly in the right lower lobe. There is bronchiectasis and marked atelectasis to the right middle lobe which has developed since the prior exam. No consolidation. Abdomen and pelvis: The gallbladder has been removed. No focal hepatic abnormality identified on this noncontrasted exam. Normal spleen, pancreas, and adrenal glands. There are bilateral renal cysts and renal arterial calcifications. Questionable left renal stone. No hydronephrosis. Prominent abdominal aortic atherosclerosis. Abdominal aorta is dilated to 3.0 cm. There are dilated small bowel loops in the mid and lower left abdomen. There is an anterior abdominal wall hernia just above the umbilicus on the left containing a small bowel loop. There is proximal small bowel is dilated going into the hernia. Small bowel coming out is not dilated. The urinary bladder is distended and is normal. Normal uterus. Prior orthopedic replacement of the left hip. IMPRESSION: Chest: Development of prominent atelectasis to the right middle lobe otherwise overall interval improvement compared to the prior study. Abdomen and pelvis: Incarcerated hernia with a small bowel obstruction. This report was discussed with Alejandra, the patient's nurse in the intensive care unit, on 12/17/2018 at 7:30 PM and was readback. This exam was performed using automated exposure control, adjustment of mA or kV according to patient size, and/or use of iterative reconstruction technique. Electronically signed by Pablito Matute 12/17/2018 7:31 PM
[2018-12-17] MEDS: DILAUDID IV PRN (20:53)
[2018-12-17] MEDS: XOPENEX NEB INH SCH (21:05)
[2018-12-17] MEDS: MAXIPIME 1 GM in NS 50 ML IV SCH (21:08)
[2018-12-17] MEDS: ZYVOX 600 MG/D5W 600 MG/300 ML IVPB IV SCH (21:08)
[2018-12-17] MEDS: VENOFER 200 MG in NS 150 ML IV SCH (21:15)
[2018-12-17] MEDS: HUMULIN R SUBQ SCH (21:22)
[2018-12-17] MEDS: PROTONIX 80 MG in NS 80 ML IV SCH (21:52)
--- NOTE | 2018-12-17 22:09 | HISTORY AND PHYSICAL ---
PRIMARY CARE PHYSICIAN: Dr. Toy Salcido. CHIEF COMPLAINT: "I've been having abdominal pain for the last 3 days, and I started vomiting blood yesterday." HISTORY OF PRESENT ILLNESS: Ms. Wolf is a 68-year-old female with a history of pulmonary hypertension, depression, atrial fibrillation, ASD repair with maze procedure, and diabetes, who presented to the ER today with a chief complaint of severe abdominal pain as well as hematemesis that started yesterday. The patient reports that for the last 3 days, she has been suffering from abdominal pain. She states that yesterday she started vomiting blood on several occasions over the course of the day. She reports that she had a bowel movement upon arrival to the ER. She states that her abdominal pain is a continuous cramping, but at the same time, she states that she is hungry and wants food. She also complains of shortness of breath and palpitations but denies having any chest pain or recent syncopal episodes. In the ER, the patient was noted to have a hemoglobin of 7.9 with a hematocrit of 26. A CT of the chest, abdomen, and pelvis was done that revealed an incarcerated hernia with a small-bowel obstruction. PAST MEDICAL HISTORY: 1. AAA that measures 2.9 cm. 2. Atrial fibrillation. 3. Hypertension. 4. Diabetes mellitus type 2. 5. Chronic hypoxemic respiratory failure on 3 L nasal cannula. 6. COPD. 7. GERD. 8. Basal cell carcinoma. 9. Pulmonary hypertension. 10. Anxiety. 11. Depression. 12. History of DVT. 13. History of PE. 14. Tobacco dependence. 15. Remote history of alcohol abuse. PAST SURGICAL HISTORY: 1. Cholecystectomy. 2. Tubal ligation. 3. Basal cell carcinoma removal on the face. 4. Carpal tunnel release. 5. ASD repair with maze procedure. 6. Cardioversion. 7. Left hip closed reduction x2. FAMILY HISTORY: Reviewed and noncontributory. SOCIAL HISTORY: The patient lives alone. She smokes 1/2 pack of cigarettes a day. She denies any alcohol or illicit drug use. ALLERGIES: No known drug allergies. HOME MEDICATIONS: Unknown. REVIEW OF SYSTEMS: A 12-point review of systems has been performed. Please refer to the HPI for pertinent positives and negatives. PHYSICAL EXAMINATION: VITAL SIGNS: Temperature 97 degrees, blood pressure 93/51, heart rate 86, respirations 15, O2 saturation 98% on 4 L nasal cannula. GENERAL: This is a morbidly obese female lying in bed, in no acute distress. SKIN: Pale. No rashes. No lesions. HEAD: Normocephalic, atraumatic. EYES: PERRLA, EOMI. No scleral icterus. HEART: S1, S2 normal. Regular rate and rhythm. LUNGS: Coarse breath sounds bilaterally with rhonchi. HEART: S1, S2 normal. Irregularly irregular rhythm. ABDOMEN: Positive bowel sounds. Soft. Diffuse tenderness. No rebound tenderness. EXTREMITIES: With 1+ edema. No cyanosis. No calf tenderness. NEUROLOGIC: The patient is alert and oriented x4. No focal neurologic deficits noted. Cranial nerves 2 through 12 intact. LABORATORIES: White blood cell count 10, hemoglobin 7.9, hematocrit 26, platelets 375,000. INR 2.6. Sodium 133, potassium 4.8, chloride 97, CO2 of 23, BUN 12, creatinine 1, glucose 123, calcium 8.5. Iron 16. AST 21, ALT 16, alkaline phosphatase 83. Troponin less than 0.01. Albumin 3.7. TSH 0.7. UA: Trace protein. IMAGING STUDIES: CT of the chest, abdomen, and pelvis reveals an incarcerated hernia with a small- bowel obstruction. ASSESSMENT AND PLAN: 1. Gastrointestinal bleed. We will start the patient on a Protonix drip. She will remain n.p.o. We will consult GI. Will monitor the H/H closely and transfuse as necessary. 2. Incarcerated hernia with small bowel obstruction. Will place an NGT to low intermittent suction and start IV fluid. Consult general surgery. Repeat abdominal x ray in the morning. 3. Possible pneumonia. Cultures have been ordered. Will start broad spectrum antibiotics. 4. Atrial fibrillation. Aware. Will start IV labetalol to be used prn. Will hold the xarelto at this time. 5. Diabetes mellitus type 2. The patient will be started on sliding scale insulin. 6. Severe iron deficiency anemia. Monitor the H/H closely. Will start IV iron. 7. Chronic kidney disease. Stable. 8. Gastroesophageal reflux disease. The patient is currently on a Protonix drip. 9. Pulmonary hypertension. Aware. 10. Coagulopathy. Will give a dose of vitamin K. Repeat INR in the morning. 11. Hyponatremia. Monitor closely. 12. COPD. Will start xopenex. Continue on supplemental oxygen. cc: MD Toy Ashraf MD MTDD
[2018-12-17 22:27] LABS: URINE SOURCE CATH
[2018-12-17 22:43] LABS: BILIRUBIN URINE NEGATIVE (NEGATIVE); BLOOD URINE NEGATIVE (NEGATIVE); COLOR YELLOW; GLUCOSE URINE NEGATIVE (NEGATIVE); KETONE URINE NEGATIVE (NEGATIVE); LEUKOCYTES URINE NEGATIVE (NEGATIVE); NITRITE URINE NEGATIVE (NEGATIVE); PROTEIN URINE NEGATIVE (NEGATIVE); TURBIDITY URINE CLEAR (CLEAR); UR EPITHELIAL CELLS <10 /HPF (<10); URINE BACTERIA NEGATIVE /HPF; URINE RBC <10 /HPF (<10); URINE WBC <10 /HPF (<10); UROBILINOGEN URINE NORMAL (NORMAL)
[2018-12-17] MEDS ORDERED: LABETALOL IV PRN (22:43)
--- NOTE | 2018-12-17 23:57 | PROVIDER DOCUMENTATION ---
This chart was entered by Destiny Garcia Scribe, acting as scribe for Joseph Sadler MD. HPI-General Adult - General Chief Complaint: GI Bleed Stated Complaint: VOMITING BLOOD Time Seen by Provider: 12/17/18 14:45 Source: patient Allergies/Adverse Reactions: Patient Allergies Allergy/AdvReac Type Severity Reaction Status Date / Time No Known Allergies Allergy Verified 12/17/18 15:08 Home Medications: Home Medication List Medication Instructions Recorded Confirmed Last Taken Type Rivaroxaban [Xarelto] 20 mg PO WSUPPER #30 tablet 02/10/16 12/17/18 04/18/17 Rx Furosemide 40 mg PO EVERY OTHER DAY 04/14/16 09/29/18 04/18/17 History ATORVAstatin [Lipitor] 40 mg PO QHS #30 tablet 06/22/16 12/17/18 04/18/17 Rx Carvedilol [Coreg] 6.25 mg PO Q12H #60 tablet 06/22/16 12/17/18 04/18/17 Rx Digoxin [Lanoxin] 125 microgm PO DAILY #30 tablet 06/22/16 12/17/18 04/18/17 Rx Magnesium Oxide 400 mg PO DAILY #30 tablet 06/22/16 09/29/18 04/18/17 Rx Aspirin 81 mg PO DAILY #30 chewtab 11/24/16 09/29/18 04/18/17 Rx Sertraline HCl [Zoloft] 100 mg PO DAILY 02/11/18 12/17/18 Unknown History Tiotropium [place] Inhaler 1 inhaler INH PRN PRN 02/15/18 09/29/18 Unknown History [Spiriva] Metoclopramide [Reglan] 5 mg PO AC + HS #120 tab 03/04/18 09/29/18 Unknown Rx Acetaminophen with Codeine 1 ea PO Q4-6H PRN PRN #20 tab 03/05/18 12/17/18 Unknown Rx [Tylenol with Codeine #3] Albuterol 2.5MG/Ipratrop 0.5MG 3 ml INH RTQ4H PRN 30 Days #5 neb 03/05/18 09/29/18 04/18/17 Rx [Duoneb (A & A)] Alprazolam [Xanax] 0.5 mg PO Q8H PRN PRN 7 Days #20 03/05/18 12/17/18 Unknown Rx tab Fluticasone 50 Mcg Nasal [place] 2 spray ANDREW BID 30 Days #1 bottle 03/05/18 09/29/18 Unknown Rx [Flonase] Hydrocodone/Acetaminophen [[place] 1 tab PO Q4-6H PRN PRN 20 Days #30 03/05/18 09/29/18 Unknown Rx 7.5-325 Tablet] tab Lactulose 30 ml PO BID 30 Days #1 udc 03/05/18 09/29/18 Unknown Rx Omeprazole [Prilosec] 40 mg PO DAILY 30 Days #30 03/05/18 12/17/18 Unknown Rx capsule.dr Polyethylene Glycol 3350 [Miralax] 17 gm PO BID 30 Days #1 powder, 03/05/18 12/17/18 Unknown Rx packet Metformin HCl 500 mg PO DAILY 10/05/18 12/17/18 Unknown History Spironolactone 25 mg PO DAILY 10/05/18 12/17/18 Unknown History Clotrimazole [Mycelex Arnaud] 10 mg .SEE ORDER Q8H #30 arnaud 10/07/18 12/17/18 Unknown Rx Levofloxacin [Levaquin] 500 mg PO DAILY #10 tab 10/07/18 12/17/18 Unknown Rx Diltiazem C.d. [Cardizem Cd] 360 mg PO DAILY #30 cap 10/11/18 12/17/18 Unknown Rx Polyethylene Glycol 3350 [Miralax] 17 gm PO DAILY powder, packet 10/11/18 Unknown Rx Amiodarone HCl 200 mg PO DAILY 12/17/18 12/17/18 Unknown History Ondansetron Odt [Zofran Odt] 8 mg .ROUTE PRN PRN 12/17/18 12/17/18 Unknown H istory Prednisone 10 mg PO DAILY 12/17/18 12/17/18 Unknown History - History of Present Illness -Gen Adult Nature of Presenting Problems: Patient is a 68 year old female who presents with multiple complaints. States symptoms of cough, shortness of breath, nausea, vomiting associated with bright red blood. c/o mild abdominal pain. Denies history of ulcers and taking NSAIDs. Reports Hx ETOH use quit 12 years ago, denies liver disease. pt estimate blood mixed with vomit by 1/4 cup. Location of Pain/Injury: reports: abdomen Pain Radiation: reports: no radiation Quality of Pain: reports: aching Severity: reports: mild Onset/Duration: reports: unsure Timing: reports: still present Context/Activities at Onset: reports: light activity Modifying Factors: improves with: nothing Associated Symptoms: reports: cough, nausea, shortness of breath, vomiting (bright red blood) Similar Symptoms Previously?: Yes Recently seen or treated by another doctor?: No Review of Systems - Adult - REVIEW OF SYSTEMS - ADULT Constitutional: reports: no symptoms reported. denies: chills, fever, fatique Eyes: reports: no symptoms reported Ears, Nose, Mouth & Throat: reports: no symptoms reported Cardiovascular: reports: no symptoms reported Respiratory: reports: see HPI, cough, shortness of breath. denies: wheezing Gastrointestinal: reports: see HPI, abdominal pain, hematemesis, nausea, vomiting. denies: diarrhea Genitourinary: reports: no symptoms reported Musculoskeletal: reports: no symptoms reported Integumentary: reports: no symptoms reported Neurological: reports: no symptoms reported Psychiatric: reports: no symptoms reported Endocrine: reports: no symptoms reported Hematologic/Lymphatic: reports: other (on xarelto) Allergic/Immunologic: reports: no symptoms reported Past History - Adult - PAST MEDICAL HISTORY-ADULT Review of Records: reports: Nursing Assessment Review, Medications Reviewed, Social history reviewed & non-contributory. Major Childhood Illnesses: reports: denies history Cardiovascular: reports: A-Fib, blood clots (dvt, PE), CHF, HTN, hyperlipidemia, PVD Respiratory: reports: COPD, pneumonia (MRSA) Gastrointestinal: reports: GERD Obstetrical/Gynecological: reports: denies history Genitourinary: reports: chronic UTI's Musculoskeletal: reports: denies history Neurological: reports: CVA Psychiatric: reports: anxiety, depression Endocrine/Immune: reports: denies history Other Conditions: reports: other cancer (skin), MRSA - PRIOR SURGERIES/PROCEDURES Surgical/Procedure History: reports: cholecystectomy, cardiac stent, BTL, indwelling device (PICC line), orthopedic (extremity) (R foot), joint replacement (hip), other (basal cell carcinoma removed from face; open heart) - IMMUNIZATION STATUS Childhood Immunizations: See Nurse Assessment Flu Vaccine: See Nurse Assessment - FAMILY HISTORY Family History: reviewed, not pertinent - SOCIAL HISTORY Smoking: cigarettes, less than 1 pack/day Provider spent 3-5 mins advising pt. on dangers of tobacco.: Discussed manners to quit use, and f/u contacts for add'l counseling. Substance Use: alcohol Alcohol Use Frequency: occasionally Physical Exam-General - PHYSICAL EXAM-ADULT Initial Vital Signs Reviewed: Yes - CONSTITUTIONAL General Appearance: alert, mild distress. negative: lethargic, slow to respond - EYES Eyes: PERRL/EOMI - HEAD, EARS, NOSE, MOUTH & THROAT HENMT: normocephalic/atraumatic - NECK Neck: non-tender, full range of motion, supple - RESPIRATORY Respiratory: respiratory distress (mild), wheezing (bilateral), increased rate. negative: accessory muscle use - CARDIOVASCULAR Cardiovascular: normal peripheral pulses, regular rate, rhythm. negative: tachycardia, systolic murmur - GASTROINTESTINAL (ABDOMEN) Abdominal Exam: normal bowel sounds, soft, tenderness (suprapubic). negative: rigid, rebound - MUSCULOSKELETAL Extremity: non-tender, normal inspection. negative: deformity, erythema - SKIN Integumentary: normal color, normal turgor, warm/dry. negative: cyanosis, ecchymosis, erythema - NEUROLOGIC Neurologic: grossly normal. negative: aphasia, facial droop - PSYCHIATRIC Psych/Mental Status: normal mood/affect, oriented x 3. negative: anxious Progress - PLAN OF CARE/RESULTS Progress/Plan/Lab Results: Vital Signs - 8 hr 12/17/18 14:37 Temperature 97.9 F Pulse Rate 109 H Respiratory Rate 26 H Blood Pressure 96/63 O2 Sat by Pulse Oximetry 96 Orders Category Date Time Status Cardiac Monitoring DIRECTED Care 12/17/18 14:43 Active IV Insertion ORDERED Care 12/17/18 14:43 Completed Notify MD of + Sepsis Screen NOW Care 12/17/18 14:43 Active Notify Physician As Ordered Care 12/17/18 14:43 Active CHEST-1 VIEW [RAD] Stat Exams 12/17/18 14:43 Completed BLOOD CULTURE [BLDCUL] Stat Lab 12/17/18 15:00 Received CBC WITH DIFF [HEME] Stat Lab 12/17/18 15:05 Results CK PROFILE [SP CHEM] Stat Lab 12/17/18 15:05 Received COMPREHENSIVE METABOLIC PANEL [CHEM] Stat Lab 12/17/18 15:05 Received LACTATE, PLASMA [CHEM] Q3H Lab 12/17/18 15:05 Received LACTATE, PLASMA [CHEM] Q3H Lab 12/17/18 17:45 Uncollected LACTATE, PLASMA [CHEM] Q3H Lab 12/17/18 20:45 Uncollected PROTIME WITH INR [COAG] Stat Lab 12/17/18 15:05 Received PTT [COAG] Stat Lab 12/17/18 15:05 Received TROPONIN T Stat Lab 12/17/18 15:05 Received TYPE & SCREEN [BBK] Stat Lab 12/17/18 15:05 Received URINALYSIS W/POSS RFLX CULT [URINALYSIS] Stat Lab 12/17/18 14:43 Uncollected 0.9% Sodium Chloride Inj [Ns] 1,000 ml Med 12/17/18 15:13 Active IV 300 mls/hr 0.9% Sodium Chloride Inj [Ns] 1,000 ml Med 12/17/18 15:15 Discontinued IV 300 mls/hr 0.9% Sodium Chloride Inj [Ns] 1,000 ml Med 12/17/18 14:46 Discontinued IV 999 mls/hr Albuterol 2.5MG/Ipratrop 0.5MG [Duoneb (A & A)] Med 12/17/18 15:08 Discontinued 6 ml INH NOW ONE CefTRIAXONE [Rocephin] 1 gm Med 12/17/18 15:09 Active 0.9% Sodium Chloride Inj [Ns] 50 ml IV NOW Aerosol Treatments Routine Oth 12/17/18 15:09 Active Aerosol Treatments Stat Oth 12/17/18 15:09 Active Oxygen Device Stat Oth 12/17/18 14:43 Active EKG [EKG] Stat Ther 12/17/18 14:44 Ordered Result Diagrams: 12/17/18 18:30 12/17/18 15:05 - EKG 1 Time of EKG reading by physician:: 14:47 EKG Read and Signed by:: Edenilson Quiles EKG Interpretation (*Must complete 3 of following elements*): Abnormal Rate: 107 Rhythm: accelerated junctional rhythm Comments: nonspecific ST and T wave abnormality. - XRAY 1 XRAY Study: Chest Impression: See EMR Report (Signed EXAM: CHEST-1 VIEW HISTORY: sob TECHNIQUE: Chest single view COMPARISON: 10/18/2018 FINDINGS: The lungs are well expanded. The heart remains mildly prominent. Sternal wires are present. Prominent myron similar to the prior exam consistent with pulmonary arterial hypertension. No pleural effusions identified. Further decrease in the interstitial markings in the right base. IMPRESSION: Continued interval im provement. Electronically signed by Pablito Matute 12/17/2018 3:00 PM 12/17/18 1500 Interpreting Physician: Pablito Matute MD Dictated Date/Time: 12/17/18 1459 cc: Edenilson Quiles MD; Toy Salcido MD) - CONSULTS/PCP/HOSPITALIST Notification #1 *Consult/PCP/Hospitalist*: MEDICAL TERMINOLOGIST Oksana admitting for Dr. Castillo Time Discussed: 17:02 Consult Disposition: Admit (Hx, PE and patient care discussed, accepted.) Departure - Departure Date of Disposition Decision: 12/17/18 Time of Disposition Decision: 17:02 DIAGNOSIS: Upper GI bleed, COPD exacerbation Disposition: OTHER 69 Certified Medical Emergency: Emergent Condition: Stable - Critical Care Note This patient required my direct & personal management of CC.: No Attestation - Physician/ VEE Attestation Patient care was provided by Advanced Practice Provider:: No The physician spent face to face time with patient:: Yes Advanced Practice Provider documentation review:: Supervising physician onsite and consulted in the evaluation and care of this patient. The physician did have a face to face encounter with the patient. This chart was documented by the indicated scribe, (Destiny Garcia Scribe) and accurately reflects the services I performed and decisions made by me, Joseph Sadler MD, as attested by the provider's signature.
[2018-12-18] MEDS: DILAUDID IV PRN ×5 (01:11→23:01)
[2018-12-18 01:39] LABS: HEMATOCRIT 25.2 % (37.0-47.0); HEMOGLOBIN 7.5 g/dL (12.0-16.0)
[2018-12-18] MEDS: XOPENEX NEB INH SCH ×5 (03:15→21:25)
[2018-12-18 05:35] LABS: ALLEN TEST YES; BE -0.3 mmoll (-3.0-3.0); BLOOD TYPE ARTERIAL; HCO3-(ACT) 24.7 mmoll (20.0-26.0); METHB 1.5 % (0.0-1.5); O2(CT) 11.3 mL/dL (15.0-23.0); O2HB 94.6 % (95.0-99.0); PO2(98.6) 86 mmHg (60-100); SAMPLE BLOOD; SAO2 97.3 % (95.0-100.0); THB 8.4 g/dL (11.5-17.4); pH(98.6) 7.31 (7.35-7.45)
[2018-12-18 05:37] LABS: MODALITY CANNULA; PCO2(98.6) 52 mmHg (35-45)
--- NOTE | 2018-12-18 06:23 | Diag Imaging Result Doc PS360 ---
CHEST-PORTABLE - 12/17/2018 10:32 PM INDICATION: NG Tube Placement COMPARISON: 2:54 PM FINDINGS: There is a nasogastric tube in good position in the stomach. IMPRESSION: Nasogastric tube in good position in the stomach. Electronically signed by Devin Robert 12/18/2018 6:21 AM
--- NOTE | 2018-12-18 06:29 | Diag Imaging Result Doc PS360 ---
ABDOMEN FLAT/UPRIGHT - 12/18/2018 INDICATION: obstruction COMPARISON: 04/07/2018 FINDINGS: There is a nasogastric tube in the stomach. There are cholecystectomy clips stable from prior. Stable sternotomy wires. Stable cardiomegaly. There is some infiltrate in the right lung base. The stomach is slightly distended with gas. Remainder of the bowels appear normal. No significant constipation. No free air. IMPRESSION: 1. Right lung base infiltrate. 2. Stomach is slightly distended with gas. Otherwise unremarkable bowel gas pattern. Electronically signed by Devin Robert 12/18/2018 6:27 AM
--- NOTE | 2018-12-18 06:31 | Diag Imaging Result Doc PS360 ---
CHEST-PORTABLE - 12/18/2018 1:45 AM INDICATION: NG Tube Placement COMPARISON: 12/17/201810:32 PM FINDINGS: There is a nasogastric tube in the stomach. Stable sternotomy wires. Stable cardiomegaly. There is infiltrate in the right lung base. The left lung appears clear. IMPRESSION: Nasogastric tube in good position. Right basilar infiltrate. Cardiomegaly. Electronically signed by Devin Robert 12/18/2018 6:28 AM
[2018-12-18] MEDS: HUMULIN R SUBQ SCH ×4 (06:38→21:09)
--- NOTE | 2018-12-18 07:08 | EKG Report ---
Test Performed on : 12/18/2018 06:27:45 AM Test Reason : afib Blood Pressure : / mmHG Vent. Rate : 094 BPM Atrial Rate : 107 BPM P-R Int : 000 ms QRS Dur : 092 ms QT Int : 376 ms P-R-T Axes : 000 054 020 degrees QTc Int : 470 ms Atrial fibrillation. Incomplete right bundle branch block Septal infarct , age undetermined Abnormal ECG When compared with ECG of 17-DEC-2018 14:47, (Unconfirmed) Atrial fibrillation. has replaced Junctional rhythm. Septal infarct is now present ST no longer depressed in Inferior leads Nonspecific T wave abnormality, improved in Anterolateral leads Confirmed by Bravo LOGAN, aDnn Romeo ([id number]) on 12/19/2018 8:46:00 AM
[2018-12-18] MEDS: PROTONIX 80 MG in NS 80 ML IV SCH ×2 (07:09→17:03)
--- NOTE | 2018-12-18 07:29 | GENERAL SURGERY CONSULTATION ---
DATE: 12/18/2018 REQUESTING PHYSICIAN: Hospitalist. REASON FOR CONSULTATION: Abdominal pain with ventral hernia. HISTORY OF PRESENT ILLNESS: A 68-year-old female with a history of pulmonary hypertension, depression, atrial fibrillation, ASD repair with maze procedure, diabetes, presenting with a chief complaint of abdominal pain. She also had been vomiting some blood. She described the pain as cramping. She had a CT scan done that showed an incarcerated hernia with bowel obstruction secondary to the hernia. I was asked to weigh an opinion. The patient is doing better after having an NG tube placed but she does hurt around her hernia. PAST MEDICAL HISTORY: 1. Abdominal aortic aneurysm. 2. Atrial fibrillation. 3. Hypertension. 4. Diabetes mellitus type 2. 5. Chronic hypoxemic respiratory failure. 6. COPD. 7. Gastroesophageal reflux disease. 8. Pulmonary hypertension. 9. Anxiety. 10. Depression. 11. History of DVT. 12. History of PE. 13. Tobacco dependence. 14. Remote history of alcohol abuse. PAST SURGICAL HISTORY: Includes cholecystectomy, tubal ligation, basal cell cancer removal, carpal tunnel release, ASD repair, cardioversion, left hip reduction. FAMILY HISTORY: Reviewed with patient, noncontributory. SOCIAL HISTORY: Lives at home. Current smoker. ALLERGIES: None. HOME MEDICATIONS: Reviewed. Of note, she is on Xarelto. REVIEW OF SYSTEMS: A full 10 point review of systems obtained, negative except as specified in HPI. PHYSICAL EXAMINATION: Vital Signs: Patient is currently afebrile. His vital signs are stable. General: No acute distress. Alert, interactive, female. Looks stated age. HEENT: Normocephalic, atraumatic. Pupils equal, round, reactive to light. Mucous membranes moist. Oropharynx benign. Neck: Supple. Trachea midline. Cardiovascular: Irregular irregular. Lungs: Some coarse sounds noted. Abdomen: Soft. There is a bulge around the umbilicus which corresponds with her hernia. There are no skin changes. Extremities: Moves all extremities. Neurologic: Grossly intact. Skin: No signs of jaundice. Vascular: All extremities perfused. LABORATORY DATA: Reviewed. Of note, her INR was 2.69, that was prior to vitamin K being given. Remainder of labs reviewed. She does have a microcytic anemia. ASSESSMENT AND PLAN: A 68-year-old female with an incarcerated ventral hernia causing bowel obstruction. 1. Incarcerated incisional hernia. At this time, I think the patient needs to proceed with surgery. She does have this report of a gastrointestinal bleed but it may be related to this hernia itself. We will follow her hematocrit. We will need to thicken up her blood. She has been given vitamin K, but we will need to follow up with INR this morning and maybe give FFP. 2. Multiple medical comorbidities, currently being managed by the Hospitalist service. Discussed with patient the need for surgical repair. Discussed with her the risks, benefits, and alternatives of the procedure. Discussed with her the risks including but not limited to risk of bleeding, risk of infection, risk of anesthesia, risk of injury to bowel, risk of recurrence, risk of need for mesh and the possibility for mesh complications. Discussed with her the risk of bowel injury and the need for bowel resection. She voiced understanding. We will plan on doing the surgery today. Depending on availability, we will do it laparoscopically versus robotically versus open. Will also need to discuss with anesthesia. cc: Harsha Hand MD
[2018-12-18 07:30] LABS: BASO# 0.01 X1000 (0.0-0.2); BASO% 0.1 % (0.0-0.8); EOS# 0.15 X1000 (0.0-0.7); EOS% 2.1 % (0.0-10.0); HEMATOCRIT 23.7 % (37.0-47.0); HEMOGLOBIN 6.9 g/dL (12.0-16.0); IMM GRAN# 0.02 X1000 (0.0-0.04); IMM GRAN% 0.3 % (0.0-0.5); INR 1.34; LYMPH% 15.1 % (20.5-51.1); MCH 22.5 PG (27-31); MCHC 29.1 g/dL (33-37); MCV 77.5 FL (81-99); MONO% 12.3 % (1.7-9.3); MPV 9.7 FL (7.4-10.4); NEUT# 5.11 X1000 (1.4-6.5); NEUT% 70.1 % (42.2-75.2); PLT 336 X1000 (130-400); PROTIME 17.6 Seconds (11.0-16.0); RBC 3.06 XMIL (4.2-5.4); WBC 7.29 X1000 (4.8-10.8)
[2018-12-18 07:35] LABS: ALB/GLOB RATIO 1.5; ALBUMIN 3.1 g/dL (3.5-5.0); DIRECT BILIRUBIN 0.1 mg/dL (0.00-0.20); TOTAL BILIRUBIN 0.35 mg/dL (0.20-1.00); TOTAL PROTEIN 5.1 g/dL (6.3-8.3)
[2018-12-18 07:40] LABS: AGAP 9; BUN 6 mg/dL (8-22); CALCIUM 7.9 mg/dL (8.8-10.2); CHLORIDE 107 mmol/L (98-107); COSMO 279; CREATININE 0.7 mg/dL (0.5-0.9); ESTIMATED GFR > 60; GLUCOSE 104 mg/dL (70-104); MAGNESIUM 1.9 mg/dL (1.5-2.7); PHOSPHORUS 2.7 mg/dL (2.7-4.5); POTASSIUM 4.2 mmol/L (3.5-5.1); SODIUM 141 mmol/L (136-145); TCO2 25 mmol/L (25-35)
[2018-12-18] MEDS: NS 1,000 ML IV SCH (08:21)
[2018-12-18] MEDS: VENOFER 200 MG in NS 150 ML IV SCH (08:31)
[2018-12-18] MEDS: MAXIPIME 1 GM in NS 50 ML IV SCH ×2 (08:31→19:39)
[2018-12-18] MEDS: ZYVOX 600 MG/D5W 600 MG/300 ML IVPB IV SCH ×2 (08:31→19:39)
[2018-12-18] MEDS ORDERED: DIPRIVAN 1% ONE (10:52)
[2018-12-18] MEDS ORDERED: LR 1,000 ML ONE (11:00)
[2018-12-18] MEDS ORDERED: SENSORCAINE-MPF 0.5%/EPI 1:200,000 ONE (11:00)
[2018-12-18] MEDS ORDERED: XYLOCAINE-MPF 1% ONE (11:00)
[2018-12-18] MEDS ORDERED: NEO-SYNEPHRINE ONE (11:24)
[2018-12-18] MEDS ORDERED: SODIUM CHLORIDE 0.9% 10 ML ONE (11:24)
[2018-12-18] MEDS ORDERED: ROBINUL ONE (11:51)
[2018-12-18] MEDS ORDERED: NEOSTIGMINE ONE (11:52)
[2018-12-18] MEDS ORDERED: BRIDION ONE (12:14)
--- NOTE | 2018-12-18 12:30 | OPERATIVE NOTE ---
PROCEDURE DATE: 12/18/2018 PREOPERATIVE DIAGNOSIS: Incarcerated ventral hernia. POSTOPERATIVE DIAGNOSIS: Incarcerated ventral hernia. PROCEDURE: Laparoscopic repair of incarcerated ventral hernia. SURGEON: Harsha Hand MD. FOLDING MACHINE OPERATOR: None. ANESTHESIA: General endotracheal. INTRAOPERATIVE FINDINGS: Defect itself measured 1 cm in circumference and was below the umbilicus. BRIEF HISTORY: This 68-year-old female came in with a bowel obstruction. On CT scan it looked like it was a hernia noted below her umbilicus containing bowel. I felt that she would benefit from repair. The risks, benefits, and alternatives were discussed. All questions answered. DESCRIPTION OF PROCEDURE: After informed consent was obtained, patient brought to the operative theatre, transferred to the operating room bed, placed supine position. General endotracheal anesthesia was then performed without complication. A formal time-out was then performed confirming patient and procedure. All in agreement. At that time, attention given to the abdomen. We made our first trocar site in the left upper quadrant of the subcostal region using Optiview technique. We inserted a 12 mm trocar in the anterior axillary line and another 5 mm trocar in the anterior axillary line. Both of these on the left side just inferior to the 1st one. We connected insufflation and pneumoperitoneum achieved. Upon visualization we found the hernia defect noted below the umbilicus. It looked like the intestine had been reduced but there was still incarcerated omentum and mesentery. We reduced this out with manual traction to free up the defect. The defect itself again measured 1 cm. Given its size, felt to be amenable to just primary repair. We closed with 2-0 Vicryl using the Kota Ginger device placed superiorly and inferiorly. There was good fascial reapproximation. Again, given its size, we elected to not use the piece of mesh. We then desufflated the abdomen, removed the trocars, disconnected insufflation, and pneumoperitoneum was released. We then closed all skin incisions with 4-0 Monocryl. The patient tolerated the procedure well. Anesthesia will decide if she needs to remain intubated. cc: Harsha Hand MD
[2018-12-18] MEDS ORDERED: MEFOXIN 2 GM/NS 2 GM/50 ML IVPB IV ONE (13:00)
[2018-12-18] MEDS: MUCOMYST 20% INH SCH ×2 (15:43→21:25)
[2018-12-18 17:39] LABS: HEMATOCRIT 31.8 % (37.0-47.0); HEMOGLOBIN 9.8 g/dL (12.0-16.0)
--- NOTE | 2018-12-18 19:46 | PROGRESS NOTE ---
DATE: 12/18/2018 SUBJECTIVE: The patient is resting comfortably in bed. No acute events noted overnight. OBJECTIVE: Vital signs: Temperature 98 degrees, blood pressure 126/65, heart rate 106, respirations 19, O2 saturation 99% on 4 L nasal cannula. Urine output 1.2 L. General: This is a chronically ill-appearing elderly female, lying in bed in no acute distress. Heart: S1, S2 normal. Lungs: Equal air entry bilaterally. Coarse breath sounds. Abdomen: Positive bowel sounds. Soft. Diffuse tenderness. Extremities: Edema 1+ bilaterally. Neurologic: The patient is alert and oriented x4. LABORATORY DATA: White blood cell count 7.2, hemoglobin 9.8, hematocrit 31, platelets 336,000. INR 1.3. ABG pH of 7.3, pCO2 is 52, pO2 is 86. Sodium 141, potassium 4.2, chloride 107, CO2 is 25, BUN 6, creatinine 0.7, glucose 104. Phosphorus 2.7, magnesium 1.9. ASSESSMENT AND PLAN: 1. Status post laparoscopic repair of an incarcerated ventral hernia. Management as per the general surgeon. 2. Suspected gastrointestinal bleed. We will continue on the Protonix drip. Gastroenterology has been consulted. 3. Atrial fibrillation. We will continue to monitor the patient closely on telemetry. Her anticoagulants are on hold. 4. Chronic obstructive pulmonary disease. Continue with bronchodilator therapy. 5. Severe iron-deficiency anemia. Continue with iron supplementation. 6. Diabetes mellitus type 2. Continue with sliding scale insulin. 7. Deep venous thrombosis prophylaxis. Continue with sequential compression devices. cc: Milagros Barbosa MD
--- NOTE | 2018-12-18 20:51 | GASTROENTEROLOGY CONSULTATION ---
DATE: 12/18/2018 REASON FOR CONSULTATION: hematemesis, EL HPI: Ms. Marissa Wolf is a 68 year old woman with HTN, NIDDM2, COPD on 3L NC, afib on xarelto, GERD, AAA, pHTN who presented with severe abdominal pain for 3 days with scant hematemesis with BRB the day prior to admission. She reports developing abdominal pain described as cramping and periumbilical. She had 4 episodes of hematemesis and this morning with coffee grounds. She complains of associated SOB. No fever, chills, sweats, CP, melena, BRBPR. Rare NSAID use. In the ER, the patient was noted to have a hemoglobin of 7.9. CT chest/A/P showed incarcerated periumbilical hernia with a small bowel obstruction. Patient was seen by surgery and underwent laparoscopic repair of incarcerated ventral hernia with Dr. Hand. She currently has NGT in place, which is causing her pain. History obtained form chart given acute distress from pain. She reports remote EGD and colonoscopy. REVIEW OF SYSTEMS: as per HPI: otherwise, 12-point ROS negative PAST MEDICAL HISTORY: 1. AAA that measures 2.9 cm. 2. Atrial fibrillation. 3. Hypertension. 4. Diabetes mellitus type 2. 5. Chronic hypoxemic respiratory failure on 3 L nasal cannula. 6. COPD. 7. GERD. 8. Basal cell carcinoma. 9. Pulmonary hypertension. 10. Anxiety. 11. Depression. 12. History of DVT. 13. History of PE. 14. Tobacco dependence. 15. Remote history of alcohol abuse. PAST SURGICAL HISTORY: 1. Cholecystectomy. 2. Tubal ligation. 3. Basal cell carcinoma removal on the face. 4. Carpal tunnel release. 5. ASD repair with maze procedure. 6. Cardioversion. 7. Left hip closed reduction x2 FAMILY HISTORY: Reviewed and noncontributory. No GI malignancies SOCIAL HISTORY: The patient lives alone. She smokes 1/2 pack of cigarettes a day. She denies any alcohol or illicit drug use. ALLERGIES: No known drug allergies. HOME MEDICATIONS: xarelto other meds reviewed in chart PE: VS: T97.8 HR108 RR17 BP102/50 O2 97% 3LNC GEN: awake, alert, in distress HEENT: anicteric, MMM, EOMI, NGT in place NECK: supple, no jvd PULM: tachypneic, increase WOB, no wheezing CV: tachycardic, regular ABD: abdominal binder in place EXT: no cce NEURO: nonfocal LABS: BMP WNL WBC 7.2 Hgb 9.8 plts 336 ferritin 7 iron 16 LFTs WNL INR 1.34 IMAGING STUDIES: EXAM: CT THORAX/ABD/PELVIS W/O CT TECHNIQUE: 1. CT chest without contrast FINDINGS: Chest: No pleural effusions. No cardiomegaly. Severe atherosclerosis. Sternal wires are present. There is central vascular distention. No enlarged lymph nodes. There is scarring in the right apex. Mild emphysema. There is scarring posteriorly in the right lower lobe. There is bronchiectasis and marked atelectasis to the right middle lobe which has developed since the prior exam. No consolidation. Abdomen and pelvis: The gallbladder has been removed. No focal hepatic abnormality identified on this noncontrasted exam. Normal spleen, pancreas, and adrenal glands. There are bilateral renal cysts and renal arterial calcifications. Questionable left renal stone. No hydronephrosis. Prominent abdominal aortic atherosclerosis. Abdominal aorta is dilated to 3.0 cm. There are dilated small bowel loops in the mid and lower left abdomen. There is an anterior abdominal wall hernia just above the umbilicus on the left containing a small bowel loop. There is proximal small bowel is dilated going into the hernia. Small bowel coming out is not dilated. The urinary bladder is distended and is normal. Normal uterus. Prior orthopedic replacement of the left hip. IMPRESSION: Chest: Development of prominent atelectasis to the right middle lobe otherwise overall interval improvement compared to the prior study. Abdomen and pelvis: Incarcerated hernia with a small bowel obstruction. A/P: Ms. Marissa Wolf is a 68 year old woman with HTN, NIDDM2, COPD on 3L NC, afib on xarelto, GERD, AAA, pHTN who presented with severe abdominal pain for 3 days with scant hematemesis with BRB found to have EL and incarcerated abdominal wall hernia with SBO POD#0 of lap repair and hernia reduction. She has NGT in place. No continued hematemesis. DDx includes PUD, gastritis, duodenitis, SB irritation from SBO. Less likely lower GI. Low ferritin suggestive of acute on chronic anemia. Patient will need eventual EGD and colonoscopy for evaluation. On PPI IV BID. She is on antibiotics as per primary team. #Hematemesis: continue IV PPI BID; trending H/H; transfuse prn for goal hgb 7-8 #EL: s/p IV iron; normal folate/B12 #Incarcerated ventral hernia with SBO POD# lap repair; NPO; NGT in place; IVFs; surgery following #COPD: on home O2; O2/nebs per primary #GERD: on PPI #AFIB: holding xarelto in setting of GI bleed #Possible PNA: on abx #NIDDM2: on SSI #Coagulopathy: INR 1.34; s/p vitamin K Thank you for this consult. Will follow with you. NILDAD
[2018-12-18] MEDS: NS NEB INH SCH (21:26)
[2018-12-19] MEDS: DILAUDID IV PRN ×5 (03:06→20:47)
[2018-12-19] MEDS: NS NEB INH SCH (03:32)
[2018-12-19] MEDS: XOPENEX NEB INH SCH ×4 (03:32→21:16)
[2018-12-19 05:02] LABS: ALLEN TEST YES; BE -0.4 mmoll (-3.0-3.0); BLOOD TYPE ARTERIAL; HCO3-(ACT) 24.6 mmoll (20.0-26.0); METHB 0.9 % (0.0-1.5); O2(CT) 15.8 mL/dL (15.0-23.0); O2HB 95.6 % (95.0-99.0); PCO2(98.6) 42 mmHg (35-45); PO2(98.6) 80 mmHg (60-100); SAMPLE BLOOD; SAO2 98.3 % (95.0-100.0); THB 11.7 g/dL (11.5-17.4); pH(98.6) 7.38 (7.35-7.45)
[2018-12-19 05:05] LABS: MODALITY CANNULA
[2018-12-19] MEDS: NS 1,000 ML IV SCH (05:42)
[2018-12-19 05:52] LABS: BASO# 0.01 X1000 (0.0-0.2); BASO% 0.1 % (0.0-0.8); HEMOGLOBIN 8.6 g/dL (12.0-16.0); IMM GRAN# 0.02 X1000 (0.0-0.04); IMM GRAN% 0.2 % (0.0-0.5); LYMPH# 0.77 X1000 (1.2-3.4); LYMPH% 8.1 % (20.5-51.1); MCH 23.7 PG (27-31); MCHC 30.7 g/dL (33-37); MCV 77.1 FL (81-99); MONO# 0.94 X1000 (0.11-0.59); MONO% 9.9 % (1.7-9.3); MPV 9.9 FL (7.4-10.4); NEUT# 7.76 X1000 (1.4-6.5); NEUT% 81.7 % (42.2-75.2); PLT 332 X1000 (130-400); RBC 3.63 XMIL (4.2-5.4); RDW 17.9 % (11.5-14.5)
[2018-12-19 06:02] LABS: MAGNESIUM 1.7 mg/dL (1.5-2.7); PHOSPHORUS 2.6 mg/dL (2.7-4.5)
[2018-12-19] MEDS: HUMULIN R SUBQ SCH ×4 (06:17→20:59)
[2018-12-19 06:20] LABS: AGAP 6; BUN 5 mg/dL (8-22); CALCIUM 8.2 mg/dL (8.8-10.2); CHLORIDE 103 mmol/L (98-107); COSMO 266; CREATININE 0.6 mg/dL (0.5-0.9); ESTIMATED GFR > 60; GLUCOSE 113 mg/dL (70-104); POTASSIUM 4.2 mmol/L (3.5-5.1); SODIUM 134 mmol/L (136-145); TCO2 25 mmol/L (25-35)
[2018-12-19] MEDS ORDERED: MAGNESIUM SULFATE 2 GM/S.W.I. 2 GM/50 ML IVPB IV ONE (06:51)
[2018-12-19] MEDS ORDERED: SODIUM PHOSPHATE 30 MMOL in NS 250 ML IV ONE (06:51)
--- NOTE | 2018-12-19 07:08 | Diag Imaging Result Doc PS360 ---
EXAM: CHEST-PORTABLE 12/19/2018 HISTORY: dyspnea TECHNIQUE: AP portable at 0541 COMMENT: There is cardiomegaly. There are small bilateral pleural effusions. There is an NG tube with its tip below the diaphragm. There is atelectasis versus pneumonia in the right middle lobe. This has not changed since 12/17/2018. IMPRESSION: Small bilateral pleural effusions and cardiomegaly. Stable atelectasis. Electronically signed by Hung Charles 12/19/2018 7:06 AM
[2018-12-19] MEDS ORDERED: CHLORASEPTIC SPRAY MT PRN (07:53)
[2018-12-19] MEDS: MUCOMYST 20% INH SCH ×2 (08:08→21:16)
[2018-12-19] MEDS: MAXIPIME 1 GM in NS 50 ML IV SCH ×2 (08:41→20:46)
[2018-12-19] MEDS: VENOFER 200 MG in NS 150 ML IV SCH (08:41)
[2018-12-19] MEDS: ZYVOX 600 MG/D5W 600 MG/300 ML IVPB IV SCH ×2 (08:41→20:46)
--- NOTE | 2018-12-19 08:50 | GENERAL SURGERY PROGRESS NOTE ---
DATE: 12/19/2018 SUBJECTIVE: The patient seems to be doing better. OBJECTIVE: Vital Signs: The patient is currently afebrile. Her vital signs are stable. General: No acute distress. Cardiovascular: Somewhat irregular. Lungs: Grossly clear. Abdomen: Soft, appropriately tender. Binder in place. ASSESSMENT AND PLAN: A 68-year-old female, status postoperative day #1 from a laparoscopic ventral hernia repair. 1. Postoperative state. At this time, the patient seems to be doing okay. Will continue routine postoperative care. The patient does have sequential compression devices on. Will monitor. Will hold off on heparin given the possibility of a gastrointestinal bleed. 2. Gastrointestinal bleed. At this time, the patient's hematocrit, the most recent one last night at 5:30 was 31.8. She did receive blood. Her INR has been corrected. Will defer restarting Xarelto to the hospitalist, but if her hematocrit stabilizes and she does not have any signs of ongoing bleeding, would recommend restarting it given her history. 3. Multiple medical comorbidities. Currently being managed by the Hospitalist Service. cc: Harsha Hand MD
--- NOTE | 2018-12-19 09:44 | EKG Report ---
Test Performed on : 12/19/2018 09:36:46 AM Test Reason : afib Blood Pressure : / mmHG Vent. Rate : 109 BPM Atrial Rate : 214 BPM P-R Int : 000 ms QRS Dur : 094 ms QT Int : 324 ms P-R-T Axes : 000 092 064 degrees QTc Int : 436 ms Atrial flutter. with 2:1 AV conduction. Rightward axis Incomplete right bundle branch block ST & T wave abnormality, consider anterolateral ischemia Abnormal ECG When compared with ECG of 18-DEC-2018 06:27, Atrial flutter. has replaced Atrial fibrillation. Criteria for Septal infarct are no longer present Nonspecific T wave abnormality, worse in Inferior leads T wave inversion now evident in Anterior leads Confirmed by Bravo LOGAN, Dann Romeo ([id number]) on 12/22/2018 4:37:39 PM
[2018-12-19] MEDS: LANOXIN PO SCH (11:24)
[2018-12-19] MEDS: CARAFATE LIQUID PO SCH ×3 (11:24→23:46)
[2018-12-19] MEDS: CORDARONE PO SCH (11:25)
[2018-12-19] MEDS: COREG PO SCH ×2 (11:25→20:46)
[2018-12-19] MEDS ORDERED: LASIX IV ONE (12:07)
--- NOTE | 2018-12-19 12:25 | PROGRESS NOTE ---
DATE: 12/19/2018 SUBJECTIVE: The patient states that she is hurting a lot, especially in her abdomen. She also complains of a sore throat from the NG tube. OBJECTIVE: Vital Signs: Temperature 98.7 degrees, blood pressure 112/57, heart rate 110, respirations 19, O2 saturations 98% on 4 L nasal cannula. General: This is a chronically ill- appearing elderly female, lying in bed in no acute distress. Heart: S1, S2 normal. Irregularly irregular rate and rhythm. Lungs: Coarse breath sounds and rhonchi. Abdomen: Positive bowel sounds. Soft, diffuse tenderness. Extremities: 1+ edema. Neurologic: The patient is alert and oriented x4. LABORATORY DATA: White blood cell count 9.5, hemoglobin 8.6, hematocrit 28, platelets 342,000. Sodium 134, potassium 4.2, chloride 103, CO2 25, BUN 5, creatinine 0.6, glucose 113. Calcium 8.2, magnesium 1.7, phosphorus 2.6. IMAGING: Chest x-ray shows small bilateral pleural effusions and cardiomegaly. ASSESSMENT AND PLAN: 1. Status post laparoscopic repair of an incarcerated ventral hernia. Management as per the general surgeon. 2. Hematemesis. The patient has had no further episodes since her surgery. Will continue on IV Protonix. GI is following. 3. Atrial fibrillation. We will restart the patient's Coreg, amiodarone and digoxin. 4. Possible pneumonia. Continue with cefepime and Zyvox. Will check a procalcitonin. 5. Diabetes mellitus type 2. Continue on sliding scale insulin. 6. Chronic obstructive pulmonary disease. Continue with bronchodilator therapy and supplemental oxygen. 7. Anemia. Stable. 8. Hypomagnesemia. We will replace the patient's magnesium. 9. Hypophosphatemia. We will replace the patient's phosphorus. 10.Iron deficiency anemia. Continue to monitor closely. Continue IV iron. 11.Deep venous thrombosis prophylaxis. Continue with SCDs. cc: Milagros Barbosa MD MTDD
--- NOTE | 2018-12-19 14:09 | GASTROENTEROLOGY PROGRESS NOTE ---
DATE: 12/19/2018 SUBJECTIVE: The patient is resting in bed. She is eating breakfast. She denies any fevers, rigors, or chills. She complains of soreness in the abdomen from recent surgery. She denies any nausea or vomiting. She has not had a bowel movement since admission. PHYSICAL EXAMINATION: Vital Signs: Temperature of 98.5, pulse rate of 108, respiratory rate of 22, blood pressure of 184/60, saturating 97% on 3 L nasal cannula. BMI 25.9 kg/m2. General Appearance: Moderately built, moderately nourished. Sitting in bed, in no acute distress. HEENT: Positive pallor. No icterus. Neck: Supple. Abdomen: Discomfort from recent surgery with abdominal binder in place. There are some laparoscopy scar eid. Soreness in the abdomen from surgery. Extremities: No cyanosis, clubbing. Neurologic: Alert, awake, oriented x3. LABS: Hemoglobin and hematocrit are 8.6 and 28.0, white count of 9.5, platelet count of 332,000. Sodium of 132, potassium 4.2, chloride 103, bicarb 25, anion gap of 6, BUN of 5, creatinine 0.6, glucose of 113, calcium is 8.2, phosphorus 2.6, magnesium 1.7. Her ABG is showing pH of 7.38, pCO2 of 42, PO2 80. This is on nasal cannula at 36% FiO2. Blood culture x2 negative at 48 hours from 12/17/2018. Chest x-ray done today showed small bilateral pleural effusion, cardiomegaly, stable atelectasis. IMPRESSION/PLAN: 1. Postoperative day 1 from laparoscopic ventral hernia repair. She was admitted with incarcerated ventral hernia. She had surgery done by Dr. Hand. Dr. Hand is following. 2. History of nausea, vomiting, and hematemesis in the setting of Xarelto. Xarelto has been withheld. Her INR has been corrected. She will continue on Protonix twice daily. We will also start her on Carafate 1 g every 6 hours. 3. Diabetes. She is on Humulin R sliding scale. 4. Pain control with intravenous Dilaudid. 5. Anemia. She is on iron infusion per the primary care team. She will be getting it 4 days. 6. Chronic obstructive pulmonary disease, on home oxygen. She is being treated per the primary care team. 7. Reflux disease. She is on proton pump inhibitors. 8. Atrial fibrillation. She is on Xarelto which was withheld in the setting of gastrointestinal bleeding. She continues on digoxin. 9. Possible pneumonia. She is on antibiotics. 10. The patient will follow up in the clinic after discharge. At that time, we will plan for possible esophagogastroduodenoscopy and colonoscopy. In the interim, she will continue to recover from the surgery. The above plan was discussed with the patient. All questions were answered. Please call us with any further questions. cc: MD Milagros Fan MD Malcolm R. Hendricks, MD MTDD
--- NOTE | 2018-12-19 17:39 | CONSULTATION ---
DATE OF CONSULTATION: 12/19/2018 IMPRESSIONS: 1. Persistent atrial fibrillation. Patient has been in atrial fibrillation for over a month and on last clinic visit was started on amiodarone with plans to ultimately pursue cardioversion. 2. Patient currently admitted with abdominal discomfort and some hematemesis and has been found to have an incarcerated ventral hernia. She is now postoperative day 1 status post laparoscopic ventral hernia repair. Anticoagulation has been held since admission. 3. Atrial fibrillation in the past. The patient is status post previous maze procedure, along with ASD repair. 4. Diabetes mellitus. 5. Pulmonary hypertension. 6. Hypertension. 7. Chronic obstructive pulmonary disease requiring chronic oxygen. 8. Ongoing cigarette use. 9. History of previous pulmonary embolus as well as previous deep vein thrombosis. RECOMMENDATIONS: 1. Continue current cardiovascular medicines for rate control. 2. Continue amiodarone 200 mg daily. 3. Resume anticoagulation when permitted from a surgical standpoint. 4. No further CV suggestions. Patient should follow up with her regular director market intelligence, Dr. Rai, and ultimately be considered for cardioversion in the future. HISTORY: This 68-year-old white female with a past history of atrial fibrillation, previous ASD repair with maze procedure, pulmonary hypertension, hypertension, COPD requiring chronic oxygen, and diabetes mellitus was admitted December 17, several days ago with abdominal discomfort and hematemesis. She has been found to have an incarcerated ventral hernia. Anticoagulation has been interrupted. She has been in atrial fibrillation during her hospital stay. She had laparoscopic ventral hernia repair and is now postoperative day 1. She last saw her director market intelligence, Dr. Rai, a month ago and was in atrial fibrillation. She was started on amiodarone at that time as she continued anticoagulation with Xarelto. PAST MEDICAL HISTORY: 1. Atrial fibrillation. 2. Hypertension. 3. Type 2 diabetes mellitus. 4. Chronic obstructive pulmonary disease, requiring chronic oxygen. 5. Pulmonary hypertension. 6. Gastroesophageal reflux disease. 7. Mild abdominal aortic aneurysm. 8. Anxiety/depression. 9. Previous DVT and PE. 10. Basal cell carcinoma. PAST SURGICAL HISTORY: Cholecystectomy, tubal ligation, basal cell carcinoma removal from the face, carpal tunnel release, ASD repair with maze procedure, cardioversion, left hip closed reduction x2, and most recently laparoscopic repair of ventral hernia. ALLERGIES: She has no known drug allergies. MEDICATIONS PRIOR TO ADMISSION: As listed. SOCIAL HISTORY: She lives alone. She smokes about a half pack of cigarettes per day. She does not use alcohol. FAMILY HISTORY: Negative for premature coronary disease. REVIEW OF SYSTEMS: Pulmonary: Noteworthy for chronic dyspnea. Gastrointestinal: Noncontributory beyond history of present illness. Constitutional: Noncontributory beyond history of present illness. Remainder of review of systems negative/noncontributory beyond history of present illness with 14 total systems reviewed. PHYSICAL EXAMINATION: General: This is an older white female in no distress. Vital signs: Blood pressure 112/57, heart rate 106 and irregular with ECG monitor showing atrial fibrillation. HEENT: Extraocular muscles appear intact. Mucous membranes are moist. Neck: Supple. No jugular venous distention. No carotid bruits. Chest: Clear to auscultation bilaterally with somewhat diminished breath sounds diffusely. Cardiac Exam: Reveals an irregular rate and rhythm without appreciable murmur or gallop. Abdomen: Soft. Bowel sounds audible. Extremities: Without edema. Neurologic: Reveals her to be alert and fully oriented. Speech is fluent. She moves all 4 extremities equally well. PERTINENT DATA: Twelve-lead EKG demonstrates atrial fibrillation and incomplete right bundle branch block. LABORATORY DATA: White blood cell count 9.5, hematocrit 28.0, hemoglobin 8.6, platelet count 332,000. Sodium 134, potassium 4.2, chloride 103, carbon dioxide 25, BUN 5, creatinine 0.6, glucose 113. cc: Slick Guido MD
[2018-12-19] MEDS: DULCOLAX PR SCH (20:46)
[2018-12-19] MEDS: CARDIZEM PO SCH (20:46)
[2018-12-19] MEDS: MIRALAX PO SCH (20:47)
[2018-12-19] MEDS ORDERED: MELATONIN PO ONE (23:18)
[2018-12-20] MEDS: DILAUDID IV PRN ×5 (01:27→20:50)
[2018-12-20] MEDS: CARDIZEM PO SCH ×2 (01:27→08:35)
[2018-12-20] MEDS: XOPENEX NEB INH SCH ×4 (03:15→21:10)
[2018-12-20] MEDS: CARAFATE LIQUID PO SCH ×4 (05:20→20:51)
[2018-12-20 05:37] LABS: HEMATOCRIT 30.8 % (37.0-47.0); HEMOGLOBIN 9.5 g/dL (12.0-16.0); MCH 24.3 PG (27-31); MCHC 30.8 g/dL (33-37); MCV 78.8 FL (81-99); MPV 9.5 FL (7.4-10.4); RBC 3.91 XMIL (4.2-5.4); RDW 18.3 % (11.5-14.5); WBC 10.68 X1000 (4.8-10.8)
[2018-12-20 06:02] LABS: MAGNESIUM 1.6 mg/dL (1.5-2.7); PHOSPHORUS 3.7 mg/dL (2.7-4.5)
[2018-12-20] MEDS ORDERED: MAGNESIUM SULFATE 2 GM/S.W.I. 2 GM/50 ML IVPB IV ONE (06:03)
[2018-12-20 06:04] LABS: AGAP 11; BUN 4 mg/dL (8-22); CALCIUM 8.6 mg/dL (8.8-10.2); CHLORIDE 99 mmol/L (98-107); COSMO 273; CREATININE 0.7 mg/dL (0.5-0.9); ESTIMATED GFR > 60; GLUCOSE 105 mg/dL (70-104); POTASSIUM 3.6 mmol/L (3.5-5.1); SODIUM 138 mmol/L (136-145); TCO2 28 mmol/L (25-35)
[2018-12-20] MEDS: HUMULIN R SUBQ SCH ×4 (06:39→22:14)
--- NOTE | 2018-12-20 07:19 | Diag Imaging Result Doc PS360 ---
EXAM: CHEST-PORTABLE 12/20/2018 HISTORY: copd TECHNIQUE: AP portable at 0602 COMMENT: There is slightly worse and basilar platelike atelectasis particularly in the left lower lobe. There is cardiomegaly. There may be mild interstitial pulmonary edema. IMPRESSION: Worsened atelectasis and pulmonary edema. Electronically signed by Hung Charles 12/20/2018 7:17 AM
[2018-12-20] MEDS ORDERED: LASIX IV ONE (07:30)
[2018-12-20] MEDS: LANOXIN PO SCH (08:35)
[2018-12-20] MEDS: CORDARONE PO SCH (08:35)
[2018-12-20] MEDS: COREG PO SCH ×2 (08:35→20:52)
[2018-12-20] MEDS: MIRALAX PO SCH ×2 (08:36→21:06)
[2018-12-20] MEDS: DULCOLAX PR SCH ×3 (08:36→21:05)
[2018-12-20] MEDS: MAXIPIME 1 GM in NS 50 ML IV SCH (08:36)
[2018-12-20] MEDS: CENTRUM SILVER PO SCH (08:36)
[2018-12-20] MEDS: ZYVOX 600 MG/D5W 600 MG/300 ML IVPB IV SCH (08:41)
[2018-12-20] MEDS: VENOFER 200 MG in NS 150 ML IV SCH (09:16)
[2018-12-20] MEDS: MUCOMYST 20% INH SCH ×2 (09:59→21:10)
--- NOTE | 2018-12-20 11:20 | GENERAL SURGERY PROGRESS NOTE ---
DATE: 12/20/2018 SUBJECTIVE: The patient seems to be doing okay. She is having some discomfort and pain, but she is tolerating her diet for the most part and passing gas. OBJECTIVE: Vital Signs: The patient is currently afebrile. Her vital signs are stable. General: No acute distress. Cardiovascular: Somewhat irregular. Lungs: Some coarse sounds noted. Abdomen: Soft, appropriately tender. Binder in place. ASSESSMENT/PLAN: A 68-year-old female, currently postoperative day #2 from laparoscopic repair from ventral hernia. 1. Postoperative state. At this time, she seems to be doing okay. Her pain sounds appropriate. It sounds more like soreness. We will continue with sequential compression devices. 2. Gastrointestinal bleed. At this time, the patient's hematocrit did decrease a little bit yesterday to 28 from 31. We will need to monitor. In the meantime, we are holding any kind of anticoagulation given this GI bleed. Once her hematocrit stabilizes, I think we can restart her anticoagulation. 3. Multiple medical comorbidities including atrial fibrillation with atrial flutter. At this time defer to the hospitalist service. They have gotten Cardiology involved. We will continue to monitor. cc: Harsha Hand MD
--- NOTE | 2018-12-20 14:42 | PROGRESS NOTE ---
DATE: 12/20/2018 SUBJECTIVE: The patient is resting comfortably in bed. She ate well with her breakfast this morning, and she has had a bowel movement. OBJECTIVE: Vital Signs: Temperature 98.3 degrees, blood pressure 117/61, heart rate 110, respirations 18, O2 saturation 95% on 3 L nasal cannula. Intake 900; output 1.7 L. General: This is a chronically ill-appearing, elderly female, lying in bed in no acute distress. Head: Normocephalic, atraumatic. Heart: S1, S2 normal. Irregularly irregular rhythm. Lungs: Coarse breath sounds bilaterally with rhonchi. Abdomen: Positive bowel sounds. Soft, nontender, nondistended. Extremities: 1+ edema. Neurologic: The patient is alert and oriented x4. LABS: White blood cell count 10, hemoglobin 9.5, hematocrit 30, platelets 353. Sodium 138, potassium 3.6, chloride 99, CO2 28. BUN 4, creatinine 0.7, glucose 105, magnesium 1.6. X-RAYS: Chest x-ray shows pulmonary edema. ASSESSMENT AND PLAN: 1. Status post laparoscopic repair of an incarcerated ventral hernia. Management as per the general surgeon. 2. Hematemesis. This appears to have resolved. We will transition the patient to oral Protonix. Gastroenterology is following. 3. Atrial fibrillation. Continue on Coreg, Cardizem, amiodarone and digoxin. Cardiology is following. Also, the patient's Xarelto has been restarted. 4. Diabetes mellitus type 2. Continue with sliding scale insulin. 5. Chronic obstructive pulmonary disease. Continue with bronchodilator therapy and supplemental oxygen. 6. Anemia. Stable. 7. Pulmonary edema. Will give the patient a dose of Lasix today. 8. Hypomagnesemia. Will replace the patient's magnesium. 9. Iron deficiency anemia. Continue with intravenous iron replacement. 10. Constipation. Continue on MiraLAX. 11. Continue with physical therapy. cc: Milagros Barbosa MD
[2018-12-20] MEDS: XARELTO PO SCH (16:55)
[2018-12-20] MEDS ORDERED: ZOFRAN ODT PO PRN (18:11)
--- NOTE | 2018-12-20 18:17 | PROVIDER PROGRESS NOTE ---
Progress Note BRIEF GI PROGRESS NOTE Chart reviewed. Patient was not seen today. Mild tachycardia. Normotensive. Hgb increased today to 9.5 without reported overt GI bleeding. No transfusion needs. Continue post-operative mgmt. Continue PPI IV BID. Please call with questions. Dr. Lomeli will be residential property consultant over the weekend.
[2018-12-20] MEDS ORDERED: PROTONIX IV SCH (18:29)
[2018-12-20] MEDS: PROTONIX PO SCH (20:52)
[2018-12-20] MEDS: ZOLOFT PO SCH (20:52)
[2018-12-20] MEDS: ZOFRAN ODT PO PRN (20:52)
[2018-12-20] MEDS: CARDIZEM LA PO SCH (20:52)
[2018-12-20] MEDS: XANAX PO PRN (23:57)
[2018-12-21] MEDS: CARAFATE LIQUID PO SCH ×5 (00:51→23:34)
[2018-12-21] MEDS: XOPENEX NEB INH SCH ×4 (03:20→21:25)
[2018-12-21] MEDS: DILAUDID IV PRN ×4 (05:25→20:40)
[2018-12-21 06:06] LABS: MCH 24.4 PG (27-31); MCHC 31.3 g/dL (33-37); MCV 78.2 FL (81-99); MPV 9.7 FL (7.4-10.4); RBC 4.09 XMIL (4.2-5.4); RDW 18.9 % (11.5-14.5); WBC 9.91 X1000 (4.8-10.8)
[2018-12-21] MEDS: HUMULIN R SUBQ SCH ×4 (06:13→22:38)
[2018-12-21 06:28] LABS: AGAP 10; BUN 5 mg/dL (8-22); CALCIUM 8.5 mg/dL (8.8-10.2); CHLORIDE 97 mmol/L (98-107); COSMO 275; CREATININE 0.6 mg/dL (0.5-0.9); ESTIMATED GFR > 60; GLUCOSE 104 mg/dL (70-104); MAGNESIUM 1.6 mg/dL (1.5-2.7); PHOSPHORUS 2.7 mg/dL (2.7-4.5); POTASSIUM 3.6 mmol/L (3.5-5.1); SODIUM 139 mmol/L (136-145); TCO2 32 mmol/L (25-35)
[2018-12-21] MEDS ORDERED: MAGNESIUM SULFATE 2 GM/S.W.I. 2 GM/50 ML IVPB IV ONE (06:50)
[2018-12-21] MEDS ORDERED: PROTONIX PO SCH (07:00)
[2018-12-21] MEDS ORDERED: LASIX IV ONE (08:09)
[2018-12-21] MEDS ORDERED: NASONEX NASAL SPRAY NAS SCH (09:00)
[2018-12-21] MEDS ORDERED: ZOLOFT PO SCH (09:00)
[2018-12-21] MEDS: ZOFRAN ODT PO PRN ×2 (09:15→16:43)
[2018-12-21] MEDS: CENTRUM SILVER PO SCH (09:17)
[2018-12-21] MEDS: ZOLOFT PO SCH ×2 (09:17→20:42)
[2018-12-21] MEDS: LANOXIN PO SCH (09:17)
[2018-12-21] MEDS: CARDIZEM LA PO SCH ×2 (09:17→22:03)
[2018-12-21] MEDS: PROTONIX PO SCH ×2 (09:17→20:42)
[2018-12-21] MEDS: COREG PO SCH ×2 (09:17→22:03)
[2018-12-21] MEDS: CORDARONE PO SCH (09:18)
[2018-12-21] MEDS: MIRALAX PO SCH ×2 (09:18→20:57)
[2018-12-21] MEDS: DULCOLAX PR SCH ×2 (09:18→20:55)
[2018-12-21] MEDS: MUCOMYST 20% INH SCH ×2 (09:20→21:25)
--- NOTE | 2018-12-21 11:29 | Diag Imaging Result Doc PS360 ---
EXAM: CHEST-PORTABLE HISTORY: pulmonary edema TECHNIQUE: Chest single view COMPARISON: 12/20/2018 FINDINGS: The lungs are well expanded. The heart is not enlarged. Sternal wires are present The vessels are only minimally distended. There are no infiltrates. No effusion identified. IMPRESSION: Minimal vascular distention Electronically signed by Pablito Matute 12/21/2018 11:26 AM
--- NOTE | 2018-12-21 12:48 | PROGRESS NOTE ---
DATE: 12/21/2018 SUBJECTIVE: The patient states that she feels a lot better today. She states that her appetite is coming back. OBJECTIVE: Vital Signs: Temperature 98.7 degrees, blood pressure 123/60, heart rate 108, respirations 22, O2 saturation 98% on 2.5 L nasal cannula. General: This is an elderly female lying in bed in no acute distress. Heart: S1, S2. Normal. Irregularly irregular rhythm. Lungs: Coarse breath sounds bilaterally. Abdomen: Positive bowel sounds. Soft, nontender, nondistended. Extremities: No edema, no cyanosis. Neurologic: The patient is alert and oriented x4. LABS: White blood cell count 9.9, hemoglobin 10, hematocrit 32, platelets 367. Sodium 139, potassium 3.6, chloride 97, CO2 32. BUN 5, creatinine 0.6, glucose 124, magnesium 1.6, phosphorus 2.7. ASSESSMENT AND PLAN: 1. Status post laparoscopic repair of an incarcerated ventral hernia. Management as per the general surgeon. 2. Hematemesis. Resolved. Continue on oral Protonix. 3. Atrial fibrillation. Continue on Coreg, Cardizem, amiodarone, digoxin and Xarelto. 4. Diabetes mellitus type 2. Continue with sliding scale insulin. 5. Chronic obstructive pulmonary disease. Continue bronchodilator therapy and supplemental oxygen. 6. Pulmonary edema. Resolved. 7. Iron deficiency anemia. Improved. 8. Continue with physical therapy. cc: Milagros Barbosa MD
--- NOTE | 2018-12-21 13:28 | GENERAL SURGERY PROGRESS NOTE ---
DATE: 12/21/2018 SUBJECTIVE: The patient is feeling better. She denies significant abdominal pain, is just a little sore. She is eating. No nausea or vomiting. OBJECTIVE: She is afebrile, pulse 117 earlier this morning, now 100 on my exam, respiratory rate 20, blood pressure 123/61, O2 saturation 95%. She has had 2 bowel movements without blood.General: She is awake, alert, oriented x4. No acute distress. Gastrointestinal: Soft. Minimal tenderness. The incisional dressings are clean and dry. LABORATORY: Hemoglobin 10, hematocrit 32, which are stable. ASSESSMENT AND PLAN: A 68-year-old female status post laparoscopic ventral hernia repair. She has atrial fibrillation which is managed by Cardiology and the hospitalist. She had what appeared to be a lower gastrointestinal bleed' however, she has shown no further signs of bleeding over the last 24 hours, so therefore, there are no further acute surgical issues, and she can be discharged home per the primary team when stable. cc: Joon Aguilar MD
[2018-12-21] MEDS: XANAX PO PRN (16:43)
[2018-12-21] MEDS: XARELTO PO SCH (16:44)
--- NOTE | 2018-12-21 19:18 | GASTROENTEROLOGY PROGRESS NOTE ---
DATE: 12/21/2018 SUBJECTIVE: Resting in bed. The patient is feeling better. She denies any new complaints. She denies any fevers, rigors or chills. She does have abdominal discomfort from recent surgery. She denies any nausea, vomiting, vomiting blood or passing blood in her stools. OBJECTIVE: Vital signs: Temperature of 98.6 degrees, pulse 111, respiratory rate 19, blood pressure 109/70, saturating 94% on 2.5 L nasal cannula. Body weight of 152 pounds 4 ounces. BMI 25.3 kg/m2. General: Moderately built, lying in bed, in no acute. HEENT: Pale. No icterus. Neck is supple. Abdomen: There is discomfort in the pelvic region from recent surgery. No rebound or guarding. Extremities: No cyanosis or clubbing. Neurologic. She was alert, awake and oriented x3. LABORATORY DATA: Hemoglobin and hematocrit are 10 and 32, white count of 9.9, platelet count of 365,000. Her sodium is 139, potassium 3.6, chloride 97, bicarbonate 30, anion gap of 10, BUN of 5, creatinine 0.6, glucose of 104, calcium is 8.5, phosphorus 2.7, magnesium 1.6. Liver enzymes were normal on 12/18/2018. Blood culture x2 negative at 48 hours from 12/17/2018. DIAGNOSTIC DATA: Chest x-ray done today which showed minimal vascular distention. Sternal wires are present. No infiltrates, no effusions. IMPRESSION AND PLAN: 1. Status post laparoscopic repair of incarcerated ventral hernia. General Surgery is following. 2. Hematemesis, resolved. We will continue Protonix twice daily and Carafate 1 g every 6 hours. 3. Anemia. We will continue on following her blood counts. She will continue multivitamin once daily. We will start her on iron-C b.i.d. 4. Diabetes. She is on sliding scale regular insulin. 5. Atrial fibrillation. She is on digoxin, Coreg, amiodarone and Xarelto. 6. Chronic obstructive pulmonary disease. She continues on bronchodilator therapy and supplemental oxygen. 7. Pulmonary edema, resolved. 8. Iron-deficiency anemia. We will start on iron-C b.i.d. 9. Deconditioning. She will be working with physical therapy. 10. The patient will follow up in the clinic in 3 weeks of discharge. At that time, we will plan for esophagogastroduodenoscopy for workup of anemia, nausea, vomiting and hematemesis, when she presented during this admission. 11. The above plan was discussed with the patient. All questions were answered. Please call us with any further questions. cc: MD Toy Fan MD
[2018-12-21] MEDS: ICAR-C PO SCH (20:41)
[2018-12-21] MEDS ORDERED: CALMOSEPTINE OINTMENT TOP PRN (21:24)
[2018-12-22] MEDS: XOPENEX NEB INH SCH ×4 (03:55→21:45)
[2018-12-22] MEDS: CARAFATE LIQUID PO SCH ×4 (05:27→23:42)
[2018-12-22 05:50] LABS: HEMATOCRIT 32.2 % (37.0-47.0); MCH 24.5 PG (27-31); MCHC 31.1 g/dL (33-37); MCV 78.9 FL (81-99); MPV 9.5 FL (7.4-10.4); RBC 4.08 XMIL (4.2-5.4); RDW 19.7 % (11.5-14.5); WBC 10.89 X1000 (4.8-10.8)
[2018-12-22 06:11] LABS: MAGNESIUM 1.8 mg/dL (1.5-2.7); PHOSPHORUS 2.5 mg/dL (2.7-4.5)
[2018-12-22] MEDS: HUMULIN R SUBQ SCH ×4 (06:13→21:15)
[2018-12-22 06:27] LABS: AGAP 10; BUN 9 mg/dL (8-22); CALCIUM 8.7 mg/dL (8.8-10.2); CHLORIDE 99 mmol/L (98-107); COSMO 278; CREATININE 0.6 mg/dL (0.5-0.9); ESTIMATED GFR > 60; GLUCOSE 124 mg/dL (70-104); SODIUM 139 mmol/L (136-145); TCO2 30 mmol/L (25-35)
[2018-12-22] MEDS: LANOXIN PO SCH (08:49)
[2018-12-22] MEDS: NEUTRA-PHOS PO SCH ×4 (08:49→21:15)
[2018-12-22] MEDS: ICAR-C PO SCH ×2 (08:49→21:14)
[2018-12-22] MEDS: CENTRUM SILVER PO SCH (08:49)
[2018-12-22] MEDS: CORDARONE PO SCH (08:50)
[2018-12-22] MEDS: ZOLOFT PO SCH ×2 (08:50→21:15)
[2018-12-22] MEDS: CARDIZEM LA PO SCH ×2 (08:50→21:14)
[2018-12-22] MEDS: FLONASE NAS SCH (08:50)
[2018-12-22] MEDS: COREG PO SCH ×2 (08:50→21:14)
[2018-12-22] MEDS: PROTONIX PO SCH ×2 (08:50→21:14)
[2018-12-22] MEDS: XANAX PO PRN ×2 (08:51→21:14)
--- NOTE | 2018-12-22 09:07 | GENERAL SURGERY PROGRESS NOTE ---
DATE: 12/22/2018 SUBJECTIVE: The patient is having some abdominal soreness and nausea, but actually ate fairly well. OBJECTIVE: She is afebrile. Vital signs are stable. General: She is awake and alert, in no acute distress. Gastrointestinal: Soft, nondistended. Minimally tender. Incision is clean, dry, and intact. ASSESSMENT AND PLAN: A 68-year-old female status post laparoscopic ventral hernia repair, perioperative atrial fibrillation, and lower gastrointestinal bleed. The lower gastrointestinal bleed appears to be resolved. Her hemoglobin and hematocrit are stable. Her vital signs are stable. She can be discharged home per the primary team when her arrhythmia is stable. cc: Joon Aguilar MD
[2018-12-22] MEDS: MUCOMYST 20% INH SCH ×2 (09:43→21:45)
[2018-12-22] MEDS: MIRALAX PO SCH ×2 (10:00→21:16)
[2018-12-22] MEDS: DULCOLAX PR SCH ×2 (10:00→21:15)
[2018-12-22] MEDS: ZOFRAN ODT PO PRN (12:31)
[2018-12-22] MEDS: DILAUDID IV PRN ×3 (12:31→21:15)
--- NOTE | 2018-12-22 14:42 | PROGRESS NOTE ---
DATE: 12/22/2018 SUBJECTIVE: The patient is resting comfortably in bed. She has no complaints at this time. OBJECTIVE: Vital Signs: Temperature 98.4 degrees, blood pressure 140/80, heart rate 104, respirations 18, O2 saturation 94% on 3 L nasal cannula. General: This is an elderly female lying in bed in no acute distress. Heart: S1, S2 normal. Lungs: Coarse breath sounds with rhonchi. Abdomen: Positive bowel sounds. Soft, nontender, nondistended. Extremities: No edema, no cyanosis. Neuro: The patient is alert and oriented x4. LABS: White blood cell count 10, hemoglobin 10, hematocrit 32, platelets 354,000. Sodium 139, potassium 4, BUN 9, creatinine 0.6, glucose 124, phosphorus 2.5, magnesium 1.8. ASSESSMENT AND PLAN: 1. Status post laparoscopic repair of an incarcerated ventral hernia. Management as per the general surgeon. 2. Hematemesis. Resolved. Continue on oral Protonix, GI is following. 3. Atrial fibrillation. Continue on the current cardiac regimen. Will await further recommendations from the appeals nurse. 4. Chronic obstructive pulmonary disease. Continue with bronchodilator therapy and supplemental oxygen. 5. Chronic hypoxemic respiratory failure. Stable. 6. Diabetes mellitus type 2. Continue on sliding scale insulin. 7. Iron deficiency anemia stable. 8. Anxiety disorder. Continue on Xanax. 9. Situational depression. Continue on Zoloft. 10. Disposition. Continue with physical therapy. cc: Milagros Barbosa MD MTDD
[2018-12-22] MEDS: XARELTO PO SCH (17:03)
--- NOTE | 2018-12-22 20:14 | GASTROENTEROLOGY PROGRESS NOTE ---
DATE: 12/22/2018 SUBJECTIVE: Patient resting in bed, she is feeling better. She denies any nausea, vomiting, vomiting blood, she is eating better. She is moving her bowels. PHYSICAL EXAMINATION: Vitals: Temperature 98.1, pulse of 92, respiratory rate 18, blood pressure 92/55, saturating 94% on 3 L nasal cannula . General: Moderately nourished lying in bed in no acute distress. ENT pale. No icterus. Neck: Supple. Abdomen: Discomfort in the pelvic region from recent surgery, no rebound. Extremities: No cyanosis, clubbing. Neuro: Was alert, awake, oriented. LABS: Her hemoglobin and hematocrit is 10 and 32.2, white count 10.89, platelet count of 354,000, sodium of 139, potassium 4, chloride 99, bicarb 39, BUN of 9, creatinine 0.6, glucose of 124, calcium is 8.7, phosphorus 2.5, magnesium 1.8. Blood culture times negative 48 hours from 12/17/2018. IMPRESSION AND PLAN: 1. Status post laparoscopic repair of incarcerated ventral hernia, general surgery team is following. 2. Hematemesis resolved, she will continue Protonix, we will schedule for EGD as an outpatient in 3 weeks once she recovers from the abdominal surgery. 3. Atrial fibrillation being followed by acetylene operator. 4. Chronic obstructive pulmonary disease, patient counseled to quit smoking, she will continue bronchodilator therapy and supplemental oxygen. 5. Diabetes type 2, she is on sliding scale insulin. 6. Depression. She is on Zoloft. 7. Deconditioning, she will continue to work with physical therapy. 8. Anxiety disorder, she is on Xanax. 9. Iron-deficiency anemia stable, will keep her on Iron C b.i.d., multivitamin once daily. 10. Chronic hypoxic respiratory failure stable and improved. 11. Will sign off at this time. The above plan discussed the patient and all questions answered. Please call us with any further questions. Patient follow up in the clinic in 3 weeks of discharge. cc: Toy Salcido MD
[2018-12-23] MEDS: XOPENEX NEB INH SCH ×4 (03:50→20:17)
[2018-12-23 05:23] LABS: HEMATOCRIT 29.8 % (37.0-47.0); HEMOGLOBIN 9.2 g/dL (12.0-16.0); MCH 24.4 PG (27-31); MCHC 30.9 g/dL (33-37); MPV 9.1 FL (7.4-10.4); RBC 3.77 XMIL (4.2-5.4); RDW 19.7 % (11.5-14.5); WBC 11.63 X1000 (4.8-10.8)
[2018-12-23] MEDS: CARAFATE LIQUID PO SCH ×5 (05:35→22:22)
[2018-12-23 05:49] LABS: MAGNESIUM 1.6 mg/dL (1.5-2.7); PHOSPHORUS 3.5 mg/dL (2.7-4.5)
[2018-12-23 05:52] LABS: SODIUM 137 mmol/L (136-145)
[2018-12-23 06:07] LABS: BUN 7 mg/dL (8-22); CALCIUM 8.6 mg/dL (8.8-10.2); CHLORIDE 97 mmol/L (98-107); CREATININE 0.6 mg/dL (0.5-0.9); ESTIMATED GFR > 60; GLUCOSE 112 mg/dL (70-104); POTASSIUM 3.8 mmol/L (3.5-5.1); TCO2 30 mmol/L (25-35)
[2018-12-23] MEDS: HUMULIN R SUBQ SCH ×4 (06:25→21:49)
[2018-12-23 06:42] LABS: AGAP 10
[2018-12-23 06:44] LABS: COSMO 273
--- NOTE | 2018-12-23 06:58 | GENERAL SURGERY PROGRESS NOTE ---
DATE: 12/23/2018 SUBJECTIVE: Patient seems to be doing okay. No major issues reported by the nursing staff. OBJECTIVE: Vital Signs: The patient is currently afebrile. Her vital signs are stable. General Examination: No acute distress. Cardiovascular: Regular rate and rhythm. Lungs: Grossly clear. Abdomen: Soft, appropriately tender. She is not wearing a binder right now. ASSESSMENT AND PLAN: A 68-year-old female, status post laparoscopic ventral hernia repair. 1. Postoperative state. At this time, the patient is doing well. She needs to wear her binder until she is 6 weeks out, and to avoid heavy lifting more than 10 pounds until she is at least 3 to 4 weeks out. From a surgical point of view, she has stabilized. I think she can be discharged. 2. Gastrointestinal bleed. At this time, it seems to be stable without any signs of recurrent bleeding. From a surgical point of view, it is probably safe to start the patient's anticoagulation, but I will defer to the hospitalist. She has been restarted on her Xarelto by the hospitalist service. 3. Disposition. At this time, I think she could be discharged home but we will defer to the hospitalist. She needs to see me back in the office in 1 to 2 weeks. 4. Surgically, the patient is doing well. We will sign off. We will be available if needed. Again, the patient needs to wear her binder and not lift more than 10 pounds. The patient is to follow up with me in 1 to 2 weeks in the office. cc: Harsha Hand MD
--- NOTE | 2018-12-23 07:30 | EKG Report ---
Test Performed on : 12/22/2018 08:17:48 AM Test Reason : afib Blood Pressure : / mmHG Vent. Rate : 111 BPM Atrial Rate : 095 BPM P-R Int : 000 ms QRS Dur : 094 ms QT Int : 332 ms P-R-T Axes : 000 069 -49 degrees QTc Int : 451 ms Undetermined rhythm Incomplete right bundle branch block ST & T wave abnormality, consider anterior ischemia Abnormal ECG When compared with ECG of 19-DEC-2018 09:36, (Unconfirmed) Current undetermined rhythm precludes rhythm comparison, needs review ST now depressed in Inferior leads Confirmed by Bravo LOGAN, Dann Romeo ([id number]) on 12/23/2018 7:59:02 AM
[2018-12-23] MEDS ORDERED: MAGNESIUM SULFATE 2 GM/S.W.I. 2 GM/50 ML IVPB IV ONE (08:00)
[2018-12-23] MEDS: DULCOLAX PR SCH ×2 (09:00→21:49)
[2018-12-23] MEDS: MIRALAX PO SCH ×3 (09:00→21:49)
[2018-12-23] MEDS: PROTONIX PO SCH ×2 (09:01→21:48)
[2018-12-23] MEDS: COREG PO SCH ×2 (09:01→21:49)
[2018-12-23] MEDS: LANOXIN PO SCH (09:01)
[2018-12-23] MEDS: ZOLOFT PO SCH ×2 (09:01→21:48)
[2018-12-23] MEDS: CENTRUM SILVER PO SCH (09:03)
[2018-12-23] MEDS: FLONASE NAS SCH (09:03)
[2018-12-23] MEDS: ICAR-C PO SCH ×2 (09:03→21:48)
[2018-12-23] MEDS: CARDIZEM LA PO SCH ×2 (09:03→21:49)
[2018-12-23] MEDS: CORDARONE PO SCH (09:03)
[2018-12-23] MEDS: NEUTRA-PHOS PO SCH (09:03)
[2018-12-23] MEDS: MUCOMYST 20% INH SCH ×2 (09:56→20:20)
[2018-12-23] MEDS: DILAUDID IV PRN ×3 (10:20→20:13)
[2018-12-23] MEDS: ZOFRAN ODT PO PRN (10:20)
--- NOTE | 2018-12-23 12:07 | GASTROENTEROLOGY PROGRESS NOTE ---
DATE: 12/23/2018 SUBJECTIVE: Patient resting in bed. She complains of constipation this morning. She denies any nausea or vomiting. She denies any vomiting blood. She had brown stool today. OBJECTIVE: Vital signs: Temperature 98.5, pulse rate 73, respiratory 15. Blood pressure 119/59 saturating 95% on 3 nasal cannula. General Appearance: Moderately built, lying in bed, in no acute distress. HEENT: Pale conjunctivae. No icterus. Nasal cannula in place. Neck: Supple. Abdomen: Discomfort in the region. She had a recent surgery, no rebound or guarding. Extremities: No cyanosis, clubbing. Neurologic: She is alert, awake, oriented. LABS: Hemoglobin and hematocrit is 9.2 and 29.8, white count 11.63 platelet count of 320,000. Sodium 137, potassium 3.8, chloride 97, bicarb 30, anion gap 10, BUN of 7, creatinine 0.6, glucose of 112, calcium is 8.6, phosphorus 3.5, magnesium 1.6. Blood culture x2 negative after 5 days from 12/17/2018. IMPRESSION/PLAN: 1. Laparoscopic ventral hernia repair. She is being followed by Dr. Hand. She will wear the abdominal binder for 6 weeks. 2. Hematemesis resolved. We will continue PPIs b.i.d. and Carafate 1 g every 6 hours. We will schedule for EGD as an outpatient. She will be seen in the office in 3 weeks after discharge. 3. Anemia. Continue to watch for now. Transfuse as needed. We will start on Iron C b.i.d., multivitamin. 4. Chronic obstructive pulmonary disease. The patient was counseled to quit smoking. She will continue on supplemental oxygen and bronchodilator therapy. 5. Atrial fibrillation. She is being followed by general road foreman. 6. Depression. She is on Zoloft. 7. Type 2 diabetes sliding-scale insulin. 8. Deconditioning. She will work with physical therapy. 9. Anxiety disorder; she is on Xanax. 10. Chronic hypoxic respiratory failure. Stable and improved. 11. For constipation we will continue on Dulcolax 10 mg per rectal b.i.d. and MiraLAX 17 g p.o. b.i.d. If needed, we can go up to MiraLAX 34 g twice daily. 12. The patient is on Xarelto so we have to be extra careful with any evidence of active gastrointestinal bleeding. 13. The patient will continue on Protonix twice daily for now until seen in the outpatient setting for an EGD. 14. The above plans mentioned with the patient and all questions were answered. Please call us with any further issues. cc: MD Moses Dominique MD [facility]ITALTor[facility]
[2018-12-23] MEDS: XANAX PO PRN ×2 (12:36→20:13)
--- NOTE | 2018-12-23 15:00 | PROGRESS NOTE ---
DATE: 12/23/2018 SUBJECTIVE: The patient is resting comfortably in bed. She has no complaints today. OBJECTIVE: Vital Signs: Temperature 97.5 degrees, blood pressure 104/48, heart rate 75, respirations 17, O2 saturation is 97% on 3 L nasal cannula. Urine output 1.4 L. General: This is a chronically ill-appearing, elderly female lying in bed, in no acute distress. Heart: S1, S2 normal. Lungs: Coarse breath sounds bilaterally. Abdomen: Positive bowel sounds. Soft, nontender, nondistended. Extremities: No edema. No cyanosis. No calf tenderness. Neurologic: The patient is alert and oriented x4. LABS: White blood cell count 11, hemoglobin 9.2, hematocrit 29, platelets 329,000. Sodium 137, potassium 3.8, chloride 97, CO2 30, BUN 7, creatinine 0.6, glucose 112, magnesium 1.6. ASSESSMENT AND PLAN: 1. Status post laparoscopic repair of an incarcerated ventral hernia. Stable. General Surgery is following. 2. Hematemesis. Resolved. Continue on Protonix. 3. Atrial fibrillation. Continue on the current cardiac regimen. 4. Chronic obstructive pulmonary disease. Stable. Continue on bronchodilator therapy and supplemental oxygen. 5. Chronic hypoxemic respiratory failure. Stable. 6. Iron deficiency anemia. Stable. 7. Anxiety disorder. Continue on Xanax. 8. Situational depression. Continue on Zoloft. 9. Diabetes mellitus type 2. Continue on sliding scale insulin. 10. Continue with physical therapy. 11. Disposition. The patient states that upon discharge she plans to go home with home health. cc: Milagros Barbosa MD
[2018-12-23] MEDS: XARELTO PO SCH (16:56)
[2018-12-24] MEDS: DILAUDID IV PRN ×4 (00:05→22:41)
[2018-12-24] MEDS: XOPENEX NEB INH SCH ×4 (03:12→22:05)
[2018-12-24] MEDS: CARAFATE LIQUID PO SCH ×3 (05:48→16:23)
[2018-12-24 06:42] LABS: HEMATOCRIT 30.8 % (37.0-47.0); HEMOGLOBIN 9.6 g/dL (12.0-16.0); MCH 24.9 PG (27-31); MCHC 31.2 g/dL (33-37); MPV 9.5 FL (7.4-10.4); RBC 3.85 XMIL (4.2-5.4); RDW 20.1 % (11.5-14.5); WBC 12.19 X1000 (4.8-10.8)
--- NOTE | 2018-12-24 06:58 | Diag Imaging Result Doc PS360 ---
EXAM: CHEST-PORTABLE HISTORY: dyspnea TECHNIQUE: Portable chest single view COMPARISON: 12/21/2018 FINDINGS: There is basilar atelectasis or small infiltrates in the current exam. There is also mild pulmonary edema. Sternal wires are present and the heart is mildly enlarged. IMPRESSION: Mild interval worsening. Electronically signed by Pablito Matute 12/24/2018 6:56 AM
[2018-12-24 07:04] LABS: AGAP 11; ALKALINE PHOSPHATASE 66 U/L (32-104); BUN 7 mg/dL (8-22); CALCIUM 8.7 mg/dL (8.8-10.2); CHLORIDE 96 mmol/L (98-107); COSMO 272; CREATININE 0.6 mg/dL (0.5-0.9); ESTIMATED GFR > 60; GLUCOSE 134 mg/dL (70-104); GOT 13 U/L (10-30); GPT 12 U/L (10-36); MAGNESIUM 1.8 mg/dL (1.5-2.7); PHOSPHORUS 3.9 mg/dL (2.7-4.5); POTASSIUM 3.7 mmol/L (3.5-5.1); SODIUM 136 mmol/L (136-145); TCO2 29 mmol/L (25-35); TOTAL BILIRUBIN 0.29 mg/dL (0.20-1.00)
[2018-12-24] MEDS: HUMULIN R SUBQ SCH ×4 (07:56→22:22)
[2018-12-24] MEDS: ICAR-C PO SCH ×3 (07:57→21:38)
[2018-12-24] MEDS: COREG PO SCH ×3 (07:57→21:38)
[2018-12-24] MEDS: CARDIZEM LA PO SCH ×3 (07:57→21:38)
[2018-12-24] MEDS: LANOXIN PO SCH ×2 (07:57→08:04)
[2018-12-24] MEDS: CENTRUM SILVER PO SCH ×2 (07:57→08:02)
[2018-12-24] MEDS: PROTONIX PO SCH ×3 (07:57→21:38)
[2018-12-24] MEDS: ZOLOFT PO SCH ×2 (07:59→21:38)
[2018-12-24] MEDS: CORDARONE PO SCH (08:02)
[2018-12-24] MEDS: DULCOLAX PR SCH (08:03)
[2018-12-24] MEDS: MIRALAX PO SCH ×2 (08:04→21:38)
[2018-12-24] MEDS: FLONASE NAS SCH (08:06)
[2018-12-24] MEDS: MUCOMYST 20% INH SCH ×2 (10:21→19:43)
--- NOTE | 2018-12-24 13:01 | PROGRESS NOTE ---
DATE: 12/24/2018 SUBJECTIVE: Patient resting in bed. No new complaints today. OBJECTIVE: Vital Signs: Temperature is 98.7, pulse 52, respiratory rate 16, blood pressure 104/58 and oxygen saturation 97%. HEENT: Atraumatic, normocephalic. Cardiovascular: S1, S2. Respiratory: There is evidence of good air entry bilaterally. Abdomen: Soft, nontender. No masses. Extremities: No evidence of edema. Central nervous system: No obvious focal deficits noted. LABORATORY: WBC is 12.19, hematocrit is 30.8 with a platelet count of 324,000. Sodium is 136, potassium is 3.7, chloride is 96, bicarb is 29, BUN is 9.7, and creatinine 0.6. ASSESSMENT AND PLAN: 1. Status post laparoscopic repair of incarcerated ventral hernia. Stable. Surgery following. 2. Hematemesis, resolved. Continue proton pump inhibitor. 3. Atrial fibrillation. Heart rate is controlled. Continue beta juan and digoxin as well as amiodarone. 4. COPD. Continue nebulized bronchodilators. 5. Chronic hypoxemic respiratory failure. Use supplemental oxygen as needed. 6. Iron deficiency anemia. Continue iron replacement. 7. Anxiety disorder. Continue alprazolam. 8. Situational depression. Continue SSIR. 9. Diabetes mellitus type 2. Continue blood sugar monitoring as well as sliding scale insulin. 10. Deconditioning. The patient will require physical therapy. 11. Disposition. Probably discharge home with home health services. cc: Brayan Elena MD
[2018-12-24] MEDS: XANAX PO PRN ×2 (14:34→22:41)
[2018-12-24] MEDS: ZOFRAN ODT PO PRN (14:34)
[2018-12-24] MEDS: NS NEB INH SCH (15:54)
[2018-12-24] MEDS: XARELTO PO SCH (16:23)
--- NOTE | 2018-12-24 16:26 | PROVIDER PROGRESS NOTE ---
Progress Note SUBJECTIVE: No acute overnight events. Afebrile. No N/V/F, CP, SOB. +BM without rectal bleeding. OBJECTIVE: Last Vital Signs Temp 98.6 F 12/24/18 15:14 Pulse 69 12/24/18 15:54 Resp 22 12/24/18 15:54 BP 112/52 12/24/18 15:14 Pulse Ox 96 12/24/18 15:14 Height 5 ft 5 in Weight 153 lb 6.4 oz GEN: awake, alter, NAD HEENT: anicteric, MMM NECK: supple, no jvd PULM: CTAB, no wheezing ABD: soft ND/NT, NABS, trocar wounds c/d/i EXT: no cce NEURO: nonfocal LABS: 12/24/18 12/24/18 06:19 06:19 WBC 12.19 H Hgb 9.6 L Plt Count 324 Sodium 136 Potassium 3.7 Chloride 96 L BUN 7 L Creatinine 0.6 Glucose 134 H A/P: Ms. Marissa Wolf is a 68 year old woman with HTN, NIDDM2, COPD on 3L NC, afib on xarelto, GERD, AAA, pHTN who presented with hematemesis in the settting of incarcerated abdominal wall hernia with SBO s/p laparscopic repair. Labs were notable for EL. She is on PPI without recurrent bleeding. Patient will need diagnostic EGD and colonoscopy as outpatient for EL. #EL: stable hgb; continue iron replacement therapy #Hematemesis: continue PPI PO BID; stopped carafate #Incarcerated ventral hernia with SBO; s/p repair #COPD: on home O2; O2/nebs per primary #GERD: on PPI #AFIB: on xarelto #GI ppx: on bowel regimen Follow-up with myself in 2-4 weeks to schedule outpatient EGD/colonoscopy. Please call with questions
[2018-12-25] MEDS: XOPENEX NEB INH SCH ×3 (03:21→15:30)
[2018-12-25] MEDS: HUMULIN R SUBQ SCH ×2 (07:29→10:50)
[2018-12-25 07:52] VITALS: BP 127/55
[2018-12-25] MEDS: CORDARONE PO SCH (08:59)
[2018-12-25] MEDS: LANOXIN PO SCH (08:59)
[2018-12-25] MEDS: CENTRUM SILVER PO SCH (08:59)
[2018-12-25] MEDS: ICAR-C PO SCH (08:59)
[2018-12-25] MEDS: ZOLOFT PO SCH (09:00)
[2018-12-25] MEDS: MIRALAX PO SCH ×2 (09:00→10:24)
[2018-12-25] MEDS: CARDIZEM LA PO SCH (09:00)
[2018-12-25] MEDS: PROTONIX PO SCH (09:00)
[2018-12-25] MEDS: NS NEB INH SCH ×2 (09:57→15:30)
[2018-12-25] MEDS: MUCOMYST 20% INH SCH (09:57)
--- NOTE | 2018-12-25 10:03 | DISCHARGE SUMMARY ---
ADMISSION DATE: 12/17/2018 DISCHARGE DATE: PRINCIPAL DIAGNOSIS: Incarcerated hernia with small bowel obstruction, status post repair. SECONDARY DIAGNOSES: 1. Gastrointestinal bleed. 2. Atrial fibrillation. 3. Type 2 diabetes mellitus. 4. Iron deficiency anemia. 5. Chronic kidney disease. 6. Gastroesophageal reflux disease. 7. Pulmonary hypertension. 8. Coagulopathy. 9. Hyponatremia. 10. Chronic obstructive pulmonary disease. 11. Tobacco use history. 12. History of deep venous thrombosis as well as pulmonary embolism. 13. Depression. 14. Anxiety disorder. 15. History of basal cell carcinoma. 16. Chronic respiratory failure, on 3 L nasal cannula. DISCHARGE MEDICATIONS: Include the followin. Lasix 40 mg p.o. daily. 2. Coreg 6.25 mg p.o. twice a day. 3. Digoxin 125 mg p.o. daily. 4. Atorvastatin 40 mg p.o. at bedtime. 5. Magnesium oxide 400 mg p.o. daily. 6. Aspirin 81 mg p.o. daily. 7. Zoloft 100 mg p.o. twice a day. 8. Spiriva HandiHaler 1 daily as needed. 9. Reglan 5 mg before meals and at bedtime. 10. Flonase 2 sprays nasally twice a day. 11. MiraLAX 17 g twice a day. 12. Tylenol with codeine 1 every 4-6 hours p.r.n. 13. Omeprazole 40 mg p.o. daily. 14. Narco 7.5/325 every 4 to 6 hours. 15. DuoNeb 3 mL every 4 hours as needed. 16. Metformin 500 mg p.o. daily. 17. Spironolactone 25 mg p.o. daily. 18. Diltiazem 360 mg p.o. daily. 19. Zofran 8 mg to be taken as needed. 20. Amiodarone 200 mg p.o. daily. 21. Prednisone 10 mg p.o. once a day. 22. Xarelto 20mg p.o daily CONSULTATIONS DONE DURING THIS HOSPITAL STAY: Dr. Harsha Hand, general surgery; Dr. Mark Aguillon, gastroenterology, Dr. Celaya, Cardiology. PROCEDURES DONE DURING THIS HOSPITAL STAY: Chest, abdomen, and pelvis CT on 12/17/2018; laparoscopic repair of incarcerated ventral hernia done on 12/18/2018. HOSPITAL COURSE: Ms. Marissa Wolf is a 68-year-old female who has a history of pulmonary hypertension, depression, atrial fibrillation, atrial septal defect repair with Maze procedure, diabetes mellitus. Presented to the hospital with chief complaint of severe abdominal pains as well as hematemesis. She had a CT scan of the chest, abdomen, and pelvis which revealed an incarcerated hernia with a small bowel obstruction. The patient was seen by the surgical team. The patient subsequently had repair of the incarcerated hernia. This was done by Dr. Hand on 12/18/2018. She was placed on Protonix infusion for a GI bleed and she was seen by the GI team but no GI endoscopic studies were done. The patient seemed to have done well. She is currently stable. Per the GI team, the patient will need an EGD as well as colonoscopy to be done in the outpatient. PHYSICAL EXAMINATION: During my evaluation today, her vital signs are as follows: Temperature 98.8 degrees, pulse 79, respiratory rate 16, blood pressure 127/55, oxygen saturation is 98%. HEENT: Atraumatic, normocephalic. Cardiovascular System: S1, S2. Respiratory System: Has evidence of good air entry bilaterally. Abdomen: Soft, nontender. No masses felt. Extremities: No evidence of edema. Central Nervous System: No obvious focal deficit noted. LABORATORY DATA: Blood sugar is 113. PLAN: Discharge home today. Follow up with gastroenterology team in the outpatient for outpatient GI endoscopic studies. She will also need to follow up with the surgeon, Dr. Harsha Hand, in regards to her recent repair of incarcerated ventral hernia. Also follow up with cardiology with regards to history of atrial fibrillation. cc: Brayan Elena MD [facility]
[2018-12-25] MEDS: FLONASE NAS SCH (10:06)
[2018-12-25] MEDS: COREG PO SCH (10:07)
[2018-12-25] MEDS: DILAUDID IV PRN (10:24)
[2018-12-25] MEDS: ZOFRAN ODT PO PRN (10:24)
[2018-12-25] MEDS: XANAX PO PRN (10:25)
--- NOTE | 2018-12-25 23:55 | PROVIDER PROGRESS NOTE ---
Progress Note SUBJECTIVE: No acute overnight events. patient denies complaints OBJECTIVE: Last Vital Signs Temp 98.8 F 12/25/18 07:51 Pulse 71 12/25/18 15:30 Resp 18 12/25/18 15:30 BP 127/55 12/25/18 07:51 Pulse Ox 98 12/25/18 09:57 Height 5 ft 5 in Weight 157 lb 9 oz GEN: awake, alter, NAD HEENT: anicteric, MMM NECK: supple, no jvd PULM: CTAB, no wheezing ABD: soft ND/NT, NABS, trocar wounds c/d/i EXT: no cce NEURO: nonfocal LABS: none A/P: Ms. Marissa Wolf is a 68 year old woman with HTN, NIDDM2, COPD on 3L NC, afib on xarelto, GERD, AAA, pHTN who presented with hematemesis in the settting of incarcerated abdominal wall hernia with SBO s/p laparscopic repair. Labs were notable for EL. She is on PPI without recurrent bleeding. Patient will need diagnostic EGD and colonoscopy as outpatient for EL. #EL: stable hgb; continue iron replacement therapy #Hematemesis: continue PPI PO BID #Incarcerated ventral hernia with SBO; s/p repair #COPD: on home O2; O2/nebs per primary #GERD: on PPI #AFIB: on xarelto #GI ppx: on bowel regimen follow-up in clinic upon discharge. patient will need outpatient EGD/colonoscopy one she heals from recent surgery
== END 2018-12-25 16:30 | disposition home health service (06) | DRG 354 ==
LOC: ED 14:35 → SUATTDRO 19:11 → 3S 19:11 → 4N 12-23 19:03
PROVIDERS: ATTEND Internal Medicine
CPT/HCPCS: 36430; 71010; 71045; 71250; 74019; 74020; 74176; 80048; 80053; 80076; 81001; 82550; 82607; 82728; 82746; 82805; 82948; 83540; 83550; 83605; 83735; 83880; 84100; 84145; 84443; 84484; 85014; 85018; 85025; 85027; 85045; 85610; 85730; 86850; 86900; 86901; 86920; 87040; 93005; 93010; 94640; 94761; 94799; 96361; 96365; 96375; 97110; 97162; 97530; 99285; A9270; C9113; J0692; J0694; J0696; J1170; J1756; J1940; J2020; J2370; J3430; J3475; J7030; J7050; J7120; P9016; S0164; XXXXX